=== PATIENT | male | born 1975 | race Caucasian/White ===

== ENCOUNTER 2023-05-17 22:44 | Emergency (ER) | payer BC, SELFPAY ==
[2023-05-17 22:46] VITALS: BP 170/94
[2023-05-17 23:13] LABS: % Basophils 0.5 % (0-2); % Eosinophils 2.2 % (0-6); % Lymphocytes 16.9 % (20.5-51.1); % Monocytes 8.9 % (1.7-9.3); % Neutrophils 70.5 % (42.2-75.2); Absolute Basophils 0.1 10^3/uL (0-0.2); Absolute Eosinophils 0.2 10^3/uL (0-0.7); Absolute Immature Granulocytes 0.1 10^3/uL (0-0.05); Absolute Lymphocytes 1.9 10^3/uL (1.2-3.4); Absolute Neutrophils 7.8 10^3/uL (1.4-6.5); Hemoglobin 13.6 g/dL (13.0-18.0); Mean Corp Hgb Conc. 31.6 g/dL (33.0-37.0); Mean Corpuscular Hgb 27.1 pg (27.0-31.0); Mean Corpuscular Volume 85.8 fL (80.0-94.0); Mean Platelet Volume 9.2 fL (7.4-10.4); Nucleated Red Blood Cells % 0 % (-); Platelet Count 338 10^3/uL (130-400); Red Blood Cell Count 5.01 10^6/uL (4.70-6.10); Red Cell Dist. Width 14.4 % (11.5-14.5)
[2023-05-17 23:29] LABS: ALT (SGPT) 27 U/L (0-50); AST (SGOT) 22 U/L (17-59); Albumin 4.1 g/dl (3.5-5.0); Alkaline Phosphatase 73 U/L (38-126); Blood Urea Nitrogen 13 mg/dl (9-20); Carbon Dioxide 29 mmol/L (22-30); Chloride 102 mmol/L (98-107); Glucose 108 mg/dl (70-99); Potassium 4.2 mmol/L (3.5-5.1); Sodium 139 mmol/L (135-145); Total Bilirubin 0.8 mg/dl (0.2-1.3); Total Protein 7.1 g/dl (6.3-8.2); eGFR > 60.00
--- NOTE | 2023-05-18 01:29 | ED.SKININJ ---
HPI-Injury
General
Chief Complaint: Eye Problems
Source: patient
Exam Limitations: none
Time Seen by Provider: 05/18/23 01:01
Travel History
Have you had any contact with someone who has COVID-19?: No
Do you have any symptoms of coronavirus? Fever > 100 degrees, chills, cough, shortness of breath, sore throat, loss of taste or smell, muscle aches, or headache?: No
History of Present Illness-Injury
Initial Injury comments:
47-year-old male presents complaining of redness swelling and discharge from left eye intermittently over the past year but worse over the past 2 days. He suspects that he sleeps on his left side and his eye ends up in his drool. He intermittently
gets this. This is worse than it has been in the past. He notes blurry vision. No swelling of the white part of the eye. He denies any pain with motion to the eye. No headache. No other complaints at this time
Past History
Past History
ED Past Medical History: COPD and HTN
ED Past Surgical History: Other
Social History
Tobacco: Smoker
Alcohol: Occasional
Drug: None
Personal:
Living: with family
Employment: Employed
Family History
Family History: Negative Early CAD or CAD
Phy Exam
Physical Exam
Physical Exam:
General: Well-appearing male no acute respiratory distress
HEENT: Normocephalic atraumatic. Left eye with upper eyelid swelling diffuse conjunctival inflammation and chemosis. Pupil is regular. Mild discharge. No proptosis. No discomfort with pressure over the eye.
Heart: Regular rate and rhythm no murmurs lungs: Clear to auscultation bilaterally no wheeze
Extremities: Mild pitting edema bilateral lower extremities venous stasis noted to the lower extremities
Course
Orders/Labs/Results
Orders:
Orders
05/17/23 22:59
Complete Blood Count/With Diff Urgent
Comprehensive Metabolic Panel Urgent
05/18/23 01:18
Amoxicillin 875 mg/Clav 125 mg [Augmentin 875 mg/125 mg] 1 tablet PO NOW STA
Gentamicin [Genoptic 0.3% Eye Drops] See Dose Instructions OPHTH NOW STA
Abnormal Lab Results
05/17/23
22:59
WBC 11.0 H 10^3/uL
(4.8-10.8)
MCHC 31.6 L g/dL
(33.0-37.0)
Abs Immat Gran (auto) 0.1 H 10^3/uL
(0-0.05)
Absolute Neuts (auto) 7.8 H 10^3/uL
(1.4-6.5)
Absolute Monos (auto) 1.0 H 10^3/uL
(0.1-0.6)
Immature Gran % 1.0 H %
(0-0.5)
Lymphocytes % 16.9 L %
(20.5-51.1)
Glucose 108 H mg/dl
(70-99)
05/17/23 22:59
05/17/23 22:59
Vital Signs
Initial and Last Documented VS:
Initial Vital Signs
Temp Pulse Resp BP Pulse Ox
98.3 F 110 18 170/94 109
05/17/23 22:46 05/17/23 22:46 05/17/23 22:46 05/17/23 22:46 05/17/23 22:46
Last Documented Vital Signs
Temp Pulse Resp BP Pulse Ox
98.3 F 110 18 170/94 109
05/17/23 22:46 05/17/23 22:46 05/17/23 22:46 05/17/23 22:46 05/17/23 22:46
MDM/Problems Addressed
Differential Diagnosis Includes:
Left eye irritation and swelling. Suspect underlying conjunctivitis with associated chemosis. Upper lid is swollen. No pain with motion to the eye no proptosis. Will start on antibiotic drops however given the swelling of the lid concern for
possible cellulitis. Will start also start on Augmentin. Will recommend he follow-up ophthalmology and his family doctor.
*Critical Care Note
Total Time (30-74mins, 75-104mins- exclusive of procedures): Not Applicable
ED Attending Note
-
Portions of this chart may have been created with voice recognition software.� Occasional wrong word or��sound alike� substitutions may have occurred due to the inherent limitations of voice recognition software.
Discharge Plan
Departure
Patient Disposition: Home (Routine Discharge)
Date of Disposition: 05/18/23
Time of Disposition: 01:33
Patient with high blood pressure during this ER visit?: No
Discharge Problem:
Conjunctivitis
Prescriptions:
New
amoxicillin-pot clavulanate 875-125 mg tablet
1 tab PO BID Qty: 14 0RF
No Action
furosemide [Lasix] 20 MG tablet
20 mg PO DAILY 3 Days Qty: 3 0RF
albuterol sulfate 90 mcg/actuation HFA aerosol inhaler
2 puff inhalation Q6H PRN (Reason: shortness of breath or wheezing) Qty: 6.7 0RF
prednisone 20 mg tablet
40 mg PO DAILY Qty: 8 0RF
Referrals:
Lance Casillas MD [Active] -
Activity Restrictions/Additional Instructions:
Apply warm compresses to the eye. Use drops every 4 hours while awake. Use Augmentin as directed. Return for worsening symptoms otherwise follow-up with ophthalmology and family doctor
Interventions
Interventions:
*Risk Screen - Suicide Last Done: 05/17/23 22:46
*General Assessment Last Done: 05/17/23 22:46
*Neglect/Abuse Screening Last Done: 05/17/23 22:46
*ED COVID-19 Vaccine History Last Done: 05/18/23 00:53
[2023-05-18 01:35] VITALS: BP 151/84
[2023-05-18] MEDS: AUGMENTIN 875 MG/125 MG 1 TABLET PO (01:36)
[2023-05-18] MEDS: GENOPTIC 0.3% EYE DROPS 1 DROP OPHTH (01:37)
== END 2023-05-18 01:43 | disposition home or self-care (01) ==
LOC: EMR 22:44
PROVIDERS: Emergency Medicine; EMERGENCY PHYSICIAN Emergency Medicine; FAMILY PHYSICIAN Student in an Organized Health Care Education/Training Program
DX: H10.9 Unspecified conjunctivitis (principal); F17.200 Nicotine dependence, unspecified, uncomplicated
CPT/HCPCS: 99283; 80053; 85025

== ENCOUNTER 2023-06-12 04:14 | Inpatient (IN) | payer BC, SELFPAY ==
[2023-06-11 18:38] VITALS: BP 165/99; BMI 51.9
[2023-06-11 18:53] LABS: % Basophils 0.4 % (0-2); % Eosinophils 2.4 % (0-6); % Immature Granulocytes 1.9 % (0-0.5); % Lymphocytes 10.7 % (20.5-51.1); % Monocytes 9.6 % (1.7-9.3); Absolute Basophils 0.1 10^3/uL (0-0.2); Absolute Eosinophils 0.4 10^3/uL (0-0.7); Absolute Immature Granulocytes 0.3 10^3/uL (0-0.05); Absolute Lymphocytes 1.6 10^3/uL (1.2-3.4); Absolute Monocytes 1.4 10^3/uL (0.1-0.6); Absolute Neutrophils 10.9 10^3/uL (1.4-6.5); Hematocrit 38.1 % (39.0-52.0); Hemoglobin 11.9 g/dL (13.0-18.0); Mean Corp Hgb Conc. 31.2 g/dL (33.0-37.0); Mean Corpuscular Hgb 26.9 pg (27.0-31.0); Mean Platelet Volume 9.4 fL (7.4-10.4); Nucleated Red Blood Cells % 0 % (-); Platelet Count 332 10^3/uL (130-400); Red Blood Cell Count 4.43 10^6/uL (4.70-6.10); Red Cell Dist. Width 14.7 % (11.5-14.5); White Blood Cell Count 14.5 10^3/uL (4.8-10.8)
[2023-06-11 19:14] LABS: ALT (SGPT) 25 U/L (0-50); AST (SGOT) 25 U/L (17-59); Albumin 3.8 g/dl (3.5-5.0); Alkaline Phosphatase 69 U/L (38-126); Blood Urea Nitrogen 15 mg/dl (9-20); Calcium 8.8 mg/dl (8.4-10.2); Carbon Dioxide 29 mmol/L (22-30); Chloride 101 mmol/L (98-107); Estimated Creatinine Clearance > 125 ml/min; Glucose 120 mg/dl (70-99); Sodium 133 mmol/L (135-145); Total Bilirubin 0.6 mg/dl (0.2-1.3); Total Protein 6.9 g/dl (6.3-8.2); eGFR > 60.00
[2023-06-11 21:43] VITALS: BP 147/74
[2023-06-11 22:00] VITALS: BP 131/82
--- NOTE | 2023-06-11 22:53 | ED.GENMED ---
History of Present Illness
General
Chief Complaint: Skin Problem
Source: patient, spouse, previous radiology exam (CT of the chest August 2022 showing rounded atelectasis left lower lobe, scarring left mid lung field, asymmetric left hemithorax volume loss with elevation of left hemidiaphragm.) and previous
hospital records (ED visit May 17 with complaints of left eye conjunctivitis, chronic lower extremity edema. Placed on 1 week course of oral antibiotic and antibiotic eyedrop.)
Exam Limitations: none
Time Seen by Provider: 06/11/23 22:12
Nursing documentation reviewed up to this point in time: agreed with
Travel History
Have you had any contact with someone who has COVID-19?: No
Do you have any symptoms of coronavirus? Fever > 100 degrees, chills, cough, shortness of breath, sore throat, loss of taste or smell, muscle aches, or headache?: No
History of Present Illness
History of Present Illness:
This is a 47-year-old gentleman who complains of bilateral lower extremity edema that initially began several months after suffering COVID-19 URI June 2020.
He had been following with a school leader at [facility], Dr. Camargo as well as sparker and patcher at [facility] and reportedly underwent unremarkable cardiac workup and pulmonary evaluation concerning for possible COPD. He has been
maintained on furosemide 40 mg daily and had been prescribed inhalers but without improvement in symptoms he discontinued inhalers but has been compliant with once daily furosemide.
He admits to neglecting follow-up with school leader nor sparker and patcher for more than a year.
More recently however at least over the past several months lower extremity edema has gotten progressively worse with bilateral lower extremity erythema that has worsened over the past month or 2 along with progressive dyspnea on exertion. He
states he can only walk a few feet without having to stop and catch his breath.
He admits to chronic difficulty sleeping which has worsened over the past few months.
He admits that he has, thus far refused testing for obstructive sleep apnea fearing that he would not be able to tolerate CPAP equipment.
He denies fever nor chills, denies chest pain, no cough.
He has had chronic intermittent crusting, redness and exudate from left eye and believes this is worsened due to chronically lying on his left side to sleep.
He denies headache nor eye pain, denies vision difficulty.
He was evaluated in this ED May 17 with similar complaints of left eye conjunctivitis and bilateral lower extremity edema. He was started on gentamicin eyedrops as well as 1 week course of Augmentin and according to chart, Augmentin was
prescribed for possible upper lid cellulitis.
Despite eyedrops as well as 1 week course of antibiotic, no improvement in symptoms.
He has been following with the PCP and 1 month ago was started on Lexapro for depressive symptoms
Past History
Past History
ED Past Medical History: COPD, HTN, Psychiatric (Depression) and Other (Morbid obesity; COVID-19 URI June 2020)
ED Past Surgical History: Other
Social History
Tobacco: Vaping (Former cigarette smoker, now vapes nicotine and has been cutting down)
Alcohol: Occasional
Drug: None
Personal:
Living: with family
Employment: Employed
Family History
Family History: Negative Early CAD or CAD
Phy Exam
Physical Exam
Physical Exam:
GENERAL: 47-year-old morbidly obese gentleman appears somewhat older than stated age. Awake and alert, appears mildly uncomfortable. is accompanying.
EYE: pupils equal and reactive. anicteric there is mild to moderate left eye upper lid inflammation/crusting at base of lashes. There is very minimal conjunctival injection but no chemosis. There is no orbital nor periorbital erythema nor edema.
No palpable tenderness.
NECK: Supple, nontender, no meningismus, no significant adenopathy. Positive JVD.
ENT: posterior pharynx is clear, oral mucosa is moist. No rhinorrhea.
CARDIAC: Regular rhythm, mildly tachycardic. no murmur.
LUNGS: Very mild resting tachypnea. Moderately decreased breath sounds at bases left greater than right.
ABDOMEN: Obese, soft, nondistended, without focal tenderness, no r/g, no cvat. normoactive BS.
NEUROLOGICAL: Alert and oriented x3, no focal neuro deficits.
SKIN: Warm and dry. There is dramatic global erythema bilateral lower extremities.
MUSCULOSKELETAL: Significant tense edema globally to bilateral lower extremities with global erythema bilateral lower extremities with minimal intact bullae formation right anterior montgomery and bilateral anteromedial thighs. Bilateral lower legs are
mildly warm to touch. Mild global tenderness to palpation bilateral lower extremities. There is fine desquamation of the peripheral aspect of right foot. Peripheral pulses are full and equal b/l.
PSYCH: Mildly blunted affect, depressed mood. Admits to significant frustration with ongoing, worsening medical issues.
Scores
Heart Failure Risk
Heart Failure Risk Score: Yes
History of Stroke or TIA: No
History of intubation for respiratory distress: No
Heart rate on ED arrival >/= 110: Yes
SaO2 <90% on arrival on room air: Yes
HR >/=110 during 3min walk test (or too ill to perform test): Yes
ECG has acute ischemic changes: No
Urea >/=12mmol/L (BUN 33.6mg/dL): No
Serum CO2>/=35mmol/L: No
Troponin I or T elevated to KS Level (0.4mg/dL): No
NT-proBNP >/=5,000ng/L (5,000pg/ml): No
HF Risk Score: 3
Admission Status: HIGH RISK 15.9% Consider SNF treatment or admission to hospital
Course
Orders/Labs/Results
Orders:
Orders
06/11/23 18:43
Electrocardiogram (*1) Urgent
Reason for Study: Other
Other Reason for Exam: Possible Sepsis
EKG- Treatment ONCE
06/11/23 18:48
Complete Blood Count/With Diff Urgent
Comprehensive Metabolic Panel Urgent
06/11/23 22:17
Add On- LAB Urgent
Tests Added?: BNP
06/11/23 22:51
CR Chest - 2 Views Urgent
Comment:
Reason For Exam: progressive SOB, MOORE, b/l LE edema
US Periph Venous LOWER Ext [place] Urgent
Comment:
Reason For Exam: acute on chronic b/l LE edema
06/11/23 23:02
Lactic Acid Urgent
NT-proBNP Urgent
Comment: ADD ON
Troponin I Urgent
Blood Culture Q30M
GIGI Source: Blood/Venous
Specimen Description:
06/11/23 23:37
Blood Culture Q30M
GIGI Source: Blood/Venous
Specimen Description:
06/12/23 00:14
Furosemide [Lasix] 40 mg IV NOW STA
Piperacillin/Tazo 4.5 Gram [Zosyn] 4.5 gram in 100 ml IV NOW
Abnormal Lab Results
06/11/23
18:48
WBC 14.5 H 10^3/uL
(4.8-10.8)
RBC 4.43 L 10^6/uL
(4.70-6.10)
Hgb 11.9 L g/dL
(13.0-18.0)
Hct 38.1 L %
(39.0-52.0)
MCH 26.9 L pg
(27.0-31.0)
MCHC 31.2 L g/dL
(33.0-37.0)
RDW 14.7 H %
(11.5-14.5)
Abs Immat Gran (auto) 0.3 H 10^3/uL
(0-0.05)
Absolute Neuts (auto) 10.9 H 10^3/uL
(1.4-6.5)
Absolute Monos (auto) 1.4 H 10^3/uL
(0.1-0.6)
Immature Gran % 1.9 H %
(0-0.5)
Lymphocytes % 10.7 L %
(20.5-51.1)
Monocytes % 9.6 H %
(1.7-9.3)
Sodium 133 L mmol/L
(135-145)
Glucose 120 H mg/dl
(70-99)
06/11/23 18:48
06/11/23 18:48
Vital Signs
Initial and Last Documented VS:
Initial Vital Signs
Temp Pulse Resp BP Pulse Ox
97.9 F 111 20 165/99 96
06/11/23 18:38 06/11/23 18:38 06/11/23 18:38 06/11/23 18:38 06/11/23 18:38
Last Documented Vital Signs
Temp Pulse Resp BP Pulse Ox
97.9 F 107 27 133/92 89
06/11/23 18:38 06/11/23 23:00 06/11/23 21:45 06/11/23 23:00 06/11/23 23:00
MDM/Problems Addressed
Differential Diagnosis Includes:
Concern for acute�progressive CHF, pulmonary hypertension, cellulitis bilateral lower extremity, chronic venous insufficiency, acute/chronic DVT bilateral lower extremities.
Although lower extremity edema has been chronic over the past, at least 2 years, has gotten progressively worse over the past month or 2. Due to chronicity, PE is less likely.
PE study August 2021 was negative for PE.
There is however concern for underlying obstructive sleep apnea.
Labs show elevated white blood cell count of 14.5, has trended up from 1 month ago at 11. Very mild anemia with hemoglobin of 11.9, was 13, 1 month ago. This may be a bit of delusional in nature. Nothing in history to suggest GI bleed.
Chemistries are unremarkable.
Will add BNP and troponin.
Will check venous Doppler bilateral lower extremities as well as chest x-ray.
EKG shows mild sinus tachycardia, flipped T waves laterally which are similar and unchanged from previous.
Chronic conditions affecting care: HTN
*Radiology
Radiology exam reviewed: preliminary read by ED provider (Chest x-ray shows chronic haziness left lower lobe with elevation of left hemidiaphragm-unchanged from previous film August 2022.) and other (Venous Doppler bilateral lower extremities negative
for DVT.)
*Pulse Oximetry
Patient hypoxic: yes
*EKG
Interpreted by ED Provider?: Yes
Interpretation: abnormal
Comparison EKG: no changes (Unchanged from previous August 2022 save for heart rate has increased from 96 to now 110)
Rate: tachycardiac
Rhythm: sinus
[place]: normal axis
Interval: normal interval
QRS Pattern: poor R-wave progression
Ischemia: non-specific ST changes
*Gas Meter Installer Interpretation
Rate: tachycardiac
Interpretation: abnormal
Rhythm: sinus
*Critical Care Note
Total Time (30-74mins, 75-104mins- exclusive of procedures): Not Applicable
Update Note
Update Note:
Venous Dopplers bilateral lower extremities negative for DVT.
Chest x-ray shows chronic haziness left lower lobe as well as chronic elevation of the left hemidiaphragm all unchanged from previous film August 2022.
Troponin is negative and BNP is unremarkable at 224.
Due to significant bilateral lower extremity erythema, elevated white blood cell count I do suspect cellulitis and will initiate IV antibiotics.
Significant tense edema bilateral lower extremities may be pulmonary hypertension in nature, chronic venous insufficiency. Will initiate IV Lasix to hopefully assist with edema.
Due to progressive nature, now with severe symptoms especially over the past 4 to 6 weeks with concern for significant cellulitis patient is at risk for further decompensation, at risk for sepsis thus will require acute hospitalization.
ED Attending Note
-
Portions of this chart may have been created with voice recognition software.� Occasional wrong word or��sound alike� substitutions may have occurred due to the inherent limitations of voice recognition software.
Discharge Plan
Departure
Patient Disposition: Admit
Date of Disposition: 06/12/23
Time of Disposition: 00:18
Admit to: Med/Surg
Admit to doctor: Yang
Presentation/result/management discussed w/ accepting MD/DO: Hospitalist
Condition: Fair
Discharge Problem:
Cellulitis of both lower extremities, progressive, severe b/l LE edema, Blepharitis of both upper and lower eyelid of left eye, Morbid obesity with BMI of 50.0-59.9, adult
Prescriptions:
No Action
fluticasone propionate 0.05 % Cream
1 applic TOPICAL DAILY PRN (Reason: apply to B/L legs)
gentamicin 0.3 % Drops
4 drp LEFT EYE DAILY
gentamicin 0.3 % Drops
4 drp LEFT EYE DAILYPRN PRN (Reason: eye irritation)
Patient Comments:
06/11/2023, after naps.
escitalopram oxalate 5 mg Tablet
5 mg PO DAILY@1500
Trelegy Ellipta 100-62.5-25 mcg Blister With Device
1 inh INHALATION R DAILY
ZzzQuil
2 gummy PO HS
furosemide [Lasix] 20 MG tablet
40 mg PO DAILY
Referrals:
Francis Leal MD [Family Provider] -
Interventions
Interventions:
*Risk Screen - Suicide Last Done: 06/11/23 18:38
*General Assessment Last Done: 06/11/23 21:38
*Neglect/Abuse Screening Last Done: 06/11/23 18:38
ED- Fall Risk Assessment Last Done: 06/11/23 21:44
*ED COVID-19 Vaccine History Last Done: 06/11/23 18:38
ED-Skin Assessment Last Done: 06/11/23 21:44
Discharge Date and Time
Print Language: IRISH
[2023-06-11 23:00] VITALS: BP 133/92
[2023-06-11 23:27] LABS: Lactic Acid 0.8 mmol/L (0.7-2.0)
[2023-06-11 23:39] LABS: NT-proBNP 224 pg/ml; Troponin I < 0.012 ng/ml
[2023-06-12] VITALS (11 sets, daily range): BP systolic 122–180; BP diastolic 73–100; PULSE 2–112; BMI 53.0
[2023-06-12] MEDS: ZOSYN 100 IV (00:20)
[2023-06-12] MEDS: LASIX 40 MG IV ×3 (00:45→15:53)
--- NOTE | 2023-06-12 03:02 | HPS.HSE ---
Family Physician
-
Family Physician: Francis Leal
Chief Complaint
-
LE edema, SOB
History of Present Illness
Patient is a 47y M with PMH significant for morbid obesity who presents to ED complaining of lower extremity swelling, fatigue and SOB. Patient states that his symptoms started initially in 2020 after kamila COVID-19 infection. He did have
some improvement since that time, but notes that his symptoms began to increase again a few months ago.
Patient complains of swelling in the LEs that has increased to the level of his hips. He complains of significant dyspnea with any degree of activity. He notes some chest heaviness with activity as well.
He denies any cough or wheezing, fevers or chills.
He denies and GI or symptoms.
Patient states that he has been seen by Cardiology (at [facility]) as well as Pulmonary and - per his report - work up was unrevealing.
Sleep study has been suggested to him but he is not interested in this.
He also notes chronic / recurrent L eye redness and purulent discharge. Was seen here for this on 05/16 and started on gentamicin topical with some improvement.
Patient complains of insomnia, but no specifically orthopnea. Denies dyspnea when sleeping, PND, etc - but states that he just cannot sleep.
Medical History
Past Medical History
Past Medical History: Reports Other
Additional Past Medical History:
Morbid Obesity
Anxiety / Depression
Lymphedema
Past Surgical History: Reports Other
Additional Past Surgical History:
Testicle Lowering in Childhood
Social History
Tobacco: Former Smoker (Quit smoking cigarettes one year ago. > 20 pack years total prior. Continues to use occasional vape.)
Alcohol: Occasional
Drug: None
Family History
Family History: Not pertinent
Allergies / Home Medications
Allergies reflects when Allergies were last updated in [facility].
Home Medications with original date entered in [facility]
Allergy/Medication List:
Allergies
Allergy/AdvReac Type Severity Reaction Status Date / Time
No Known Allergies Allergy Verified 06/11/23 18:42
Home Medications
ZzzQuil 2 gummy PO HS 06/11/23
escitalopram oxalate 5 mg tablet 5 mg PO DAILY@1500 06/11/23
fluticasone fur. 100 mcg-umeclid 62.5 mcg-vilant 25 mcg inhalat.powder (Trelegy Ellipta) 1 inh inhalation R DAILY 06/11/23
fluticasone propionate 0.05 % topical cream 1 applic topical DAILY PRN apply to B/L legs 06/11/23
furosemide 20 mg tablet (Lasix) 40 mg PO DAILY 06/11/23
gentamicin 0.3 % eye drops 4 drp LEFT EYE DAILY 06/11/23
gentamicin 0.3 % eye drops 4 drp LEFT EYE DAILYPRN PRN eye irritation 06/11/23
Review of Systems
-
History Source: Patient
A 12 point ROS was completed and negative except as noted: Yes
Constitutional: Reports Fatigue; Denies Fever or Chills
EENT: Denies Sore Throat
Respiratory: Reports Trouble Breathing; Denies Cough or Hemoptysis
Cardiac: Reports Chest Pain; Denies Diaphoresis, Palpitations or Syncope
Abdomen/GI: Denies Abdominal Pain, Nausea, Vomiting or Diarrhea
: Denies Dysuria, Frequency or Flank Pain
Musculoskeletal: Reports Edema; Denies Joint Pain or Joint Swelling
Neurological: Denies Dizzy or Headache
Psych: Reports Anxiety and Other (Insomnia)
Physical Exam
Vital Signs
Vital Signs
Temp Pulse Resp BP Pulse Ox
99.1 F 101 24 122/84 94
06/12/23 02:26 06/12/23 02:26 06/12/23 02:26 06/12/23 02:26 06/12/23 02:26
Physical Exam
General: Other (Morbidly obese 47y M in no acute distress. Evident dyspnea with minimal activity.)
HEENT: Other (Thick neck. No appreciable JVD.)
Respiratory: Other (Decreased at bases - otherwise clear. No W/R/R.)
Cardiac: S1/S2 and Tachycardia; No Murmur
GI: Non Tender, Normal Bowel Sounds and Other (Obese, not tender. No rebound / guarding.)
Musculoskeletal: No Clubbing, No Cyanosis and Other (4+ pitting edema to the hips / lower abdomen bilaterally. Mild erythema - but not indurated and no increased warmth or tenderness. No blisters / bullae.)
Neuro: AO x 3
Laboratory Results
-
06/11/23 18:48
06/11/23 18:48
Laboratory Results
Lactic Acid 0.8 mmol/L (0.7-2.0) 06/11/23 23:02
Total Bilirubin 0.6 mg/dl (0.2-1.3) 06/11/23 18:48
AST 25 U/L (17-59) 06/11/23 18:48
ALT 25 U/L (0-50) 06/11/23 18:48
Alkaline Phosphatase 69 U/L (38-126) 06/11/23 18:48
Troponin I < 0.012 ng/ml 06/11/23 23:02
Impression/Plan
-
A/P: Patient is a 47y M with PMH significant for morbid obesity who presents to ED complaining of dyspnea and LE swelling progressive x several months.
Acute on Chronic Lymphedema
Acute Hypoxemic Respiratory Insufficiency
- Admit for further evaluation and treatment.
- IV Lasix given in the ED and will continue BID dosing.
- Check Echo.
- Cardio evaluation.
- ? OHV / KAEL and resultant pulm hypertension / right heart failure?
- Follow for effective diuresis.
- Supportive care, supplemental O2 as needed, etc.
- Check nocturnal SpO2 during stay and would continue to encourage outpatient PSG / PAP therapy.
- I do not appreciate any significant warmth / etc of the extremities and would observe off of systemic abx for now.
COPD
- Patient with smoking history and ongoing vape use.
- Budesonide BID. Nebs PRN.
- Consider Pulm re-evaluation if symptoms worsen or persist.
- No active wheezing at present to suggest acute exacerbation.
L Eye Conjunctivitis
- Continue gentamicin.
Anxiety / Depression
Insomnia
- Continue Lexapro
Morbid Obesity
- Affects all aspects of care and specifically his current dyspnea and lymphedema issues.
- Effective weight loss would be most beneficial to his current issues.
- Encourage healthy diet / increased activity with goal of weight reduction.
- Would consider medical and / or surgical options as well given comorbidities.
DVT Prophylaxis: Lovenox
Code Status: Full
[2023-06-12] MEDS: ATIVAN 1 MG PO (04:21)
[2023-06-12] MEDS: LOVENOX 40 MG SC (04:29)
[2023-06-12 06:23] LABS: Hematocrit 39.9 % (39.0-52.0); Hemoglobin 12.4 g/dL (13.0-18.0); Mean Corp Hgb Conc. 31.1 g/dL (33.0-37.0); Mean Corpuscular Hgb 26.7 pg (27.0-31.0); Mean Platelet Volume 9.3 fL (7.4-10.4); Platelet Count 358 10^3/uL (130-400); Red Blood Cell Count 4.64 10^6/uL (4.70-6.10); White Blood Cell Count 15.1 10^3/uL (4.8-10.8)
[2023-06-12 06:41] LABS: Troponin I < 0.012 ng/ml
[2023-06-12 06:49] LABS: ALT (SGPT) 25 U/L (0-50); AST (SGOT) 20 U/L (17-59); Albumin 3.9 g/dl (3.5-5.0); Alkaline Phosphatase 73 U/L (38-126); Blood Urea Nitrogen 14 mg/dl (9-20); Calcium 8.8 mg/dl (8.4-10.2); Carbon Dioxide 32 mmol/L (22-30); Chloride 99 mmol/L (98-107); Direct Bilirubin 0.2 mg/dl (0.0-0.4); Estimated Creatinine Clearance > 125 ml/min; Glucose 113 mg/dl (70-99); Potassium 4.2 mmol/L (3.5-5.1); Sodium 135 mmol/L (135-145); Total Bilirubin 0.8 mg/dl (0.2-1.3); Total Protein 6.9 g/dl (6.3-8.2); eGFR > 60.00
[2023-06-12] MEDS: DUONEB 3 ML INH (07:19)
[2023-06-12] MEDS: PULMICORT 0.5 MG INH ×2 (07:19→19:54)
--- NOTE | 2023-06-12 07:39 | EDRN ---
Pt cooperative at this time,agreeable to wear automatic log cut off sawyer and this RN to take Vital signs.
[2023-06-12 08:04] LABS: TSH Reflex To Free T4 5.07 uIU/ml (0.47-4.68)
[2023-06-12 08:33] LABS: Free T4 1.16 ng/dl (0.78-2.19)
[2023-06-12] MEDS: LOVENOX 60 MG SC ×2 (08:38→21:36)
[2023-06-12] MEDS: GENOPTIC 0.3% EYE DROPS 4 DROP LEFT EYE (08:39)
[2023-06-12 08:49] LABS: Glycohemoglobin (HgbA1c) 6.4 % (4.0-5.6)
--- NOTE | 2023-06-12 08:55 | CON.CAR ---
Addendum entered and electronically signed by Romeo Olmedo MD 06/12/23 12:43:
I saw and examined the patient.
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
Comment: 47M with morbid obesity (BMI >50) admitted with dyspnea and worsening LE edema
- update echo
- diurese
- He and his partner are dissatisfied with his care as an outpatient. It seems that the focus on his weight is distressing to them because his size and orthopedic issues limit exercise. Perhaps he would be candidate for GLP or bariatric surgery
- He is intolerant to CPAP for his KAEL or BB for ST
Original Note:
Consultation
Consultation Request
Date/Time Consultation Requested: 06/12/23416
Date/Time Consultation Performed: 06/12/23916
Requesting Provider: Dr. Soria
Performing Provider: Claudette SALVADOR for Dr. Olmedo
Reason for Consultation: edema, hypoxemia
Medical History
-
Chief Complaint: SOB, edema
History of Present Illness:
47 y/o male with hypertension, inappropriate sinus tachycardia (64% burden per Dr. 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
several weeks of MOORE and worsening edema, which traveled up to his abdomen. He thinks he has gained weight, but not sure how much. He denies orthopnea or PND, but thinks he is struggling with insomnia. BNP 224, CXR with evidence for scarring. Pulse
ox documented at 89% in ER, but now 94% on RA.
Past Medical History
Past Medical History: Arrhythmias (as above), HTN and Other (oesity, lymphedema, depression, restictive lung disease)
Social History
Tobacco: Former Smoker (quit about a year ago, still vapes occasionally)
Alcohol: Occasional
Family History
Family History: Reviewed & Not Pertinent (no known early CAD)
Allergies / Home Medications
Allergy/AdvReac Type Severity Reaction Status Date / Time
No Known Allergies Allergy Verified 06/11/23 18:42
�Medication �Instructions �Recorded �Confirmed �Type
ZzzQuil 2 gummy PO HS 06/11/23 06/11/23 History
escitalopram oxalate 5 mg tablet 5 mg PO DAILY@1500 06/11/23 06/11/23 History
fluticasone fur. 100 mcg-umeclid 1 inh inhalation R DAILY 06/11/23 06/11/23 History
62.5 mcg-vilant 25 mcg
inhalat.powder (Trelegy Ellipta)
fluticasone propionate 0.05 % 1 applic topical DAILY PRN apply 06/11/23 06/11/23 History
topical cream to B/L legs
furosemide 20 mg tablet (Lasix) 40 mg PO DAILY 06/11/23 06/11/23 History
gentamicin 0.3 % eye drops 4 drp LEFT EYE DAILY 06/11/23 06/11/23 History
gentamicin 0.3 % eye drops 4 drp LEFT EYE DAILYPRN PRN eye 06/11/23 06/11/23 History
irritation
Review of Systems
-
History Source: Patient
All other systems: Negative unless noted
Constitutional: Weight Gain
Respiratory: Trouble Breathing
Musculoskeletal: Edema
Physical Exam
Vital Signs
Temp Pulse Resp BP Pulse Ox
99.1 F 102 24 153/73 94
06/12/23 02:26 06/12/23 08:39 06/12/23 02:26 06/12/23 08:39 06/12/23 02:26
Lab Results
06/12/23 06:05
06/12/23 06:05
Troponin I < 0.012 ng/ml 06/12/23 06:05
Cck-M-Djnscpjaxpg Pept 224 pg/ml 06/11/23 23:02
Physical Exam
General: Well Developed and No Apparent Distress
HEENT: Normocephalic
Respiratory: Clear and Non Labored Respirations
Cardiac: Regular Rhythm and Peripheral Edema
GI: Distended
Musculoskeletal: Edema (moderate BLE edema)
Skin: Warm and Dry
Neuro: AO x 3
Psych: Calm
Impression / Plan
-
SOB:
-likely multifactorial in this patient with obesity and restrictive lung disease
-hypoxemia documented in ER, but now with sats okay on RA
-check echo
-OP notes reviewed from pul and likely has sleep apnea, but no official work-up done yet due to patient declining per notes
Edema:
-LE u/s no DVT
-patient with BLE edema, which has traveled up to his abdomen
-monitor response to IV lasix (requires intensive monitoring) and check echo. He is on daily lasix as OP.
-does have some component of chronic lymphedema as well per chart
Obesity, severe:
-would benefit from weight loss
Left eye conjunctivitis:
-on meds
Hx inappropriate sinus tachycardia:
-per OP notes, was on BB, but patient tells me he didn't think it helped and didn't like side effects
-follow tele
HTN:
-per OP notes, was on BB, but patient tells me he didn't think it helped and didn't like side effects
-follow BP with diuresis and treat as indicated
Data Reviewed
-
EKG: Tracing Personally Visualized and interpreted (ST 110 BPM, t wave abnormality- similar to previous)
Radiology: Report Reviewed by me (CXR: 1. No acute pulmonary abnormalities appreciated. 2. Blunting of the left costophrenic angle, which likely corresponds to pleural parenchymal scarring and volume loss within the left hemithorax, also seen on
prior CT dated 03/25/2022)
Ultrasound: Report Reviewed by me (LE US: No gross evidence of deep venous thrombosis bilaterally. Limited exam due to patient size and body habitus.)
Medical Tests (Nuc Med, Echo etc): Report Reviewed by me ([facility] TTE (10/05/21): normal LV and RV systolic function; LVEFR 60-65%; normal cardiac chambers sizes; no significant valvular heart disease.) and Other (�������- [facility] pharmacologic nuclear
cardiac stress test (09/11/21): normal perfusion imaging; no evidence of pharmacologic-induced myocardial ischemia or myocardial scar; LVEF 69%; normal LV wall motion and systolic function.)
Labs: Labs Reviewed by me
--- NOTE | 2023-06-12 10:11 | W.PN.HOSP.TC ---
Today's Communication/Plan
-
See plan
Assessment / Plan
Assessment / Plan
Impression:
Acute on chronic lymphedema with bilateral stasis cellulitis
Acute hypoxemic respiratory insufficiency.
Morbid obesity.
Restrictive lung disease
Snoring with high suspicion for obstructive sleep apnea/obesity hypoventilation disorder.
Chronic ambulatory metabolic alkalosis
Hypertension.
Eye conjunctivitis.
Anxiety/depression
Insomnia.
Tobacco use disorder former cigarette smoker, vaping nicotine.
Plan
Acute hypoxemic respiratory insufficiency.
Acute on chronic lymphedema with stasis dermatitis.
No evidence for respiratory distress.
Patient currently at rest with satisfactory oxygen saturations with no requirements for supplemental oxygen.
Chest x-ray with no acute abnormalities
In review of CT scan from 2022 showed multiple atelectasis.
Lower extremity Doppler with no DVT.
D-dimer within normal limits.
Patient with morbid obesity BMI 51, insomnia, short neck, findings most likely consistent with obesity hypoventilation disorder, obstructive sleep apnea.
In review of outpatient records, patient declined sleep studies with concern of inability to wear mask at night.
Given all of above, there is a significant risk for pulmonary hypertension cor pulmonale.
Check echocardiogram.
Check nocturnal O2
Cardiology consultation.
Check hemoglobin A1c and lipid panel.
Attempt of IV diuresis Lasix 40 mg IV twice daily monitoring metabolic alkalosis closely.
Chronic lower extremity lymphedema will have limited response to IV Lasix in current situation.
Extensive conversation in regards to lifestyle modification, weight loss, attempt of sleep evaluation, quitting tobacco. Patient frustrated and not receptive to suggestions.
COPD/restrictive lung disease according to outpatient PFTs.
No evidence of bronchospasm on exam
Patient with ongoing tobacco smoking history and ongoing vaping use
Continue budesonide twice daily. Continue nebs as needed.
Consider pulmonology evaluation.
L Eye Conjunctivitis
- Continue gentamicin.
Anxiety / Depression
Insomnia
- Continue Lexapro
Morbid Obesity
- Affects all aspects of care and specifically his current dyspnea and lymphedema issues.
- Effective weight loss would be most beneficial to his current issues.
- Encourage healthy diet / increased activity with goal of weight reduction.
- Would consider medical and / or surgical options as well given comorbidities.
DVT Prophylaxis: Lovenox
Code Status: Full
Anticipated Discharge: 24 - 48 hours
Subjective/Interval History
-
Date of Service: June 12, 2023
Objective Data
-
Labs:
Laboratory Results
06/12/23
06:05
WBC 15.1 H
Hgb 12.4 L
Hct 39.9
Plt Count 358
Sodium 135
Potassium 4.2
Chloride 99
Carbon Dioxide 32 H
BUN 14
Creatinine 0.9
Glucose 113 H
Calcium 8.8
Total Bilirubin 0.8
AST 20
ALT 25
Alkaline Phosphatase 73
Vital Signs:
Vital Signs
Temp Pulse Resp BP Pulse Ox
99.1 F 102 24 153/73 94
06/12/23 02:26 06/12/23 08:39 06/12/23 02:26 06/12/23 08:39 06/12/23 02:26
I&O
06/11/23 06/12/23 06/13/23
06:59 06:59 06:59
Output Total 800 / 800
Balance -800 / -800
Physical Exam
-
General: Well Developed, No Apparent Distress and Morbidly Obese
HEENT: Normocephalic, Atraumatic and Moist Mucous Membranes
Respiratory: Clear to Auscultation and Decreased Breath Sounds
Cardiac: Regular Rhythm and S1/S2; Negative Murmur, Rub or Gallop
GI: Soft, Nontender, Nondistended and Normal Bowel Sounds; Negative Organomegaly
Rectal: Deferred by Provider
Musculoskeletal: No Clubbing, No Cyanosis and No Edema
Skin: Negative Rash
Neuro: Awake, Alert, Oriented, AO x 3 and Nonfocal/Grossly Intact
--- NOTE | 2023-06-12 10:18 | CARDSERVLU ---
Echocardiogram with Lumason completed after protocol screening completed. Allergies verified.
Patent IV site: _Right antecubital ____
IV site flushed with 0.9% NaCl pre and post administration.
Diluted bolus method utilized to enhance visualization of ventricular mandujano.
Total volume given: ___3_ mL
Patient tolerated all procedures well without complications.
Note- procedure and Lumason given by Yin Santos microbiology lab technician
--- NOTE | 2023-06-12 10:28 | W.PN.HOSP.TC ---
Today's Communication/Plan
-
.
Assessment / Plan
Assessment / Plan
Impression:
Dyspnea
Chronic lymphedema with bilateral stasis cellulitis
Morbid obesity
Restrictive lung disease
Obstructive sleep apnea/obesity hypoventilation disorder.
Chronic ambulatory metabolic alkalosis
Hypertension.
Eye conjunctivitis.
Anxiety/depression
Insomnia.
Tobacco use disorder former cigarette smoker, vaping nicotine.
Plan
#Dyspnea
Patient saturating at 94% at room air
Chest x-ray with no acute abnormalities
In review of CT scan from 2022 showed multiple atelectasis.
Lower extremity Doppler with no DVT.
D-dimer within normal limits.
Patient with morbid obesity BMI 51, insomnia, short neck, findings most likely consistent with obesity hypoventilation disorder, obstructive sleep apnea.
In review of outpatient records, patient declined sleep studies with concern of inability to wear mask at night.
Acute on chronic lymphedema with stasis dermatitis.
Likely at risk of pulmonary arterial hypertension/cor pulmonale
Check echo
Check nocturnal O2
Cardiology consultation.
Check hemoglobin A1c and lipid panel.
Lasix 40 mg IV twice daily
Extensive conversation in regards to lifestyle modification, weight loss, attempt of sleep evaluation
COPD/restrictive lung disease according to outpatient PFTs.
No evidence of bronchospasm on exam
Patient with tobacco smoking history and ongoing vaping use
Continue budesonide twice daily.
Continue nebs as needed.
Consider pulmonology evaluation.
#L Eye Conjunctivitis
Continue gentamicin.
#Anxiety / Depression
Insomnia
Continue Lexapro
#Morbid Obesity
DVT Prophylaxis: Lovenox
Code Status: Full
Anticipated Discharge: 24 - 48 hours
Subjective/Interval History
-
Date of Service: June 12, 2023
Patient is dyspneic at rest. He states he is not comfortable using CPAP.
Objective Data
-
Labs:
Laboratory Results
06/12/23
06:05
WBC 15.1 H
Hgb 12.4 L
Hct 39.9
Plt Count 358
Sodium 135
Potassium 4.2
Chloride 99
Carbon Dioxide 32 H
BUN 14
Creatinine 0.9
Glucose 113 H
Calcium 8.8
Total Bilirubin 0.8
AST 20
ALT 25
Alkaline Phosphatase 73
Vital Signs:
Vital Signs
Temp Pulse Resp BP Pulse Ox
99.1 F 102 24 153/73 94
06/12/23 02:26 06/12/23 08:39 06/12/23 02:26 06/12/23 08:39 06/12/23 02:26
I&O
06/11/23 06/12/23 06/13/23
06:59 06:59 06:59
Output Total 800 / 800
Balance -800 / -800
Review of Systems
-
All other systems: Reviewed and negative (Except as mentioned above)
Physical Exam
-
General: Well Developed and Well Nourished
HEENT: Normocephalic and Atraumatic
Respiratory: Clear to Auscultation
Cardiac: S1/S2
Musculoskeletal: Other (Bilateral lower extremity edema)
Skin: Warm and Dry
Neuro: Awake, Alert, Oriented and AO x 3
[2023-06-12 11:00] LABS: Troponin I < 0.012 ng/ml
[2023-06-12 11:07] LABS: HDL Cholesterol 40 mg/dl; LDL Cholesterol, Calculated 93 mg/dl; Total Cholesterol 154 mg/dl (50-199); Triglyceride 105 mg/dl (10-149); Very Low Density Lipoprotein 21 mg/dl (0-30)
--- NOTE | 2023-06-12 12:55 | CON.PUL ---
Consultation
Consultation Request
Date/Time Consultation Requested: 06/12/23
Date/Time Consultation Performed: 06/12/23
Performing Provider: Jacquie
Reason for Consultation: KAEL/OHS
Medical History
-
History of Present Illness:
Patient is a 47 year old M with PMH significant for morbid obesity, suspected KAEL, chronic SOB, smoker who presents to ED complaining of lower extremity swelling, fatigue and SOB. states that his symptoms started initially in 2020 after
kamila COVID-19 infection. She notes that he has been steadily worsening since then, patient had refused to speak or give history.
Patient complains of pain and swelling in bilateral LEs, his legs are erythematous and swollen up to groin bilaterally. He notes that they are painful with claudication.
He complains of significant dyspnea with any degree of activity. He notes some chest heaviness with activity as well. He has been seen in our office with PFTS indicating mixed pattern, moderately reduced. Suspected of having COPD and restrictive
lung disease from his morbid obesity.
He complains of insomnia and EDS.
Sleep study has been suggested to him but he is not interested in this. BIPAP was attempted in ER but he became aggressive and ran to bathroom crying. He has aggressively refused and asked RT to leave room.
He has threatened several times to leave AMA.
Past Medical History
Past Medical History: Other (see list below)
Social History
Tobacco: Smoker
Alcohol: None
Drug: Other (Vape use)
Family History
Family History: Reviewed & Not Pertinent
Allergies / Home Medications
Allergies
Allergy/AdvReac Type Severity Reaction Status Date / Time
No Known Allergies Allergy Verified 06/11/23 18:42
Home Medications
�Medication �Instructions �Recorded �Confirmed �Last Taken �Type
ZzzQuil 2 gummy PO HS 06/11/23 06/11/23 06/10/23 History
escitalopram oxalate 5 mg tablet 5 mg PO DAILY@1500 06/11/23 06/11/23 06/11/23 History
fluticasone fur. 100 mcg-umeclid 1 inh inhalation R DAILY 06/11/23 06/11/23 06/10/23 History
62.5 mcg-vilant 25 mcg
inhalat.powder (Trelegy Ellipta)
fluticasone propionate 0.05 % 1 applic topical DAILY PRN apply 06/11/23 06/11/23 06/11/23 History
topical cream to B/L legs
furosemide 20 mg tablet (Lasix) 40 mg PO DAILY 06/11/23 06/11/23 06/11/23 History
gentamicin 0.3 % eye drops 4 drp LEFT EYE DAILY 06/11/23 06/11/23 06/10/23 History
gentamicin 0.3 % eye drops 4 drp LEFT EYE DAILYPRN PRN eye 06/11/23 06/11/23 Unknown History
irritation
Review of Systems
Vitals / Labs / Diagnostic Testing
Vital Signs
Temp Pulse Resp BP Pulse Ox
99.1 F 111 23 153/73 89
06/12/23 02:26 06/12/23 10:29 06/12/23 08:00 06/12/23 08:39 06/12/23 08:00
Lab Data
06/12/23 06:05
06/12/23 06:05
Diagnostic Testing:
Physical Exam
-
HEENT: Normocephalic, Anicteric and Moist Mucous Membranes
Cardiovascular: S1/S2, Regular Rhythm, Peripheral Edema (erythema up to groin) and Calf Tenderness
Respiratory: Clear and Non-Labored Respirations
GI: Soft, Non Distended and Non Tender
Neurology: Awake, Alert, Oriented, AO x 3, No Motor Deficits and Other (anxious, agitated, and aggressive)
Skin: Warm and Dry
General: Comfortable and Other (NAD)
Assessment
-
Patient is a 47 year old M with PMH significant for morbid obesity, suspected KAEL, chronic SOB, smoker who presents to ED complaining of lower extremity swelling, fatigue and SOB. states that his symptoms started initially in 2020 after
kamila COVID-19 infection. She notes that he has been steadily worsening since then, patient had refused to speak or give history. Patient complains of pain and swelling in bilateral LEs, his legs are erythematous and swollen up to groin
bilaterally. He notes that they are painful with claudication. We are asked for eval of SOB and possible KAEL/OHS.
Acute on chronic SOB
Subacute LE pain/swelling, erythema to groin concerning for cellulitis vs vasc compromise
Claudication
Undiagnosed KAEL/OHS suspected
Metabolic alkalosis
Noncompliance
Smoker, vape use
Leukocytosis
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
Primary hypertension
Snoring
COPD likely
Restrictive lung disease
2021 - FVC 3.09/59%, FEV1 2.49/61%, ratio 81%, TLC 5.07/71% (mixed pattern/moderately reduced/mild restriction)
Decreased diffusion capacity of lung
Chronic LLL atelectasis
Cigarette smoker -- 20+ pack years, still smoking few cigs on/off per
Vaping nicotine dependence, tobacco product
Morbid (severe) obesity due to excess calories, BMI 51.9
Plan
No oxygen was needed on admission, currently saturating 92% on RA
Prior history of lung disease is noted --
Was seen in our office in 2021
PFTS indicating mixed pattern, moderately reduced. Suspected of having COPD and restrictive lung disease from his morbid obesity.
He complains of insomnia and EDS.
Sleep study has been suggested to him but he is not interested in this.
BIPAP was attempted in ER but he became aggressive and ran to bathroom crying. He has aggressively refused and asked RT to leave room.
He has threatened several times to leave AMA.
VBG baseline pending, he refused ABG
CXR obtained indicating chronic LLL atelectasis, this has been present since CT scan in 2021
Other imaging reviewed
Current smoker, notes he is still smoking on/off
Total usage >20 pack years
Would need yearly lung cancer screening at age 52
LLL atelectasis has been unchanged, but may need outpatient assessment given persistence
ECHO results reviewed--normal study
proBNP not highly suggestive of volume overload
B/L LE swelling would most concern me for vasc disease vs acute cellulitis
He does have leukocytosis but no fever
Await blood culture results
Consider ABIs
Would possibly benefit from psych eval, he has declined
Anxiety/depression very obvious
He is not clearly treated well
Will need outpatient pulmonary evaluation in our office for PFTs and 6MWT
Reviewed with patient
Risk factors assessed for underlying sleep disordered breathing also noted, recommend outpatient PSG/sleep evaluation
Smoking history noted
Smoking cessation
Weight loss measures recommended
Obesity contributing to respiratory symptoms
We will follow
Diagnostic Data
Chest X-Ray:
CXR 08/14/2022: Findings likely representing volume loss with some chronic pleural/parenchymal changes in the left hemithorax
CXR 08/06/21 at Urgent Care: possible small left pleural effusion vs pleural parenchymal scarring at the left lung base.
CT Scan:
CT chest 03/25/2022: Stable exam. Chronic asymmetric volume loss involving the left hemithorax. Minor linear parenchymal scarring. Findings most consistent with stable peripheral round atelectasis.
CT Chest PE study 08/21/21: no PE. overall mild volume loss in the left hemithorax with areas of subsegmental atelectasis some of which are somewhat rounded in configuration, additional minor areas of left lung groundglass opacification, non specific.
Echo: 06/12/23- Technically difficult study - contrast used. Normal left ventricular size and systolic function. LV ejection fraction is 55-60%. No significant valvular disease. No prior study available for comparison.
PFT's: [place] 08/16/22: FVC 2.60/50%, FEV1 2.17/53%, ratio 84%, no significant BD response. Suggestive of moderate restrictive lung disease.
�������PFT 8/4/22: FVC 3.09/59%, FEV1 2.49/61%, ratio 81%, TLC 5.07/71%, DLCO 20.89/65%, DLCO/VA 4.38/97%. Moderate restriction and mildly reduced diffusing capacity.
�������[place] 09/07/21: FVC 2.98/55%, FEV1 2.36/56%, ratio 79%, no significant BD response, moderate restrictive pattern.
6 MWT:
������ 6MWT 08/16/22: At rest, O2 98% on room air, heart rate 95. With ambulation, O2 jesica 96%, max heart rate 119. 2/10 on dyspnea scale. Ambulated 900 feet.
�������6MWT 09/07/21: At rest, O2 99% on room air, HR 108. With ambulation, desaturation jesica 97% on room air, max HR 130. 4/10 on dyspnea scale. ambulated 1125 ft.
Reports and relevant images were personally reviewed.
--- NOTE | 2023-06-12 14:48 | RESPNOTE ---
Attempts made to place patient on ordered Bipap. immediately ' No get it off of me I cant do that. ' Mask never made it onto patients face. Patient went into bathroom. Waited for patient to return and offered alternative mask patient tearful and
yelling ' I am not doing this, turn the lights on I will never sleep.' patient and Bipap machine left bedside, RN aware.
[2023-06-12 16:26] LABS: Venous Blood Gas B.E. 8.8 mmol/L (-4 to +4); Venous Blood Gas HCO3 36.1 mmol/L (22-27); Venous Blood Gas pCO2 61 mmHg (35-48); Venous Blood Gas pH 7.38 (7.32-7.43); Venous Blood Gas pO2 57 mmHg (30-50)
--- NOTE | 2023-06-12 16:39 | PTCARENOTE ---
pt received on 3W floor from ED to room 339-1. Oriented to room, assessment done. Pt very SOB, respirations 28, pulse ox 86%, applied O2 @5L NC, now at 91%, pt stated he feels some relief and less frantic. Dr Roger aware. Continue with plan of
40mg lasix BID for now. Call brizuela within reach. Pt currently resting in armchair, minor complaints about hospitals in general.
[2023-06-12 16:50] LABS: Troponin I < 0.012 ng/ml
[2023-06-12] MEDS: ATIVAN 1 MG IV (17:53)
[2023-06-12] MEDS: NSS (PRESERVATIVE FREE) 0.5 ML IV (17:54)
[2023-06-12] MEDS: ANCEF 5 IV (18:04)
--- NOTE | 2023-06-12 18:13 | RESPNOTE ---
2 nd attempt made for bipap placement with different under the nose mask.
placed pt on 12/05 keeping tidal volume greater then 350 and titrating for pt's comfort as order by . 5 lpm of 02 is bleed in through bipap.
pt got aggressive when mask applied stating some obscenities and no one here seems to know what is going on . at bedside trying to calm pt down.
nurse gave him Ativan as order for comfort for bipap
waiting for transfer to IMU
pt seems to tolerate bipap okay at this time after calming words from and Ativan.
--- NOTE | 2023-06-12 20:23 | TRANSFER ---
Received report from dayshift RN. Transfer order in for IMU level of care, nursing supervisor grounds informed this RN no beds available in IMU, pt to be transferred to ICU. Report called to SALES SUPPORT ADVISOR. This RN and respiratory therapist transferred pt to ICU
via wheelchair. Significant other at bedside.
[2023-06-12] MEDS: LEXAPRO 5 MG PO (20:31)
--- NOTE | 2023-06-12 22:00 | PTCARENOTE ---
Pt arrived from [facility] via w/c on 4L NC. Pt sitting in lounge chair initially and asked to eat dinner before being put on bipap. Pt maintained sat while eating. Pt then back to bed and sat remained 97%. Pt MOORE and orthopneic. Assessment as charted.
Pt placed pt on bipap. Current settings 18/8 with O2 2l and sat is 93%. Will continue to monitor.
[2023-06-13] VITALS (16 sets, daily range): BP systolic 116–186; BP diastolic 69–105; PULSE 2–100; BMI 51.8
[2023-06-13] MEDS: ANCEF 5 IV ×2 (01:09→10:14)
[2023-06-13] MEDS: ATIVAN 1 MG IV (01:17)
[2023-06-13] MEDS: NSS (PRESERVATIVE FREE) 0.5 ML IV (01:17)
--- NOTE | 2023-06-13 01:39 | PTCARENOTE ---
Pt woke up and removed bipap, became very upset that was not there. Placed on O2 2l NC and sats remained >95%. Pt called and was very upset, crying on the phone. Pt threatening to leave AMA. Devante SALVADOR texted. Pt med with ativan 1mg IV and
is now much more calm, agreeing to stay for now. Resp here and reapplied bipap.
[2023-06-13 05:59] LABS: % Basophils 0.6 % (0-2); % Eosinophils 2.6 % (0-6); % Immature Granulocytes 1.7 % (0-0.5); % Lymphocytes 11.1 % (20.5-51.1); % Monocytes 11.3 % (1.7-9.3); % Neutrophils 72.7 % (42.2-75.2); Absolute Basophils 0.1 10^3/uL (0-0.2); Absolute Eosinophils 0.4 10^3/uL (0-0.7); Absolute Immature Granulocytes 0.2 10^3/uL (0-0.05); Absolute Lymphocytes 1.6 10^3/uL (1.2-3.4); Absolute Monocytes 1.6 10^3/uL (0.1-0.6); Absolute Neutrophils 10.5 10^3/uL (1.4-6.5); Hemoglobin 11.6 g/dL (13.0-18.0); Mean Corp Hgb Conc. 29.7 g/dL (33.0-37.0); Mean Corpuscular Hgb 26.4 pg (27.0-31.0); Mean Corpuscular Volume 88.8 fL (80.0-94.0); Mean Platelet Volume 9.4 fL (7.4-10.4); Nucleated Red Blood Cells % 0 % (-); Platelet Count 326 10^3/uL (130-400); Red Blood Cell Count 4.39 10^6/uL (4.70-6.10); Red Cell Dist. Width 14.9 % (11.5-14.5); White Blood Cell Count 14.5 10^3/uL (4.8-10.8)
--- NOTE | 2023-06-13 06:17 | PTCARENOTE ---
Pt sleeping comfortably last several hours on bipap. Sat 97%. Will continue to monitior.
[2023-06-13 06:22] LABS: Blood Urea Nitrogen 17 mg/dl (9-20); Calcium 8.6 mg/dl (8.4-10.2); Carbon Dioxide 33 mmol/L (22-30); Chloride 96 mmol/L (98-107); Estimated Creatinine Clearance > 125 ml/min; Glucose 116 mg/dl (70-99); Sodium 134 mmol/L (135-145); eGFR > 60.00
[2023-06-13] MEDS: PULMICORT 0.5 MG INH ×2 (07:50→19:13)
[2023-06-13] MEDS: LOVENOX 60 MG SC ×2 (07:54→20:09)
[2023-06-13] MEDS: LASIX 40 MG IV ×2 (07:54→16:19)
--- NOTE | 2023-06-13 08:08 | W.PN.CD ---
Today's Communication / Plan
-
- Echo reassuring/normal
- his entire clinical picture cannot be explained by HFpEF
- add diltiazem
Impression / Plan
-
Impression: 47M with morbid obesity (BMI >50) admitted with dyspnea and worsening LE edema
Plan:
SOB:
- Echo reassuring/normal
- diurese
- pulmonary evaluation
- his entire clinical picture cannot be explained by HFpEF
Edema: acute on chronic
Obesity, severe: would benefit from weight loss
Left eye conjunctivitis:
Hx inappropriate sinus tachycardia: add diltiazem for ST/HTN
HTN:
Physical Exam
Vital Signs/Labs
Vital Signs
Temp Pulse Resp BP Pulse Ox
36.6 C 102 20 157/89 96
06/13/23 07:33 06/13/23 07:54 06/13/23 07:54 06/13/23 07:54 06/13/23 07:54
06/12/23 06/13/23 06/14/23
06:59 06:59 06:59
Actual Weight 361 lb 12.457 oz 369 lb 4.8 oz
06/13/23 05:47
06/13/23 05:47
Triglycerides 105 mg/dl (10-149) 06/12/23 06:05
LDL Cholesterol, Calc 93 mg/dl 06/12/23 06:05
VLDL Cholesterol, Calc 21 mg/dl (0-30) 06/12/23 06:05
HDL Cholesterol 40 mg/dl 06/12/23 06:05
TSH Cancelled 06/12/23 06:05
Free T4 1.16 ng/dl (0.78-2.19) 06/12/23 06:05
06/11/23
23:02
[id number] Pept 224
LAB Results
06/11/23 06/12/23 06/12/23
23:02 06:05 10:28
Troponin I < 0.012 < 0.012 < 0.012
06/12/23
16:14
Troponin I < 0.012
Physical Exam
Constitutional: No acute distress
EENT: Anicteric and Moist mucous membranes
Cardiovascular: Rhythm & rate is regular, Systolic murmur absent, Diastolic murmur absent and Pedal edema present
Respiratory: Respiratory effort normal and Rhonchi Present
GI: Soft, Distention absent and Non tender
Neuro/Psych: Alert
Data Reviewed
-
Date of Service: June 13, 2023
Echo: Other (Normal)
--- NOTE | 2023-06-13 08:35 | PTCARENOTE ---
Patient received this AM from change of shift, Patient resting in bed on 2L NC. AAOx3 no reports of pain nor distress. Patient administered AM Meds and assisted into the rest room for a BM. On assessment patient has a fiery red rash all over trunk,
ABD, and B/L LE, reports legs feel tight and hot. Reports rash is new since admission into hospital.
[2023-06-13] MEDS: CARDIZEM CD 180 MG PO (08:59)
--- NOTE | 2023-06-13 09:23 | W.PN.PUL3 ---
Addendum entered and electronically signed by Unique Dhillon DO 06/13/23 13:30:
Patient is a 47-year-old M with COPD, KAEL, OHS, morbid obesity, restrictive lung disease. They have chief complaint of shortness of breath and respiratory failure. The patient has a PaCO2 of 61 mmHg on 2 L of oxygen. The patient reports they are
on oxygen continuously. The patient reports they get short of breath with minimal exertion. They also report diffuse joint pain and is very limited because of breathing issues. Due to the patient's comorbidities as noted above and
hypoventilation, the patient is at risk for worsening chronic respiratory failure. I have considered bilevel, bilevel ST and bilevel VAPS therapy and they have all been ruled out due to the patient's worsening clinical condition. The patient now
requires a unique mode of ventilation not offered on less costly options. The patient requires a device that will not fail in the event of a power failure and is also portable for mobility within the home when needed. Due to the patient's
worsening condition, I am prescribing NIV therapy to decrease the chance of continued unexplained expensive medical encounters including physician office visits, emergency/urgent care treatment and hospital readmissions.
Original Note:
Today's Communication / Plan
-
Continue BIPAP as tolerated, nightly and PRN use
Psych eval
Abx for LEs
Extensive discussion with patient//care team/security for aggressive behavior
Assessment
-
Patient is a 47 year old M with PMH significant for morbid obesity, suspected KAEL, chronic SOB, smoker who presents to ED complaining of lower extremity swelling, fatigue and SOB. states that his symptoms started initially in 2020 after
kamila COVID-19 infection. She notes that he has been steadily worsening since then, patient had refused to speak or give history. Patient complains of pain and swelling in bilateral LEs, his legs are erythematous and swollen up to groin
bilaterally. He notes that they are painful with claudication. We are asked for eval of SOB and possible KAEL/OHS.
Acute on chronic SOB
Subacute LE pain/swelling, erythema to groin concerning for cellulitis vs vasc compromise
Claudication
Undiagnosed KAEL/OHS suspected
Metabolic alkalosis
Noncompliance
Smoker, vape use
Leukocytosis
Conditions present [employer]
Primary hypertension
Snoring
COPD likely
Restrictive lung disease
2021 - FVC 3.09/59%, FEV1 2.49/61%, ratio 81%, TLC 5.07/71% (mixed pattern/moderately reduced/mild restriction)
Decreased diffusion capacity of lung
Chronic LLL atelectasis
Cigarette smoker -- 20+ pack years, still smoking few cigs on/off per
Vaping nicotine dependence, tobacco product
Morbid (severe) obesity due to excess calories, BMI 51.9
Plan
No oxygen was needed on admission, currently saturating 92% on RA
Prior history of lung disease is noted --
Was seen in our office in 2021
PFTS indicating mixed pattern, moderately reduced. Suspected of having COPD and restrictive lung disease from his morbid obesity.
He complains of insomnia and EDS.
Sleep study has been suggested to him but he is not interested in this.
BIPAP continued, was able to tolerate several hours, continue nightly and PRN
VBG baseline 7.38/61 consistent with OHS
Likely will need outpatient PSG to qualify, can try DME request while inpatient
CXR obtained indicating chronic LLL atelectasis, this has been present since CT scan in 2021
Other imaging reviewed
Current smoker, notes he is still smoking on/off
Total usage >20 pack years
Would need yearly lung cancer screening at age 52
LLL atelectasis has been unchanged, but may need outpatient assessment given persistence
ECHO results reviewed--normal study
proBNP not highly suggestive of volume overload
B/L LE swelling would most concern me for vasc disease vs acute cellulitis
He does have leukocytosis but no fever
Blood culture negative
Ancef IV adjusted for BMI
Continue abx, consider ID consult if not improving
Would possibly benefit from psych eval, he has declined
Anxiety/depression very obvious
He is not clearly treated well
Security notified of aggressive behavior
Smoking history noted
Smoking cessation
Weight loss measures recommended
Obesity contributing to respiratory symptoms
Will need outpatient pulmonary evaluation in our office for PFTs and 6MWT
Reviewed with patient
Risk factors assessed for underlying sleep disordered breathing also noted, recommend outpatient PSG/sleep evaluation
Diagnostic Data
Chest X-Ray:
CXR 08/14/2022: Findings likely representing volume loss with some chronic pleural/parenchymal changes in the left hemithorax
CXR 08/06/21 at Urgent Care: possible small left pleural effusion vs pleural parenchymal scarring at the left lung base.
CT Scan:
CT chest 03/25/2022: Stable exam. Chronic asymmetric volume loss involving the left hemithorax. Minor linear parenchymal scarring. Findings most consistent with stable peripheral round atelectasis.
CT Chest PE study 08/21/21: no PE. overall mild volume loss in the left hemithorax with areas of subsegmental atelectasis some of which are somewhat rounded in configuration, additional minor areas of left lung groundglass opacification, non specific.
Echo: 06/12/23- Technically difficult study - contrast used. Normal left ventricular size and systolic function. LV ejection fraction is 55-60%. No significant valvular disease. No prior study available for comparison.
PFT's: [place] 08/16/22: FVC 2.60/50%, FEV1 2.17/53%, ratio 84%, no significant BD response. Suggestive of moderate restrictive lung disease.
�������PFT 10/04/21: FVC 3.09/59%, FEV1 2.49/61%, ratio 81%, TLC 5.07/71%, DLCO 20.89/65%, DLCO/VA 4.38/97%. Moderate restriction and mildly reduced diffusing capacity.
�������[place] 09/07/21: FVC 2.98/55%, FEV1 2.36/56%, ratio 79%, no significant BD response, moderate restrictive pattern.
6 MWT:
������ 6MWT 08/16/22: At rest, O2 98% on room air, heart rate 95. With ambulation, O2 jesica 96%, max heart rate 119. 2/10 on dyspnea scale. Ambulated 900 feet.
�������6MWT 09/07/21: At rest, O2 99% on room air, HR 108. With ambulation, desaturation jesica 97% on room air, max HR 130. 4/10 on dyspnea scale. ambulated 1125 ft.
Reports and relevant images were personally reviewed.
Subjective Data
-
Date of Service:
Date of Service: June 13, 2023
Chief Complaint: Pulmonary Follow Up
Subjective:
patient seen and examined, events ON noted
tolerated bipap several hours
aggressive yelling at his and myself
Objective Data
Data Reviewed
Vital Signs / I&O / Oxygen:
Vital Signs
Temp Pulse Resp BP Pulse Ox
97.9 F 116 20 160/77 96
06/13/23 07:33 06/13/23 08:59 06/13/23 07:54 06/13/23 08:59 06/13/23 07:54
Intake and Output
06/12/23 06/13/23 06/14/23
06:59 06:59 06:59
Intake Total 480 / 480
Output Total 800 / 800 400 / 400 850 / 850
Balance -800 / -800 80 / 80 -850 / -850
SaO2 96
Nasal Cannula flow liters per 2
minute
Physical Exam
General: Comfortable and Other (NAD, anxious/agitated, aggressive)
HEENT: Normocephalic, Anicteric and Moist Mucous Membranes
Cardiovascular: S1-S2 and Regular Rhythm
Respiratory: Clear and Non-Labored Respirations
GI: Soft, Non Distended and Non Tender
Neurology: Awake, Alert, Oriented, AO x 3, No Motor Deficits and Depressed
Skin: Warm, Dry and Rash (bilateral LE extending to abdomen)
Labs/Micro/Reports
Lab Data
06/13/23 05:47
06/13/23 05:47
Microbiology
06/11/23 23:37 Blood/Venous Blood Culture - Preliminary
No Growth in 24 hours- Final report to follow
06/11/23 23:02 Blood/Venous Blood Culture - Preliminary
No Growth in 24 hours- Final report to follow
[2023-06-13] MEDS: GENOPTIC 0.3% EYE DROPS 4 DROP LEFT EYE (10:47)
--- NOTE | 2023-06-13 10:53 | CM ---
Addendum entered by Roberto Newman 06/13/23 15:21:
CM placed an order for Bi-pap with [facility] and it will be delivered to pt's home on Friday06/16/23.
Pt's ex-spouse visited the pt. Pt expressed his frustrated feelings regarding declining clinically and physically. Pt expressed passive wishes. Psychiatry consult requested.
Psychiatrist following.
Original Note:
CM following re: discharge planning.
Discussed in Rounds, reviewed pt's chart, met with pt.
Pt is a 47 year old male, admitted with primary dx of Acute on chronic SOB. Pt currently required 2L NC of O2 and Bi-pap at night.
Pt reports he lives with parents in an apartment, no steps. Pt described himself as independent in all areas [employer], drives, does not work, receives SSD. No DME, VN or SNF history.
PCP: [facility].
Pharmacy: [facility].
D/C plan: home with anticipated no needs. Family to transport at discharge.
CM will follow with discharge plan updates as hospitalization progresses
--- NOTE | 2023-06-13 12:53 | W.PN.HOSP.TC ---
Addendum entered and electronically signed by Renny Roger MD 06/13/23 16:01:
Patient seen and examined
Discussed with resident
Discussed with patient's at the bedside
Discussed with pulmonology and psychiatry
Impression/plan
Dyspnea with acute hypoxic respiratory insufficiency likely multifactorial.
Untreated obstructive sleep apnea and obesity hypoventilation disorder.
Morbid obesity with BMI of 51.
Likely combination of restrictive and obstructive lung disease in the patient with above-mentioned BMI and tobacco abuse disorder.
Severe pain.
Anxiety.
Bilateral lower extremity cellulitis with stasis.
Hypertension.
Echocardiogram with preserved biventricular function and no significant pulmonary hypertension
Imaging with chest x-ray with no prior disease
CT scan of the chest from last year noted with atelectasis.
Was able to relate BiPAP for 6 hours last night with addition of lorazepam to control anxiety.
Appreciate psychiatry evaluation. Started on Cymbalta, Neurontin for pain as well as lorazepam.
Continue attempt of IV diuresis, although now with worsening metabolic alkalosis. May consider Diamox. Follow BMP closely.
Monitor closely for oversedation given CO2 retention
Initiated on antibiotics for lower extremity cellulitis.
Original Note:
Today's Communication/Plan
-
Cardizem started
Continue Bipap
Psychiatry consult
Assessment / Plan
Assessment / Plan
Impression:
Dyspnea
Chronic lymphedema with bilateral stasis cellulitis
Morbid obesity
Restrictive lung disease
Obstructive sleep apnea/obesity hypoventilation disorder.
Chronic ambulatory metabolic alkalosis
Hypertension.
Eye conjunctivitis.
Anxiety/depression
Insomnia.
Tobacco use disorder former cigarette smoker, vaping nicotine.
Plan
#Dyspnea
Patient saturating at 94% at room air
Chest x-ray with no acute abnormalities
In review of CT scan from 2022 showed multiple atelectasis.
Lower extremity Doppler with no DVT.
D-dimer within normal limits.
Patient with morbid obesity BMI 51, insomnia, short neck, findings most likely consistent with obesity hypoventilation disorder, obstructive sleep apnea.
In review of outpatient records, patient declined sleep studies with concern of inability to wear mask at night.
Acute on chronic lymphedema with stasis dermatitis.
Likely at risk of pulmonary arterial hypertension/cor pulmonale
Check nocturnal O2
Lasix 40 mg IV twice daily
Extensive conversation in regards to lifestyle modification, weight loss, attempt of sleep evaluation
COPD/restrictive lung disease according to outpatient PFTs.
No evidence of bronchospasm on exam
Patient with tobacco smoking history and ongoing vaping use
Continue budesonide twice daily.
Continue nebs as needed.
ECHO- 55-60%
Continue Bipap, nightly, prn
VBG baseline 7.38/61 consistent with OHS
Started on Cardizem
Monitor blood pressure
#Cellulitis
lower extremity red erythematous rash extending upto the abdomen.
pt is afebrile.
Leucocytosis- WBC 14.5
Blood culture pending
Continue Ancef
Monitor vitals.
#L Eye Conjunctivitis
Continue gentamicin.
#Anxiety / Depression
Insomnia
Continue Lexapro
Psychiatry consulted
#Morbid Obesity
DVT Prophylaxis: Lovenox
Code Status: Full
Anticipated Discharge: > 48 hours
Subjective/Interval History
-
Date of Service: June 13, 2023
Patient is in distress for having to use Bipap all night, appears anxious. He reports not able to sleep enough because of it. He states, his lower extremity swelling hasn't improved.
Objective Data
-
Labs:
Laboratory Results
06/13/23
05:47
WBC 14.5 H
Hgb 11.6 L
Hct 39.0
Plt Count 326
Sodium 134 L
Potassium 4.0
Chloride 96 L
Carbon Dioxide 33 H
BUN 17
Creatinine 0.9
Glucose 116 H
Calcium 8.6
Vital Signs:
Vital Signs
Temp Pulse Resp BP Pulse Ox
97.9 F 116 20 160/77 96
06/13/23 11:19 06/13/23 08:59 06/13/23 07:54 06/13/23 08:59 06/13/23 07:54
I&O
06/12/23 06/13/23 06/14/23
06:59 06:59 06:59
Intake Total 480 / 480
Output Total 800 / 800 400 / 400 1250 / 1250
Balance -800 / -800 80 / 80 -1250 / -1250
Review of Systems
-
All other systems: Reviewed and negative (except as mentioned above)
Physical Exam
-
General: Well Developed and Well Nourished
HEENT: Normocephalic and Atraumatic
Respiratory: Clear to Auscultation
Cardiac: Regular Rhythm and S1/S2
Skin: Warm, Dry and Rash (b/l erythematous lower extremity rash, extending upto the lower abdomen)
Psych: Agitated and Anxious
--- NOTE | 2023-06-13 14:44 | PN.CDI ---
Addendum entered and electronically signed by Renny Roger MD 06/18/23 15:03:
Unable to comment
Original Note:
CDI
- -
CDI:
Physician Documentation Request
Admit Date: 06/12/23 04:14
Dear Doctor Acacia,
Patient admitted with dyspnea.
06/12 PN, 'VBG baseline 7.38/61 consistent with OHS.'
06/11 PCN, 'Pt very SOB, respirations 28, pulse ox 86%, applied O2 @5L NC, now at 91%, pt stated he feels some relief and less frantic.'
Please provide in your now the diagnosis associated with the patients respiratory status on admission:
Acute hypoxic respiratory failure ,POA
Hypoxia only
Other
Use of terms such as suspected, likely, concern for, or probable (associated with a specific diagnosis that is being evaluated, monitored, or treated as if it exists) are acceptable and can be coded in the inpatient setting, when documented at the
time of discharge.
Thank you,
Gillian ROQUE,RN,CCDS
CDI Specialist
Available via [place] text
Please use your independent medical judgment in provig your response.
--- NOTE | 2023-06-13 15:16 | CON.MD ---
Consultation - Medical
-
patient seen chart reviewed. discussed w nursing. soon to be ex at bedside. the patient was not very cooperative. he allowed me to conduct this interview but he only answered questions intermittently allowing his to answer for him. the
patient comes to w compliant of exacerbation of peripheral edema now from his ankles to his abdomen which he says began after having covid in 2020. he was experiencing shortness of breath. he has numerous underlying medical problems including
htn lung disease w chronic hypoxemia secondary to restrictive and obstructive factors morbid obesity chronic pain likely kate (he has not had sleep study bc will not wear a mask but is noted to snore) arrhythmia stasis cellulitis peripheral
vascular disease with claudication also mentioned in the record. this consult ordered bc patient appeared to be depressed and anxious. he also became very enraged last evening when left to go home to sleep and has required a prn of ativan. he
does not deny that he is depressed. told me to give him a drug that will prevent him from feeling any more he told cm mr barrientos with whom i also spoke that he has had thoughts of not wanting to live anymore. he does have a gun. he has never made an
attempt to harm self and said today he would NOT harm self. the gun was given to him by his 's parents and is in the patient's parent's home ( i asked to remove the gun). the patient was placed on lexapro by his pcp 5 mg and has taken it
for a month and noted no benefit. sleep very poor. as stated patient morbidly obese and does not describe recent weight loss. there is nothing to suggest psychosis. no enjoyment in life bc his life is very limited by his illness. cannot work
frequent need to be absent from work due to illness has caused him to be fired. has not worked since had covid. describes patient has vivid nightmares which can wake him from sleep
past psych hx see above patient has been unhappy for some time since his health began deteriorating after covid infection see above taking lexapro
medical hx see above noted sodium 134 glucose 116 hgb 11.6 with microcytic indices ejection fx 55 to 60 po2 on admit 57 qtc 449 abnomral ecg blepharitis for which recent ed visit persists cxr no acute pulmonary changes
family hx 'i don't know'
substance abuse 27 pck yr cigs now vapes no other substance use
social in process of divorce. lives w p who are supportive has two sibs not really supportive no kids. worked in [employer]
mse alert 0x3 not very cooperative clearly uncomfortable speech sparse nl rate tone goal oriented no psychosis affect labile mood angry no si no hi aver intell insight judgment fair to poor
dx unspec depression unspec anxiety
recommendations patient very discouraged given situation in which he f inds self. very stressed by impending divorce. seems very attached to who really seems to care about him. would suggest cymbalta instead of lexapro which may help w dep
anx and pain start w 20 mg gabapentin for anxiety 100 mg tid may also help w pain. left ativan prn but would use infrequently given depressing respiration. guns should be removed from the home given danger inherent in guns close at hand in a
patient who is depressed. patient is stating now that he will not hurt himself. psych will follow
[2023-06-13] MEDS: ANCEF 10 IV ×2 (16:19→23:10)
[2023-06-13] MEDS: NEURONTIN 100 MG PO ×2 (16:20→21:09)
[2023-06-13] MEDS: LEXAPRO PO (16:43)
[2023-06-13] MEDS: DUONEB 3 ML INH (19:13)
--- NOTE | 2023-06-13 20:17 | PTCARENOTE ---
Pt received tearful and angry. Wants his to stay with him tonight and is very upset that she wants to go home to sleep. Offered pt ativan. Pt states he just wants to be left alone. Did allow me to do assessment and give lovenox. Will continue
to monitor.
[2023-06-13] MEDS: ATIVAN 0.5 MG PO (21:09)
--- NOTE | 2023-06-13 21:30 | RESPNOTE ---
went to place pt on bipap and nocturnal study, pt stated he can't stay here in the hospital, is attempting to leave, he has stated if he stays he will not wear bipap or noct pulse ox. RN aware
--- NOTE | 2023-06-13 21:57 | PTCARENOTE ---
Pt's left for the night. Pt very upset, crying, threatening to leave AMA. Pt states he doesn't want to stay in the hospital if his doesn't stay with him. Reiterated to when she left what psychiatrist said to her today about removing
gun from home. states he is staying with his parents and she would reach out to them. Father of patient called later very upset about pt's calling and saying he had to remove gun from the house. Explained that I could not speak about
specifics regarding pt as father is not listed as adjuster electrical contacts. Did try to reassure father that we are trying very hard to take care of his son. Pt now has friend at bedside. Will continue to monitor.
[2023-06-14] VITALS (9 sets, daily range): BP systolic 124–165; BP diastolic 72–100; PULSE 2–102; BMI 51.4
[2023-06-14] MEDS: ATIVAN 0.5 MG PO (03:46)
[2023-06-14 04:25] LABS: % Basophils 0.4 % (0-2); % Eosinophils 2.2 % (0-6); % Immature Granulocytes 1.6 % (0-0.5); % Lymphocytes 12.2 % (20.5-51.1); % Monocytes 9.1 % (1.7-9.3); % Neutrophils 74.5 % (42.2-75.2); Absolute Basophils 0.1 10^3/uL (0-0.2); Absolute Eosinophils 0.3 10^3/uL (0-0.7); Absolute Immature Granulocytes 0.2 10^3/uL (0-0.05); Absolute Lymphocytes 1.7 10^3/uL (1.2-3.4); Absolute Monocytes 1.3 10^3/uL (0.1-0.6); Absolute Neutrophils 10.6 10^3/uL (1.4-6.5); Hematocrit 38.9 % (39.0-52.0); Hemoglobin 11.9 g/dL (13.0-18.0); Mean Corp Hgb Conc. 30.6 g/dL (33.0-37.0); Mean Corpuscular Hgb 26.3 pg (27.0-31.0); Mean Corpuscular Volume 85.9 fL (80.0-94.0); Mean Platelet Volume 9.7 fL (7.4-10.4); Nucleated Red Blood Cells % 0 % (-); Platelet Count 329 10^3/uL (130-400); Red Blood Cell Count 4.53 10^6/uL (4.70-6.10); Red Cell Dist. Width 14.7 % (11.5-14.5); White Blood Cell Count 14.2 10^3/uL (4.8-10.8)
[2023-06-14 04:44] LABS: Blood Urea Nitrogen 21 mg/dl (9-20); Calcium 8.8 mg/dl (8.4-10.2); Carbon Dioxide 36 mmol/L (22-30); Chloride 95 mmol/L (98-107); Estimated Creatinine Clearance > 125 ml/min; Glucose 109 mg/dl (70-99); Potassium 4.3 mmol/L (3.5-5.1); Sodium 135 mmol/L (135-145); eGFR > 60.00
--- NOTE | 2023-06-14 06:01 | PTCARENOTE ---
Pt much more calm with friend in the room but continues to complain about fluid restriction, being hungry. Attempted to explain reasoning behind fluid restriction but pt not interested. Pt did allow nocturnal pulse ox study for a few hours.
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
[2023-06-14] MEDS: DUONEB 3 ML INH ×2 (07:44→19:46)
[2023-06-14] MEDS: PULMICORT 0.5 MG INH ×2 (07:45→19:46)
--- NOTE | 2023-06-14 07:54 | W.PN.CD ---
Today's Communication / Plan
-
- no further cardiac workup/recommendations anticipated. I will sign off. Please call with questions
- Follow up is Garrison Camargo
- I would continue diltiazem at discharge and resume standing Lasix dose.
Impression / Plan
-
Impression: 47M with morbid obesity (BMI >50) admitted with dyspnea and worsening LE edema.
Plan:
SOB:
- Echo reassuring/normal
- diurese as tolerated
- pulmonary evaluation
Edema: acute on chronic
Obesity, severe: would benefit from weight loss
Left eye conjunctivitis
Hx inappropriate sinus tachycardia: added diltiazem for ST/HTN
HTN: stable
Social issues - safety, etc., being addressed by team
Dispo
- no further cardiac workup/recommendations anticipated. I will sign off. Please call with questions
- Follow up is Garrison Camargo
- I would continue diltiazem at discharge and resume standing Lasix dose.
Subjective - no CP, palps. Dyspnea 'OK' according to patient
Physical Exam
Vital Signs/Labs
Vital Signs
Temp Pulse Resp BP Pulse Ox
36.5 C 101 22 124/90 93
06/14/23 03:30 06/14/23 07:48 06/14/23 07:48 06/14/23 06:00 06/14/23 07:48
06/13/23 06/14/23 06/15/23
06:59 06:59 06:59
Actual Weight 369 lb 4.8 oz 360 lb 14.347 oz
06/14/23 03:52
06/14/23 03:52
Triglycerides 105 mg/dl (10-149) 06/12/23 06:05
LDL Cholesterol, Calc 93 mg/dl 06/12/23 06:05
VLDL Cholesterol, Calc 21 mg/dl (0-30) 06/12/23 06:05
HDL Cholesterol 40 mg/dl 06/12/23 06:05
TSH Cancelled 06/12/23 06:05
Free T4 1.16 ng/dl (0.78-2.19) 06/12/23 06:05
06/11/23
23:02
[id number] Pept 224
LAB Results
06/11/23 06/12/23 06/12/23
23:02 06:05 10:28
Troponin I < 0.012 < 0.012 < 0.012
06/12/23
16:14
Troponin I < 0.012
Physical Exam
Constitutional: No acute distress
EENT: Anicteric and Moist mucous membranes
Cardiovascular: Rhythm & rate is regular, Systolic murmur absent, Diastolic murmur absent and Pedal edema present
Respiratory: Respiratory effort normal and Rhonchi Present
GI: Soft, Distention absent and Normal bowel sounds
Neuro/Psych: Alert
Data Reviewed
-
Date of Service: June 14, 2023
--- NOTE | 2023-06-14 09:00 | PTCARENOTE ---
Pt's father tearful regarding his son's lack of initiative to make better health care choices and his unwillingness to accept the help from psychiatry that is being offered. The father set boundaries of his discharge to home in that he needs to
promise to follow a low salt diet, follow the recommendations of his doctor limiting his fluid intake and wear CPAP HS. He is aware that his CPAP will be delivered Friday.
--- NOTE | 2023-06-14 09:08 | W.PN.UPDATE ---
Update Note
Progress Note Update
Attempted to see patient for psychiatry follow up this morning. Patient stated he does not want to talk to me today. case discussed with Dr. Denney who saw patient in initial consult yesterday. Dr. Denney aware of gun in patient's house and asked
it be removed. He denied active SI to her yesterday. Will attempt again to see him tomorrow.
[2023-06-14] MEDS: CARDIZEM CD 180 MG PO (09:40)
[2023-06-14] MEDS: ANCEF 10 IV ×3 (09:40→23:48)
[2023-06-14] MEDS: CYMBALTA DELAYED RELEASE 20 MG PO (09:41)
[2023-06-14] MEDS: NEURONTIN 100 MG PO ×3 (09:41→23:47)
[2023-06-14] MEDS: LASIX 40 MG IV ×2 (09:42→18:19)
[2023-06-14] MEDS: LOVENOX 60 MG SC ×2 (09:42→20:13)
[2023-06-14] MEDS: GENOPTIC 0.3% EYE DROPS 4 DROP LEFT EYE (09:42)
--- NOTE | 2023-06-14 14:12 | PTCARENOTE ---
Forwarded the Jakob Rowley's number [phone] to Xin Wilson Mechanical Service Representative. He had some questions for CM.
--- NOTE | 2023-06-14 14:51 | CM ---
Call to patient's dad per his request. Patient's dad concerned about patient's mental health and is concerned about him returning home and not adhering to the doctor's recommendations. Dad reports that the patient will not see any MH professional as
an outpatient and is worried about the effect that his MH will have on the patient's mother. Dad reports limited supports for the pateint and pending divorce. Dad would like to speak to psychiatry about his concerns. RN updated. CM to follow.
--- NOTE | 2023-06-14 15:06 | W.PN.HOSP.TC ---
Today's Communication/Plan
-
NIV
IV lasix
abx
Assessment / Plan
Assessment / Plan
Impression:
Dyspnea
Chronic lymphedema with bilateral stasis cellulitis
Morbid obesity
Restrictive lung disease
Obstructive sleep apnea/obesity hypoventilation disorder.
Chronic ambulatory metabolic alkalosis
Hypertension.
Eye conjunctivitis.
Anxiety/depression
Insomnia.
Tobacco use disorder former cigarette smoker, vaping nicotine.
Plan
#Dyspnea
Patient saturating at 94% at room air
Chest x-ray with no acute abnormalities
In review of CT scan from 2022 showed multiple atelectasis.
Lower extremity Doppler with no DVT.
D-dimer within normal limits.
Patient with morbid obesity BMI 51, insomnia, short neck, findings most likely consistent with obesity hypoventilation disorder, obstructive sleep apnea.
In review of outpatient records, patient declined sleep studies with concern of inability to wear mask at night.
Acute on chronic lymphedema with stasis dermatitis.
Likely at risk of pulmonary arterial hypertension/cor pulmonale
Check nocturnal O2
Lasix 40 mg IV twice daily
Extensive conversation in regards to lifestyle modification, weight loss, attempt of sleep evaluation
COPD/restrictive lung disease according to outpatient PFTs.
No evidence of bronchospasm on exam
Patient with tobacco smoking history and ongoing vaping use
Continue budesonide twice daily.
Continue nebs as needed.
ECHO- 55-60%
Continue Bipap, nightly, prn
VBG baseline 7.38/61 consistent with OHS
Started on Cardizem
Monitor blood pressure
#Cellulitis
lower extremity red erythematous rash extending upto the abdomen.
pt is afebrile.
Leucocytosis- WBC 14.5
Blood culture pending
Continue Ancef
Monitor vitals.
#L Eye Conjunctivitis
Continue gentamicin.
#Anxiety / Depression
Insomnia
Continue Lexapro
Psychiatry consulted
#Morbid Obesity
DVT Prophylaxis: Lovenox
Code Status: Full
Update 06/13: patient desires to leave but bipap will not arrive until Friday. Patient agreed to stay but hesitant on taking meds. Staff including myself and nurse have stressed importance of taking medications, compliance including BiPAP. Continue
IV antibiotics for cellulitis. Continue NIV. Continue IV lasix
Anticipated Discharge: > 48 hours
Subjective/Interval History
-
Date of Service: June 14, 2023
patient agitated, anxious
Objective Data
-
Labs:
Laboratory Results
06/14/23
03:52
WBC 14.2 H
Hgb 11.9 L
Hct 38.9 L
Plt Count 329
Sodium 135
Potassium 4.3
Chloride 95 L
Carbon Dioxide 36 H
BUN 21 H
Creatinine 0.8
Glucose 109 H
Calcium 8.8
Vital Signs:
Vital Signs
Temp Pulse Resp BP Pulse Ox
98.0 F 94 18 151/96 99
06/14/23 12:13 06/14/23 14:05 06/14/23 10:00 06/14/23 14:05 06/14/23 14:14
I&O
06/13/23 06/14/23 06/15/23
06:59 06:59 06:59
Intake Total 480 / 480 1820 / 1820 360 / 360
Output Total 400 / 400 1600 / 1600
Balance 80 / 80 220 / 220 360 / 360
Review of Systems
-
History Source: Patient
All other systems: Not reviewed unless documented
Physical Exam
-
General: Well Developed and Well Nourished
HEENT: Normocephalic and Atraumatic
Respiratory: Clear to Auscultation
Cardiac: Regular Rhythm and S1/S2
Skin: Warm, Dry and Rash (b/l erythematous lower extremity rash, extending upto the lower abdomen - improving)
Psych: Agitated and Anxious
Data Reviewed
-
Diagnostic Radiology: Image personally visualized and interpreted and Report Reviewed by me
Ultrasound: Image personally visualized and interpreted and Report Reviewed by me
--- NOTE | 2023-06-14 15:07 | PTCARENOTE ---
S/P outburst about wanting to go home. He verbalized loudly that it doesn't matter if he leaves because 'I'm not going to use the machine anyway, you guys are just keeping me here like a prisoner.'. Dr. Yoo notified of pt wanting to go home. Pt
is aware that if he is to leave it would need to be against medical advice and he was informed that it was not known what part of this hospitalization would be covered if he were to leave AMA. Pt stated that his is not answering his calls and
that he is alone. Pt slammed his cell phone on his bedside table. He appears to be staying for now but verbalized that he is NOT taking any medications. Supportive care provided. RN remained with the pt until he calmed down.
--- NOTE | 2023-06-14 18:45 | PTCARENOTE ---
Pt talking loudly in the room on the phone. I entered the room to provide support and offer Lorazepam to help him relax. He had asked for a stronger dose. I spoke with Dr. Waggoner and informed her of his behavior and anxiety. Lorazepam to be
administered. He was informed of the plan of care. He was agreeable to taking the Lorazepam for now.
[2023-06-14] MEDS: ATIVAN 1 MG PO (23:47)
--- NOTE | 2023-06-14 23:50 | PTCARENOTE ---
Pt sleeping with bipap in place, woke Pt up to take scheduled medications. Friend at the bedside. Mask removed to take medications and then reapplied.
0030 Pt states 'I can't wear this any more! I just can't sleep with it on!' Reiterated to Pt need for bipap and health benefits. Reminded Pt he was sleeping when I woke him up to give him his pills. Explained to Pt he will be wearing the bipap at
home. Pt yelling at this RN stating 'I didn't say I wouldn't try it again! I was not sleeping! Stop lying! Give me another nurse!' No one is listening to me.' Pt cursing at this RN. Bipap removed, placed on 2L NC, pox 96%. Reminded Pt that if he
wants to be put back onto bipap to let me know, Pt verbalized understanding.
[2023-06-15] VITALS (8 sets, daily range): BP systolic 150–186; BP diastolic 76–110; BMI 50.8
--- NOTE | 2023-06-15 00:10 | PTCARENOTE ---
Pt's BP: 186/110 HR: 90s, asymptomatic.NSR on monitor. Notified House VENDING ROUTE SERVICER, IV hydralazine ordered. Pt made aware.
[2023-06-15] MEDS: APRESOLINE 5 MG IV (00:30)
[2023-06-15 05:55] LABS: Hematocrit 37.1 % (39.0-52.0); Hemoglobin 11.7 g/dL (13.0-18.0); Mean Corp Hgb Conc. 31.5 g/dL (33.0-37.0); Mean Corpuscular Hgb 26.8 pg (27.0-31.0); Mean Corpuscular Volume 85.1 fL (80.0-94.0); Mean Platelet Volume 9.3 fL (7.4-10.4); Platelet Count 330 10^3/uL (130-400); Red Blood Cell Count 4.36 10^6/uL (4.70-6.10); Red Cell Dist. Width 14.7 % (11.5-14.5); White Blood Cell Count 13.9 10^3/uL (4.8-10.8)
[2023-06-15 06:23] LABS: ALT (SGPT) 16 U/L (0-50); AST (SGOT) 22 U/L (17-59); Albumin 3.7 g/dl (3.5-5.0); Alkaline Phosphatase 63 U/L (38-126); Blood Urea Nitrogen 21 mg/dl (9-20); Calcium 8.9 mg/dl (8.4-10.2); Carbon Dioxide 35 mmol/L (22-30); Chloride 93 mmol/L (98-107); Estimated Creatinine Clearance > 125 ml/min; Glucose 135 mg/dl (70-99); Magnesium 2.5 mg/dl (1.6-2.3); Phosphorus 4.6 mg/dl (2.5-4.5); Sodium 134 mmol/L (135-145); Total Bilirubin 0.9 mg/dl (0.2-1.3); Total Protein 6.6 g/dl (6.3-8.2); eGFR > 60.00
[2023-06-15] MEDS: PULMICORT INH (07:41)
[2023-06-15] MEDS: CARDIZEM CD 180 MG PO (07:50)
[2023-06-15] MEDS: NEURONTIN 100 MG PO ×3 (07:50→22:10)
[2023-06-15] MEDS: LOVENOX 60 MG SC ×2 (07:51→20:13)
[2023-06-15] MEDS: CYMBALTA DELAYED RELEASE 20 MG PO (07:51)
[2023-06-15] MEDS: LASIX 40 MG IV ×2 (07:51→15:33)
[2023-06-15] MEDS: ANCEF 10 IV ×3 (08:02→23:42)
[2023-06-15] MEDS: GENOPTIC 0.3% EYE DROPS 4 DROP LEFT EYE (08:02)
[2023-06-15] MEDS: TYLENOL 650 MG PO (08:10)
[2023-06-15] MEDS: ATIVAN 0.5 MG PO ×3 (09:08→22:10)
--- NOTE | 2023-06-15 11:50 | W.PN.UPDATE ---
Update Note
Progress Note Update
Psychiatry follow up attempt. Patient is refusing to talk to me again. Discussed case at length with nursing last evening and today. She has made patient aware that I am here to talk to him if he changes his mind. Kay HAYES has been helping manage
his agitation.
--- NOTE | 2023-06-15 12:19 | PTCARENOTE ---
pt laying on his left side, sonorous with periods of apnea. Oxygen saturation dipping down to 83%.
--- NOTE | 2023-06-15 13:17 | W.PN.HOSP.TC ---
Today's Communication/Plan
-
iv lasix
abx
bipap qhs and naps
Assessment / Plan
Assessment / Plan
Impression:
Dyspnea
Chronic lymphedema with bilateral stasis cellulitis
Morbid obesity
Restrictive lung disease
Obstructive sleep apnea/obesity hypoventilation disorder.
Chronic ambulatory metabolic alkalosis
Hypertension.
Eye conjunctivitis.
Anxiety/depression
Insomnia.
Tobacco use disorder former cigarette smoker, vaping nicotine.
Plan
#Dyspnea
Patient saturating at 94% at room air
Chest x-ray with no acute abnormalities
In review of CT scan from 2022 showed multiple atelectasis.
Lower extremity Doppler with no DVT.
D-dimer within normal limits.
Patient with morbid obesity BMI 51, insomnia, short neck, findings most likely consistent with obesity hypoventilation disorder, obstructive sleep apnea.
In review of outpatient records, patient declined sleep studies with concern of inability to wear mask at night.
Acute on chronic lymphedema with stasis dermatitis.
Likely at risk of pulmonary arterial hypertension/cor pulmonale
Check nocturnal O2
Lasix 40 mg IV twice daily
Extensive conversation in regards to lifestyle modification, weight loss, attempt of sleep evaluation
COPD/restrictive lung disease according to outpatient PFTs.
No evidence of bronchospasm on exam
Patient with tobacco smoking history and ongoing vaping use
Continue budesonide twice daily.
Continue nebs as needed.
ECHO- 55-60%
Continue Bipap, nightly, prn
VBG baseline 7.38/61 consistent with OHS
Started on Cardizem
Monitor blood pressure
#Cellulitis
lower extremity red erythematous rash extending upto the abdomen.
pt is afebrile.
Leucocytosis- WBC 14.5
Blood culture pending
Continue Ancef
Monitor vitals.
#L Eye Conjunctivitis
Continue gentamicin.
#Anxiety / Depression
Insomnia
Continue Lexapro
Psychiatry consulted
#Morbid Obesity
-bipap
DVT Prophylaxis: Lovenox
Code Status: Full
Update 06/13: patient desires to leave but bipap will not arrive until Friday. Patient agreed to stay but hesitant on taking meds. Staff including myself and nurse have stressed importance of taking medications, compliance including BiPAP. Continue
IV antibiotics for cellulitis. Continue NIV. Continue IV lasix
update 06/14: cnt abx, iv lasix; tentative dc within 24-48 hours
Anticipated Discharge: Within 24 hours
Subjective/Interval History
-
Date of Service: June 15, 2023
No acute events overnight; he used BiPAP for 1.5-hours and then refused
Objective Data
-
Labs:
Laboratory Results
06/15/23
05:44
WBC 13.9 H
Hgb 11.7 L
Hct 37.1 L
Plt Count 330
Sodium 134 L
Potassium 4.0
Chloride 93 L
Carbon Dioxide 35 H
BUN 21 H
Creatinine 0.7
Glucose 135 H
Calcium 8.9
Total Bilirubin 0.9
AST 22
ALT 16
Alkaline Phosphatase 63
Vital Signs:
Vital Signs
Temp Pulse Resp BP Pulse Ox
97.5 F 103 18 153/92 83
06/15/23 12:17 06/15/23 10:29 06/14/23 19:49 06/15/23 10:29 06/15/23 12:19
I&O
06/14/23 06/15/23 06/16/23
06:59 06:59 06:59
Intake Total 1820 / 1820 360 / 360 360 / 360
Output Total 1600 / 1600
Balance 220 / 220 360 / 360 360 / 360
Review of Systems
-
History Source: Patient
All other systems: Not reviewed unless documented
Physical Exam
-
General: Well Developed and Well Nourished
HEENT: Normocephalic and Atraumatic
Respiratory: Clear to Auscultation
Cardiac: Regular Rhythm and S1/S2
Skin: Warm, Dry and Rash (b/l erythematous lower extremity rash, extending upto the lower abdomen - improving)
Psych: Agitated and Anxious
Data Reviewed
-
Diagnostic Radiology: Image personally visualized and interpreted and Report Reviewed by me
Ultrasound: Image personally visualized and interpreted and Report Reviewed by me
--- NOTE | 2023-06-15 13:25 | PTCARENOTE ---
Sister visited briefly. She left some hard candy at the bedside to assist with pt's thirst. He is currently napping with 2.5 liters nasal cannula. His O2 sat if fluctuating between 88%-93%.
--- NOTE | 2023-06-15 15:47 | PTCARENOTE ---
Brief conversation with pt. He expressed to me his deep sadness. He shared that his loves him and he deeply loves her but that she just can't do it anymore. There was no infidelity involved. He is aware that at any time he is able to talk with
the psychiatrist. I had suggested writing and journaling his feelings if he did not want to speak with the psychiatrist. I reminded him that he is surrounded by good friends and family that love him and that he really is not a bad connie. He verbalized
that he cares so much that his heart is broken and he feels so empty inside. I thanked him for sharing. Will continue supportive care.
--- NOTE | 2023-06-15 16:37 | CM ---
CM following re: d/c planning.
Pt refused to speak with psych again today.
CM received a call from pt's father [phone] with concerns.
He states he would like information about Disability and Medicaid for pt, as he receives no income.
He also states he is worried pt will not be adherent to medication regimen and CPAP machine.
We discussed use of boundaries and CM offered emotional support.
CM met with pt at bedside.
We discussed the option of having VN in the home after d/c, due to new equipment and respiratory status.
Pt is agreeable, but concerned about copay costs.
CM informed him he could cancel if he has trouble affording potential copays.
He agreed to a referral to [facility].
CM provided him with [employer] website and information how to apply, as well as Medicaid process information.
Pt accepting of the information and states he will look into it once he gets home.
CM to place [facility] referral.
Pending CPAP delivery, tentatively 06/15 via [facility].
CM continuing to follow.
[2023-06-15] MEDS: PULMICORT 0.5 MG INH (19:24)
[2023-06-16] MEDS: ATIVAN 0.5 MG PO (00:23)
--- NOTE | 2023-06-16 00:57 | PTCARENOTE ---
Pt alert, sitting on the side of the bed. pox 95% on RA. Spoke with Pt in regards to bipap. Contacted [facility] to order additional ativan to help Pt feel more comfortable with bipap. Ativan po x1 ordered. Spoke with Pt that we would give him
the additional ativan to help him feel more comfortable, Pt agreeable. RT Don in to see Pt, Pt applied Bipap for approx 5 minutes and states 'I can't do this. I want this off.' This RN went in to speak to Pt, Reinforced need for bipap, offered Pt to
wait around 30 minutes to let ativan take affect and then maybe he could tolerate it. Pt yells at this time Rn, states 'I can't wear it! You don't understand I have a phobia!' Explained to Pt that the ativan can help with that,but it takes wally east
30 minutes to work. Explained to Pt risks of sleep apnea and that he will have a similar machine when he goes home. He states 'It will be a different machine! Just leave me alone! Why are you bothering me.' Pt placed on 2 L NC. Call brizuela within
reach.
--- NOTE | 2023-06-16 01:36 | PTCARENOTE ---
Pt's POX decreasing to 84% on 2L NC while sleeping, increased to 3L NC and had Pt lay on his back and elevated the HOB. Pt made aware of his pulse ox readings.
[2023-06-16 06:00] VITALS: BMI 50.9
[2023-06-16 06:14] VITALS: BP 148/98
[2023-06-16 06:37] LABS: Hematocrit 38.6 % (39.0-52.0); Hemoglobin 11.7 g/dL (13.0-18.0); Mean Corp Hgb Conc. 30.3 g/dL (33.0-37.0); Mean Corpuscular Hgb 26.2 pg (27.0-31.0); Mean Corpuscular Volume 86.4 fL (80.0-94.0); Mean Platelet Volume 9.7 fL (7.4-10.4); Platelet Count 313 10^3/uL (130-400); Red Blood Cell Count 4.47 10^6/uL (4.70-6.10); Red Cell Dist. Width 14.7 % (11.5-14.5); White Blood Cell Count 12.4 10^3/uL (4.8-10.8)
--- NOTE | 2023-06-16 06:50 | W.PN.HOSP.TC ---
Today's Communication/Plan
-
dc
Assessment / Plan
Assessment / Plan
Physical Exam
-
General: Well Developed and Well Nourished, obese
HEENT: Normocephalic and Atraumatic
Respiratory: Clear to Auscultation
Cardiac: Regular Rhythm and S1/S2
Abdomen, soft, non tender
Skin: Warm, Dry and Rash ( less b/l erythematous lower extremity rash, extending up to the lower abdomen - improving)
Neurology: followed commands , AAOX3
Psych: calm.
Impression:
Dyspnea
Chronic lymphedema with bilateral stasis cellulitis
Morbid obesity
Restrictive lung disease
Obstructive sleep apnea/obesity hypoventilation disorder.
Chronic ambulatory metabolic alkalosis
Hypertension.
Eye conjunctivitis.
Anxiety/depression
Insomnia.
Tobacco use disorder former cigarette smoker, vaping nicotine.
Plan
#Dyspnea
Patient saturating at 94% at room air
Chest x-ray with no acute abnormalities
In review of CT scan from 2022 showed multiple atelectasis.
Lower extremity Doppler with no DVT.
D-dimer within normal limits.
Patient with morbid obesity BMI 51, insomnia, short neck, findings most likely consistent with obesity hypoventilation disorder, obstructive sleep apnea.
In review of outpatient records, patient declined sleep studies with concern of inability to wear mask at night.
Acute on chronic lymphedema with stasis dermatitis.
Likely at risk of pulmonary arterial hypertension/cor pulmonale
Check nocturnal O2
s/p Lasix 40 mg IV twice daily
Extensive conversation in regards to lifestyle modification, weight loss, attempt of sleep evaluation but was eating candy chocolate this morning before breakfast
COPD/restrictive lung disease according to outpatient PFTs.
No evidence of bronchospasm on exam
Patient with tobacco smoking history and ongoing vaping use
Continue budesonide twice daily.
Continue nebs as needed.
ECHO- 55-60%
Continue Bipap, nightly, prn
VBG baseline 7.38/61 consistent with OHS
Started on Cardizem
Home O2 evaluation
#Cellulitis
much less lower extremity erythema.
pt is afebrile.
Leucocytosis- WBC is coming down.
Blood culture no growth
s/p IV Ancef for 3 days, change to oral ABx
Not toxic. Denies tenderness in legs
#L Eye Conjunctivitis
s/p gentamicin.
#Anxiety / Depression
Insomnia
Continue Lexapro
Psychiatry consulted
#Morbid Obesity
Not compliants with healthy diet , was eating candy chocolate, per nurse, pt was eating that due to fluid restriction
-bipap
DVT Prophylaxis: Lovenox
Code Status: Full
Total discharge time spent to see patient, examine the patient on the floor, review data and lab results, discuss discharge plan with patient, dependency case manager, nursing staff around 65 minutes
Anticipated Discharge: Today
Subjective/Interval History
-
Date of Service: June 16, 2023
No chest pain
No sob
Wants to go home
Night team: pt refused to keep C pap on
Objective Data
-
Labs:
Laboratory Results
06/16/23
06:08
WBC Pending
Hgb Pending
Hct Pending
Plt Count Pending
Sodium Pending
Potassium Pending
Chloride Pending
Carbon Dioxide Pending
BUN Pending
Creatinine Pending
Glucose Pending
Calcium Pending
Total Bilirubin Pending
AST Pending
ALT Pending
Alkaline Phosphatase Pending
Vital Signs:
Vital Signs
Temp Pulse Resp BP Pulse Ox
98.6 F 91 16 148/98 95
06/16/23 05:50 06/16/23 06:14 06/15/23 19:27 06/16/23 06:14 06/16/23 06:14
I&O
06/14/23 06/15/23 06/16/23
06:59 06:59 06:59
Intake Total 1820 / 1820 360 / 360 360 / 360
Output Total 1600 / 1600
Balance 220 / 220 360 / 360 360 / 360
[2023-06-16 07:10] LABS: ALT (SGPT) 15 U/L (0-50); AST (SGOT) 24 U/L (17-59); Albumin 3.6 g/dl (3.5-5.0); Alkaline Phosphatase 63 U/L (38-126); Blood Urea Nitrogen 18 mg/dl (9-20); Calcium 8.8 mg/dl (8.4-10.2); Carbon Dioxide 36 mmol/L (22-30); Chloride 92 mmol/L (98-107); Estimated Creatinine Clearance > 125 ml/min; Glucose 148 mg/dl (70-99); Potassium 3.8 mmol/L (3.5-5.1); Sodium 135 mmol/L (135-145); Total Bilirubin 0.7 mg/dl (0.2-1.3); Total Protein 6.5 g/dl (6.3-8.2); eGFR > 60.00
[2023-06-16] MEDS: DUONEB 3 ML INH (07:23)
[2023-06-16 07:24] VITALS: BP 170/104
[2023-06-16] MEDS: PULMICORT 0.5 MG INH (07:24)
[2023-06-16] MEDS: ANCEF 10 IV (07:26)
[2023-06-16] MEDS: CYMBALTA DELAYED RELEASE 20 MG PO (07:26)
[2023-06-16] MEDS: CARDIZEM CD 180 MG PO (07:26)
[2023-06-16] MEDS: LASIX 40 MG IV (07:26)
[2023-06-16] MEDS: NEURONTIN 100 MG PO (07:26)
[2023-06-16] MEDS: GENOPTIC 0.3% EYE DROPS 4 DROP LEFT EYE (07:27)
[2023-06-16] MEDS: LOVENOX 60 MG SC (07:27)
--- NOTE | 2023-06-16 08:37 | PTCARENOTE ---
Addendum entered by Rosalia Monae RN 06/16/23 08:45:
patient refusing full skin assessments
Original Note:
report received, assessment per work list. patient with flat affect. refusing to get up this am, refusing personal care. hospitalist at bedside, plan for possible discharge today
[2023-06-16 09:14] VITALS: BP 158/76
--- NOTE | 2023-06-16 09:47 | VNURNOTE ---
Chart reviewed, [facility] does not service area patient lives in.
No [facility] referral made.
CM updated.
--- NOTE | 2023-06-16 10:13 | PTCARENOTE ---
received call from patient father. updated with discharge order, home oxygen assessment pending. father became very upset and stated he was going to have to pay out of pocket for any equipment. he requested to know patient current 'Co2 level'. he
requested call 'within thirty minutes' from MD and CM. tiger text sent to both MD and CM to update. messages received and read
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
[2023-06-16 11:17] VITALS: BP 130/72
--- NOTE | 2023-06-16 14:19 | W.DCSUMMARY ---
Discharge Summary
Discharge Data
Date of Admission: 06/12/23
Date of Discharge: 06/16/23
-
Pending Results: No
Hospital Course
47 years old male presented with worsening erythema and swelling in bilateral lower extremity, worsening shortness of breath, fatigue and lethargy. Patient complained of significant dyspnea with any degree of activity. Patient was seen by
pulmonary in the past and had pulmonary function test that showed mixed pattern. Patient declined to do sleep study. Patient complained of insomnia and snoring. Patient reported that he tried Trelegy but no help at home. He was taking Lasix at
home. Patient was admitted to the hospital. He was admitted to the intensive care unit to try BiPAP treatment. He was evaluated by pulmonary/plastic hospital products assembler with telecommunications line mechanic. Patient threatened to leave AGAINST MEDICAL ADVICE several times over his
hospital stay. He was argumentative at times with the medical and nursing staff. Patient refused to use BiPAP/CPAP many times in the hospital. He was also noted to be noncompliant with his dietary restriction including low-salt and low carbs.
Pulmonary doctor did sleep study in the hospital and arrangements were made for Cpap machine to be sent to the patient's home. Patient was counseled several times regarding compliance to instructions, he verbalized understanding. Adaptive Physical Education Teacher
recommended to continue Cardizem for dyspnea induced sinus tachycardia/arrhythmias. He was maintained on his furosemide. Patient was noted to take gentamicin eye ointment and he insisted on continuing that. Patient was advised to seek
pick up attendant evaluation due to potential side effects of prolonged antibiotic application. He was given empiric antibiotic treatment for bilateral lower extremity edema and erythema. His leg swelling was felt secondary to obesity and water
retention. Possible underlying lymphedema. Blood culture did not show any growth. Home oxygen evaluation did not reveal need for home oxygen. His oxygen saturation around 92-94% on ambulation on room air. Patient was evaluated by psychiatrist
for treatment of anxiety. Lexapro was discontinued and psychiatrist recommended gabapentin to treat anxiety/ insomnia and Cymbalta. Patient was started on those 2 new medications with no complications. Patient refused to see psychiatrist in
subsequent visits. Patient had problem maintaining BiPAP at night despite using lorazepam to control anxiety. Patient wanted to go home and was given instructions regarding his medications. He was advised to follow-up with his primary
telecommunications line mechanic Dr. Tom Camargo. He was also advised to follow-up with pulmonary doctor for further adjustment of his breathing treatments and noninvasive ventilation machine. His father called the hospital and requested to talk to the medical team.
His father was concerned about patient's medical compliance but noted that patient was competent to make his own decisions. Case management also spoke with the father at length regarding that. Patient gave permission to speak to his father over
the phone. Patient was discharged on oral antibiotic to finish the course for possible cellulitis in the legs. His hemoglobin upon discharge was 11.7. Creatinine was 0.7 with BUN 18 upon discharge. Patient remained hemodynamically stable and was
discharged with home health in a stable condition.
Discharge Plan
-
Patient Disposition: Home with Home Care
Discharge Diagnosis/Procedures: Acute on chronic shortness of breath, suspect underlying undiagnosed obstructive sleep apnea /obstructive hypoventilation syndrome.
Obesity, BMI 50
Metabolic alkalosis
Claudication
Subacute lower extremity pain and swelling with erythema, he received antibiotic
History of smoking /vaping
Primary hypertension sinus tachycardia, you are given a new medicine called Cardizem
.
You are at risk of having further complications upon noncompliance. Please follow-up with the instructions you are given. Use your BiPAP to avoid further cardiopulmonary compromise. Follow-up with pulmonary doctor for further adjustments of your
medications and BiPAP.
You are seen by telecommunications line mechanic, recommended to continue diltiazem(Cardizem) and Lasix. Follow-up with your primary telecommunications line mechanic Dr. Tom Camargo.
Discuss with your primary care doctor regarding weight loss options
Diet: 2 Gram Sodium
Referrals:
Unique Dhillon DO [Active] - (4-6 weeks in sleep clinic or through [facility] (Docs at [facility]))
Francis Leal MD [Family Provider] - in one to two weeks
Prescriptions:
New
diltiazem HCl 180 mg Capsule,Extended Release 24hr
180 mg PO DAILY Qty: 30 0RF
gabapentin 100 mg Capsule
100 mg PO TID Qty: 90 0RF
duloxetine 20 mg Capsule,Delayed Release(Dr/Ec)
20 mg PO DAILY Qty: 30 0RF
cephalexin 500 mg capsule
500 mg PO Q6H 7 Days Qty: 28 0RF
Continued
fluticasone propionate 0.05 % Cream
1 applic TOPICAL DAILY PRN (Reason: apply to B/L legs)
gentamicin 0.3 % Drops
4 drp LEFT EYE DAILY
gentamicin 0.3 % Drops
4 drp LEFT EYE DAILYPRN PRN (Reason: eye irritation)
Patient Comments:
06/11/2023, after naps.
Trelegy Ellipta 100-62.5-25 mcg Blister With Device
1 inh INHALATION R DAILY
ZzzQuil
2 gummy PO HS
furosemide [Lasix] 20 MG tablet
40 mg PO DAILY
Discontinued
escitalopram oxalate 5 mg Tablet
5 mg PO DAILY@1500
Discharge Orders:
Discharge Patient (As Directed); Ordered 06/16/23
Ordered By: Rd Jones
Discharge Date and Time
Discharge Date/Time: 06/16/23 12:45
Print Language: UKRAINIAN
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
== END 2023-06-16 12:45 | disposition home health service (06) | DRG 607 ==
LOC: ICU 04:14
PROVIDERS: Emergency Medicine; Internal Medicine; ADMITTING PHYSICIAN Hospitalist; ATTENDING PHYSICIAN Internal Medicine; CONSULT PHYSICIAN Internal Medicine; CONSULT PHYSICIAN Psychiatry & Neurology Psychiatry; EMERGENCY PHYSICIAN Emergency Medicine; FAMILY PHYSICIAN Family Medicine; OTHER PHYSICIAN Internal Medicine
DX: I89.0 Lymphedema, not elsewhere classified (principal); E66.2 Morbid (severe) obesity with alveolar hypoventilation; Z68.43 Body mass index [BMI] 50.0-59.9, adult; E87.3 Alkalosis; L03.115 Cellulitis of right lower limb; L03.116 Cellulitis of left lower limb; G47.00 Insomnia, unspecified; F41.9 Anxiety disorder, unspecified; J98.4 Other disorders of lung; F17.290 Nicotine dependence, other tobacco product, uncomplicated; I10 Essential (primary) hypertension; F32.A Depression, unspecified; Z91.119 Patient's noncompliance with dietary regimen due to unspecified reason; Z91.199 Patient's noncompliance with other medical treatment and regimen due to unspecified reason
CPT/HCPCS: 71046; 80048; 80053; 80061; 80076; 82805; 83036; 83605; 83735; 83880; 84100; 84439; 84443; 84484; 85025; 85027; 87040; 93005; 93306; 93970; 94640; 94660; 94762; 96365; 96375; 99285; 99406; Q9950

== ENCOUNTER 2023-08-09 23:54 | Inpatient (IN) | payer BC, SELFPAY ==
[2023-08-09 20:41] VITALS: BMI 50.6
[2023-08-09 20:46] VITALS: BP 116/50
[2023-08-09 21:22] VITALS: BP 96/44
[2023-08-09 21:39] LABS: % Basophils 0.3 % (0-2); % Immature Granulocytes 0.6 % (0-0.5); % Lymphocytes 8.5 % (20.5-51.1); % Monocytes 13.4 % (1.7-9.3); % Neutrophils 74.2 % (42.2-75.2); Absolute Eosinophils 0.4 10^3/uL (0-0.7); Absolute Immature Granulocytes 0.1 10^3/uL (0-0.05); Absolute Lymphocytes 1.1 10^3/uL (1.2-3.4); Absolute Monocytes 1.7 10^3/uL (0.1-0.6); Absolute Neutrophils 9.5 10^3/uL (1.4-6.5); Hematocrit 31.1 % (39.0-52.0); Hemoglobin 9.9 g/dL (13.0-18.0); Mean Corp Hgb Conc. 31.8 g/dL (33.0-37.0); Mean Corpuscular Hgb 26.2 pg (27.0-31.0); Mean Corpuscular Volume 82.3 fL (80.0-94.0); Mean Platelet Volume 10.1 fL (7.4-10.4); Nucleated Red Blood Cells % 0 % (-); Platelet Count 257 10^3/uL (130-400); Red Blood Cell Count 3.78 10^6/uL (4.70-6.10); Red Cell Dist. Width 15.5 % (11.5-14.5); White Blood Cell Count 12.8 10^3/uL (4.8-10.8)
[2023-08-09 21:58] LABS: ALT (SGPT) 19 U/L (0-50); AST (SGOT) 23 U/L (17-59); Albumin 3.8 g/dl (3.5-5.0); Alkaline Phosphatase 65 U/L (38-126); Blood Urea Nitrogen 60 mg/dl (9-20); Calcium 9.1 mg/dl (8.4-10.2); Chloride 84 mmol/L (98-107); Glucose 96 mg/dl (70-99); Potassium 4.1 mmol/L (3.5-5.1); Sodium 135 mmol/L (135-145); Total Bilirubin 0.6 mg/dl (0.2-1.3); Total Protein 6.6 g/dl (6.3-8.2); eGFR 49.73
[2023-08-09 22:02] LABS: NT-proBNP 190 pg/ml; Troponin I < 0.012 ng/ml
[2023-08-09 22:08] LABS: Carbon Dioxide 45 mmol/L (22-30)
--- NOTE | 2023-08-09 22:16 | ED.GENMED ---
History of Present Illness
General
Chief Complaint: Breathing Problem
Time Seen by Provider: 08/09/23 21:02
Travel History
Have you had any contact with someone who has COVID-19?: No
Do you have any symptoms of coronavirus? Fever > 100 degrees, chills, cough, shortness of breath, sore throat, loss of taste or smell, muscle aches, or headache?: No
History of Present Illness
History of Present Illness:
48 yo male w/ hx of morbid obesity and HTN presents to the Emergency Department For evaluation of shortness of breath. The patient has been admitted to multiple vitals over the past 8 weeks, was admitted here in mid June with suspicion for
cellulitis of bilateral lower extremities. He also states that he was admitted to [facility] in early July as well as [facility] mid July before being transferred to [facility]. He was admitted to [facility]
through today but signed out AGAINST MEDICAL ADVICE to come to this hospital and visit his mother. He notes that he has had progressively worsening shortness of breath, distention, and weight gain past 3 years after kamila COVID-19. His lower
extremities have been erythematous for greater than 1 year. He was treated on multiple occasions for potential cellulitis with no improvement. Patient is overall a poor historian about his health history, he cannot give me any valid history
regarding his recent hospital stay but does note that he had a 'right heart' at [facility] but he is unaware of the results of this. Fortunately patient does not have MyChart and I am not able to obtain records from [place] during the time
of this visit
During the patient's last admission to this hospital he was recommended for nocturnal BiPAP due to obstructive sleep apnea and obesity however he has been noncompliant with this. Does not appear he has been recommended for chronic home O2 use. On
arrival to his room air saturations are 88%. He reports to me that he has been on IV furosemide while in [place] feels as though he has been dehydrated given that he Has also been on a fluid restriction
Past History
Past History
ED Past Medical History: COPD, HTN, Psychiatric (Depression) and Other (Morbid obesity; COVID-19 URI June 2020)
ED Past Surgical History: Other
Social History
Tobacco: Vaping (Former cigarette smoker, now vapes nicotine and has been cutting down)
Alcohol: Occasional
Drug: None
Personal:
Living: with family
Employment: Employed
Family History
Family History: Negative Early CAD or CAD
Review of Systems
Review of Systems
Allergies reviewed?: Yes
All Other Systems: ROS reviewed and negative except as documented in HPI and ROS
Phy Exam
Physical Exam
Physical Exam:
GEN: Tachypneic with conversational dyspnea, morbidly obese
Eyes: PERRLA, EOMs intact, no scleral icterus
HENT: NCAT, oral mucosa moist
Lungs: CTAB. Tachypneic with increased effort. Diminished bases due to body habitus
Cardiac: RRR, no M/R/G, no peripheral edema. Radial pulses 2+ bilat
Abdomen: Gross anasarca, marked erythema of abdomen
Neuro: AO x 3
MSK: No gross deformity or ecchymosis.
Skin: marked erythema BLE to above the knees. Open superficial wound to L calf
Psych: Calm, cooperative, proper hygiene
Scores
Heart Failure Risk
Heart Failure Risk Score: Not Applicable
Course
Orders/Labs/Results
Orders:
Orders
08/09/23 21:03
EKG [Electrocardiogram (*1)] Urgent
Reason for Study: Shortness of Breath
EKG- Treatment ONCE
08/09/23 21:17
Electrocardiogram (*1) Urgent
Reason for Study: Shortness of Breath
EKG- Treatment ONCE
CR Chest - 2 Views Urgent
Comment:
Reason For Exam: SOB
08/09/23 21:26
Complete Blood Count/With Diff Urgent
Comprehensive Metabolic Panel Urgent
NT-proBNP Urgent
Troponin I Urgent
08/09/23 22:51
Venous Blood Gas Urgent
%Oxygen/Room Air: 87
08/10/23 00:00
CT Chest Pe Study Urgent
Reason For Exam: hypoxia
Abnormal Lab Results
08/09/23 08/09/23
21:26 22:51
WBC 12.8 H 10^3/uL
(4.8-10.8)
RBC 3.78 L 10^6/uL
(4.70-6.10)
Hgb 9.9 L g/dL
(13.0-18.0)
Hct 31.1 L %
(39.0-52.0)
MCH 26.2 L pg
(27.0-31.0)
MCHC 31.8 L g/dL
(33.0-37.0)
RDW 15.5 H %
(11.5-14.5)
Abs Immat Gran (auto) 0.1 H 10^3/uL
(0-0.05)
Absolute Neuts (auto) 9.5 H 10^3/uL
(1.4-6.5)
Absolute Lymphs (auto) 1.1 L 10^3/uL
(1.2-3.4)
Absolute Monos (auto) 1.7 H 10^3/uL
(0.1-0.6)
Immature Gran % 0.6 H %
(0-0.5)
Lymphocytes % 8.5 L %
(20.5-51.1)
Monocytes % 13.4 H %
(1.7-9.3)
VBG pCO2 72 H* mmHg
(35-48)
VBG HCO3 47.8 H mmol/L
(22-27)
Chloride 84 L mmol/L
(98-107)
Carbon Dioxide 45 H mmol/L
(22-30)
BUN 60 H mg/dl
(9-20)
Creatinine 1.7 H mg/dL
(0.7-1.3)
08/09/23 21:26
08/09/23 21:26
Vital Signs
Initial and Last Documented VS:
Initial Vital Signs
Temp Pulse Resp BP Pulse Ox
98.5 F 102 26 116/50 88
08/09/23 20:46 08/09/23 20:46 08/09/23 20:46 08/09/23 20:46 08/09/23 20:46
Last Documented Vital Signs
Temp Pulse Resp BP Pulse Ox
98.5 F 92 24 105/49 94
08/09/23 20:46 08/09/23 23:45 08/09/23 23:45 08/09/23 23:00 08/09/23 23:45
MDM/Problems Addressed
MDM/Problems Addressed:
Very complex case and quite challenging without access to records from her recent outside hospitalizations. Ultimately the patient appears to have gross anasarca, given the chronicity of the erythema do not suspect anything infectious. Symptoms
may potentially be driven entirely by obesity hypoventilation syndrome but ultimately he is hypoxic on room air at rest. No evidence of infectious etiology causing his hypoxia. He is noted to be mildly hypotensive diuresis given at the outside
hospital. Gentle IV fluids initiated. Will be admitted to the hospital for further management
*Critical Care Note
Total Time (30-74mins, 75-104mins- exclusive of procedures): Not Applicable
ED Attending Note
-
Portions of this chart may have been created with voice recognition software.� Occasional wrong word or��sound alike� substitutions may have occurred due to the inherent limitations of voice recognition software.
Discharge Plan
Departure
Patient Disposition: Admit
Date of Disposition: 08/09/23
Time of Disposition: 22:53
Admit to: Med/Surg
Presentation/result/management discussed w/ accepting MD/DO: Hospitalist
Discharge Problem:
Acute respiratory insufficiency, Obesity hypoventilation syndrome, Acute kidney injury
Interventions
Interventions:
*Risk Screen - Suicide Last Done: 08/09/23 20:51
*General Assessment Last Done: 08/09/23 20:51
*Neglect/Abuse Screening Last Done: 08/09/23 20:51
ED- Fall Risk Assessment Last Done: 08/09/23 21:22
ED- Cardiac Assessment Last Done: 08/09/23 21:22
ED- Pulmonary Assessment Last Done: 08/09/23 21:22
[2023-08-09 22:26] VITALS: BP 98/50
[2023-08-09 23:00] VITALS: BP 105/49
[2023-08-09 23:03] LABS: Venous Blood Gas B.E. 20.3 mmol/L (-4 to +4); Venous Blood Gas HCO3 47.8 mmol/L (22-27); Venous Blood Gas O2 Sat % 74.3 %; Venous Blood Gas pH 7.43 (7.32-7.43); Venous Blood Gas pO2 47 mmHg (30-50)
[2023-08-09 23:05] LABS: Venous Blood Gas pCO2 72 mmHg (35-48)
--- NOTE | 2023-08-09 23:43 | HPS.HSE ---
Addendum entered and electronically signed by Aryan Webber MD 08/10/23 13:33:
CTC with PE protocol
1. No CTA evidence for acute central pulmonary arterial embolus.
2. Multiple chronic subpleural airspace consolidations in the left upper and lower lobes consistent with chronic round atelectasis and scarring which appears unchanged.
3. Mild bronchitis in the right lower lobe.
4. Mild cardiomegaly and mild pericardial calcification which appears unchanged.
5. Large bilateral pericardial fat pads.
6. Moderate hepatosplenomegaly.
7. Mild thoracic scoliosis.
Addendum entered and electronically signed by Aryan Webber MD 08/10/23 06:16:
CXR final report
1. Mild cardiomegaly with suggestion of elevated pulmonary venous pressures.
2. Mild subpleural airspace consolidation in the left lower lobe which could be secondary to pneumonia or atelectasis.
3. Large bilateral pericardial fat pads.
4. Mild to moderate elevation of the right hemidiaphragm.
5. Mild scoliotic curvature of the thoracic spine.
- check PCT - till then hold of targeted ABx for PNA
Original Note:
Family Physician
-
Family Physician: * NONE
Chief Complaint
-
SoB and Hypoxia
History of Present Illness
Patient is poor historian: Most of the Information gathered by chart review and speaking with the ER staff.
48M Poor historian with Morbid obesity, current smoker, chr dyspnea , suspected KAEL /OHVS but declined sleep study, chr metabolic alkalosis. Multple admissions to multiple hospitals.
He was admitted to [facility] through today but signed out AGAINST MEDICAL ADVICE to come to this hospital and visit his mother. He seems to have RHC at [facility] but no available records yet.
Reports progressively worsening shortness of breath, distention, and weight gain past 3 years after kamila COVID-19. His lower extremities have been erythematous for greater than 1 year.
At ER:
Reports SoB
POx was 88 % on RA , 100 on 4 L
Hypotensive
Chr ST
Medical History
Past Medical History
Past Medical History: Reports Other (Morbid Obesity Anxiety / Depression Lymphedema)
Past Surgical History: Reports Other (esticle Lowering in Childhood)
Social History
Tobacco: Former Smoker (Former Smoker (Quit smoking cigarettes one year ago. > 20 pack years total prior. Continues to use occasional vape.))
Alcohol: Occasional
Family History
Family History: Not pertinent
Allergies / Home Medications
Allergies reflects when Allergies were last updated in [employer].
Home Medications with original date entered in [employer]
Allergy/Medication List:
Allergies
Allergy/AdvReac Type Severity Reaction Status Date / Time
No Known Allergies Allergy Verified 06/11/23 18:42
Home Medications
ZzzQuil 2 gummy PO HS Sleep 06/11/23
fluticasone fur. 100 mcg-umeclid 62.5 mcg-vilant 25 mcg inhalat.powder (Trelegy Ellipta) 1 inh inhalation R DAILY Lung/Breathing Issues 06/11/23
fluticasone propionate 0.05 % topical cream 1 applic topical DAILY PRN apply to B/L legs 06/11/23
furosemide 20 mg tablet (Lasix) 40 mg PO DAILY Fluid Retention/Swelling 06/11/23
gentamicin 0.3 % eye drops 4 drp LEFT EYE DAILY Eye Condition 06/11/23
gentamicin 0.3 % eye drops 4 drp LEFT EYE DAILYPRN PRN eye irritation 06/11/23
cephalexin 500 mg capsule 500 mg PO Q6H 7 days #28 caps 06/16/23
diltiazem HCl 180 mg capsule,extended release 24 hr 180 mg PO DAILY #30 caps 06/16/23
duloxetine 20 mg capsule,delayed release 20 mg PO DAILY #30 caps 06/16/23
gabapentin 100 mg capsule 100 mg PO TID #90 caps 06/16/23
Review of Systems
-
Constitutional: Reports No Symptoms
EENT: Reports No Symptoms
Respiratory: Reports See HPI
Cardiac: Reports No Symptoms
Abdomen/GI: Reports No Symptoms
: Reports No Symptoms
Musculoskeletal: Reports No Symptoms
Skin: Reports See HPI
Neurological: Reports No Symptoms
Endocrine: Reports No Symptoms
Hematologic/Lymphatic: Reports No Symptoms
Psych: Reports No Symptoms
Physical Exam
Vital Signs
Vital Signs
Temp Pulse Resp BP Pulse Ox
98.5 F 96 24 98/50 98
08/09/23 20:46 08/09/23 23:00 08/09/23 23:00 08/09/23 22:26 08/09/23 23:00
Physical Exam
General: No Apparent Distress, Comfortable, Conversant, Morbidly Obese and Other (conversational dyspnea)
HEENT: NormoCephalic, Anicteric and Moist mucous membranes
Respiratory: Decreased Breath Sounds (Diminished bases due to body habitus) and Other (Tachypneic )
Cardiac: S1/S2 and Tachycardia
Breast: Deferred by me
GI: Soft, Distended and Other ( Gross anasarca, marked erythema of abdomen)
Rectal: Deferred by Provider
Genito-urinary: Deferred by me
Skin: Warm, Rash (erthematous ) and Other (marked erythema BLE to above the knees. Open superficial wound to L calf)
Neuro: AO x 3
Psych: Calm
Laboratory Results
-
08/09/23 21:26
08/09/23 21:26
Laboratory Results
Total Bilirubin 0.6 mg/dl (0.2-1.3) 08/09/23 21:26
AST 23 U/L (17-59) 08/09/23 21:26
ALT 19 U/L (0-50) 08/09/23 21:26
Alkaline Phosphatase 65 U/L (38-126) 08/09/23 21:26
Troponin I < 0.012 ng/ml 08/09/23 21:26
Data Reviewed
-
Diagnostic Radiology: Discussed with Physician
CT Scan: Other (pending )
Medical Tests (Nuc Med, Echo, EKG etc): Report Reviewed by me
Lab Data: Labs Reviewed by me
Old Records: Reviewed
Impression/Plan
-
Reviewed VS: Afebrile HR 100s, BP 98/50 POx 88 on RA , RR 24 100 on 4L O2
Data
WCC 12.8
Hgb 9.9 - baseline 11.7
Cl 84
CO2 45 - baseline mid 30s
Cr 1.7 - baseline 0.7
VB.43/pCO2 72 - baseline 61/ pO2 47
NEG TPNI
pro BNP 190
EKG
NORMAL SINUS RHYTHM
POSSIBLE LEFT ATRIAL ENLARGEMENT
BORDERLINE ECG
WHEN COMPARED WITH ECG OF 11-JUN-2023 18:55,
NONSPECIFIC T WAVE ABNORMALITY NO LONGER EVIDENT IN ANTEROLATERAL LEADS
06/12/23 TTE
Technically difficult study
LVEF 55-60
No significant valvular disease.
No prior study available for comparison.
CT chest 03/25/2022:
Stable exam.
Chronic asymmetric volume loss involving the left hemithorax.
Minor linear parenchymal scarring.
Findings most consistent with stable peripheral round atelectasis.
CT Chest PE study 08/21/21:
no PE. overall mild volume loss in the left hemithorax with areas of subsegmental atelectasis some of which are somewhat rounded in configuration, additional minor areas of left lung groundglass opacification, non specific.
Last hospitalist admission: 06/12/23 - 06/16/23
P Dxs: Acute on chr dyspnea , suspected KAEL/OHVS
Chr Dxs: Morbid obesity with BMI 50 , Metabolic alkalosis, claudication, Essentila HTN, Subacute lower extremity pain and swelling with erythema, he received antibiotic
ASSESSMENT & PLAN
Pending Rx reconciliation
KAYLEN : Cardio renal syndrome vs recent contrast nephropathy ( Recent Rt HC at [facility] 2 days ago)
Clinically suspect hypervolemic
Acute on chronic primary metabolic alkalosis with secondary resp acidosis
- held further Frusemide for now
- Trend BMP daily
- Obtain records for PAH
- Renal consult to evaluate for overall vole status
Acute on chr Dyspnea
Acute Hypoxemic Respiratory Insufficiency
Concern for sleep disorder ( KAEL/ OHVS) but he declined w/u on last admission
COPD
HX Restrictive lung disease
- Prior HX Nocturnal oximetry suboptimal, patient was awake all night
- Sleep study has been suggested to him in last admission but he is not interested
- Patient with former smoking history and ongoing vape use.
- Budesonide BID. Nebs PRN.
- No active wheezing at present to suggest acute exacerbation.
- CTC for PE study
- Pul consult
Acute on Chronic Lymphedema: associated cellulitis > venous dermatitis
Significant warmth
- Empiric IV Ancef
Chronic sinus tachycardia
- on Diltiazem
Anxiety / Depression
Insomnia
- Continue Lexapro
Morbid (severe) obesity due to excess calories, BMI 51.9
- Affects all aspects of care and specifically his current dyspnea and lymphedema issues.
DVT Px: LMWH
Code: Full code
IMU
[2023-08-10] VITALS (15 sets, daily range): BP systolic 93–153; BP diastolic 49–89; PULSE 2–100; BMI 53.9
--- NOTE | 2023-08-10 00:35 | EDRN ---
When RN first entered pt.'s room at change of shift at 23:00, pt. immediately told this RN that if he needs a bipap/cpap he will not wear it. PA is aware pt. would refuse bipap/cpap.
--- NOTE | 2023-08-10 01:35 | PTCARENOTE ---
Pt arrived to floor on stretcher from ED - ambulated to bed with steady gait; AAO x 3; SR/ST on monitor; Pt tachypneic, 99% on 4L O2 via NC; Red raised rash over entire body - Pt cleaned with soap and water; lotion applied. Order placed for
Desenex; BLE red and warm with +3 lymphedema; Oriented to room, call brizuela within reach. Will continue to monitor and assess.
[2023-08-10] MEDS: ANCEF 5 IV ×3 (02:26→19:45)
[2023-08-10] MEDS: TYLENOL 650 MG PO (02:27)
[2023-08-10] MEDS: MELATONIN 5 MG PO (02:33)
--- NOTE | 2023-08-10 04:21 | PTCARENOTE ---
Noted on monitor that Pt would desat into the 60's while asleep; Pt with known KAEL but non-compliant with therapy. Apneic events witnessed - Woke up patient and discussed use of BiPAP. Pt agreeable at the time - Order obtained for BiPAP and RT
notified. Pt refused mask shortly after RT placed mask on Pt; Will continue to monitor and asses.
[2023-08-10 04:29] LABS: Hematocrit 31.7 % (39.0-52.0); Hemoglobin 9.6 g/dL (13.0-18.0); Mean Corp Hgb Conc. 30.3 g/dL (33.0-37.0); Mean Corpuscular Hgb 25.9 pg (27.0-31.0); Mean Corpuscular Volume 85.7 fL (80.0-94.0); Mean Platelet Volume 10.1 fL (7.4-10.4); Platelet Count 235 10^3/uL (130-400); Red Cell Dist. Width 15.7 % (11.5-14.5); White Blood Cell Count 11.3 10^3/uL (4.8-10.8)
[2023-08-10 04:59] LABS: ALT (SGPT) 19 U/L (0-50); AST (SGOT) 22 U/L (17-59); Albumin 3.6 g/dl (3.5-5.0); Alkaline Phosphatase 63 U/L (38-126); Blood Urea Nitrogen 57 mg/dl (9-20); Calcium 8.6 mg/dl (8.4-10.2); Chloride 86 mmol/L (98-107); Estimated Creatinine Clearance 91 ml/min; Glucose 117 mg/dl (70-99); Potassium 3.9 mmol/L (3.5-5.1); Sodium 137 mmol/L (135-145); Total Bilirubin 0.6 mg/dl (0.2-1.3); Total Protein 6.6 g/dl (6.3-8.2); eGFR 53.48
[2023-08-10 05:24] LABS: Carbon Dioxide 42 mmol/L (22-30)
[2023-08-10] MEDS: SPIRIVA RESPIMAT 2.5 MCG 2 PUFF INH (07:24)
[2023-08-10] MEDS: SYMBICORT 80/4.5 MCG INHALER 2 PUFF INH ×2 (07:24→20:25)
[2023-08-10 09:34] LABS: Free T4 1.11 ng/dl (0.78-2.19)
--- NOTE | 2023-08-10 09:36 | CON.PUL ---
Consultation
Consultation Request
Date/Time Consultation Requested: 08/10/2023111
Date/Time Consultation Performed: 08/10/20231039
Requesting Provider: Dr. Webber
Performing Provider: Dr. Dangelo
Reason for Consultation: Dyspnea, respiratory failure
Medical History
-
Chief Complaint: SOB
History of Present Illness:
48-year-old male with a past medical history of COVID-19, restrictive lung disease, former tobacco use disorder, history of snoring and hypertension who presents with shortness of breath. He apparently was admitted to [facility] earlier prior to
arrival but left AMA due to family issues as patient's mother is ill. Here in triage patient was 88% on room air and improved to 100% on 4 L/min nasal cannula, he was tachycardic to 102 bpm, initially tachypneic to 26 breaths/min, BP 116/50 and
afebrile to 98.5 �F. Initial labs showed leukocytosis to 12.8, anemia to 9.9, chronic hypercapnia with pH 7.43 and pCO2 of 72 on venous blood gas, creatinine 1.7, and a negative troponin of <0.012 and a proBNP of 190. MRSA screen was collected.
CXR shows bilateral interstitial pulmonary edema and patient had anasarca on exam in the ER. He was started on gentle IV fluids and admitted to hospitalist for further management. Given his hypoxia with chronic hypercapnia, pulmonary service now
consulted for additional management/recommendations.
When I saw the patient he was sitting on the edge of his bed in no acute distress on 3 L/min nasal cannula. He says that he cannot use a CPAP or BiPAP mask that covers his mouth as he has a phobia of this. He is amenable to trying a mask tonight
as long as it does not cover his mouth. He is fixated on going to an outpatient lymphedema clinic through [facility]. He believes that he would rather see a director of archives in that same hospital system versus coming to see us. He currently
denies chest pain, headache, abdominal pain, fevers or chills. He says that he has not been taking his inhaler, Trelegy, prior to this admission. His mother is currently on the fourth floor here in this hospital and is awaiting to be discharged to
hospice tomorrow, as per the patient.
Of note the patient previously used to follow with us in the office with last visit on 08/16/2022 with Pati Wyman. He had COVID at the end of June 2021, and was started on Trelegy 100mcg as he has been having worsening shortness of breath at that
time. He was also seen in the ER few days prior to that office visit and was given prednisone and albuterol. Spirometry from 08/2021 showed moderate restrictive lung disease, and there was a mildly reduced DLco on prior PFT (from 10/2021) with mild
restriction (although DLco/VA: 97%). He has known parenchymal scarring with round atelectasis. He does have high risk of KAEL with history of snoring but was not interested in obtaining sleep study at that time.
PMHx: Personal history of COVID-19, restrictive lung disease, morbid obesity, seasonal allergies, history of vaping use (nicotine), former tobacco use, hypertension, history of snoring
PSHx: Testicle lowered
Past Medical History
Past Medical History: Other (Above as per HPI)
Past Surgical History: Other (Above as per HPI)
Social History
Tobacco: Former Smoker (Quit August 2021 with 1 PPD x 25 years; also history of vaping nicotine use)
Alcohol: Occasional
Drug: None
Family History
Family History: Cancer (Sister: Breast cancer) and Other (Father: A-fib)
Allergies / Home Medications
Allergies
Allergy/AdvReac Type Severity Reaction Status Date / Time
No Known Allergies Allergy Verified 06/11/23 18:42
Home Medications
�Medication �Instructions �Recorded �Confirmed �Last Taken �Type
ZzzQuil 2 gummy PO HS Sleep 06/11/23 06/11/23 06/10/23 History
fluticasone fur. 100 mcg-umeclid 1 inh inhalation R DAILY 06/11/23 06/11/23 06/10/23 History
62.5 mcg-vilant 25 mcg Lung/Breathing Issues
inhalat.powder (Trelegy Ellipta)
fluticasone propionate 0.05 % 1 applic topical DAILY PRN apply 06/11/23 06/11/23 06/11/23 History
topical cream to B/L legs
furosemide 20 mg tablet (Lasix) 40 mg PO DAILY Fluid 06/11/23 06/11/23 06/11/23 History
Retention/Swelling
gentamicin 0.3 % eye drops 4 drp LEFT EYE DAILY Eye Condition 06/11/23 06/11/23 06/10/23 History
gentamicin 0.3 % eye drops 4 drp LEFT EYE DAILYPRN PRN eye 06/11/23 06/11/23 Unknown History
irritation
cephalexin 500 mg capsule 500 mg PO Q6H 7 days #28 caps 06/16/23 Unknown Rx
diltiazem HCl 180 mg 180 mg PO DAILY #30 caps 06/16/23 Unknown Rx
capsule,extended release 24 hr
duloxetine 20 mg capsule,delayed 20 mg PO DAILY #30 caps 06/16/23 Unknown Rx
release
gabapentin 100 mg capsule 100 mg PO TID #90 caps 06/16/23 Unknown Rx
Review of Systems
-
History Source: Patient
All other systems: Negative unless noted
Vitals / Labs / Diagnostic Testing
Vital Signs
Temp Pulse Resp BP Pulse Ox
97.9 F 92 16 110/56 93
08/10/23 07:30 08/10/23 07:25 08/10/23 07:25 08/10/23 06:00 08/10/23 07:25
Lab Data
08/10/23 04:13
08/10/23 04:13
Diagnostic Testing:
Physical Exam
-
HEENT: Normocephalic, Anicteric and Other (Morbidly obese)
Cardiovascular: S1/S2 and Peripheral Edema (+1 lower extreme edema)
Respiratory: Wheeze (Negative), Rales (Negative), Rhonchi (Negative) and Other (Reduced breath sounds mainly in the left hemithorax)
GI: Soft, Distended (Abdominal obesity), Non Tender and Normal Bowel Sounds
Neurology: AO x 3 and Tremors (n)
Skin: Warm, Dry and Other (Lower extremity erythema bilaterally)
General: Comfortable and Chills (n)
Assessment
-
Assessment: 48-year-old male with a past medical history of COVID-19, restrictive lung disease, former tobacco use disorder, history of snoring and hypertension who presents with shortness of breath. He apparently was admitted to [facility]
earlier prior to arrival but left AMA due to family issues as patient's mother is ill. Here in triage patient was 88% on room air and improved to 100% on 4 L/min nasal cannula, he was tachycardic to 102 bpm, initially tachypneic to 26 breaths/min,
BP 116/50 and afebrile to 98.5 �F. Initial labs showed leukocytosis to 12.8, anemia to 9.9, chronic hypercapnia with pH 7.43 and pCO2 of 72 on venous blood gas, creatinine 1.7, and a negative troponin of <0.012 and a proBNP of 190. MRSA screen was
collected. CXR shows bilateral interstitial pulmonary edema and patient had anasarca on exam in the ER. He was started on gentle IV fluids and admitted to hospitalist for further management. Given his hypoxia with chronic hypercapnia, pulmonary
service now consulted for additional management/recommendations.
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
Impression:
#Acute respiratory failure with hypoxia - likely due to acute bronchiolitis in setting of mild-moderate restrictive lung disease + L-lung atelectasis with EDITH/LLL rounded atelectasis
#Abnormal CTA chest (08/10/2023) with EDITH/LLL rounded atelectasis
#Chronic hypercapnic respiratory failure due to obesity hypoventilation syndrome
#Restrictive lung disease (mild-moderate severity via spirometry in 2021)
#Metabolic alkalosis as a compensatory mechanism due to chronic hypercapnia
#Acute on chronic anemia
#Acute kidney injury (baseline creatinine approximately 0.8)
#Abnormal thyroid function tests with elevated TSH of 12.2 and free T4 WNL - likely subclinical hypothyroidism
#Morbid obesity (BMI: 53)
Plan:
- Continue with antibiotics with Ancef for lower lobe bronchiole wall thickening suspicious for bronchiolitis
- Patient previously took Trelegy at home although he says he has not been taking it lately, and there are no signs of obstruction on PFT or prior spirometry from 2021 --> continue Symbicort + spiriva as he says he used to feel a benefit with
trelegy in the past
- If pt can produce a sputum sample then collect that
- Hold off on additional diuresis as no evidence of volume overload on the CTA chest from 08/10/2023
- Maintain SpO2 >90-94% with supplemental O2 as needed
- Incentive spirometer encouraged
- Patient has well-compensated hypercapnic respiratory failure with compensatory metabolic alkalosis --> he should still be on BiPAP during sleep and he is willing to use this tonight as long as he has a mass that does not cover his mouth. I
discussed this with respiratory therapy and they will try this tonight
- He still needs to obtain a sleep study, and he is amenable to this. He previously refused this. He is willing to see us in office but wants to see a director of archives near his Lymphedema clinic in [facility]
- Replete electrolytes with K>4, Mg>2
- Maintain euglycemia with goal BG >100 and <180
- prn nebulized bronchodilators
- DVT ppx
Pulmonary service will continue to follow along.
Total time spent today was 55 minutes for this encounter. Time includes reviewing laboratory test/imaging results, reviewing pertinent medical records, obtaining and reviewing medical history, performing an appropriate exam, ordering medications,
tests and procedures. Time also includes documentation of this encounter, coordinating patient care and communicating with other healthcare professionals. Total time does not include separately billed tests performed on this date of service.
Data:
CTA Chest 08-10-2023:
1. No CTA evidence for acute central pulmonary arterial embolus.
2. Multiple chronic subpleural airspace consolidations in the left upper and lower lobes consistent with chronic round atelectasis and scarring which appears unchanged.
3. Mild bronchitis in the right lower lobe.
4. Mild cardiomegaly and mild pericardial calcification which appears unchanged.
5. Large bilateral pericardial fat pads.
6. Moderate hepatosplenomegaly.
7. Mild thoracic scoliosis.
--- NOTE | 2023-08-10 10:01 | W.PN.HOSP.TC ---
Today's Communication/Plan
-
anemia workup
KAYLEN workup
IV Lasix x 1 for volume overload
Renal and pulm evals
Need records to avoid repeating diagnostics; request placed, d/w RN and unit staff
Assessment / Plan
Assessment / Plan
Assessment:
Acute Hypoxemic Respiratory Insufficiency
KAYLEN, unclear etiology
suspected acute CHF - unclear type
- ddx: cardiorenal vs YENNIFER vs other
- check urine studies
- bladder scan/SC protocol
- Nephrology consulted
- obtain records of recent eval/diagnostics from [place]
Likely acute on chronic hypercapnia
underlying KAEL
underlying reported hx of COPD and restrictive lung disease (Obesity)
- intolerant of BiPAP last evening
- check with RT for nasal device
- eventual OP Sleep study
- CT-PE without PE
- Pulm consulted
- obtain records of recent eval/diagnostics from [place]
Acute on Chronic Lymphedema: associated cellulitis > venous dermatitis
B/L LE cellulitis (R>L)
- Empiric IV Ancef, day 1
Anemia, unclear chronicity
- check anemia workup
Chronic sinus tachycardia
- on Diltiazem
Anxiety/Depression
Insomnia
- Continue Lexapro
Morbid (severe) obesity due to excess calories, BMI 51.9
- Affects all aspects of care and specifically his current dyspnea and lymphedema issues.
Subclinical hypothyroidism
- elevated TSH, normal FT4
- repeat TFTs 4 weeks
L eye conjunctivitis recently
- reports improvement and he has not required eye drops (Gent) in weeks, will therefore place those eyes drops on hold
DVT ppx: Lovenox
Code: Full
Anticipated Discharge: > 48 hours
Subjective/Interval History
-
Date of Service: August 10, 2023
alert, awake
states he was @ [place] and evaluated with Echo, Cardiac cath and other diagnostics for concern of lymphedema, CHF
he left AMA to be with his mother who is terminal with Parkinsons
Objective Data
-
Labs:
Laboratory Results
08/09/23 08/10/23
21:26 04:13
WBC 11.3 H
Hgb 9.6 L
Hct 31.7 L
Plt Count 235
Sodium 137
Potassium 3.9
Chloride 86 L
Carbon Dioxide 45 H 42 H
BUN 57 H
Creatinine 1.6 H
Glucose 117 H
Calcium 8.6
Total Bilirubin 0.6
AST 22
ALT 19
Alkaline Phosphatase 63
Vital Signs:
Vital Signs
Temp Pulse Resp BP Pulse Ox
97.9 F 92 16 110/56 93
08/10/23 07:30 08/10/23 07:25 08/10/23 07:25 08/10/23 06:00 08/10/23 07:25
I&O
08/09/23 08/10/23 08/11/23
06:59 06:59 06:59
Intake Total 480 / 480
Balance 480 / 480
Physical Exam
-
General: Comfortable and Morbidly Obese
HEENT: Normocephalic and Atraumatic
Respiratory: Crackles
Cardiac: Regular Rhythm and S1/S2
GI: Soft
Musculoskeletal: Edema, Right Lower Extrem, Edema, Left Lower Extrem and Other (R>L Erythema)
Neuro: AO x 3
Hematologic / Lymphatic: No Lymphadenopathy
Psych: Calm
Data Reviewed
-
Total Time Spent with Patient (in minutes): 45
Labs: Labs Reviewed by me
[2023-08-10 11:06] LABS: B.E. 19.4 mmol/L; O2 Saturation % 99.2 % (94-98); PO2 105 mmHg (83-108); pH 7.38 (7.35-7.45)
[2023-08-10] MEDS: LASIX 40 MG IV (11:19)
[2023-08-10] MEDS: FLUSH (NSS) 2 FLUSH IV (11:19)
[2023-08-10 11:21] LABS: O2 Therapy 3L
[2023-08-10 11:23] LABS: HCO3 47.9 mmol/L (21-28); PCO2 81 mmHg (35-48)
--- NOTE | 2023-08-10 11:23 | W.CON.NEPH ---
Consultation
-
Date/Time Consultation Requested: 08/10/23108
Date/Time Consultation Performed: 08/10/23 1130
Requesting Provider: Ankita Toro
Performing Provider: Faith Rodríguez
Reason for Consultation: KAYLEN
Medical History
-
Chief Complaint: SOB
History of Present Illness:
47 y/o male with hypertension, inappropriate sinus tachycardia on Diltiazem, former smoker, BLE edema, lymphedema on lasix, depression, anxiety on cymbalata, gabapentin, and restrictive lung disease, Morbid obesity, suspected KAEL /OHVS but declined
sleep study, chr metabolic alkalosis who was discharge from in June after treating for sob, cellulitis, KAEL with HS BiPAP. There was major concern of noncompliance to medical care. He had multiple admissions to multiple hospitals([place],
[facility]), most recently he was admitted to [facility] for almost 1week through 08/08 but signed out AGAINST MEDICAL ADVICE to come to this hospital and visit his mother who is on hospice. He seems to have RHC at [facility] but no
available records yet-verbal report from pt with high filling pressures, he reports he was diuresed more than 30lbs and he did not use BIPAP.
Reports progressively worsening shortness of breath, distention, and weight gain past 3 years after kamila COVID-19. His lower extremities have been erythematous for greater than 1 year. He was at 88% on RA on arrival to ER. He underwent CT
hest PE study shows no PE.
Labs shows cr of 1.7, from baseline of 0.7. worsening met alkalosis 42, Ph of 7.38, pCO2 of 81.
Past Medical History
Arrhythmias, HTN morbid obesity, lymphedema, depression, restictive lung disease, KAEL/OHS
Past Surgical History: Other (Testicle Lowering in Childhood)
Social History
Tobacco: Former Smoker (1yr ago) and Vaping
Alcohol: Occasional
Personal: Single
Living: With Family
Employment: Not Employed
Family History
Family History: Not Pertinent
Allergies / Home Medications
Allergy/AdvReac Type Severity Reaction Status Date / Time
No Known Allergies Allergy Verified 06/11/23 18:42
�Medication �Instructions �Recorded �Confirmed �Type
ZzzQuil 2 gummy PO HS Sleep 06/11/23 06/11/23 History
fluticasone fur. 100 mcg-umeclid 1 inh inhalation R DAILY 06/11/23 06/11/23 History
62.5 mcg-vilant 25 mcg Lung/Breathing Issues
inhalat.powder (Trelegy Ellipta)
fluticasone propionate 0.05 % 1 applic topical DAILY PRN apply 06/11/23 06/11/23 History
topical cream to B/L legs
furosemide 20 mg tablet (Lasix) 40 mg PO DAILY Fluid 06/11/23 06/11/23 History
Retention/Swelling
gentamicin 0.3 % eye drops 4 drp LEFT EYE DAILY Eye Condition 06/11/23 06/11/23 History
gentamicin 0.3 % eye drops 4 drp LEFT EYE DAILYPRN PRN eye 06/11/23 06/11/23 History
irritation
cephalexin 500 mg capsule 500 mg PO Q6H 7 days #28 caps 06/16/23 Rx
diltiazem HCl 180 mg 180 mg PO DAILY #30 caps 06/16/23 Rx
capsule,extended release 24 hr
duloxetine 20 mg capsule,delayed 20 mg PO DAILY #30 caps 06/16/23 Rx
release
gabapentin 100 mg capsule 100 mg PO TID #90 caps 06/16/23 Rx
Review of Systems
-
poor historian, limited history and not cooperative
no active sob or pain. refusing to wear BIPAP
Physical Exam
Vital Signs
Vital Signs
Temp Pulse Resp BP Pulse Ox
97.9 F 87 22 98/61 94
08/10/23 07:30 08/10/23 10:00 08/10/23 10:00 08/10/23 10:00 08/10/23 08:02
Lab Results
WBC 11.3 10^3/uL (4.8-10.8) H 08/10/23 04:13
RBC 3.70 10^6/uL (4.70-6.10) L 08/10/23 04:13
Hgb 9.6 g/dL (13.0-18.0) L 08/10/23 04:13
Hct 31.7 % (39.0-52.0) L 08/10/23 04:13
Plt Count 235 10^3/uL (130-400) 08/10/23 04:13
Sodium 137 mmol/L (135-145) 08/10/23 04:13
Potassium 3.9 mmol/L (3.5-5.1) 08/10/23 04:13
Chloride 86 mmol/L (98-107) L 08/10/23 04:13
Carbon Dioxide 42 mmol/L (22-30) H 08/10/23 04:13
BUN 57 mg/dl (9-20) H 08/10/23 04:13
Creatinine 1.6 mg/dL (0.7-1.3) H 08/10/23 04:13
eGFR 53.48 08/10/23 04:13
Glucose 117 mg/dl (70-99) H 08/10/23 04:13
Calcium 8.6 mg/dl (8.4-10.2) 08/10/23 04:13
Php-T-Jslygpqtunu Pept 190 pg/ml 08/09/23 21:26
Albumin 3.6 g/dl (3.5-5.0) 08/10/23 04:13
06/2023:
echo:
CONCLUSIONS
Technically difficult study - contrast used.
Normal left ventricular size and systolic function. LV ejection fraction is 55-
60%.
No significant valvular disease.
No prior study available for comparison.
CT chest PE protocol:
IMPRESSION:
1. No CTA evidence for acute central pulmonary arterial embolus.
2. Multiple chronic subpleural airspace consolidations in the left upper and lower lobes consistent with chronic round atelectasis and scarring which appears unchanged.
3. Mild bronchitis in the right lower lobe.
4. Mild cardiomegaly and mild pericardial calcification which appears unchanged.
5. Large bilateral pericardial fat pads.
6. Moderate hepatosplenomegaly.
7. Mild thoracic scoliosis.
Physical Exam
General: Awake, Alert, Oriented, AOx3, No Distress and Nontoxic
HEENT: EOMI and Anicteric
Respiratory: Nonlabored Respirations and Other (decreased BS)
Cardiac: S1/S2 and Regular Rate/Rhythm
Breast: Deferred by me
Abdomen: Soft and Nontender
Musculoskeletal: No Cyanosis and Edema (3+)
Skin: Other (chr skin changes of LEs)
Neuro: Nonfocal/Grossly Intact
Psych: Mood/afflect pleasant, Appropriate and Other (poor insight)
Data Reviewed
-
Radiology: Report Reviewed by me, Discussed with Nurse and Discussed with Patient
Labs: Labs Reviewed by me, Discussed with Nurse and Discussed with Patient
Assessment/Plan
-
IMP:
Acute Hypoxemic Respiratory Insufficiency
KAYLEN, unclear etiology
Acidemia with resp acidosis and met alkalosis -acute on chronic
suspected acute CHF - unclear type
Likely acute on chronic hypercapnia
underlying KAEL
underlying reported hx of COPD and restrictive lung disease (Obesity)
Acute on Chronic Lymphedema
B/L LE cellulitis (R>L)
Anemia, unclear chronicity
Chronic sinus tachycardia
Anxiety/Depression
Insomnia
Morbid (severe) obesity due to excess calories, BMI 51.9
Subclinical hypothyroidism
L eye conjunctivitis recently
PLan:
Multiple admits to different hospital A/W sob and acute on chr hypercarbia
KAYLEN-baseline cr 0.7, now at 1.6
he had contrast on 08/08-follow cr closely
seem non oliguric, UA bland, check bladder scan and renal US
suspect it is cardiorenal+diuresis
met alkalosis mainly caused by hypercapnia and diuresis
ABG noted, Ph 7.38 resp acidosis predominating and pt refusing BIPAP
tried to explain imp of wearing, he reports is phobic to the face masks and does not want to cooperate
I would hold lasix at this time, may need to resume later as he is still 10kg over from last d/c in June
if met alaklosis worsens may need diamox
obtain records from [place]
BP are soft with out meds
abx per primary for cellulitis
avoid nephrotoxins, dose meds renally
low salt diet and FR 48 oucnes/day
Unfortunate situation that his noncompliance to medical care will likely result in high mortality risk -tried to explain to the pt but he is not willing to have any conversation
d/w nursing
[2023-08-10 11:42] LABS: Urine Albumin Negative (Neg - Trace); Urine Bilirubin Negative (Negative); Urine Character Clear (Clear); Urine Color Yellow; Urine Glucose Negative (Negative); Urine Ketone Negative (Negative); Urine Leukocyte Negative (Negative); Urine Nitrite Negative (Negative); Urine Occult Blood Negative (Negative); Urine Specific Gravity 1.015 (<1.030); Urine Urobilinogen Negative (Neg - 1+)
[2023-08-10 12:06] LABS: Urine Sodium 40 mmol/L (30-90)
[2023-08-10 12:32] LABS: Iron 89 ug/dl (49-181)
[2023-08-10 12:42] LABS: Percent Saturation 31 % (20-50); Total Iron Binding Capacity 282 ug/dl (261-462)
[2023-08-10 12:48] LABS: Procalcitonin 0.09 ng/ml (0.0-0.25)
--- NOTE | 2023-08-10 13:02 | PTCARENOTE ---
Bladder scanned patient about an hour after voiding for 143 mls. Patient using BR independently. Patient is refusing CPAP. Currently on 4L o2 via n/c, spo2 94-97% patient has periods of apnea while sleeping.
[2023-08-10 13:08] LABS: Ferritin 82.8 ng/ml (17.9-464.0)
[2023-08-10 13:40] LABS: Folate > 20.0 ng/ml (2.76-20); Vitamin B12 783 pg/ml (239-931)
[2023-08-10 14:38] LABS: Body Fluid for Eosinophils No Eosinophils seen
[2023-08-10] MEDS: LOVENOX 40 MG SC (19:45)
[2023-08-11] VITALS (10 sets, daily range): BP systolic 126–169; BP diastolic 67–96; PULSE 2–98; BMI 53.1
--- NOTE | 2023-08-11 00:50 | PTCARENOTE ---
Discussed at length with Pt the importance of the BiPAP; Pt expressed that he has a true phobia of wearing the mask over his mouth and states that 'no one believes [him]'. RT provided a nose mask and thoroughly educated him on mask and BiPAP. Pt
tolerated mask well, however after roughly 1 hour Pt reported feeling 'tightness' in chest and felt like he was 'not breathing right'. Mask removed at Pt request and 3L O2 via NC placed back on. Pt stated that the symptoms resolved after removing
mask. Pt informed this nurse that he will be willingly to try it again the next night. Will continue to monitor and assess.
[2023-08-11] MEDS: ANCEF 5 IV (01:24)
[2023-08-11] MEDS: TYLENOL 650 MG PO ×2 (02:04→20:05)
[2023-08-11 04:45] LABS: Hematocrit 30.1 % (39.0-52.0); Hemoglobin 9.4 g/dL (13.0-18.0); Mean Corp Hgb Conc. 31.2 g/dL (33.0-37.0); Mean Corpuscular Hgb 25.6 pg (27.0-31.0); Mean Platelet Volume 10.2 fL (7.4-10.4); Platelet Count 238 10^3/uL (130-400); Red Blood Cell Count 3.67 10^6/uL (4.70-6.10); Red Cell Dist. Width 15.7 % (11.5-14.5); White Blood Cell Count 11.3 10^3/uL (4.8-10.8)
[2023-08-11 05:15] LABS: Blood Urea Nitrogen 51 mg/dl (9-20); Chloride 87 mmol/L (98-107); Estimated Creatinine Clearance 121 ml/min; Glucose 113 mg/dl (70-99); Magnesium 2.6 mg/dl (1.6-2.3); Potassium 3.8 mmol/L (3.5-5.1); Sodium 136 mmol/L (135-145); eGFR > 60.00
[2023-08-11 06:05] LABS: Carbon Dioxide 43 mmol/L (22-30)
[2023-08-11] MEDS: SYMBICORT 80/4.5 MCG INHALER 2 PUFF INH ×2 (07:39→19:54)
[2023-08-11] MEDS: SPIRIVA RESPIMAT 2.5 MCG 2 PUFF INH (07:39)
--- NOTE | 2023-08-11 08:15 | PTCARENOTE ---
Patient received from mine shifter. Patient resting comfortably sitting on the side of the bed. AAO, VSS. No events noted overnight. No complaints of pain. Patient wore BiPAP for about an hour overnight. Discussed with patient about attempting
to use it during the day. Scheduled for renal ultrasound. Call brizuela in reach.
--- NOTE | 2023-08-11 09:10 | W.PN.HOSP.TC ---
Today's Communication/Plan
-
Elevate legs
Sal wraps to legs
Increase dose of Ancef
Follow-up renal ultrasound
Assessment / Plan
Assessment / Plan
Gen-AAOx3, NAD, morbid obesity
HEENT-NC, AT, anicteric, clear oral mm
Neck-supple
CV-reg, no M, +S1/S2
Lungs-clear B/L
Abd-soft, NT, ND
Ext-no edema
Musculoskeletal-no cyanosis, clubbing
Skin-warm and dry
Neuro-grossly non-focal
Psych-calm, cooperative
Acute Hypoxemic/hypercapnic respiratory Insufficiency -suspected to be due to heart failure. Currently on 3 L nasal cannula, wean down as able.
KAYLEN, unclear etiology. Creatinine coming down, 1.2 today. Renal ultrasound completed, results pending.
suspected acute CHF - unclear type
- ddx: cardiorenal vs YENNIFER vs other
- check urine studies
- bladder scan/SC protocol
- Nephrology consulted
- obtain records of recent eval/diagnostics from [facility]
Likely acute on chronic hypercapnia
underlying KAEL
underlying reported hx of COPD and restrictive lung disease (Obesity)
- intolerant of BiPAP last evening
- check with RT for nasal device
- eventual OP Sleep study
- CT-PE without PE
- Pulm consulted
- obtain records of recent eval/diagnostics from [facility]
Acute on Chronic Lymphedema: associated cellulitis > venous dermatitis
B/L LE cellulitis (R>L). Continue IV Ancef. Increased dose. Sal wraps to bilateral legs, elevate legs. Discussed with nursing. Discussed with patient extensively about continuing to wrap his legs after discharge. He claims he cannot do it
himself due to his size and obesity but I recommend that he try to obtain help at home to do so.
Anemia, unclear chronicity
- check anemia workup
Chronic sinus tachycardia
- on Diltiazem
Anxiety/Depression
Insomnia
- Continue Lexapro
Morbid (severe) obesity due to excess calories, BMI 51.9
- Affects all aspects of care and specifically his current dyspnea and lymphedema issues.
Subclinical hypothyroidism
- elevated TSH, normal FT4
- repeat TFTs 4 weeks
Left eye conjunctivitis recently
- reports improvement and he has not required eye drops (Gent) in weeks, will therefore place those eyes drops on hold
DVT ppx: Lovenox
Code: Full
Anticipated Discharge: 24 - 48 hours
Subjective/Interval History
-
Date of Service: August 11, 2023
Patient seen and examined. No specific complaints.
Objective Data
-
Labs:
Laboratory Results
08/11/23
04:30
WBC 11.3 H
Hgb 9.4 L
Hct 30.1 L
Plt Count 238
Sodium 136
Potassium 3.8
Chloride 87 L
Carbon Dioxide 43 H
BUN 51 H
Creatinine 1.2
Glucose 113 H
Calcium 9.0
Vital Signs:
Vital Signs
Temp Pulse Resp BP Pulse Ox
97.6 F 97 20 169/91 96
08/11/23 03:55 08/11/23 07:44 08/11/23 07:44 08/11/23 04:00 08/11/23 07:44
I&O
08/10/23 08/11/23 08/12/23
06:59 06:59 06:59
Intake Total 480 / 480 720 / 720
Output Total 280 / 280
Balance 480 / 480 440 / 440
Review of Systems
-
History Source: Patient
All other systems: Reviewed and negative
--- NOTE | 2023-08-11 09:50 | W.PN.PUL.V3 ---
Today's Communication / Plan
-
Inhalers
Wean oxygen
CPAP/BiPAP as tolerated
Increase activity
Cefazolin-finite course
Outpatient pulmonary/sleep disorders follow-up
Assessment
-
48-year-old male with a past medical history of COVID-19, restrictive lung disease, former tobacco use disorder, history of snoring and hypertension who presents with shortness of breath. He apparently was admitted to [facility] earlier prior to
arrival but left AMA due to family issues as patient's mother is ill. Here in triage patient was 88% on room air and improved to 100% on 4 L/min nasal cannula, he was tachycardic to 102 bpm, initially tachypneic to 26 breaths/min, BP 116/50 and
afebrile to 98.5 �F. Initial labs showed leukocytosis to 12.8, anemia to 9.9, chronic hypercapnia with pH 7.43 and pCO2 of 72 on venous blood gas, creatinine 1.7, and a negative troponin of <0.012 and a proBNP of 190. MRSA screen was collected.
CXR shows bilateral interstitial pulmonary edema and patient had anasarca on exam in the ER. He was started on gentle IV fluids and admitted to hospitalist for further management. Given his hypoxia with chronic hypercapnia, pulmonary service now
consulted for additional management/recommendations.
Chronic conditions [employer]: Personal history of COVID-19, restrictive lung disease, morbid obesity, seasonal allergies, history of vaping use (nicotine), former tobacco use, hypertension, history of snoring
Impression:
#Acute respiratory failure with hypoxia - likely due to acute bronchiolitis in setting of mild-moderate restrictive lung disease + L-lung atelectasis with EDITH/LLL rounded atelectasis
#Abnormal CTA chest (08/10/2023) with EDITH/LLL rounded atelectasis
#Chronic hypercapnic respiratory failure due to obesity hypoventilation syndrome
#Restrictive lung disease (mild-moderate severity via spirometry in 2021)
#Metabolic alkalosis as a compensatory mechanism due to chronic hypercapnia
#Acute on chronic anemia
#Acute kidney injury (baseline creatinine approximately 0.8)
#Abnormal thyroid function tests with elevated TSH of 12.2 and free T4 WNL - likely subclinical hypothyroidism
#Morbid obesity (BMI: 53)
Plan:
Respiratory status relatively stable
Wean supplemental oxygen
Assess discharge supplemental oxygen needs
Aspiration precautions
Nebulizers if needed-currently not bronchospastic
Symbicort continues along with Spiriva
Incentive spirometry
Mucus clearing devices
Encourage BiPAP-has been using
Chronic lymphedema noted
Nephrology following-correspondence reviewed-signed off
Diuresis as tolerated
Monitor renal function, electrolytes, intake/output, lower extremity edema and weight
Replace electrolytes as needed
Check cultures
Empiric antibiotics for bronchial wall thickening suspicious for bronchiolitis
The patient still needs to obtain a sleep study, and he is amenable to this. He previously refused this. He is willing to see us in office but wants to see a supervisor dental laboratory near his Lymphedema clinic in [facility]
DVT prophylaxis
Nutrition
Early mobilization
Reviewed with nursing and primary team
Recommend outpatient pulmonary/sleep [id number] would like to be closer to his lymphedema specialist/hospital-in the [facility] system
Data:
CTA Chest 08-10-2023:
1. No CTA evidence for acute central pulmonary arterial embolus.
2. Multiple chronic subpleural airspace consolidations in the left upper and lower lobes consistent with chronic round atelectasis and scarring which appears unchanged.
3. Mild bronchitis in the right lower lobe.
4. Mild cardiomegaly and mild pericardial calcification which appears unchanged.
5. Large bilateral pericardial fat pads.
6. Moderate hepatosplenomegaly.
7. Mild thoracic scoliosis.
Subjective Data
-
Date of Service:
Date of Service: August 11, 2023
Chief Complaint: Pulmonary Follow Up and Dyspnea Follow Up
Subjective:
Feels a little better, tolerated BiPAP for only about an hour, no complaints of worsening shortness of breath, chest pain, pleurisy, abdominal pain
Review of Systems
General: Fever (Per HPI)
Objective Data
Data Reviewed
Vital Signs / I&O:
Vital Signs
Temp Pulse Resp BP Pulse Ox
98.2 F 97 20 169/91 96
08/11/23 07:26 08/11/23 07:44 08/11/23 07:44 08/11/23 04:00 08/11/23 07:44
Intake and Output
08/10/23 08/11/23 08/12/23
06:59 06:59 06:59
Intake Total 480 / 480 720 / 720
Output Total 280 / 280
Balance 480 / 480 440 / 440
SaO2: 96
Nasal Cannula flow liters per minute: 3
Physical Exam
General: Respiratory Distress (n) and Comfortable
HEENT: Normocephalic, Anicteric and Moist Mucous Membranes
Cardiovascular: Regular Rhythm
Respiratory: Clear (Diminished breath sounds), Wheeze (n), Crackles (n), Rhonchi (n), Non-Labored Respirations, Accessory Resp Muscle Use (n) and Stridor (n)
GI: Soft, Non Distended and Non Tender
Neurology: Awake, Alert and No Motor Deficits
Skin: Good Color, Cyanosis (n) and Jaundice (n)
Labs/Micro/Reports
Lab Data
08/11/23 04:30
08/11/23 04:30
Laboratory Results
08/10/23
10:57
pH 7.38
pCO2 81 H*
pO2 105
HCO3 47.9 H*
O2 Delivery Level 3l
Microbiology
08/10/23 02:01 Nose MRSA Screen - Final
No Methicillin Resistant Staphylococcus aureus isolated.
--- NOTE | 2023-08-11 10:06 | W.PN.NEPH.PH ---
Today's Communication / Plan
-
sign off
Refuses [place], refuses CPAP
Nothing more to add
Assessment/Plan
-
IMP:
Acute Hypoxemic Respiratory Insufficiency
KAYLEN, unclear etiology
Acidemia with resp acidosis and met alkalosis -acute on chronic
suspected acute CHF - unclear type
Likely acute on chronic hypercapnia
underlying KAEL
underlying reported hx of COPD and restrictive lung disease (Obesity)
Acute on Chronic Lymphedema
B/L LE cellulitis (R>L)
Anemia, unclear chronicity
Chronic sinus tachycardia
Anxiety/Depression
Insomnia
Morbid (severe) obesity due to excess calories, BMI 51.9
Subclinical hypothyroidism
L eye conjunctivitis recently
PLan:
Multiple admits to different hospital A/W sob and acute on chr hypercarbia
KAYLEN-baseline cr 0.7, but now down to 1.2 : no hydronephrosis
he had contrast on 08/08-follow cr closely
seem non oliguric, UA bland, check bladder scan and renal US
suspect it is cardiorenal+diuresis
met alkalosis mainly caused by hypercapnia and diuresis : ph 7.38 therefore mostly compensatory i
ABG noted, Ph 7.38 resp acidosis predominating and pt refusing BIPAP
UA bland
abx per primary for cellulitis
avoid nephrotoxins, dose meds renally
low salt diet and FR 48 oucnes/day
Unfortunate situation that his noncompliance to medical care will likely result in high mortality risk -tried to explain to the pt but he is not willing to have any conversation
nothing else to offer
we will sign off
d/w nursing
-
-
Date of Service: August 11, 2023
CC / HPI / ROS
-
Chief Complaint:
KAYLEN
History of Present Illness:
Hemodynamically stable
Creatinine down to 1.2
Review of Systems:
Oliguric
Weights down
Labs
-
Labs:
WBC 11.3 10^3/uL (4.8-10.8) H 08/11/23 04:30
RBC 3.67 10^6/uL (4.70-6.10) L 08/11/23 04:30
Hgb 9.4 g/dL (13.0-18.0) L 08/11/23 04:30
Hct 30.1 % (39.0-52.0) L 08/11/23 04:30
Plt Count 238 10^3/uL (130-400) 08/11/23 04:30
Sodium 136 mmol/L (135-145) 08/11/23 04:30
Potassium 3.8 mmol/L (3.5-5.1) 08/11/23 04:30
Chloride 87 mmol/L (98-107) L 08/11/23 04:30
Carbon Dioxide 43 mmol/L (22-30) H 08/11/23 04:30
BUN 51 mg/dl (9-20) H 08/11/23 04:30
Creatinine 1.2 mg/dL (0.7-1.3) 08/11/23 04:30
eGFR > 60.00 08/11/23 04:30
Glucose 113 mg/dl (70-99) H 08/11/23 04:30
Calcium 9.0 mg/dl (8.4-10.2) 08/11/23 04:30
Qvu-W-Bzqedqwnils Pept 190 pg/ml 08/09/23 21:26
Albumin 3.6 g/dl (3.5-5.0) 08/10/23 04:13
Physical Exam
-
Vital Signs:
Vital Signs
Temp Pulse Resp BP Pulse Ox
98.2 F 97 20 169/91 96
08/11/23 07:26 08/11/23 07:44 08/11/23 07:44 08/11/23 04:00 08/11/23 09:50
Cardiovascular:: Regular rate and rhythm
Respiratory:: Bilateral: Coarse
Lung Excursion:: Normal
Abdomen:: Nontender and Soft
Bowel Sounds:: Normal
Extremity Edema:: +1: Bilateral:
Corral Catheter: No
[2023-08-11] MEDS: ANCEF 10 IV ×2 (10:33→17:54)
--- NOTE | 2023-08-11 11:03 | PTCARENOTE ---
Patient agreeable to try BiPAP 10/5 with 4L O2, tolerating well at this time.
--- NOTE | 2023-08-11 14:00 | PTCARENOTE ---
Patient rang to come off BiPAP to use the bathroom. Patient was confused, kept repeating himself. Stated afterwards he was nervous that he didn't know who he was or where he was for a few minutes but was oriented after he had a few minutes to
regroup.
Patient wore BiPAP for 3 hours.
--- NOTE | 2023-08-11 15:23 | CM ---
Patient with Dx Acute Hypoxemic/hypercapnic respiratory Insufficiency -suspected HF. O2 3L. BiPAP. Receiving IV Abx. PT & OT; Therapy not warranted.
Met with patient who deferred initial assessment to his father.
Spoke with patient's father Jakob;
the patient lives with his father in a first floor apartment with no ETHAN.
The patient's mother is from the father and no longer lives with them.
The patient has been independent in ADLs and ambulation.
Jakob says his son has not been home in months as he was hospitalized at ---> then [facility] ---> then [facility], then signed out so he could visit his mother who is now here as a patient at .
DME - [facility]
No prior VN.
The patient has no PCP. They tried [facility] but have not made an appointment.
[facility] - [facility]
The patient's father was somewhat upset during the conversation, initially about his who he says is dying, then about his son's care here. He was upset that his son was asked to wear CPAP and feels that his lymphedema is not being addressed.
Encouraged him to speak with nurse or re; clinical concerns ----> message sent to Dr Javier.
Plan watch for home O2 needs.
Plan home.
--- NOTE | 2023-08-11 15:41 | CM ---
Patient with Dx Acute Hypoxemic/hypercapnic respiratory Insufficiency -suspected HF. O2 3L. BiPAP. Receiving IV Abx. PT & OT; Therapy not warranted.
Met with patient who deferred initial assessment to his father.
Spoke with patient's father Jakob;
the patient lives with his father in a first floor apartment with no ETHAN.
The patient's mother is from the father and no longer lives with them.
The patient has been independent in ADLs and ambulation.
Jakob says his son has not been home in months as he was hospitalized at ---> then [facility] ---> then [facility], then signed out so he could visit his mother who is now here as a patient at .
DME - [facility]
No prior VN.
The patient has no PCP. They tried calling [facility] but have not made an appointment.
Ph[facility]acy - [facility]
Plan watch for home O2 needs.
Plan home.
[2023-08-11] MEDS: LOVENOX 40 MG SC (17:54)
--- NOTE | 2023-08-11 20:07 | PTCARENOTE ---
Pt received from previous RN. Pt assisted to the bathroom. Gait steady. Pt had large formed brown BM. Pt assisted to be wiped down with bath wipes, Brushed teeth. Pt given ordered Tylenol pain associated with skin itching. Pt on 3L NC , satting 95%.
RR unlabored. Pt expresses no other needs at this time, call brizuela in reach.
[2023-08-12] VITALS (16 sets, daily range): BP systolic 121–172; BP diastolic 72–107; PULSE 2–96; BMI 53.0; BMI 52.9
--- NOTE | 2023-08-12 01:40 | PTCARENOTE ---
Re-tightened and arranged bilateral sonido wraps to both lower legs, as well as elevated legs. Pt states he is ready for bed, resp therapist messaged to assist pt with bipap.
[2023-08-12] MEDS: ANCEF 10 IV ×3 (02:54→17:37)
[2023-08-12 06:20] LABS: Blood Urea Nitrogen 31 mg/dl (9-20); Calcium 9.3 mg/dl (8.4-10.2); Chloride 90 mmol/L (98-107); Estimated Creatinine Clearance > 125 ml/min; Glucose 114 mg/dl (70-99); Potassium 3.9 mmol/L (3.5-5.1); Sodium 137 mmol/L (135-145); eGFR > 60.00
[2023-08-12 06:30] LABS: Carbon Dioxide 39 mmol/L (22-30)
[2023-08-12] MEDS: SPIRIVA RESPIMAT 2.5 MCG 2 PUFF INH (07:37)
[2023-08-12] MEDS: SYMBICORT 80/4.5 MCG INHALER 2 PUFF INH ×2 (07:37→20:00)
--- NOTE | 2023-08-12 09:44 | W.PN.HOSP.TC ---
Today's Communication/Plan
-
Continue current care
Assessment / Plan
Assessment / Plan
Gen-AAOx3, NAD, morbid obesity
HEENT-NC, AT, anicteric, clear oral mm
Neck-supple
CV-reg, no M, +S1/S2
Lungs-clear B/L
Abd-soft, NT, ND
Ext-bilateral lower extremity lymphedema
Musculoskeletal-no cyanosis, clubbing
Skin-warm and dry, bilateral lower extremity hyperpigmentation, erythema
Neuro-grossly non-focal
Psych-calm, cooperative
Acute Hypoxemic/hypercapnic respiratory Insufficiency -suspected to be multifactorial etiology including obesity hypoventilation, pulmonary hypertension, KAEL, bronchiolitis, atelectasis, etc. Currently stable on 2 L nasal cannula oxygen, anticipate
will need home oxygen arranged. Case management aware. Will need outpatient sleep study and pulmonary follow-up.
KAYLEN, unclear etiology. KAYLEN resolved. Renal ultrasound unremarkable.
- ddx: cardiorenal vs YENNIFER vs other
- check urine studies
- bladder scan/SC protocol
- Nephrology consulted
- obtain records of recent eval/diagnostics from [facility]
Likely acute on chronic hypercapnia
underlying KAEL
underlying reported hx of COPD and restrictive lung disease (Obesity)
- intolerant of BiPAP last evening
- check with RT for nasal device
- eventual OP Sleep study
- CT-PE without PE
- Pulm consulted
- obtain records of recent eval/diagnostics from [facility]. Still awaiting records.
Acute on Chronic Lymphedema: associated cellulitis > venous dermatitis
B/L LE cellulitis (R>L). Continue IV Ancef. Increased dose. Sal wraps to bilateral legs, elevate legs. Discussed with nursing. Discussed with patient extensively about continuing to wrap his legs after discharge. He claims he cannot do it
himself due to his size and obesity but I recommend that he try to obtain help at home to do so.
Follow-up with lymphedema clinic here in [place]. Discussed with patient. Anticipate discharge on cefazolin for 7 days. Explained to patient that most of the hyperpigmentation and erythema on the legs is not infection but rather venous stasis
dermatitis related inflammation.
Anemia, unclear chronicity
- check anemia workup
Chronic sinus tachycardia
- on Diltiazem
Anxiety/Depression
Insomnia
- Continue Lexapro
Morbid (severe) obesity due to excess calories, BMI 51.9
- Affects all aspects of care and specifically his current dyspnea and lymphedema issues.
Subclinical hypothyroidism
- elevated TSH, normal FT4
- repeat TFTs 4 weeks
Left eye conjunctivitis recently
- reports improvement and he has not required eye drops (Gent) in weeks, will therefore place those eyes drops on hold
DVT ppx: Lovenox
Code: Full
Dispo -likely discharge home tomorrow with home care. Patient requesting OT evaluation today. Anticipate discharge with home oxygen. Case management aware. Outpatient follow-up with PCP and pulmonary. Lymphedema clinic.
Anticipated Discharge: Within 24 hours
Subjective/Interval History
-
Date of Service: August 12, 2023
Patient seen and examined. No new complaints.
Objective Data
-
Labs:
Laboratory Results
08/12/23
05:43
Sodium 137
Potassium 3.9
Chloride 90 L
Carbon Dioxide 39 H
BUN 31 H
Creatinine 0.8
Glucose 114 H
Calcium 9.3
Vital Signs:
Vital Signs
Temp Pulse Resp BP Pulse Ox
98.1 F 92 22 158/86 95
08/12/23 04:00 08/12/23 08:00 08/12/23 08:00 08/12/23 08:00 08/12/23 09:22
I&O
08/11/23 08/12/23 08/13/23
06:59 06:59 06:59
Intake Total 720 / 720 1040 / 1040
Output Total 280 / 280
Balance 440 / 440 1040 / 1040
Review of Systems
-
History Source: Patient
All other systems: Reviewed and negative
--- NOTE | 2023-08-12 10:19 | W.PN.PUL.V3 ---
Today's Communication / Plan
-
Wean oxygen
Continue BiPAP
Antibiotics
Renal function improving
Assessment
-
48-year-old male with a past medical history of COVID-19, restrictive lung disease, former tobacco use disorder, history of snoring and hypertension who presents with shortness of breath. He apparently was admitted to [facility] earlier prior to
arrival but left AMA due to family issues as patient's mother is ill. Here in triage patient was 88% on room air and improved to 100% on 4 L/min nasal cannula, he was tachycardic to 102 bpm, initially tachypneic to 26 breaths/min, BP 116/50 and
afebrile to 98.5 �F. Initial labs showed leukocytosis to 12.8, anemia to 9.9, chronic hypercapnia with pH 7.43 and pCO2 of 72 on venous blood gas, creatinine 1.7, and a negative troponin of <0.012 and a proBNP of 190. MRSA screen was collected.
CXR shows bilateral interstitial pulmonary edema and patient had anasarca on exam in the ER. He was started on gentle IV fluids and admitted to hospitalist for further management. Given his hypoxia with chronic hypercapnia, pulmonary service now
consulted for additional management/recommendations.
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
Impression:
#Acute respiratory failure with hypoxia - likely due to acute bronchiolitis in setting of mild-moderate restrictive lung disease + L-lung atelectasis with EDITH/LLL rounded atelectasis
#Abnormal CTA chest (08/10/2023) with EDITH/LLL rounded atelectasis
#Chronic hypercapnic respiratory failure due to obesity hypoventilation syndrome
#Restrictive lung disease (mild-moderate severity via spirometry in 2021)
#Metabolic alkalosis as a compensatory mechanism due to chronic hypercapnia
#Acute on chronic anemia
#Acute kidney injury (baseline creatinine approximately 0.8)
#Abnormal thyroid function tests with elevated TSH of 12.2 and free T4 WNL - likely subclinical hypothyroidism
#Morbid obesity (BMI: 53)
Plan:
Pulmonary status slowly improving
Wean supplemental oxygen-still requires oxygen
Assess discharge supplemental oxygen needs
Aspiration precautions
Nebulizers if needed-currently not bronchospastic
Symbicort continues along with Spiriva
Incentive spirometry encouraged
Mucus clearing devices
Tolerating BiPAP
Chronic lymphedema noted-wraps continue
Nephrology following-correspondence reviewed-signed off
Continue diuresis as tolerated
Monitor renal function-improving, electrolytes, intake/output, lower extremity edema and weight
Replace electrolytes as needed
Cultures reviewed-unrevealing
Blood cultures negative
MRSA screen negative
Empiric antibiotics for bronchial wall thickening suspicious for wtifedsmfxrlw-kgfbocxqk-iil cellulitis
The patient still needs to obtain a sleep study, and he is amenable to this. He previously refused this. He is willing to see us in office but wants to see a track broom operator near his Lymphedema clinic in [facility]
DVT prophylaxis-on Lovenox
Nutrition
Early mobilization
Reviewed with nursing and primary team
Recommend outpatient pulmonary/sleep [id number] would like to be closer to his lymphedema specialist/hospital-in the [facility] system
Data:
CTA Chest 08-10-2023:
1. No CTA evidence for acute central pulmonary arterial embolus.
2. Multiple chronic subpleural airspace consolidations in the left upper and lower lobes consistent with chronic round atelectasis and scarring which appears unchanged.
3. Mild bronchitis in the right lower lobe.
4. Mild cardiomegaly and mild pericardial calcification which appears unchanged.
5. Large bilateral pericardial fat pads.
6. Moderate hepatosplenomegaly.
7. Mild thoracic scoliosis.
Subjective Data
-
Date of Service:
Date of Service: August 12, 2023
Chief Complaint: Pulmonary Follow Up and Dyspnea Follow Up
Subjective:
Tolerated BiPAP, feels better, still requires oxygen, no chest pain, productive cough, abdominal pain
Review of Systems
General: Other (Per HPI)
Objective Data
Data Reviewed
Vital Signs / I&O:
Vital Signs
Temp Pulse Resp BP Pulse Ox
98.1 F 90 23 172/89 92
08/12/23 04:00 08/12/23 10:00 08/12/23 10:00 08/12/23 10:00 08/12/23 10:00
Intake and Output
08/11/23 08/12/23 08/13/23
06:59 06:59 06:59
Intake Total 720 / 720 1040 / 1040
Output Total 280 / 280
Balance 440 / 440 1040 / 1040
SaO2: 92
Nasal Cannula flow liters per minute: 2
Physical Exam
General: Respiratory Distress (n) and Comfortable
HEENT: Normocephalic, Anicteric and Moist Mucous Membranes
Cardiovascular: Regular Rhythm
Respiratory: Clear (Diminished breath sounds), Wheeze (n), Crackles (n), Rhonchi (n), Non-Labored Respirations, Accessory Resp Muscle Use (n) and Stridor (n)
GI: Soft, Non Distended and Non Tender
Neurology: Awake, Alert and No Motor Deficits
Skin: Good Color, Cyanosis (n) and Jaundice (n)
Labs/Micro/Reports
Lab Data
08/11/23 04:30
08/12/23 05:43
Microbiology
08/10/23 02:01 Nose MRSA Screen - Final
No Methicillin Resistant Staphylococcus aureus isolated.
--- NOTE | 2023-08-12 11:39 | CM ---
Addendum entered by Esmer Bojorquez RN 08/12/23 16:40:
Home O2 Assessment done.
Message from Dr Javier- order home O2 2L continuous.
Met with patient who agrees to a referral to [facility] for home O2. He says he had home O2 through them previously. Patient reports he has been going to the lymphedema clinic and plans on resuming. His father was visiting here earlier and conveyed
that his mother was also being discharged to home tomorrow - clarification that patient lives with both his parents.
Referral to Zulma Anders for home O2 concentrator/portables. She will deliver portable O2 to room tomorow.
Plan home tomorrow with [facility] VN, with home O2 through [employer].
Original Note:
Patient with Dx Acute Hypoxemic/hypercapnic respiratory Insufficiency -suspected HF. O2 2L. Receiving IV Abx. Home O2 Assessment pending.
Met with patient and discussed VN at home. Patient interested in VN and requesting SN/PT/OT. He understands he would need PCP visit in order to be accepted. He prefers [facility] with their Virtual MD visit so he can be seen sooner - agree to
make referral. Patient relays that he has recently his and temporarily is living with his father. He provided his new address in [place] and CM provided to Admitting. The patient is aware that a home O2 assessment will be done
today and if O2 is needed CM will talk to him about that.
Spoke with [facility]; they are able to accept and will set patient up with a Virtual MD appointment so he can be seen.
Plan follow up after Home O2 Assessment is completed.
Plan home with [facility] VN, possibly with home O2.
[2023-08-12] MEDS: LOVENOX 40 MG SC (17:37)
--- NOTE | 2023-08-12 18:20 | PTCARENOTE ---
OOB most of the day- Home pox assessment completed. Unable to tolerate RA at all times get very MOORE, requires 1-2 L NC. Showered in lilly room shower today. SR on tele, Skin is miller red all over- rash appearance on stomach. Reddened LE / w
lymphedema. Weeping on the left calf- dressing replaced today after showering and compression wraps on. Belligerent at times frustrated with what to do when he leaves- explained several times that some of this will be set up with the help of VN -
Father was here today as well and he also vented in frustration about him being ready to go home that he is gonna be here to manage his and wont be home to help get him home too. Emotional support provided and assured him that he can be
managed with outpt support and follow up.
--- NOTE | 2023-08-12 20:56 | PTCARENOTE ---
Pt c/o 10/10 lower extremity pain at site of cellulites and lymphedema. Pts legs are wrapped tightly with sonido wraps and are to be worn continuously per MD order. Pt expresses disagreement with necessity of tightness wraps and continuous wearing,
because of discomfort. This RN thoroughly reinstilled education related to the necessity, purpose, and importance of compliance with the care intervention. This RN offered Pt ordered Tylenol for Pts pain, however Pt refused the medication. Pt
continues to ask to removed the sonido wraps.
[2023-08-13] VITALS (7 sets, daily range): BP systolic 136–166; BP diastolic 87–98; PULSE 2–95; BMI 52.0
[2023-08-13] MEDS: ANCEF 10 IV ×2 (03:09→10:17)
[2023-08-13 05:33] LABS: Blood Urea Nitrogen 22 mg/dl (9-20); Calcium 9.5 mg/dl (8.4-10.2); Carbon Dioxide 36 mmol/L (22-30); Chloride 92 mmol/L (98-107); Estimated Creatinine Clearance > 125 ml/min; Glucose 114 mg/dl (70-99); Potassium 3.6 mmol/L (3.5-5.1); Sodium 136 mmol/L (135-145); eGFR > 60.00
[2023-08-13] MEDS: SYMBICORT 80/4.5 MCG INHALER 2 PUFF INH (07:38)
[2023-08-13] MEDS: SPIRIVA RESPIMAT 2.5 MCG 2 PUFF INH (07:39)
--- NOTE | 2023-08-13 09:27 | W.PN.PUL.V3 ---
Today's Communication / Plan
-
Assess discharge supplemental oxygen needs
Outpatient lymphedema clinic
Outpatient pulmonary/sleep disorders
Assessment
-
48-year-old male with a past medical history of COVID-19, restrictive lung disease, former tobacco use disorder, history of snoring and hypertension who presents with shortness of breath. He apparently was admitted to [facility] earlier prior to
arrival but left AMA due to family issues as patient's mother is ill. Here in triage patient was 88% on room air and improved to 100% on 4 L/min nasal cannula, he was tachycardic to 102 bpm, initially tachypneic to 26 breaths/min, BP 116/50 and
afebrile to 98.5 �F. Initial labs showed leukocytosis to 12.8, anemia to 9.9, chronic hypercapnia with pH 7.43 and pCO2 of 72 on venous blood gas, creatinine 1.7, and a negative troponin of <0.012 and a proBNP of 190. MRSA screen was collected.
CXR shows bilateral interstitial pulmonary edema and patient had anasarca on exam in the ER. He was started on gentle IV fluids and admitted to hospitalist for further management. Given his hypoxia with chronic hypercapnia, pulmonary service now
consulted for additional management/recommendations.
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
Impression:
#Acute respiratory failure with hypoxia - likely due to acute bronchiolitis in setting of mild-moderate restrictive lung disease + L-lung atelectasis with EDITH/LLL rounded atelectasis
#Abnormal CTA chest (08/10/2023) with EDITH/LLL rounded atelectasis
#Chronic hypercapnic respiratory failure due to obesity hypoventilation syndrome
#Restrictive lung disease (mild-moderate severity via spirometry in 2021)
#Metabolic alkalosis as a compensatory mechanism due to chronic hypercapnia
#Acute on chronic anemia
#Acute kidney injury (baseline creatinine approximately 0.8)
#Abnormal thyroid function tests with elevated TSH of 12.2 and free T4 WNL - likely subclinical hypothyroidism
#Morbid obesity (BMI: 53)
Plan:
Pulmonary status slowly improving-still requiring oxygen
Assess discharge supplemental oxygen needs
Aspiration precautions
Nebulizers if needed-currently not bronchospastic
Symbicort continues along with Spiriva
Incentive spirometry encouraged
Mucus clearing devices
Tolerating BiPAP-for 2 nights in a row
Chronic lymphedema noted-wraps continue
Nephrology following-correspondence reviewed-signed off
Continue diuresis as tolerated
Monitor renal function-improving, electrolytes, intake/output, lower extremity edema and weight
Replace electrolytes as needed
Cultures reviewed-unrevealing
Blood cultures negative
MRSA screen negative
Empiric antibiotics for bronchial wall thickening suspicious for wgifvyrcmhlqo-nrquyujof-sub cellulitis
The patient still needs to obtain a sleep study, and he is amenable to this. He previously refused this. He is willing to see us in office but wants to see a chemist biological near his Lymphedema clinic in [facility]
DVT prophylaxis-on Lovenox
Nutrition
Early mobilization
Reviewed with nursing and primary team
Recommend outpatient pulmonary/sleep [id number] would like to be closer to his lymphedema specialist/hospital-in the [facility] system-now patient reports there is a lymphedema clinic locally and he might want to follow-up locally with pulmonary-numbers
will be provided
Data:
CTA Chest 08-10-2023:
1. No CTA evidence for acute central pulmonary arterial embolus.
2. Multiple chronic subpleural airspace consolidations in the left upper and lower lobes consistent with chronic round atelectasis and scarring which appears unchanged.
3. Mild bronchitis in the right lower lobe.
4. Mild cardiomegaly and mild pericardial calcification which appears unchanged.
5. Large bilateral pericardial fat pads.
6. Moderate hepatosplenomegaly.
7. Mild thoracic scoliosis.
Subjective Data
-
Date of Service:
Date of Service: August 13, 2023
Chief Complaint: Pulmonary Follow Up and Dyspnea Follow Up
Subjective:
Tolerated BiPAP, overall less short of breath, still requiring oxygen, no chest pain, productive cough or abdominal pain
Review of Systems
General: Other (Per HPI)
Objective Data
Data Reviewed
Vital Signs / I&O:
Vital Signs
Temp Pulse Resp BP Pulse Ox
98.2 F 88 19 166/96 97
08/13/23 07:25 08/13/23 07:42 08/13/23 07:42 08/13/23 04:33 08/13/23 07:42
Intake and Output
08/12/23 08/13/23 08/14/23
06:59 06:59 06:59
Intake Total 1040 / 1040 1100 / 1100
Balance 1040 / 1040 1100 / 1100
SaO2: 97
Nasal Cannula flow liters per minute: 2
Physical Exam
General: Respiratory Distress (n) and Comfortable
HEENT: Normocephalic, Anicteric and Moist Mucous Membranes
Cardiovascular: Regular Rhythm
Respiratory: Clear (Diminished breath sounds), Wheeze (n), Crackles (n), Rhonchi (n), Non-Labored Respirations, Accessory Resp Muscle Use (n) and Stridor (n)
GI: Soft, Non Distended and Non Tender
Neurology: Awake, Alert and No Motor Deficits
Skin: Good Color, Cyanosis (n) and Jaundice (n)
Labs/Micro/Reports
Lab Data
08/11/23 04:30
08/13/23 04:55
Microbiology
08/10/23 02:01 Nose MRSA Screen - Final
No Methicillin Resistant Staphylococcus aureus isolated.
--- NOTE | 2023-08-13 09:32 | W.PN.HOSP.TC ---
Today's Communication/Plan
-
Discharge
Assessment / Plan
Assessment / Plan
Gen-AAOx3, NAD, morbid obesity
HEENT-NC, AT, anicteric, clear oral mm
Neck-supple
CV-reg, no M, +S1/S2
Lungs-clear B/L
Abd-soft, NT, ND
Ext-bilateral lower extremity lymphedema
Musculoskeletal-no cyanosis, clubbing
Skin-warm and dry, bilateral lower extremity hyperpigmentation, erythema
Neuro-grossly non-focal
Psych-calm, cooperative
Acute Hypoxemic/hypercapnic respiratory Insufficiency -suspected to be multifactorial etiology including obesity hypoventilation, pulmonary hypertension, KAEL, bronchiolitis, atelectasis, etc. Currently stable on 2 L nasal cannula oxygen, anticipate
will need home oxygen arranged. Case management aware. Will need outpatient sleep study and pulmonary follow-up.
KAYLEN -suspect due to furosemide use at home. KAYLEN resolved. Renal ultrasound unremarkable. Informed patient to not resume furosemide on discharge.
- ddx: cardiorenal vs YENNIFER vs other
- check urine studies
- bladder scan/SC protocol
- Nephrology consulted
- obtain records of recent eval/diagnostics from [facility]
Likely acute on chronic hypercapnia
underlying KAEL
underlying reported hx of COPD and restrictive lung disease (Obesity)
-Tolerating nightly BiPAP, via nasal device. Will need home BiPAP if insurance allows. Social work to look into.
- check with RT for nasal device
- eventual OP Sleep study, pulmonary follow-up
- CT-PE without PE
- Pulm consulted
- obtain records of recent eval/diagnostics from [facility]. Still awaiting records.
Acute on Chronic Lymphedema: associated cellulitis > venous dermatitis
B/L LE cellulitis (R>L). Continue IV Ancef. Increased dose. Sal wraps to bilateral legs, elevate legs. Discussed with nursing. Discussed with patient extensively about continuing to wrap his legs after discharge. He claims he cannot do it
himself due to his size and obesity but I recommend that he try to obtain help at home to do so.
Follow-up with lymphedema clinic here in [place]. Discussed with patient. Anticipate discharge on cefazolin for 7 days. Explained to patient that most of the hyperpigmentation and erythema on the legs is not infection but rather venous stasis
dermatitis related inflammation.
Anemia, unclear chronicity
- check anemia workup
Chronic sinus tachycardia
- on Diltiazem
Essential hypertension -resume diltiazem at home dose of CD 180 mg daily.
Anxiety/Depression
Insomnia
-Resume duloxetine at home dose, 20 mg daily.
Morbid (severe) obesity due to excess calories, BMI 51.9
- Affects all aspects of care and specifically his current dyspnea and lymphedema issues.
Subclinical hypothyroidism
- elevated TSH, normal FT4
- repeat TFTs 4 weeks
Left eye conjunctivitis recently
- reports improvement and he has not required eye drops (Gent) in weeks, will therefore place those eyes drops on hold
DVT ppx: Lovenox
Code: Full
Dispo -plan for discharge home today. Will need a visiting nursing arranged. Case management to look into home BiPAP and see if insurance will allow prior to sleep study. Case management aware. Outpatient follow-up with PCP and pulmonary.
Lymphedema clinic.
Updated patient's father on the phone. All questions answered.
35 minutes spent in discharge process.
Anticipated Discharge: Today
Subjective/Interval History
-
Date of Service: August 13, 2023
Patient seen and examined. Denies shortness of breath. Complaining of tightness in the legs due to the Sal wraps.
Objective Data
-
Labs:
Laboratory Results
08/13/23
04:55
Sodium 136
Potassium 3.6
Chloride 92 L
Carbon Dioxide 36 H
BUN 22 H
Creatinine 0.8
Glucose 114 H
Calcium 9.5
Vital Signs:
Vital Signs
Temp Pulse Resp BP Pulse Ox
98.2 F 88 19 166/96 97
08/13/23 07:25 08/13/23 07:42 08/13/23 07:42 08/13/23 04:33 08/13/23 09:27
I&O
08/12/23 08/13/23 08/14/23
06:59 06:59 06:59
Intake Total 1040 / 1040 1100 / 1100
Balance 1040 / 1040 1100 / 1100
Review of Systems
-
History Source: Patient
All other systems: Reviewed and negative
--- NOTE | 2023-08-13 09:42 | W.DS.TRANS ---
DC Summary - Information Assurance
-
Discharge Instructions:
Discharge Diagnosis/Procedures Acute hypoxic respiratory insufficiency, lower
extremity lymphedema, acute kidney injury
Diet Low Cholesterol,Low Fat,Other diet
Additional Diets 50 ounce daily fluid restriction
Activity As tolerated
Driving Restrictions As prior to admission
Bathing Restrictions None
Other Services VN
Instructions:
Stand-Alone Forms:
Changes to Home Medications: Yes
Discharge Medications:
DC Medications w/original date entered in [employer]
fluticasone fur. 100 mcg-umeclid 62.5 mcg-vilant 25 mcg inhalat.powder (Trelegy Ellipta) 1 inh inhalation R DAILY Lung/Breathing Issues 06/11/23
diltiazem HCl 180 mg capsule,extended release 24 hr 180 mg PO DAILY #30 caps 06/16/23
duloxetine 20 mg capsule,delayed release 20 mg PO DAILY #30 caps 06/16/23
gabapentin 100 mg capsule 100 mg PO TID #90 caps 06/16/23
cephalexin 500 mg capsule 500 mg PO Q6H 7 days #28 caps 08/13/23
Home Medication Changes
Stop furosemide
Pending Results: No
[2023-08-13] MEDS: CARDIZEM CD 180 MG PO (10:17)
[2023-08-13] MEDS: CYMBALTA DELAYED RELEASE 20 MG PO (10:18)
--- NOTE | 2023-08-13 13:19 | CM ---
Patient with Dx Acute Hypoxemic/hypercapnic respiratory Insufficiency -suspected HF. O2 2L. Lymphedema leg wraps. PT & OT; Therapy not warranted, would benefit from home O2 assessment.
Messages from Dr Javier- BiPAP setup with Nasal Mask- Dr aware patient declining BiPAP due to cost, he will accept the O2.
Spoke with Martita Maya; Zulma was informed that patient saying he cannot afford the $27/month out of pocket cost for the O2 and $20/month cost for the BiPAP- they already discounted the BiPAP from $180 cost. They have a prior referral for BiPAP
and if patient wants in the future they can set him up with Nasal Mask for BiPAP. Zulma delivered his portable O2 to the room today and Martita will deliver his concentrator to his apartment today.
Spoke with [facility]; they have set up Virtual MD appt with patient for 08/18 and nurse visit will be tomorrow or Friday. Informed him referral updated with requests for SN/PT/OT/THERAPIST SPEECH and SW.
Met with patient who was on the phone with his father and they were arguing/having a stressed conversation - patient asking his father for some help at home and saying his father responded saying he is too overwhelmed to help him as he will be
caring for patient's mother. Patient says he still has not talked to his mother's medical case worker or her doctors or nurses, and he does not know his mother's status, other than that she is being discharged from today.
Patient saying he has no money to hire help at home and his siblings are too unreliable to assist him. He says he cannot do toileting and showering on his own. Suggested he sit at the sink to wash up rather than shower, until seen by VN. He says
he wants to go home regardless of poor family support and will manage - informed him [facility] nurse will see him in 1-2 days and he is aware that he has appointment next with [facility] John MD. He plans on lining up PCP after that.
Patient states he has been unemployed for a while and no longer qualifies for unemployment income. Advised him to apply for Medicaid and look into low income housing. Patient says he has no issue affording to buy food.
Patient report that his father agreed to pay the out of pocket cost of his O2 but he cannot afford the BiPAP.
Patient has no one to provide transport home today - CM agreed to arrange Lyft transport.
Plan home today with [facility], with home O2 through [employer], by Lyft transport.
== END 2023-08-13 12:54 | disposition home health service (06) | DRG 682 ==
LOC: IMU 23:54
PROVIDERS: Internal Medicine; Physician Assistant; ADMITTING PHYSICIAN Internal Medicine; ATTENDING PHYSICIAN Hospitalist; CONSULT PHYSICIAN Internal Medicine; CONSULT PHYSICIAN Internal Medicine Critical Care Medicine; EMERGENCY PHYSICIAN Student in an Organized Health Care Education/Training Program
PROC: 5A09357 Assistance with Respiratory Ventilation, Less than 24 Consecutive Hours, Continuous Positive Airway Pressure (ICD-10-PCS; 2023-08-10)
DX: N17.9 Acute kidney failure, unspecified (principal); J96.01 Acute respiratory failure with hypoxia; E66.2 Morbid (severe) obesity with alveolar hypoventilation; Z68.43 Body mass index [BMI] 50.0-59.9, adult; E87.4 Mixed disorder of acid-base balance; J98.11 Atelectasis; L03.116 Cellulitis of left lower limb; L03.115 Cellulitis of right lower limb; J21.9 Acute bronchiolitis, unspecified; J96.12 Chronic respiratory failure with hypercapnia; F41.9 Anxiety disorder, unspecified; I89.0 Lymphedema, not elsewhere classified; I95.9 Hypotension, unspecified; T50.1X5A Adverse effect of loop [high-ceiling] diuretics, initial encounter; J98.4 Other disorders of lung; G47.00 Insomnia, unspecified; E03.8 Other specified hypothyroidism; D64.9 Anemia, unspecified; I27.20 Pulmonary hypertension, unspecified; I87.2 Venous insufficiency (chronic) (peripheral); M41.9 Scoliosis, unspecified; R16.2 Hepatomegaly with splenomegaly, not elsewhere classified; I10 Essential (primary) hypertension; F32.A Depression, unspecified; Y92.9 Unspecified place or not applicable; Z91.199 Patient's noncompliance with other medical treatment and regimen due to unspecified reason; Z86.16 Personal history of COVID-19; Z87.891 Personal history of nicotine dependence; Z80.3 Family history of malignant neoplasm of breast
CPT/HCPCS: 36600; 71046; 71275; 76775; 80048; 80053; 81003; 81099; 82570; 82607; 82728; 82746; 82805; 83540; 83550; 83735; 83880; 84145; 84300; 84439; 84443; 84484; 85025; 85027; 87070; 93005; 94640; 94660; 99285; Q9967

== ENCOUNTER 2023-09-01 19:38 | Inpatient (IN) | payer BC, SELFPAY ==
[2023-09-01] VITALS (8 sets, daily range): BP systolic 135–163; BP diastolic 69–95; BMI 59.8; BMI 58.6
[2023-09-01 16:07] LABS: % Basophils 0.5 % (0-2); % Immature Granulocytes 0.9 % (0-0.5); % Lymphocytes 9.3 % (20.5-51.1); % Monocytes 13.4 % (1.7-9.3); % Neutrophils 71.9 % (42.2-75.2); Absolute Basophils 0.1 10^3/uL (0-0.2); Absolute Eosinophils 0.4 10^3/uL (0-0.7); Absolute Immature Granulocytes 0.1 10^3/uL (0-0.05); Absolute Lymphocytes 0.9 10^3/uL (1.2-3.4); Absolute Monocytes 1.3 10^3/uL (0.1-0.6); Absolute Neutrophils 7.2 10^3/uL (1.4-6.5); Hematocrit 31.9 % (39.0-52.0); Hemoglobin 9.5 g/dL (13.0-18.0); Mean Corp Hgb Conc. 29.8 g/dL (33.0-37.0); Mean Corpuscular Hgb 25.6 pg (27.0-31.0); Mean Platelet Volume 9.7 fL (7.4-10.4); Nucleated Red Blood Cells % 0 % (-); Platelet Count 216 10^3/uL (130-400); Red Blood Cell Count 3.71 10^6/uL (4.70-6.10); Red Cell Dist. Width 16.4 % (11.5-14.5)
[2023-09-01 16:21] LABS: ALT (SGPT) 13 U/L (0-50); AST (SGOT) 18 U/L (17-59); Albumin 3.7 g/dl (3.5-5.0); Alkaline Phosphatase 51 U/L (38-126); Blood Urea Nitrogen 18 mg/dl (9-20); Calcium 8.8 mg/dl (8.4-10.2); Carbon Dioxide 33 mmol/L (22-30); Chloride 101 mmol/L (98-107); Glucose 122 mg/dl (70-99); Potassium 4.1 mmol/L (3.5-5.1); Sodium 139 mmol/L (135-145); Total Bilirubin 0.6 mg/dl (0.2-1.3); Total Protein 6.5 g/dl (6.3-8.2); eGFR > 60.00
[2023-09-01 16:29] LABS: NT-proBNP 356 pg/ml
--- NOTE | 2023-09-01 16:40 | ED.GENMED ---
History of Present Illness
General
Chief Complaint: Breathing Problem
Time Seen by Provider: 09/01/23 16:34
History of Present Illness
History of Present Illness:
HPI: The patient presents with shortness of breath. This is associated with increasing weight gain and thinks he went from 360 pounds to 390. The patient tells me that he was told that the reason why he is short of breath is because 'all the fluid
is pushing up on my diaphragm'. He denies ever having a paracentesis. Lasix was held after last admission due to KAYLEN.
EXAM:
GENERAL: The patient appears somewhat short of breath and is currently wearing nasal cannula oxygen, he is generally ill and appears
HEENT: Moist oral mucosa
CARDIOVASCULAR: No murmurs, tachycardic heart rate, regular rhythm, No chest wall tenderness
PULMONARY: Mild respiratory distress, mild tachypnea breath sounds are equally decreased
ABDOMEN: Soft with no peritoneal signs, question of fluid wave, no tenderness
NEUROLOGIC: Fair strength all extremities, no coordination deficits
PSYCHIATRIC: Appropriate mental status, normal insight and judgement, appears upset at times
EXTREMITIES: Mild diffuse tenderness lower extremities, lymphedema bilateral lower extremities
SKIN: Marked erythema to the lower extremities extending up to the mid thorax
TIME OF INITIAL ENCOUNTER: 4:40 PM
NUMBER AND COMPLEXITY OF PROBLEMS ADDRESSED AT THE ENCOUNTER
� Chronic conditions affecting care: Anxiety/depression, former smoker but occasionally still vapes
� Acute Exacerbation and/or Progression of Chronic Illness: This is an acute but recurrent problem
� Differential Diagnosis includes: Obesity hypoventilation syndrome, pulmonary hypertension exacerbation, KAEL, COPD
AMOUNT AND/OR COMPLEXITY OF DATA TO BE REVIEWED AND ANALYZED
� I performed an independent evaluation of and my interpretation is:
EKG: Sinus 113, normal axis, nonspecific ST abnormality
CT:
X-rays: I personally viewed x-ray and suspect a degree of volume overload upon chronic disease
Laboratory Studies: White count 10, hemoglobin 9.5 which is near baseline, bicarb 33, BNP 356
Other:
� Review of other/old records: Last showed no PE. It was felt that his shortness of breath was multifactorial including obesity, hypoventilation, pulmonary hypertension, KAEL, bronchiolitis/atelectasis. Records indicate
that he has refused BiPAP in the past.
� Clinical information was obtained by an independent historian: None needed
� Prescriptions/Medications Considered but not given: Consider Lasix over the patient declined
� Further testing considered but not performed:
RISK OF COMPLICATIONS AND/OR MORBIDITY OR MORTALITY OF PATIENT MANAGEMENT
� Social determinants of health affecting care: Lives at home and uses oxygen at home
� Discussion with other providers: Dr. Yoo for admission at 5:40 PM
� Escalation of care including admission/observation vs risk of discharge considered: Rising BNP with rising weight and abnormal chest x-ray�considered/offered and recommended at least a dose of Lasix however the patient refused
citing concerns with prior renal insufficiency related to diuretic use in the past. He states that diuretic has not helped him in the past. Suspect his BNP is lower than expected given his obesity. Will try dose of nitroglycerin for preload
reduction. I have also ordered IV Ancef as he received last time for lower extremity erythema/possible cellulitis.
Past History
Past History
ED Past Medical History: COPD, HTN, Psychiatric (Depression) and Other (Morbid obesity; COVID-19 URI June 2020)
ED Past Surgical History: Other
Social History
Tobacco: Vaping (Former cigarette smoker, now vapes nicotine and has been cutting down)
Alcohol: Occasional
Drug: None
Personal:
Living: with family
Employment: Employed
Family History
Family History: Negative Early CAD or CAD
Phy Exam
Physical Exam
Physical Exam:
See HPI
Scores
Heart Failure Risk
Heart Failure Risk Score: Not Applicable
Course
Orders/Labs/Results
Orders:
Orders
09/01/23 16:00
Complete Blood Count/With Diff Urgent
Comprehensive Metabolic Panel Urgent
NT-proBNP Urgent
09/01/23 16:44
Electrocardiogram (*1) Urgent
Reason for Study: Shortness of Breath
EKG- Treatment ONCE
09/01/23 16:49
Furosemide [Lasix] 80 mg IV NOW STA
09/01/23 16:53
CR Chest Portable - 1 View Urgent
Comment:
Reason For Exam: sob
Reason Study Needs to be Portable: Patient Unstable
09/01/23 17:07
ABG [Arterial Blood Gas] Urgent
%Oxygen/Room Air: 3lpm
09/01/23 17:32
Nitroglycerin Sublingual [Nitrostat (Sublingual)] 0.4 mg SL NOW STA
09/01/23 17:38
CeFAZolin 2 GRAM [Ancef] 2 grams in 10 ml IV NOW
Abnormal Lab Results
09/01/23 09/01/23
16:00 17:07
RBC 3.71 L 10^6/uL
(4.70-6.10)
Hgb 9.5 L g/dL
(13.0-18.0)
Hct 31.9 L %
(39.0-52.0)
MCH 25.6 L pg
(27.0-31.0)
MCHC 29.8 L g/dL
(33.0-37.0)
RDW 16.4 H %
(11.5-14.5)
Abs Immat Gran (auto) 0.1 H 10^3/uL
(0-0.05)
Absolute Neuts (auto) 7.2 H 10^3/uL
(1.4-6.5)
Absolute Lymphs (auto) 0.9 L 10^3/uL
(1.2-3.4)
Absolute Monos (auto) 1.3 H 10^3/uL
(0.1-0.6)
Immature Gran % 0.9 H %
(0-0.5)
Lymphocytes % 9.3 L %
(20.5-51.1)
Monocytes % 13.4 H %
(1.7-9.3)
pCO2 55 H mmHg
(35-48)
HCO3 34.1 H mmol/L
(21-28)
ABG O2 Sat (Measured) 99.4 H %
(94-98)
Carbon Dioxide 33 H mmol/L
(22-30)
Creatinine 0.6 L mg/dL
(0.7-1.3)
Glucose 122 H mg/dl
(70-99)
09/01/23 16:00
09/01/23 16:00
Vital Signs
Initial and Last Documented VS:
Initial Vital Signs
Temp Pulse Resp BP Pulse Ox
98.4 F 120 26 150/95 96
09/01/23 15:30 09/01/23 15:30 09/01/23 15:30 09/01/23 15:30 09/01/23 15:30
Last Documented Vital Signs
Temp Pulse Resp BP Pulse Ox
98.4 F 113 29 144/69 96
09/01/23 15:30 09/01/23 18:30 09/01/23 18:30 09/01/23 18:00 09/01/23 15:30
*Critical Care Note
Total Time (30-74mins, 75-104mins- exclusive of procedures): Not Applicable
ED Attending Note
-
Portions of this chart may have been created with voice recognition software.� Occasional wrong word or��sound alike� substitutions may have occurred due to the inherent limitations of voice recognition software.
Discharge Plan
Departure
Patient Disposition: Admit
Date of Disposition: 09/01/23
Time of Disposition: 17:51
Presentation/result/management discussed w/ accepting MD/DO: Hospitalist
Discharge Problem:
Hypoxia
Prescriptions:
No Action
diltiazem HCl 180 mg Capsule,Extended Release 24hr
180 mg PO DAILY Qty: 30 0RF
gabapentin 100 mg Capsule
100 mg PO TID Qty: 90 0RF
duloxetine 20 mg Capsule,Delayed Release(Dr/Ec)
20 mg PO DAILY Qty: 30 0RF
diphenhydramine-acetaminophen [Tylenol PM Extra Strength] 25-500 mg Tablet
2 tab PO HSPRN PRN (Reason: sleep)
Referrals:
UNKNOWN - PT DOES,NOT KNOW [Family Provider] -
Interventions
Interventions:
*Risk Screen - Suicide Last Done: 09/01/23 15:30
*General Assessment Last Done: 09/01/23 15:30
*Neglect/Abuse Screening Last Done: 09/01/23 15:30
ED- Cardiac Assessment Last Done: 09/01/23 16:15
ED- Pulmonary Assessment Last Done: 09/01/23 16:15
Discharge Date and Time
Print Language: MACEDONIAN
[2023-09-01 17:12] LABS: HCO3 34.1 mmol/L (21-28); O2 Saturation % 99.4 % (94-98); PCO2 55 mmHg (35-48); PO2 96 mmHg (83-108)
[2023-09-01] MEDS: NITROSTAT (SUBLINGUAL) 0.400000000000000022 MG SL (17:37)
[2023-09-01] MEDS: ANCEF 10 IV (17:44)
--- NOTE | 2023-09-01 18:10 | HPS.HSE ---
Family Physician
-
Family Physician: NOT KNOW UNKNOWN - PT DOES
Chief Complaint
-
sob
b/l LE edema, red
History of Present Illness
28-year-old with past medical history for COPD, hypertension, depression, morbid obesity presented to us with short of breath which is worse with activity. Patient also complained of orthopnea. He has gained 30 to 40 pounds since Discharge from
here in June. Patient has a complaint of worsening bilateral lower extremities edema. Worsening of redness from abdomen down to the foot. Patient never got an appointment for sleep study as outpatient. He is scheduled for lymphedema clinic in
September 17. Patient denied any fever, chills, chest pain. Patient denied any runny nose, congestion, cough. Patient denies any headache, dizziness, syncopal episode. Patient denied dysuria hematuria.
Patient received Ancef during ER. Admitted for further management
Medical History
Past Medical History
Past Medical History: Reports Other
Additional Past Medical History:
Hypertension
Morbid obesity
Lymphedema
Emphysema
Respiratory failure
Past Surgical History: Reports None
Social History
Tobacco: Former Smoker
Alcohol: Occasional
Drug: None
Family History
Family History: Not pertinent
Allergies / Home Medications
Allergies reflects when Allergies were last updated in [facility].
Home Medications with original date entered in [email or web address]
Allergy/Medication List:
Allergies
Allergy/AdvReac Type Severity Reaction Status Date / Time
No Known Allergies Allergy Verified 09/01/23 15:29
Home Medications
diltiazem HCl 180 mg capsule,extended release 24 hr 180 mg PO DAILY #30 caps 06/16/23
duloxetine 20 mg capsule,delayed release 20 mg PO DAILY #30 caps 06/16/23
gabapentin 100 mg capsule 100 mg PO TID #90 caps 06/16/23
diphenhydramine 25 mg-acetaminophen 500 mg tablet (Tylenol PM Extra Strength) 2 tab PO HSPRN PRN sleep 09/01/23
Review of Systems
-
Constitutional: Reports No Symptoms
EENT: Reports No Symptoms
Respiratory: Reports Trouble Breathing
Cardiac: Reports No Symptoms
Abdomen/GI: Reports Other (Abdomen distention)
: Reports No Symptoms
Musculoskeletal: Reports Edema (Bilateral lower extremities edema/redness)
Skin: Reports No Symptoms
Neurological: Reports No Symptoms
Endocrine: Reports No Symptoms
Hematologic/Lymphatic: Reports No Symptoms
Psych: Reports No Symptoms
Physical Exam
Vital Signs
Vital Signs
Temp Pulse Resp BP Pulse Ox
98.4 F 114 34 152/86 96
09/01/23 15:30 09/01/23 16:15 09/01/23 15:45 09/01/23 17:56 09/01/23 15:30
Physical Exam
General: Well Developed, Well Nourished and No Apparent Distress
HEENT: NormoCephalic, Moist mucous membranes and Atraumatic
Respiratory: Wheezes and Rales
Cardiac: S1/S2 and Regular Rhythm; No Murmur or Rub
GI: Soft, Non Tender, Non Distended and Normal Bowel Sounds; No Organomegaly
Rectal: Deferred by Provider
Musculoskeletal: No Clubbing, No Cyanosis and Other (Bilateral lower extremities edema)
Skin: Other (Abdomen redness, lower extremities redness); No Rash
Neuro: AO x 3 and Nonfocal/grossly intact
Laboratory Results
-
09/01/23 16:00
09/01/23 16:00
Laboratory Results
pH 7.40 (7.35-7.45) 09/01/23 17:07
pCO2 55 mmHg (35-48) H 09/01/23 17:07
pO2 96 mmHg (83-108) 09/01/23 17:07
HCO3 34.1 mmol/L (21-28) H 09/01/23 17:07
Total Bilirubin 0.6 mg/dl (0.2-1.3) 09/01/23 16:00
AST 18 U/L (17-59) 09/01/23 16:00
ALT 13 U/L (0-50) 09/01/23 16:00
Alkaline Phosphatase 51 U/L (38-126) 09/01/23 16:00
Data Reviewed
-
Diagnostic Radiology: Report Reviewed by me
Lab Data: Labs Reviewed by me
Impression/Plan
-
#sob/acute on chronic respiratory failure likely lung disease/chronic hypercapnic respiratory failure due to obesity hypoventilation syndrome
-got NTG in in ER
-BNP 356
-Chest x-ray with impression of Severe mediastinal lipomatosis. Mildly decreased bilateral lung volumes. Chronic pleural thickening and round atelectasis in the left lower lung.
-Patient uses 2 L baseline, at present requiring 3 L-oxygenating greater than 95 on 3 L
-Echo 4 01/2024 with a EF 55 to 60%
-Strict GEORGE
-Daily weight
-Fluid restriction
-nebs prn for sob/wheezing
-continue supplemental oxygen to keep sat>92
-wean as tolerated
#severe lymphedema/bl LE cellulitis
-Ancef in ER
-IV Ancef continued
-Tylenol prn for fever
-sonido wrap t to b/l LE
-refusing Lasix due to prior KAYLEN
-Tylenol, Motrin, Dilaudid prn for pain
#abdominal distention
-will obtain US of abdomen
-will consider IR consulted based on US of abdomen
# Anemia unclear chronicity
-Hemoglobin 9.5
-No active bleeding
-Trend hemoglobin
#chornic Tachycardia
-Heart rate 1 14-120
-EKG with sinus tachycardia
-Diltiazem continued
Anxiety/Depression
Insomnia
- duloxetine at home dose, 20 mg daily.
Morbid (severe) obesity due to excess calories, BMI 59.8
- Affects all aspects of care
DVT ppx: Lovenox
Code: Full
--- NOTE | 2023-09-01 19:02 | W.PN.UPDATE ---
Update Note
Progress Note Update
This is an addendum to the H&P written by Beth Robison on 09/01/2023. 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
48-year-old male past medical history of hypercarbic respiratory failure on 2 L baseline, severe chronic lower extremity lymphedema, presumed COPD/restrictive lung disease secondary to obesity, presumed obstructive sleep apnea, morbid obesity,
clinical hypothyroidism, essential hypertension, chronic anemia, presenting with worsening bilateral lower extremity swelling with redness that has progressed to his abdomen. Patient is having trouble breathing. He has not had a chance to get to
the lymphedema clinic. He has not had a chance to obtain BiPAP from his loss control consultant.
Labs show cardiac BNP of 400. Chest x-ray shows severe mediastinal lipomatosis, mildly decreased bilateral lung volumes, chronic pleural thickening/round atelectasis in the left lower lung.
Diffficult situation. Patient has severe bilateral lymphedema with possible superimposed cellulitis. Shortness of breath appears to be due to some degree of restrictive lung disease secondary to diaphragmatic compression from ascites. Lasix was
offered but he is refusing due to prior KAYLEN on Lasix. Continue bilateral Sal wraps. Check abdominal ultrasound to evaluate for ascites, IR consulted for symptomatic paracentesis. Cefazolin. Pain control with Tylenol, ibuprofen, Dilaudid.
[2023-09-01] MEDS: NEURONTIN 100 MG PO (21:04)
[2023-09-01] MEDS: MOTRIN 600 MG PO (21:04)
[2023-09-01] MEDS: BENADRYL 50 MG PO (22:21)
[2023-09-01] MEDS: TYLENOL 1000 MG PO (22:21)
[2023-09-02] MEDS: ANCEF 10 IV ×3 (02:22→17:00)
[2023-09-02 03:01] VITALS: BP 149/75
[2023-09-02] MEDS: OMNIPAQUE 50 ML PO (05:55)
[2023-09-02 06:00] VITALS: BMI 58.7
[2023-09-02] MEDS: ATARAX 12.5 MG PO ×2 (06:28→20:56)
[2023-09-02 07:00] VITALS: BP 147/74
[2023-09-02 07:13] LABS: Hematocrit 36.4 % (39.0-52.0); Hemoglobin 10.2 g/dL (13.0-18.0); Mean Corpuscular Hgb 25.4 pg (27.0-31.0); Mean Corpuscular Volume 90.8 fL (80.0-94.0); Mean Platelet Volume 9.6 fL (7.4-10.4); Platelet Count 212 10^3/uL (130-400); Red Blood Cell Count 4.01 10^6/uL (4.70-6.10); Red Cell Dist. Width 16.6 % (11.5-14.5); White Blood Cell Count 10.1 10^3/uL (4.8-10.8)
[2023-09-02 08:33] LABS: TSH Reflex To Free T4 4.45 uIU/ml (0.47-4.68)
[2023-09-02] MEDS: CARDIZEM CD 180 MG PO (08:54)
[2023-09-02] MEDS: CYMBALTA DELAYED RELEASE 20 MG PO (08:54)
[2023-09-02] MEDS: NEURONTIN 100 MG PO ×3 (08:55→22:13)
[2023-09-02 09:19] LABS: ALT (SGPT) 13 U/L (0-50); AST (SGOT) 17 U/L (17-59); Albumin 4.2 g/dl (3.5-5.0); Alkaline Phosphatase 64 U/L (38-126); Blood Urea Nitrogen 18 mg/dl (9-20); Carbon Dioxide 31 mmol/L (22-30); Chloride 100 mmol/L (98-107); Direct Bilirubin 0.3 mg/dl (0.0-0.4); Estimated Creatinine Clearance > 125 ml/min; Glucose 118 mg/dl (70-99); HDL Cholesterol 46 mg/dl; LDL Cholesterol, Calculated 97 mg/dl; Magnesium 2.2 mg/dl (1.6-2.3); Sodium 140 mmol/L (135-145); Total Bilirubin 0.8 mg/dl (0.2-1.3); Total Cholesterol 160 mg/dl (50-199); Total Protein 7.3 g/dl (6.3-8.2); Triglyceride 87 mg/dl (10-149); Very Low Density Lipoprotein 17 mg/dl (0-30); eGFR > 60.00
[2023-09-02] MEDS: LOVENOX 60 MG SC ×2 (10:19→20:48)
[2023-09-02 11:00] VITALS: BP 143/70
--- NOTE | 2023-09-02 11:46 | W.PN.HOSP.TC ---
Today's Communication/Plan
-
repeat CT with sedation to assess abdominal distention
Wound care consult
Nephrology consult to consider IV Diuretics
Assessment / Plan
Assessment / Plan
Assessment:
Acute Hypoxemic/hypercapnic respiratory failure
- baseline 2L, currently on 3L NC
moderate restrictive lung disease
Lung atelectasis
Severe mediastinal lipomatosis.
KAEL/obesity hypoventilation syndrome
Likely pulmonary hypertension
- has not yet obtained sleep study but is following with Pulmonary
Acute on Chronic Lymphedema: associated cellulitis > venous dermatitis
Worsening lymphedema
- weight gain of roughly 40-50 lbs in 3 weeks
- referred to OP Lymphedema clinic - appointment in 2 weeks
- continue wraps, elevate legs
- continue Ancef
- Wound care following
- consult Nephrology to assist with possible diuresis; patient concerned over possible KAYLEN which occured previously
Metabolic alkalosis as a compensatory mechanism due to chronic hypercapnia
Chronic anemia
- unclear etiology
Morbid obesity (BMI: 58)
Chronic sinus tachycardia
Essential hypertension
- on Diltiazem
Anxiety/Depression
Insomnia
- resume duloxetine at home dose, 20 mg daily.
Morbid (severe) obesity due to excess calories, BMI 51.9
- Affects all aspects of care and specifically his current dyspnea and lymphedema issues.
Subclinical hypothyroidism
- elevated TSH, normal FT4
- repeat TFTs 4 weeks
Left eye conjunctivitis recently
- reports improvement and he has not required eye drops (Gent) in weeks, will therefore place those eyes drops on hold
DVT ppx: Lovenox
Code: Full
Anticipated Discharge: > 48 hours
Subjective/Interval History
-
Date of Service: September 02, 2023
reports SOB, in on 3L NC
refused CT earlier due to SOB, but willing to retry with sedation
Objective Data
-
Labs:
Laboratory Results
09/02/23
06:31
WBC 10.1
Hgb 10.2 L
Hct 36.4 L
Plt Count 212
Sodium 140
Potassium 4.0
Chloride 100
Carbon Dioxide 31 H
BUN 18
Creatinine 0.8
Glucose 118 H
Calcium 9.0
Total Bilirubin 0.8
AST 17
ALT 13
Alkaline Phosphatase 64
Vital Signs:
Vital Signs
Temp Pulse Resp BP Pulse Ox
98.1 F 109 18 147/74 98
09/02/23 07:00 09/02/23 07:00 09/02/23 07:00 09/02/23 07:00 09/02/23 07:00
I&O
09/01/23 09/02/23 09/03/23
06:59 06:59 06:59
Intake Total 720 / 720
Balance 720 / 720
Physical Exam
-
General: Morbidly Obese
HEENT: Normocephalic and Atraumatic
Respiratory: Negative Wheezes
Cardiac: Regular Rhythm and S1/S2
GI: Distended
Genito-urinary: No Costovertebral Tender
Musculoskeletal: Edema, Left Upper Extrem and Edema, Right Lower Extrem
Neuro: AO x 3
Psych: Calm
Data Reviewed
-
Total Time Spent with Patient (in minutes): 55
Labs: Labs Reviewed by me
[2023-09-02 12:18] VITALS: BP 143/70; PULSE 108; O2SAT 98
--- NOTE | 2023-09-02 13:01 | W.CON.NEPH ---
Consultation
-
Date/Time Consultation Requested: September 02, 2023 12 noon
Date/Time Consultation Performed: September 02, 2023 1 PM
Requesting Provider: Dr. Arredondo
Performing Provider: Dr. Lizarraga
Reason for Consultation: Lymphedema
Medical History
-
Chief Complaint: Lymphedema
History of Present Illness:
48 y/o male with hypertension, inappropriate sinus tachycardia on Diltiazem, former smoker, BLE edema, lymphedema, depression, anxiety on cymbalata, gabapentin, and restrictive lung disease, morbid obesity, suspected KAEL /OHVS but declined sleep
study, chronic metabolic alkalosis. Recently in [facility] in June for sob, cellulitis, KAEL with HS BiPAP. There was major concern of noncompliance to medical care. He had multiple admissions to multiple hospitals ([facility],
[facility]) He seems to have had RHC at [facility] but no available records yet-verbal report from pt with high filling pressures. He says that he was told to discontinue diuretic therapy after a finding of a creatinine
of 1.7 at his last hospital admission at [facility]. Since then he has not used diuretics and has actually refused diuretics. Unfortunately, since that timeframe he has also gained 40 pounds of water weight and says that he gained several pounds
per day. He reports continued frustration that he is unable to manage the volume. He has an appointment with lymphedema clinic as an outpatient on the of this month.
Reports progressively worsening shortness of breath, distention, and weight gain past 3 years after kamila COVID-19. His lower extremities have been erythematous for greater than 1 year. He says at 1 point the edema had actually improved but
then returned.
Past Medical History
Arrhythmias, HTN morbid obesity, lymphedema, depression, restictive lung disease, KAEL/OHS
Past Surgical History: Other (Testicle Lowering in Childhood)
Social History
Tobacco: Former Smoker (1yr ago) and Vaping
Alcohol: Occasional
Personal: Single
Living: With Family
Employment: Not Employed
Family History
Family History: Not Pertinent
Allergies / Home Medications
Allergy/AdvReac Type Severity Reaction Status Date / Time
No Known Allergies Allergy Verified 09/01/23 15:29
�Medication �Instructions �Recorded �Confirmed �Type
diltiazem HCl 180 mg 180 mg PO DAILY #30 caps 06/16/23 09/01/23 Rx
capsule,extended release 24 hr
duloxetine 20 mg capsule,delayed 20 mg PO DAILY #30 caps 06/16/23 09/01/23 Rx
release
gabapentin 100 mg capsule 100 mg PO TID #90 caps 06/16/23 09/01/23 Rx
diphenhydramine 25 2 tab PO HSPRN PRN sleep 09/01/23 09/01/23 History
mg-acetaminophen 500 mg tablet
(Tylenol PM Extra Strength)
Review of Systems
-
Mild shortness of breath, weeping extremities
All other systems: Negative unless noted
Physical Exam
Vital Signs
Vital Signs
Temp Pulse Resp BP Pulse Ox
97.9 F 110 18 143/70 97
09/02/23 11:00 09/02/23 11:00 09/02/23 11:00 09/02/23 11:00 09/02/23 11:00
Lab Results
WBC 10.1 10^3/uL (4.8-10.8) 09/02/23 06:31
RBC 4.01 10^6/uL (4.70-6.10) L 09/02/23 06:31
Hgb 10.2 g/dL (13.0-18.0) L 09/02/23 06:31
Hct 36.4 % (39.0-52.0) L 09/02/23 06:31
Plt Count 212 10^3/uL (130-400) 09/02/23 06:31
Sodium 140 mmol/L (135-145) 09/02/23 06:31
Potassium 4.0 mmol/L (3.5-5.1) 09/02/23 06:31
Chloride 100 mmol/L (98-107) 09/02/23 06:31
Carbon Dioxide 31 mmol/L (22-30) H 09/02/23 06:31
BUN 18 mg/dl (9-20) 09/02/23 06:
Creatinine 0.8 mg/dL (0.7-1.3) 09/02/23 06:
eGFR > 60.00 09/02/23 06:
Glucose 118 mg/dl (70-99) H 09/02/23 06:
Calcium 9.0 mg/dl (8.4-10.2) 09/02/23 06:31
Ahf-R-Wprbloetykn Pept 356 pg/ml 09/01/23 16:00
Albumin 4.2 g/dl (3.5-5.0) 09/02/23 06:31
Physical Exam
Patient is awake alert oriented and in no distress. Mood and affect were pleasant, insight and judgment were good. Pupils are equal round and reactive to light, extraocular movements are intact, sclera were anicteric. Hearing was normal, ears and
nose are intact. Oropharynx was clear. Neck was supple with trachea midline and no thyromegaly. Heart was regular rate and rhythm without rubs. Lower extremities with 3+ edema. There is diffuse anasarca throughout the body. Lungs were clear to
auscultation bilaterally and with normal excursion. Abdomen was soft, nontender, with normal active bowel sounds, and no hepatosplenomegaly. Skin was without rash and with normal turgor.
Data Reviewed
-
Ultrasound: Report Reviewed by me (Abdominal ultrasound on 09/01/2023 shows no ascites)
Medical Tests (Nuc Med, Echo etc): Image Personally Visualized and interpreted (EKG on 09/01/2023 by my read shows sinus tachycardia nonspecific T wave abnormalities) and Report Reviewed by me (Echocardiogram on June 12, 2023 shows ejection fraction
55% no valvular heart disease)
Labs: Labs Reviewed by me (Sodium 140, potassium 4.0, bicarbonate 31, creatinine 0.8, albumin 4.2, WBC 10.1, hemoglobin 10.2)
Old Records: Reviewed
Critical Care Time (in minutes): Creatinine 1.7 on 08/09/2023, 0.8 on 08/12/2023
Assessment/Plan
-
IMP:
Hypoxemic Respiratory Insufficiency
resp acidosis and met alkalosis
chronic hypercapnia
underlying KAEL
underlying reported hx of COPD and restrictive lung disease (Obesity)
Acute on Chronic Lymphedema
Chronic sinus tachycardia
Anxiety/Depression
Insomnia
Morbid (severe) obesity due to excess calories
Subclinical hypothyroidism
Plan:
Discussed with patient.
He has thus far remained adamant about not using diuretics because of detrimental effect on the kidney. I explained to him that his overall renal function is quite good and that he should have no issues tolerating diuretics. He says he no longer
cared and will do what ever was recommended.
Lasix 40mg IV daily
follow BMP
watch for cellulitis
[2023-09-02] MEDS: NSS (PRESERVATIVE FREE) 0.5 ML IV (14:36)
[2023-09-02] MEDS: ATIVAN 1 MG IV (14:36)
[2023-09-02 15:00] VITALS: BP 140/77
[2023-09-02] MEDS: LASIX 40 MG IV (15:06)
[2023-09-02] MEDS: DUONEB 3 ML INH (15:28)
--- NOTE | 2023-09-02 16:28 | CM ---
Alert awake oriented patient who lives with his dad Tito who lives in a 1 story home with 0 step to enter and bed and bathroom on first floor. He is independent in driving and in all activities of daily living.He was offered VN he said he has
lymphedema clinic at set up on 09/18/23.Pts dad Tito spoke with me saying he is scared for pts health.Dad spoke with MD .Explained that pt is oriented and CM will follow pts request for dc planning.
[facility] /[facility] history
[facility] [place]
[facility]
PLAN Home with out pt Lymphedema clinic to start
[2023-09-02 16:49] LABS: Urine Albumin Negative (Neg - Trace); Urine Bilirubin Negative (Negative); Urine Character Clear (Clear); Urine Color Straw; Urine Glucose Negative (Negative); Urine Ketone Negative (Negative); Urine Leukocyte Negative (Negative); Urine Nitrite Negative (Negative); Urine Occult Blood Negative (Negative); Urine Urobilinogen Negative (Neg - 1+)
[2023-09-02 17:08] LABS: Urine Sodium 130 mmol/L (30-90)
[2023-09-02] MEDS: BENADRYL 50 MG PO (22:13)
[2023-09-02] MEDS: TYLENOL 1000 MG PO (22:13)
[2023-09-02 23:46] VITALS: BP 124/51
[2023-09-03] VITALS (7 sets, daily range): BP systolic 117–144; BP diastolic 69–79; PULSE 106; O2SAT 95; BMI 57.5
[2023-09-03] MEDS: ANCEF 10 IV ×3 (01:48→18:27)
[2023-09-03 06:39] LABS: Hemoglobin 9.8 g/dL (13.0-18.0); Mean Corp Hgb Conc. 29.7 g/dL (33.0-37.0); Mean Corpuscular Hgb 25.6 pg (27.0-31.0); Mean Corpuscular Volume 86.2 fL (80.0-94.0); Mean Platelet Volume 9.7 fL (7.4-10.4); Platelet Count 215 10^3/uL (130-400); Red Blood Cell Count 3.83 10^6/uL (4.70-6.10); Red Cell Dist. Width 16.4 % (11.5-14.5); White Blood Cell Count 10.5 10^3/uL (4.8-10.8)
[2023-09-03 07:03] LABS: Blood Urea Nitrogen 17 mg/dl (9-20); Carbon Dioxide 35 mmol/L (22-30); Chloride 98 mmol/L (98-107); Estimated Creatinine Clearance > 125 ml/min; Glucose 108 mg/dl (70-99); Sodium 140 mmol/L (135-145); eGFR > 60.00
[2023-09-03] MEDS: NEURONTIN 100 MG PO ×3 (07:54→21:04)
[2023-09-03] MEDS: LASIX 40 MG IV (07:54)
[2023-09-03] MEDS: CARDIZEM CD 180 MG PO (07:54)
[2023-09-03] MEDS: CYMBALTA DELAYED RELEASE 20 MG PO (07:54)
[2023-09-03] MEDS: LOVENOX 60 MG SC ×2 (07:55→21:04)
--- NOTE | 2023-09-03 09:56 | WOUNDNOTE ---
SACRUM AND LOWER BACK
--- NOTE | 2023-09-03 09:56 | WOUNDNOTE ---
L POSTERIOR LOWER LEG
--- NOTE | 2023-09-03 09:56 | WOUNDNOTE ---
R LATERAL LOWER LEG
--- NOTE | 2023-09-03 09:57 | WOUNDNOTE ---
WON RN note: Patient admitted with hypoxia.
See H&P for complete history. Lives alone in apt. Father lives nearby.
PMH: Lymphedema, morbid obesity, ex smoker occasional vapes, COPD,HTN, anxiety and depression.
Wound Location and type/assessment: Patient admitted with: Venous blisters on legs, L posterior with open blister, pink base. R lateral leg with scant weeping. Legs blanchable red, chronic lymphedema. Heels are intact, skin very dry and poor
hygiene, strong body odor. Patient states he is unable to reach his legs to do wound care or compression, has had ulcers in past on and off. Patient able to ambulate to the bathroom by self. Using oxygen via NC. + pedal pulses audible with Doppler,
skin warm. Has fungal rash on lower back, buttocks and skin folds.
Appetite: Good.
Pressure redistribution devices in place: Accumax, ad herbert.
Plan: Adaptic and dry dressing to L leg, abd pad to R leg under sonido wraps knee high. Applied A&D ointment to legs and feet after bathing with wet wipes, PT Beatrice assisted in bathing and changing gown due to body odor. Will order mineral oil for legs
and fungal powder for back and skin folds bid. Nurse transferring patient to private . Will confirm orders with hospitalist and update nurse. Updated care plan and will follow as needed.
Note to case management of equipment requested for discharge: Vn if able, patient unable to reach legs.
Recommend follow up at wound care center upon discharge.
--- NOTE | 2023-09-03 10:52 | W.PN.NEPH.PH ---
Today's Communication / Plan
-
paracentesis
Assessment/Plan
-
IMP:
Hypoxemic Respiratory Insufficiency
resp acidosis and met alkalosis
chronic hypercapnia
underlying KAEL
underlying reported hx of COPD and restrictive lung disease (Obesity)
Acute on Chronic Lymphedema
Chronic sinus tachycardia
Anxiety/Depression
Insomnia
Morbid (severe) obesity due to excess calories
Subclinical hypothyroidism
Plan:
continue lasix 40mg IV daily
can consider 60mg IV daily in future. Goal will be slow diuresis only
possible torsemide 20mg daily at dc
for paracentesis
-
-
Date of Service: September 03, 2023
CC / HPI / ROS
-
Chief Complaint:
anasarca
History of Present Illness:
responding to lasix
Cr stable
BP stable high
Review of Systems:
no CP/SOB
Labs
-
Labs:
WBC 10.5 10^3/uL (4.8-10.8) 09/03/23 06:20
RBC 3.83 10^6/uL (4.70-6.10) L 09/03/23 06:20
Hgb 9.8 g/dL (13.0-18.0) L 09/03/23 06:20
Hct 33.0 % (39.0-52.0) L 09/03/23 06:20
Plt Count 215 10^3/uL (130-400) 09/03/23 06:20
Sodium 140 mmol/L (135-145) 09/03/23 06:20
Potassium 4.0 mmol/L (3.5-5.1) 09/03/23 06:20
Chloride 98 mmol/L (98-107) 09/03/23 06:20
Carbon Dioxide 35 mmol/L (22-30) H 09/03/23 06:20
BUN 17 mg/dl (9-20) 09/03/23 06:20
Creatinine 0.7 mg/dL (0.7-1.3) 09/03/23 06:20
eGFR > 60.00 09/03/23 06:20
Glucose 108 mg/dl (70-99) H 09/03/23 06:20
Calcium 9.0 mg/dl (8.4-10.2) 09/03/23 06:20
Wld-M-Segntvjjvdm Pept 356 pg/ml 09/01/23 16:00
Albumin 4.2 g/dl (3.5-5.0) 09/02/23 06:31
Physical Exam
-
Vital Signs:
Vital Signs
Temp Pulse Resp BP Pulse Ox
97.6 F 106 20 142/73 95
09/03/23 07:00 09/03/23 07:54 09/03/23 07:00 09/03/23 07:54 09/03/23 09:53
Cardiovascular:: Regular rate and rhythm
Respiratory:: Bilateral: Coarse
Lung Excursion:: Normal
Abdomen:: Nontender and Soft
Bowel Sounds:: Normal
Extremity Edema:: +3: Bilateral:
--- NOTE | 2023-09-03 15:04 | W.PN.HOSP.TC ---
Today's Communication/Plan
-
continue IV Lasix
Assessment / Plan
Assessment / Plan
Assessment:
Acute Hypoxemic/hypercapnic respiratory failure
- baseline 2L, currently on 3L NC
moderate restrictive lung disease
Lung atelectasis
Severe mediastinal lipomatosis.
KAEL/obesity hypoventilation syndrome
Likely pulmonary hypertension
- has not yet obtained sleep study but is following with Pulmonary
Acute on Chronic Lymphedema: associated cellulitis > venous dermatitis
Worsening lymphedema
- weight gain of roughly 40-50 lbs in 3 weeks
- referred to OP Lymphedema clinic - appointment in 2 weeks
- continue wraps, elevate legs
- continue Ancef
- Wound care following
- continue IV Lasix; requires intensive monitoring
- Nephrology consulting
Metabolic alkalosis as a compensatory mechanism due to chronic hypercapnia
Chronic anemia
- unclear etiology
Morbid obesity (BMI: 58)
Chronic sinus tachycardia
Essential hypertension
- on Diltiazem
Anxiety/Depression
Insomnia
- resume duloxetine at home dose, 20 mg daily.
Morbid (severe) obesity due to excess calories, BMI 51.9
- Affects all aspects of care and specifically his current dyspnea and lymphedema issues.
Subclinical hypothyroidism
- elevated TSH, normal FT4
- repeat TFTs 4 weeks
Left eye conjunctivitis recently
- reports improvement and he has not required eye drops (Gent) in weeks, will therefore place those eyes drops on hold
DVT ppx: Lovenox
Code: Full
Anticipated Discharge: > 48 hours
Subjective/Interval History
-
Date of Service: September 03, 2023
very argumentative, stating he does not feel IV Lasix helps
RN reports he is urinating but patient unwilling to help with recording of urine output unwilling to use urinal etc
Objective Data
-
Labs:
Laboratory Results
09/03/23
06:20
WBC 10.5
Hgb 9.8 L
Hct 33.0 L
Plt Count 215
Sodium 140
Potassium 4.0
Chloride 98
Carbon Dioxide 35 H
BUN 17
Creatinine 0.7
Glucose 108 H
Calcium 9.0
Vital Signs:
Vital Signs
Temp Pulse Resp BP Pulse Ox
98.4 F 110 20 136/75 94
09/03/23 11:29 09/03/23 11:29 09/03/23 11:29 09/03/23 11:29 09/03/23 11:29
I&O
09/02/23 09/03/23 09/04/23
06:59 06:59 06:59
Intake Total 720 / 720
Output Total 600 / 600
Balance 720 / 720 -600 / -600
Physical Exam
-
General: Morbidly Obese
HEENT: Normocephalic and Atraumatic
Respiratory: Negative Wheezes
Cardiac: Regular Rhythm and S1/S2
GI: Soft
Musculoskeletal: Edema, Right Lower Extrem and Edema, Left Lower Extrem
Neuro: AO x 3
Psych: Calm
Data Reviewed
-
Total Time Spent with Patient (in minutes): 51
Labs: Labs Reviewed by me
--- NOTE | 2023-09-03 15:23 | PN.CDI ---
CDI
- -
CDI:
Physician Documentation Request
Admit Date: 09/01/23 19:38
Dear Doctor Arnulfo,
H&P states 'sob/acute on chronic respiratory failure likely lung disease/chronic hypercapnic respiratory failure due to obesity hypoventilation syndrome
09/01- Progress note states ' Acute Hypoxemic/hypercapnic respiratory failure baseline 2L, currently on 3 L NC.....Metabolic alkalosis as a compensatory mechanism due to chronic hypercapnia'
Please clarify the type and acuity of respiratory failure:
Type Acuity
Respiratory failure with hypoxia Acute
Respiratory failure with hypercapnia Chronic
Respiratory failure with hypoxia and hypercapnia Acute on Chronic
Other, please specify
Use of terms such as suspected, likely, concern for, or probable (associated with a specific diagnosis that is being evaluated, monitored, or treated as if it exists) are acceptable and can be coded in the inpatient setting, when documented at the
time of discharge.
Thank you,
Luci Valdez RN, BSN
CDI Specialist
tiger text
Please use your independent medical judgment in providing your response.
--- NOTE | 2023-09-03 17:29 | CM ---
Reviewed chart, met with patient to obtain information for assessment. Patient stated that he lives in a 2 bedroom apartment with his father. There is elevator access. Patient stated that he is independent with his ADLs, personal care, dressing and
bathing however admitted to a lot of difficulty including toileting. 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 Patient shared that his mother is in hospice so his father has to
care for them both right now (she is in a facility). Patient relayed that he is in the middle of a divorce so he has a lot going on emotionally.
Patient has home o2 and portable tanks. He has a w/c that he uses to ambulate long distances.
Patient has had multiple hospitalizations in the past few months. He has had VN and been to [facility].
Patient has a prescription plan and uses, [facility] [address] for all of his medications.
Patient's PCP is, not listed.
Patient stated that he is frustrated as no one is able to assist him with the help or procedures he needs. His RN stated that she spoke with attending and there are a few hospitals that will do Lymphedema sx. His ultimate goal is to get the
treatment.
Patient's father called and stated that he will not be able to take patient home when he is stable for discharge. Will discuss plan with patient. Will need to clarify whether patient can be sent to [place] or [place] which both do the surgery he needs
or he may need to go to SNF.
Plan: Case management will continue to follow and assist with discharge planning. SNF most likely.
[2023-09-03] MEDS: DESENEX/MITRAZOL/ZEASORB 1 APPLIC TOPICAL (21:03)
[2023-09-04] MEDS: ULTRAM 25 MG PO (00:22)
[2023-09-04] MEDS: TYLENOL 1000 MG PO (00:25)
[2023-09-04] MEDS: ANCEF 10 IV (02:21)
[2023-09-04 03:38] VITALS: BP 140/76
[2023-09-04 06:00] LABS: Hematocrit 33.7 % (39.0-52.0); Hemoglobin 9.8 g/dL (13.0-18.0); Mean Corp Hgb Conc. 29.1 g/dL (33.0-37.0); Mean Corpuscular Hgb 25.5 pg (27.0-31.0); Mean Corpuscular Volume 87.5 fL (80.0-94.0); Mean Platelet Volume 9.4 fL (7.4-10.4); Platelet Count 189 10^3/uL (130-400); Red Blood Cell Count 3.85 10^6/uL (4.70-6.10); Red Cell Dist. Width 16.1 % (11.5-14.5); White Blood Cell Count 9.9 10^3/uL (4.8-10.8)
[2023-09-04 06:53] LABS: Blood Urea Nitrogen 18 mg/dl (9-20); Calcium 8.7 mg/dl (8.4-10.2); Carbon Dioxide 37 mmol/L (22-30); Chloride 95 mmol/L (98-107); Estimated Creatinine Clearance > 125 ml/min; Glucose 102 mg/dl (70-99); Potassium 3.6 mmol/L (3.5-5.1); Sodium 139 mmol/L (135-145); eGFR > 60.00
[2023-09-04 07:30] VITALS: BP 134/76
--- NOTE | 2023-09-04 08:40 | W.PN.HOSP.TC ---
Today's Communication/Plan
-
pt signing out AMA
Assessment / Plan
Assessment / Plan
Assessment:
Acute on chronic Hypoxemic/hypercapnic respiratory failure
- baseline 2L, currently on 3L NC
moderate restrictive lung disease
Lung atelectasis
Severe mediastinal lipomatosis.
KAEL/obesity hypoventilation syndrome
Likely pulmonary hypertension
- has not yet obtained sleep study but is following with Pulmonary
Acute on Chronic Lymphedema: associated cellulitis > venous dermatitis
Worsening lymphedema
- weight gain of roughly 40-50 lbs in 3 weeks
- referred to OP Lymphedema clinic - appointment in 2 weeks. Patient has opted to leave AMA now to go urgent to [facility] for his expectation of lymphedema treatment today
- continue wraps, elevate legs
- continue Ancef
- Wound care following
- s/p IV Lasix course while hospitalized
Metabolic alkalosis as a compensatory mechanism due to chronic hypercapnia
Chronic anemia
- unclear etiology
Morbid obesity (BMI: 58)
Chronic sinus tachycardia
Essential hypertension
- on Diltiazem
Anxiety/Depression
Insomnia
- resume duloxetine at home dose, 20 mg daily.
Morbid (severe) obesity due to excess calories, BMI 51.9
- Affects all aspects of care and specifically his current dyspnea and lymphedema issues.
Subclinical hypothyroidism
- elevated TSH, normal FT4
- repeat TFTs 4 weeks
Left eye conjunctivitis recently
- reports improvement and he has not required eye drops (Gent) in weeks, will therefore place those eyes drops on hold
DVT ppx: Lovenox
Code: Full
Dispo: Multiple discussions with patient and his father Jakob. Recommended ongoing hospitalization for diuresis to help reduce edema and discussion with [facility] lymphedema clinic tomorrow after September 03 holiday. Patient refusing further IV
Lasix and wishes to sign out AMA. All risks associated with AMA were reviewed with patient/father.
Anticipated Discharge: Today
Subjective/Interval History
-
Date of Service: September 04, 2023
patient adamant to leave [facility], wants to drive himself to [facility] for lymphedema surgery
Objective Data
-
Labs:
Laboratory Results
09/04/23
05:50
WBC 9.9
Hgb 9.8 L
Hct 33.7 L
Plt Count 189
Sodium 139
Potassium 3.6
Chloride 95 L
Carbon Dioxide 37 H
BUN 18
Creatinine 0.6 L
Glucose 102 H
Calcium 8.7
Vital Signs:
Vital Signs
Temp Pulse Resp BP Pulse Ox
97.9 F 96 24 134/76 97
09/04/23 07:30 09/04/23 07:30 09/04/23 07:30 09/04/23 07:30 09/04/23 07:30
I&O
09/03/23 09/04/23 09/05/23
06:59 06:59 06:59
Intake Total 720 / 720
Output Total 600 / 600
Balance -600 / -600 720 / 720
Physical Exam
-
General: No Apparent Distress and Other (argumentative)
Respiratory: Negative Wheezes
Cardiac: Regular Rhythm
GI: Soft and Distended (fluid anasarca, bowel wall)
Musculoskeletal: Edema, Right Lower Extrem and Edema, Left Lower Extrem
Neuro: AO x 3
Psych: Agitated
Data Reviewed
-
Total Time Spent with Patient (in minutes): 41
Labs: Labs Reviewed by me
[2023-09-04] MEDS: CYMBALTA DELAYED RELEASE 20 MG PO (08:56)
[2023-09-04] MEDS: CARDIZEM CD 180 MG PO (08:56)
[2023-09-04] MEDS: LASIX 40 MG IV (08:57)
[2023-09-04] MEDS: LOVENOX 60 MG SC (08:57)
[2023-09-04] MEDS: NEURONTIN 100 MG PO (08:57)
[2023-09-04] MEDS: DESENEX/MITRAZOL/ZEASORB 1 APPLIC TOPICAL (08:57)
[2023-09-04] MEDS: HYDROPHOR 1 APPLIC TOPICAL (08:57)
--- NOTE | 2023-09-04 09:21 | PTCARENOTE ---
RN and PCT attempted to discuss the need for a condom cath to patient for accurate I&O. When discussed this plan with patient, patient became increasingly agitated flying hands at staff and stating 'NO, you people are not doing your job and sending
me somewhere where they can actually treat me' 'I don't need Lasix, I'm not taking it anymore, I'm not doing anything!'. RN tried to explain the need for I&O, but patient was unable to have an appropriate conversation.
--- NOTE | 2023-09-04 09:46 | CM ---
CM following re: d/c planning.
Call received from pt's father, expressing frustration regarding pt's care.
He states pt called him and yelled at him because 'you people are not doing your jobs.'
He states pt would like to go to another hospital for lymphedema treatment.
CM provided emotional support and encouragement.
Pt's father ended the call.
Pt recs for home health.
CM continuing to follow for d/c needs.
--- NOTE | 2023-09-04 10:59 | PTCARENOTE ---
Patient refuses care, patient is upset and agitated with this hospital admission. Patient states he is 'scared of taking Lasix'. Patient calling family members to pick him up. Patient had his brother plan to bring him his home o2 and take him to
another hospital AMA.
[2023-09-04 12:00] VITALS: BP 149/77
== END 2023-09-04 12:48 | disposition left against medical advice (07) | DRG 602 ==
LOC: 3 WEST ACU 19:38
PROVIDERS: Registered Nurse; ADMITTING PHYSICIAN Hospitalist; ATTENDING PHYSICIAN Internal Medicine; CONSULT PHYSICIAN Specialist; EMERGENCY PHYSICIAN Emergency Medicine
DX: L03.116 Cellulitis of left lower limb (principal); J96.21 Acute and chronic respiratory failure with hypoxia; J96.22 Acute and chronic respiratory failure with hypercapnia; E66.2 Morbid (severe) obesity with alveolar hypoventilation; Z68.43 Body mass index [BMI] 50.0-59.9, adult; E87.3 Alkalosis; J98.11 Atelectasis; E87.4 Mixed disorder of acid-base balance; L03.115 Cellulitis of right lower limb; F17.290 Nicotine dependence, other tobacco product, uncomplicated; J43.9 Emphysema, unspecified; I89.0 Lymphedema, not elsewhere classified; D64.9 Anemia, unspecified; G47.00 Insomnia, unspecified; F41.9 Anxiety disorder, unspecified; F32.A Depression, unspecified; E03.8 Other specified hypothyroidism; I27.20 Pulmonary hypertension, unspecified; Z86.16 Personal history of COVID-19; Z91.199 Patient's noncompliance with other medical treatment and regimen due to unspecified reason
CPT/HCPCS: 71045; 74176; 76705; 80048; 80053; 80061; 81003; 82248; 82570; 82805; 83735; 83880; 84300; 84443; 85025; 85027; 87070; 93005; 94640; 96374; 97110; 97163; 97530; 99285

== ENCOUNTER 2023-09-15 15:12 | Inpatient (IN) | payer BC, MEDICAID, SELFPAY ==
[2023-09-15] VITALS (12 sets, daily range): BP systolic 140–185; BP diastolic 76–107; BMI 60.4; BMI 59.8
--- NOTE | 2023-09-15 11:00 | ED.GENMED ---
History of Present Illness
<David Hunt PA-C - Last Filed: 09/15/23 14:59>
General
Chief Complaint: Swelling
Source: patient and records
Time Seen by Provider: 09/15/23 10:45
History of Present Illness
History of Present Illness:
48-year-old male with past medical history of morbid obesity, chronic lymphedema, COPD, depression presenting to the emergency department for worsening lymphedema and shortness of breath that has been ongoing over the last few days. Patient had
recent admission to this facility at the beginning of the month and subsequently left AGAINST MEDICAL ADVICE while actively attempting diuresis. Patient reports that he is not on any diuretics currently due to renal dysfunction. He states that
currently due to his shortness of breath and fatigue he is not even able to ambulate. He denies any fevers or infectious symptoms. Notes a very faint cough but nonproductive. Patient states that he believes that his swelling has gotten to the
point where it is all the way through his abdomen which is what is causing his shortness of breath. Of note, patient has an appointment with our wound care center for lymphedema to discuss further management and treatment options this coming
.
Past History
<David Hunt PA-C - Last Filed: 09/15/23 14:59>
Past History
ED Past Medical History: COPD, HTN, Psychiatric (Depression) and Other (Morbid obesity; COVID-19 URI June 2020)
ED Past Surgical History: Other
Social History
Tobacco: Vaping (Former cigarette smoker, now vapes nicotine and has been cutting down)
Alcohol: Occasional
Drug: None
Personal:
Living: with family
Employment: Employed
Family History
Family History: Negative Early CAD or CAD
Review of Systems
<David Hunt PA-C - Last Filed: 09/15/23 14:59>
Review of Systems
All Other Systems: ROS reviewed and negative except as documented in HPI and ROS
Phy Exam
<David Hunt PA-C - Last Filed: 09/15/23 14:59>
Physical Exam
Physical Exam:
GENERAL: Alert , in no apparent distress
EYE: clear conjunctiva b/l
HEAD: NCAT
ENT: o/p clr, mmm.
CARDIAC: Tachycardic rate and rhythm, no murmur
LUNGS: Diminished breath sounds throughout, tachypneic, 1-2 sentence dyspnea
ABDOMEN: No focal tenderness, firm and distended throughout
NEUROLOGICAL: Alert and oriented
SKIN: Warm and dry, skin intact.
MUSCULOSKELETAL: 3+ pitting edema bilateral lower extremities all the way into the bilateral thighs, diffuse erythema bilateral to the feet
PSYCH: Normal and appropriate interaction.
Scores
<David Hunt PA-C - Last Filed: 09/15/23 14:59>
Heart Failure Risk
Heart Failure Risk Score: Yes
History of Stroke or TIA: No
History of intubation for respiratory distress: No
Heart rate on ED arrival >/= 110: Yes
SaO2 <90% on arrival on room air: No
HR >/=110 during 3min walk test (or too ill to perform test): Yes
ECG has acute ischemic changes: No
Urea >/=12mmol/L (BUN 33.6mg/dL): No
Serum CO2>/=35mmol/L: Yes
Troponin I or T elevated to ME Level (0.4mg/dL): No
NT-proBNP >/=5,000ng/L (5,000pg/ml): No
HF Risk Score: 4
Admission Status: HIGH RISK 26.1% Consider SNF treatment or admission to hospital
Heart Score for Chest Pain Patients
STEMI patient?: Not applicable
Withdrawal Assessment of Alcohol
Withdrawal Assessment Completed?: Not applicable
Course
<David Hunt PA-C - Last Filed: 09/15/23 14:59>
Orders/Labs/Results
Orders:
Orders
09/15/23 10:04
Electrocardiogram (*1) Urgent
Reason for Study: Shortness of Breath
EKG- Treatment ONCE
09/15/23 10:57
Furosemide [Lasix] 80 mg IV NOW STA
CR Chest Portable - 1 View Urgent
Comment:
Reason For Exam: SOB, edema
Reason Study Needs to be Portable: Unable to Transport
09/15/23 11:00
Complete Blood Count/With Diff Urgent
Comprehensive Metabolic Panel Urgent
NT-proBNP Urgent
Troponin I Urgent
Venous Blood Gas Urgent
%Oxygen/Room Air: 6L NC
09/15/23 11:06
Nitroglycerin Sublingual [Nitrostat (Sublingual)] 0.4 mg SL NOW STA
09/15/23 11:32
Oxycodone/Acetaminophen [Percocet 5/325] 1 tablet PO NOW STA
09/15/23 14:56
Code Status As Directed
Resuscitation Status: Full Code
Abnormal Lab Results
09/15/23
11:00
WBC 11.8 H 10^3/uL
(4.8-10.8)
RBC 3.82 L 10^6/uL
(4.70-6.10)
Hgb 9.7 L g/dL
(13.0-18.0)
Hct 32.7 L %
(39.0-52.0)
MCH 25.4 L pg
(27.0-31.0)
MCHC 29.7 L g/dL
(33.0-37.0)
RDW 16.5 H %
(11.5-14.5)
Abs Immat Gran (auto) 0.1 H 10^3/uL
(0-0.05)
Absolute Neuts (auto) 8.3 H 10^3/uL
(1.4-6.5)
Absolute Lymphs (auto) 0.9 L 10^3/uL
(1.2-3.4)
Absolute Monos (auto) 2.0 H 10^3/uL
(0.1-0.6)
Immature Gran % 1.1 H %
(0-0.5)
Lymphocytes % 8.0 L %
(20.5-51.1)
Monocytes % 17.2 H %
(1.7-9.3)
VBG pH 7.31 L
(7.32-7.43)
VBG pCO2 69 H mmHg
(35-48)
VBG pO2 54 H mmHg
(30-50)
VBG HCO3 34.7 H mmol/L
(22-27)
Chloride 96 L mmol/L
(98-107)
Carbon Dioxide 35 H mmol/L
(22-30)
Creatinine 0.6 L mg/dL
(0.7-1.3)
Glucose 101 H mg/dl
(70-99)
09/15/23 11:00
09/15/23 11:00
Vital Signs
Initial and Last Documented VS:
Initial Vital Signs
Pulse Ox
97
09/15/23 09:50
Last Documented Vital Signs
Temp Pulse Resp BP Pulse Ox
98.3 F 113 28 178/98 99
09/15/23 09:55 09/15/23 11:30 09/15/23 11:30 09/15/23 11:00 09/15/23 11:30
Dayronlt;Juan Alberto Reyes, DO - Last Filed: 09/15/23 12:01>
Orders/Labs/Results
Orders:
Orders
09/15/23 10:04
Electrocardiogram (*1) Urgent
Reason for Study: Shortness of Breath
EKG- Treatment ONCE
09/15/23 10:57
Furosemide [Lasix] 80 mg IV NOW STA
CR Chest Portable - 1 View Urgent
Comment:
Reason For Exam: SOB, edema
Reason Study Needs to be Portable: Unable to Transport
09/15/23 11:00
Complete Blood Count/With Diff Urgent
Comprehensive Metabolic Panel Urgent
NT-proBNP Urgent
Troponin I Urgent
Venous Blood Gas Urgent
%Oxygen/Room Air: 6L NC
09/15/23 11:06
Nitroglycerin Sublingual [Nitrostat (Sublingual)] 0.4 mg SL NOW STA
09/15/23 11:32
Oxycodone/Acetaminophen [Percocet 5/325] 1 tablet PO NOW STA
09/15/23 14:56
Code Status As Directed
Resuscitation Status: Full Code
Abnormal Lab Results
09/15/23
11:00
WBC 11.8 H 10^3/uL
(4.8-10.8)
RBC 3.82 L 10^6/uL
(4.70-6.10)
Hgb 9.7 L g/dL
(13.0-18.0)
Hct 32.7 L %
(39.0-52.0)
MCH 25.4 L pg
(27.0-31.0)
MCHC 29.7 L g/dL
(33.0-37.0)
RDW 16.5 H %
(11.5-14.5)
Abs Immat Gran (auto) 0.1 H 10^3/uL
(0-0.05)
Absolute Neuts (auto) 8.3 H 10^3/uL
(1.4-6.5)
Absolute Lymphs (auto) 0.9 L 10^3/uL
(1.2-3.4)
Absolute Monos (auto) 2.0 H 10^3/uL
(0.1-0.6)
Immature Gran % 1.1 H %
(0-0.5)
Lymphocytes % 8.0 L %
(20.5-51.1)
Monocytes % 17.2 H %
(1.7-9.3)
VBG pH 7.31 L
(7.32-7.43)
VBG pCO2 69 H mmHg
(35-48)
VBG pO2 54 H mmHg
(30-50)
VBG HCO3 34.7 H mmol/L
(22-27)
Chloride 96 L mmol/L
(98-107)
Carbon Dioxide 35 H mmol/L
(22-30)
Creatinine 0.6 L mg/dL
(0.7-1.3)
Glucose 101 H mg/dl
(70-99)
09/15/23 11:00
09/15/23 11:00
Vital Signs
Initial and Last Documented VS:
Initial Vital Signs
Pulse Ox
97
09/15/23 09:50
Last Documented Vital Signs
Temp Pulse Resp BP Pulse Ox
98.3 F 113 28 178/98 99
09/15/23 09:55 09/15/23 11:30 09/15/23 11:30 09/15/23 11:00 09/15/23 11:30
<David Hunt PA-C - Last Filed: 09/15/23 14:59>
MDM/Problems Addressed
Differential Diagnosis Includes:
Chronic lymphedema, CHF, renal dysfunction, pleural effusion, chronic deconditioning
MDM/Problems Addressed:
48-year-old male with extensive past medical history presenting emergency department for gradually worsening shortness of breath, exertional dyspnea and worsening edema. Patient recently admitted at this facility and subsequently left AGAINST
MEDICAL ADVICE. It was noted at the time patient was fairly argumentative with staff which contributed to his leaving AGAINST MEDICAL ADVICE. Currently not on a diuretic. 80 mg of Lasix IV ordered. Patient's last creatinine was within normal
limits when he was seen here about 2 weeks ago. While patient's oxygen is normal he is very tachypneic despite 2 L so this was bumped up to 6 L for comfort. Anticipate readmission.
Chronic conditions affecting care: COPD
<David Hunt PA-C - Last Filed: 09/15/23 14:59>
*Radiology
Radiology exam reviewed: radiology read reviewed
*Pulse Oximetry
Patient hypoxic: no
*Ballast Cleaning Machine Operator Interpretation
Rate: tachycardiac
Rhythm: sinus
*Critical Care Note
Total Time (30-74mins, 75-104mins- exclusive of procedures): Not Applicable
Data Reviewed
Review of Other/Old Records Reveals: Labs, Records and Discharge Summary
Source: patient and records
<David Hunt PA-C - Last Filed: 09/15/23 14:59>
Patient Management
Discussion with other providers: Hospitalist
Escalation/DeEscalation of care consider admission/obs:
Patient's chest x-ray shows pulmonary edema and suspected pleural effusion. Will continue on IV Lasix for diuresis. Given patient's worsening symptomatology combined with his chronic past medical history will admit for further evaluation and
treatment. Hospitalist team was notified and accepts for continued evaluation
ED Attending Note
<David Hunt PA-C - Last Filed: 09/15/23 14:59>
-
Portions of this chart may have been created with voice recognition software.� Occasional wrong word or��sound alike� substitutions may have occurred due to the inherent limitations of voice recognition software.
<Juan Alberto Reyes DO - Last Filed: 09/15/23 12:01>
ED Attending Note
Patient seen and examined by attending physician: Yes
I performed the substantive portion of visit, reviewed & personally made and approve the management plan that is documented in note by myself or DENA.: Yes
ED Attending Note:
Seen with PA examined independently prior records briefly reviewed history of chronic renal insufficiency lymphedema volume overload, medication noncompliance apparently, presents with shortness of breath sitting upright legs look swollen into his
abdomen, has not been taking diuretic family asking about going to lymphedema clinic this week,
Discharge Plan
Departure
Patient Disposition: Admit
Date of Disposition: 09/15/23
Time of Disposition: 11:55
Presentation/result/management discussed w/ accepting MD/DO: Hospitalist
Discharge Problem:
Pulmonary edema, Shortness of breath, Morbid obesity
Prescriptions:
No Action
diltiazem HCl 180 mg Capsule,Extended Release 24hr
180 mg PO DAILY Qty: 30 0RF
gabapentin 100 mg Capsule
100 mg PO TID Qty: 90 0RF
duloxetine 20 mg Capsule,Delayed Release(Dr/Ec)
20 mg PO DAILY Qty: 30 0RF
diphenhydramine-acetaminophen [Tylenol PM Extra Strength] 25-500 mg Tablet
2 tab PO HSPRN PRN (Reason: sleep)
melatonin 5 mg Tablet
10 mg PO HSPRN PRN (Reason: sleep)
quetiapine 25 mg Tablet
25 mg PO HS
Referrals:
NONE,* [Active] -
Interventions
Interventions:
*Risk Screen - Suicide Last Done: 09/15/23 09:55
*General Assessment Last Done: 09/15/23 09:55
*Neglect/Abuse Screening Last Done: 09/15/23 09:55
ED- Fall Risk Assessment Last Done: 09/15/23 10:00
*ED COVID-19 Vaccine History Last Done: 09/15/23 09:55
ED- Cardiac Assessment Last Done: 09/15/23 10:00
ED- Pulmonary Assessment Last Done: 09/15/23 10:00
ED-Skin Assessment Last Done: 09/15/23 10:00
Discharge Date and Time
Print Language: GREEK
[2023-09-15] MEDS: LASIX 80 MG IV ×2 (11:05→17:50)
[2023-09-15 11:21] LABS: Venous Blood Gas B.E. 6.8 mmol/L (-4 to +4); Venous Blood Gas HCO3 34.7 mmol/L (22-27); Venous Blood Gas O2 Sat % 83.4 %; Venous Blood Gas pCO2 69 mmHg (35-48); Venous Blood Gas pH 7.31 (7.32-7.43); Venous Blood Gas pO2 54 mmHg (30-50)
[2023-09-15 11:28] LABS: ALT (SGPT) 12 U/L (0-50); AST (SGOT) 21 U/L (17-59); Alkaline Phosphatase 57 U/L (38-126); Blood Urea Nitrogen 15 mg/dl (9-20); Calcium 8.6 mg/dl (8.4-10.2); Carbon Dioxide 35 mmol/L (22-30); Chloride 96 mmol/L (98-107); Estimated Creatinine Clearance > 125 ml/min; Glucose 101 mg/dl (70-99); Potassium 4.3 mmol/L (3.5-5.1); Sodium 136 mmol/L (135-145); Total Bilirubin 1.1 mg/dl (0.2-1.3); Total Protein 6.9 g/dl (6.3-8.2); eGFR > 60.00
[2023-09-15] MEDS: PERCOCET 5/325 1 TABLET PO (11:34)
[2023-09-15] MEDS: NITROSTAT (SUBLINGUAL) 0.4 MG SL (11:35)
[2023-09-15 11:43] LABS: % Basophils 0.4 % (0-2); % Eosinophils 3.1 % (0-6); % Immature Granulocytes 1.1 % (0-0.5); % Monocytes 17.2 % (1.7-9.3); % Neutrophils 70.2 % (42.2-75.2); Absolute Basophils 0.1 10^3/uL (0-0.2); Absolute Eosinophils 0.4 10^3/uL (0-0.7); Absolute Immature Granulocytes 0.1 10^3/uL (0-0.05); Absolute Lymphocytes 0.9 10^3/uL (1.2-3.4); Absolute Neutrophils 8.3 10^3/uL (1.4-6.5); Hematocrit 32.7 % (39.0-52.0); Hemoglobin 9.7 g/dL (13.0-18.0); Mean Corp Hgb Conc. 29.7 g/dL (33.0-37.0); Mean Corpuscular Hgb 25.4 pg (27.0-31.0); Mean Corpuscular Volume 85.6 fL (80.0-94.0); Mean Platelet Volume 10.1 fL (7.4-10.4); Nucleated Red Blood Cells % 0 % (-); Platelet Count 303 10^3/uL (130-400); Red Blood Cell Count 3.82 10^6/uL (4.70-6.10); Red Cell Dist. Width 16.5 % (11.5-14.5); White Blood Cell Count 11.8 10^3/uL (4.8-10.8)
[2023-09-15 11:45] LABS: NT-proBNP 615 pg/ml; Troponin I < 0.012 ng/ml
--- NOTE | 2023-09-15 16:39 | CON.CAR ---
Addendum entered and electronically signed by Mikel Gentile MD 09/15/23 18:24:
48 yo male with morbid obesity, HTN, chronic HFPEF, medication non-compliance. He presented with SOB, edema, weight gain. He was not taking diuretic at home. Exam with RRR, no murmurs, 2+ LE edema. Cr 0.6. Echo 06/2023: EF 55-60%, no sig valve
disease.
Acute on chronic HFPEF. Medication non-compliance. Continue IV lasix, with close monitoring of labs and tele.
Original Note:
Consultation
Consultation Request
Date/Time Consultation Requested: 09/15/2023 16:20
Date/Time Consultation Performed: 09/15/2023 16:40
Requesting Provider: Dr. Choi
Performing Provider: MADELEINE Miller for Dr. Gentile
Reason for Consultation: Acute on chronic heart failure
Medical History
-
Chief Complaint: Acute on chronic HFpEF
History of Present Illness:
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
lung disease, and recent admission where he signed out AMA 09/04/2023 with cellulitis and lower extremity edema. He presents today with worsening lymphedema and associated shortness of breath. His shortness of breath has been ongoing for at least 2
weeks. He is now requiring 3 L/min of oxygen at home. Mr. Rowley has pitting edema up past his umbilicus. He states his dry weight is closer to 300 pounds. He does not take diuretic due to his 'kidney issues'. He endorses both PND and
orthopnea. He has a rash throughout his body. He reports he has been unable to care for himself including dressing and bathing due to his edema and shortness of breath.
Past Medical History
Past Medical History: Arrhythmias (Inappropriate sinus tachycardia), HTN, Psychiatric (Depression) and Other (obesity, lymphedema, restrictive lung disease)
Past Surgical History: Urological
Social History
Tobacco: Former Smoker (Former vaping and cigarette use.)
Alcohol: Occasional
Drug: None
Personal: (Going through divorce.)
Living: With Family (Father. Mother on hospice at [facility].)
Family History
Family History: Reviewed & Not Pertinent (Denies early CAD and SCD.)
Allergies / Home Medications
Allergy/AdvReac Type Severity Reaction Status Date / Time
hydromorphone AdvReac Severe Unknown Verified 09/03/23 23:56
�Medication �Instructions �Recorded �Confirmed �Type
diltiazem HCl 180 mg 180 mg PO DAILY #30 caps 06/16/23 09/15/23 Rx
capsule,extended release 24 hr
duloxetine 20 mg capsule,delayed 20 mg PO DAILY #30 caps 06/16/23 09/15/23 Rx
release
gabapentin 100 mg capsule 100 mg PO TID #90 caps 06/16/23 09/15/23 Rx
diphenhydramine 25 2 tab PO HSPRN PRN sleep 09/01/23 09/15/23 History
mg-acetaminophen 500 mg tablet
(Tylenol PM Extra Strength)
melatonin 5 mg tablet 10 mg PO HSPRN PRN sleep 09/15/23 09/15/23 History
quetiapine 25 mg tablet 25 mg PO HS 09/15/23 09/15/23 History
Review of Systems
-
History Source: Patient
All other systems: Negative unless noted
Constitutional: Weight Gain and Fatigue
EENT: No Symptoms
Respiratory: Trouble Breathing
Cardiac: No Symptoms
Abdomen/GI: No Symptoms
: No Symptoms
Musculoskeletal: Edema
Skin: Rash
Neurological: Weakness
Endocrine: No Symptoms
Hematologic/Lymphatic: No Symptoms
Physical Exam
Vital Signs
Temp Pulse Resp BP Pulse Ox
98.3 F 106 30 148/107 100
09/15/23 09:55 09/15/23 16:00 09/15/23 16:00 09/15/23 16:00 09/15/23 16:00
Lab Results
09/15/23 11:00
09/15/23 11:00
Troponin I < 0.012 ng/ml 09/15/23 11:00
Upw-[id number]-Vvvfcuinftj Pept 615 pg/ml 09/15/23 11:00
Physical Exam
General: No Apparent Distress and Comfortable
HEENT: Normocephalic, Anicteric and Moist Mucous Membranes
Respiratory: Clear, Non Labored Respirations and Other (Poor inspiratory effort)
Cardiac: S1/S2, Regular Rhythm and Peripheral Edema (Pitting edema past umbilicus)
Breast: Deferred by me
GI: Non Tender, Normal Bowel Sounds, Distended and Other (firm)
Rectal: Deferred by Provider
Genito-urinary: No Costovertebral Tender
Musculoskeletal: No Clubbing, No Cyanosis and Edema
Skin: Warm, Dry and Rash (red/raised)
Neuro: AO x 3
Hematologic/Lymphatic: No Lymphadenopathy
Psych: Calm
Impression / Plan
-
BACKGROUND: 48M with hypertension, inappropriate sinus tachycardia (64% burden), severe obesity, former smoker, bilateral lower extremity edema/lymphedema, depression, & restrictive lung disease, here with shortness of breath and lower extremity
edema.
Chemistry Research Assistant: Dr. Camargo
IMPRESSION/PLAN:
Shortness of breath, multifactorial in the setting of acute HFpEF, deconditioning, and morbid obesity - plan as below
HFpEF, acute on chronic
-LVEF normal earlier this month during prior hospitalization
-Grossly volume overloaded on exam with pitting edema past umbilicus
-He was not on a diuretic at home, Dr. Camargo recommended furosemide 40 mg daily at prior office visit (last seen 01/2022)
-Diuresis ordered by primary service, 80 mg IV twice daily, prior nephrology consultation reflects recommendation of 60 mg IV daily
-He was 164 kg 08/13/2023 (this was a bed scale), this can be our goal if renal function allows
-He would benefit from compression, this was ordered
-Case management to barboza [id number]
-Trend daily weight, I/O, and BMP with diuresis as this requires intensive monitoring
-Heart failure education
Lower extremity edema/lymphedema, acute on chronic
Inappropriate sinus tachycardia, chronic, continue diltiazem
Hypertension, follow BP with diuresis
Chronic hypercapnia
Rash, per primary
KAEL, supplemental nocturnal oxygen
Severe obesity, BMI >50
DATA:
Echocardiogram, 06/12/2023:
Technically difficult study - contrast used.
Normal left ventricular size and systolic function. LV ejection fraction is 55-60%.
No significant valvular disease.
Data Reviewed
-
EKG: Report Reviewed by me (Sinus tachycardia, PVCs, nonspecific T wave abnormality, rate 108)
Radiology: Report Reviewed by me (CXR: Findings suggestive of mild pulmonary edema.)
Medical Tests (Nuc Med, Echo etc): Report Reviewed by me
Labs: Labs Reviewed by me
Old Records: Reviewed
[2023-09-15 16:41] LABS: TSH Reflex To Free T4 4.61 uIU/ml (0.47-4.68)
[2023-09-15] MEDS: LOVENOX 40 MG SC (17:50)
[2023-09-15] MEDS: CYMBALTA DELAYED RELEASE 20 MG PO (17:50)
[2023-09-15] MEDS: NEURONTIN 100 MG PO ×2 (17:51→21:45)
--- NOTE | 2023-09-15 18:00 | CON.PUL ---
Consultation
Consultation Request
Date/Time Consultation Requested: 09/14
Date/Time Consultation Performed: 09/14
Reason for Consultation: Shortness of breath
Medical History
-
History of Present Illness:
History obtained from the chart, patient, hospital records. Patient is a 48-year-old male who is with history of Covid 2020, hypertension, heart failure, strongly suspected sleep apnea who presents with worsening shortness of breath. He states
that after his last discharge from the hospital, he did not feel any better. He has been hospitalized 3 times in the last 3 months for hypoxic respiratory insufficiency. He presents now with worsening shortness of breath over the past 3 days. He
states he has not been able to lie flat since his last discharge but this is worsened recently. He gained about 40 pounds in the span of 3 days. He denies adding salt but then on second discussion, states that he does use salt. Unfortunately
during my interview, it appears that he has a lot of mistrust with the medical system, arguing with my questions and what other physicians have asked him. He denies any significant cough, falls, fevers. He gets occasional night sweats. He denies
significant swallowing or choking..
.
PMH: Strongly suspected sleep apnea/obesity hypoventilation syndrome, significant smoking history ongoing vaping, chronic lower extremity swelling with recurrent cellulitis, suspected COPD, chronic left lower lobe atelectasis, morbid obesity
Past Medical History
Past Medical History: None (See above)
Past Surgical History: None (See above)
Social History
Tobacco: Smoker ([id number] history of smoking, states he quit in 2021 although records suggest he smokes occasionally and continues to vape)
Alcohol: None
Drug: None (Vape)
Living: With Family (Lives with his father)
Employment: Not Employed
Family History
Family History: Other (He has no children. He has 2 siblings, healthy. Family history negative for blood clots, lung cancer. His mother is on hospice for Parkinson's. Father is healthy)
Allergies / Home Medications
Allergies
Allergy/AdvReac Type Severity Reaction Status Date / Time
hydromorphone AdvReac Severe Unknown Verified 09/03/23 23:56
Home Medications
�Medication �Instructions �Recorded �Confirmed �Last Taken �Type
diltiazem HCl 180 mg 180 mg PO DAILY #30 caps 06/16/23 09/15/23 09/15/23 Rx
capsule,extended release 24 hr
duloxetine 20 mg capsule,delayed 20 mg PO DAILY #30 caps 06/16/23 09/15/23 09/15/23 Rx
release
gabapentin 100 mg capsule 100 mg PO TID #90 caps 06/16/23 09/15/23 09/15/23 Rx
diphenhydramine 25 2 tab PO HSPRN PRN sleep 09/01/23 09/15/23 3 Days Ago History
mg-acetaminophen 500 mg tablet ~09/12/23
(Tylenol PM Extra Strength)
melatonin 5 mg tablet 10 mg PO HSPRN PRN sleep 09/15/23 09/15/23 3 Days Ago History
~09/12/23
quetiapine 25 mg tablet 25 mg PO HS 09/15/23 09/15/23 09/14/23 History
Review of Systems
-
All other systems: Negative unless noted
Vitals / Labs / Diagnostic Testing
Vital Signs
Temp Pulse Resp BP Pulse Ox
97.9 F 110 21 169/105 100
09/15/23 16:50 09/15/23 17:50 09/15/23 16:50 09/15/23 17:50 09/15/23 16:50
Lab Data
09/15/23 11:00
09/15/23 11:00
Diagnostic Testing:
Physical Exam
-
HEENT: Normocephalic, Anicteric, Other (Patchy erythematous facial rash) and Other (Large neck, narrow posterior oropharynx)
Cardiovascular: S1/S2, Regular Rhythm, Murmur (n), Rub (n) and Peripheral Edema (Chronic lymphedema, chronic erythema, no warmth, 3+)
Respiratory: Wheeze (n), Rales (n), Rhonchi (n), Non-Labored Respirations and Other (Decreased breath sounds)
GI: Soft, Non Distended (Morbidly obese) and Non Tender
Neurology: Awake, Alert and No Motor Deficits
Skin: Other (No clubbing, no cyanosis. Facial rash noted)
General: Comfortable
Assessment
-
Patient is a 48 year old M with PMH significant for morbid obesity, suspected KALE, chronic SOB, smoker who presents to ED complaining of lower extremity swelling, fatigue and SOB. Patient has had multiple admissions over the past 3 months for
similar symptoms. states that his symptoms started initially in 2020 after kamila COVID-19 infection. Patient admitted for heart failure
Acute on chronic SOB
Chronic hypoxia
On home oxygen 30 L x 1 month
Progressive lower extremity swelling
Likely fluid retention
40 pound weight gain
Sinus tachycardia
Undiagnosed KAEL/OHS suspected
Metabolic alkalosis
Noncompliance
Smoker, vape use
60-[id number] history of smoking, supposedly quit 2021
Leukocytosis
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
Primary hypertension
Snoring
COPD likely
Restrictive lung disease
[place] 08/16/2022, FVC 2.60/50%, FEV1 2.17/53%, progressive
2021 - FVC 3.09/59%, FEV1 2.49/61%, ratio 81%, TLC 5.07/71% (mixed pattern/moderately reduced/mild restriction)
Decreased diffusion capacity of lung 08/16/2022: FVC 2.60/50%
Chronic LLL atelectasis
Left lower lobe pleural-parenchymal process
Nodular atelectasis suspected per CT chest 08/10/2023
Chronic hypercapnic respiratory failure
pCO2 81, compensated
Cigarette smoker -- 30+ pack years, still smoking few cigs on/off per
Vaping nicotine dependence, tobacco product
Morbid (severe) obesity due to excess calories, BMI 51.9
Plan/recommendations
At this time, patient with increased oxygen requirement. Baseline is 3 L, presently on 6 L
Chest x-ray suggests pulm edema with chronic left pleuroparenchymal process
Sinus tachycardia noted.
Orthopnea, PND, lower extremity swelling, weight gain all likely consistent with heart failure
Moving forward
Continue with management per cardiology
Diuresis, heart failure therapy plan noted. Case management to apprise [id number]
Unfortunately, I suspect that given patient's noncompliance in the past and his agitation throughout my interview of him and explanation of the pathophysiology of sleep disordered breathing and heart failure, patient is likely not to follow-up
He states he had a CPAP machine at home, but was told only to use it during the day and not at night.
Patient has had episodes of emotional response to BiPAP therapy, crying, aggression. He is threatened to leave several times in the past AMA
He has refused certain test such as ABG
I spent an extensive amount of time reviewing with him at length the pathophysiology of his morbid obesity/obesity hypoventilation/sleep apnea
He has gained 100 pounds since 2020
Patient is agreeable to revisiting CPAP after extensive discussion
We will order BiPAP 8/5 overnight, with 6 L
This may help with diuresis
Prior history of lung disease is noted
Was seen in our office in 2021 and August 2023 (Dr. Palma)
Home sleep study was recommended, but he had not followed through with
CXR obtained indicating chronic LLL atelectasis, this has been present since CT scan in 2021
Other imaging reviewed
Current smoker, notes he is still smoking on/off
Total usage >30 pack years
Would need yearly lung cancer screening at age 52
LLL atelectasis has been unchanged, but may need outpatient assessment given persistence
ECHO results reviewed--normal study
proBNP not highly suggestive of volume overload
B/L LE swelling would most concern me for vasc disease vs acute cellulitis
He does have leukocytosis but no fever
Await blood culture results
Consider ABIs
Would possibly benefit from psych eval, he has declined in the past
Positional therapy
Weight loss measures recommended
Obesity contributing to respiratory symptoms
We will follow
Diagnostic Data
Chest X-Ray:
CXR 08/14/2022: Findings likely representing volume loss with some chronic pleural/parenchymal changes in the left hemithorax
CXR 08/06/21 at Urgent Care: possible small left pleural effusion vs pleural parenchymal scarring at the left lung base.
CT Scan:
CT chest 03/25/2022: Stable exam. Chronic asymmetric volume loss involving the left hemithorax. Minor linear parenchymal scarring. Findings most consistent with stable peripheral round atelectasis.
CT Chest PE study 08/21/21: no PE. overall mild volume loss in the left hemithorax with areas of subsegmental atelectasis some of which are somewhat rounded in configuration, additional minor areas of left lung groundglass opacification, non specific.
Echo: 06/12/23- Technically difficult study - contrast used. Normal left ventricular size and systolic function. LV ejection fraction is 55-60%. No significant valvular disease. No prior study available for comparison.
PFT's: [place] 08/16/22: FVC 2.60/50%, FEV1 2.17/53%, ratio 84%, no significant BD response. Suggestive of moderate restrictive lung disease.
�������PFT 10/04/21: FVC 3.09/59%, FEV1 2.49/61%, ratio 81%, TLC 5.07/71%, DLCO 20.89/65%, DLCO/VA 4.38/97%. Moderate restriction and mildly reduced diffusing capacity.
�������T[place] 09/07/21: FVC 2.98/55%, FEV1 2.36/56%, ratio 79%, no significant BD response, moderate restrictive pattern.
6 MWT:
������ 6MWT 08/16/22: At rest, O2 98% on room air, heart rate 95. With ambulation, O2 jesica 96%, max heart rate 119. 2/10 on dyspnea scale. Ambulated 900 feet.
�������6MWT 09/07/21: At rest, O2 99% on room air, HR 108. With ambulation, desaturation jesica 97% on room air, max HR 130. 4/10 on dyspnea scale. ambulated 1125 ft.
--- NOTE | 2023-09-15 18:42 | HPS.HSE ---
Addendum entered and electronically signed by Beatrice Choi MD 09/15/23 19:49:
I personally performed a history and physical exam of the patient and discussed management with the resident. I reviewed the resident's note and agree with the documented findings and plan of care HPI/CC.
GENERAL: super morbidly obese male with O2 in mild resp distress with dyspnea
HEENT: O2 NC in place 6L (3L chronic at home)
HEART: regular rate and rhythm, +S1, +S2
LUNGS : clear to auscultation bilaterally
ABDOM: soft, nontender, nondistended, + bowel sounds
EXT: no cyanosis, clubbing--4+ full body anasarca to level of nipples/chest
NEUROLOGIC: grossly intact--having trouble with ADLs due to edema and SOB
Acute on chronic respiratory failure:
Likely multifactorial- History of hypercapnic respiratory failure, on 3 L home O2, possible heart failure, anasarca. Echo from June 2023 showed no systolic dysfunction and indeterminate diastolic function
-Will get lower extremity venous ultrasound
-Fluid restriction, lower extremity elevation, low sodium diet
-GEORGE's, daily weights, Sal wraps.
-Mild wheezing on exam - DuoNebs treatment
-Continue IV diuresis, follow BMPs. Consider Lasix drip
-Consult cardiology and pulmonology
-Wean O2 as tolerated
Acute on chronic lower extremity edema/anasarca--likely combination of acute on chronic HFpEF, lymphedema, KAEL leading to pulmonary and essential HTN-- Diurese, follow kidney function, leg elevation, sal wrap compression therapy--IF fluid does not
improve with BID lasix dosing, consider renal consult and lasix drip
acute on chronic hypoxemic (and presumed chronic hypercapnic with serum bicarb 35) resp failure--on 3L O2 at home 6L here--wean to keep pulse ox > 90%--cont diuresis and follow O2 requirements--consideration for CT scan PE study--consideration for
diamox
Possible obstructive sleep apnea--Secondary to morbid obesity. Dr. Mckeon observed loud snoring with apneic event upon entering patient room for physical exam--NEEDS sleep study (pt says he was told he didn't qualify for outpt sleep study?)--apprec
pulm--cont BiPAP
Essential Hypertension--Continue home antihypertensives with parameters
Anxiety/depression--Continue duloxetine, quetiapine
Chronic anemia---Unclear source
DVT prophylaxis--Lovenox
CODE STATUS: Full code
Original Note:
Family Physician
-
Family Physician: Renay Mckeon MD, Res
Chief Complaint
-
Shortness of breath, lower extremity edema
History of Present Illness
48-year-old male with history of hypertension, COPD, chronic venous stasis, chronic hypercapnic respiratory failure on 3L home O2, morbid obesity, chronic lymphedema, who presented to the ED today with worsening shortness of breath and dizziness
with exertion and severe bilateral lower extremity swelling up to abdomen which severely impacts his breathing. Denies recent illness, cough or fevers.
Patient notes intermittent bilateral lower extremity edema since 2020 which he noted started after he had COVID. Episodes usually resolved on their own. He recalls that he was on furosemide at the time but stopped taking as edema would usually
resolve on its own. Unfortunately within the past 6 months or so, he has had several hospitalizations at [facility], [place] and [facility] for shortness of breath and progressive edema. Most recently, he was admitted on 08/31
at [facility], where he was started on IV diuresis with some noted weight loss. Unfortunately, he left AGAINST MEDICAL ADVICE on 09/03 to go to [facility] where he hoped to be seen at the lymphedema clinic. This was unsuccessful and he
was discharged the day after from [facility]. Symptoms continue to worsen and he presented to the ED today.
Patient states that his weight was in the 300s until about 6 months ago when he started progressively retaining fluid with continuous weight gain. He is concerned about his kidney function while on Lasix as he had an acute kidney injury while on
Lasix in the past. He has an appointment at the lymphedema clinic on in 09/17. Of note, patient has multiple social stressors including ongoing divorce, financial worry, mother in hospice at the [facility].
Medical History
Past Medical History
Past Medical History: Reports COPD, HTN and Psychiatric (Anxiety, depression)
Past Surgical History: Reports Urological (Left testicular)
Social History
Tobacco: Former Smoker (Quit 2 years ago, 1 pack/day for 25 years)
Alcohol: Occasional
Drug: None
Personal:
Living: With Family
Family History
Family History: Not pertinent
Allergies / Home Medications
Allergies reflects when Allergies were last updated in [employer].
Home Medications with original date entered in [employer]
Allergy/Medication List:
Allergies
Allergy/AdvReac Type Severity Reaction Status Date / Time
hydromorphone AdvReac Severe Unknown Verified 09/03/23 23:56
Home Medications
diltiazem HCl 180 mg capsule,extended release 24 hr 180 mg PO DAILY #30 caps 06/16/23
duloxetine 20 mg capsule,delayed release 20 mg PO DAILY #30 caps 06/16/23
gabapentin 100 mg capsule 100 mg PO TID #90 caps 06/16/23
diphenhydramine 25 mg-acetaminophen 500 mg tablet (Tylenol PM Extra Strength) 2 tab PO HSPRN PRN sleep 09/01/23
melatonin 5 mg tablet 10 mg PO HSPRN PRN sleep 09/15/23
quetiapine 25 mg tablet 25 mg PO HS 09/15/23
Review of Systems
-
History Source: Patient
Constitutional: Reports Sleep Disturbance; Denies Fever
Respiratory: Reports Trouble Breathing; Denies Cough
Cardiac: Reports No Symptoms; Denies Chest Pain or Palpitations
Abdomen/GI: Reports No Symptoms; Denies Nausea, Vomiting, Diarrhea or Constipated
: Reports No Symptoms; Denies Dysuria or Difficulty Voiding
Musculoskeletal: Reports Edema (Bilateral edema)
Skin: Reports Other (Tenderness)
Physical Exam
Vital Signs
Vital Signs
Temp Pulse Resp BP Pulse Ox
97.9 F 110 21 169/105 100
09/15/23 16:50 09/15/23 17:50 09/15/23 16:50 09/15/23 17:50 09/15/23 16:50
Physical Exam
General: Morbidly Obese and Other (Appears uncomfortable)
HEENT: Anicteric and Oxygen (6 L)
Respiratory: Wheezes (Mild wheezing left lung) and Other (Shortness of breath with prolonged conversation); No Rhonchi or Crackles
Cardiac: S1/S2, Regular Rhythm and Peripheral Edema (Diffuse, severe nonpitting edema in bilateral lower extremities, up to abdomen); No Murmur or Rub
GI: Distended and Other (Diminished bowel sounds. Unable to assess organomegaly/hepatosplenomegaly due to severe anasarca)
Musculoskeletal: No Cyanosis, Edema, Left Lower Extremity and Edema, Right Lower Extremity
Skin: Warm, Dry and Other (Diffusely erythematous skin of bilateral lower extremity and abdomen, ); No Ulcers or Lesions
Neuro: Awake and Alert
Psych: Calm
Laboratory Results
-
09/15/23 11:00
09/15/23 11:00
Laboratory Results
Total Bilirubin 1.1 mg/dl (0.2-1.3) 09/15/23 11:00
AST 21 U/L (17-59) 09/15/23 11:00
ALT 12 U/L (0-50) 09/15/23 11:00
Alkaline Phosphatase 57 U/L (38-126) 09/15/23 11:00
Troponin I < 0.012 ng/ml 09/15/23 11:00
Impression/Plan
-
IMPRESSION: 48-year-old male with morbid obesity, COPD, hypertension, chronic lymphedema, anxiety/depression who presents with shortness of breath and anasarca.
PLAN:
Acute on chronic respiratory failure:
Likely multifactorial- History of hypercapnic respiratory failure, on 3 L home O2, possible heart failure, anasarca. Echo from June 2023 showed no systolic dysfunction and indeterminate diastolic function
-Will get lower extremity venous ultrasound
-Fluid restriction, lower extremity elevation, low sodium diet
-GEORGE's, daily weights, Sal wraps.
-Mild wheezing on exam - DuoNebs treatment
-Continue IV diuresis, follow BMPs. Consider Lasix drip
-Consult cardiology and pulmonology
-Wean O2 as tolerated
Acute on chronic lower extremity edema/anasarca:
- Diurese, follow kidney function, elevation
Possible obstructive sleep apnea:
Secondary to morbid obesity. Observed loud snoring with apneic event upon entering patient room for physical exam. Patient is in the process of arranging sleep study outpatient
-Pulmonology consult
-Will benefit from BiPAP/CPAP
Hypertension:
Continue home antihypertensives
Anxiety/depression:
-Continue duloxetine, quetiapine
Chronic anemia:
-Unclear source
DVT prophylaxis:
Lovenox
CODE STATUS: Full code
[2023-09-15] MEDS: DESENEX/MITRAZOL/ZEASORB 1 APPLIC TOPICAL (20:49)
[2023-09-15] MEDS: MELATONIN 10 MG PO (21:45)
[2023-09-15] MEDS: TYLENOL 1000 MG PO (21:45)
[2023-09-15] MEDS: BENADRYL 50 MG PO (21:45)
[2023-09-15] MEDS: SEROQUEL 25 MG PO (21:45)
[2023-09-16] VITALS (9 sets, daily range): BP systolic 125–159; BP diastolic 70–88; PULSE 2–114; O2SAT 96; BMI 58.6
--- NOTE | 2023-09-16 04:30 | PTCARENOTE ---
Pt 's SaO2 97% on 6L nasal cannula, pt states that baseline is 3L at home. Voiding in urinal with assistance, clear yellow urine. Complete bed change and hygiene completed. Pt states he is unable to ambulate at this time - at home, he's been 'pretty
sedentary lately due to his SOB.' +4 pedal edema, palpable but weak pedal pulses. pt agreeable to sonido wrap compressions to be placed in morning. pt c/o orthopnea, audible expiratory wheeze. pt placed on telemetry monitoring, sinus tach. no
complaints of pain at this time. 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 APPRENTICE LINEMAN THIRD STEP updated. Pt's call brizuela within reach, pt able to make needs known.
pt's family updated on plan of care over the phone .. pt's father voiced several concerns regarding pt potentially coming home and being unable to care for himself. pt's father expressed 'dire need' to coordinate with health care team to avoid his
son's re-hospitalization, provided emotional support - will pass onto day shift.
[2023-09-16 06:43] LABS: ALT (SGPT) 12 U/L (0-50); AST (SGOT) 20 U/L (17-59); Albumin 4.2 g/dl (3.5-5.0); Alkaline Phosphatase 67 U/L (38-126); Blood Urea Nitrogen 14 mg/dl (9-20); Calcium 8.6 mg/dl (8.4-10.2); Carbon Dioxide 39 mmol/L (22-30); Chloride 93 mmol/L (98-107); Estimated Creatinine Clearance > 125 ml/min; Glucose 115 mg/dl (70-99); Magnesium 2.3 mg/dl (1.6-2.3); Potassium 4.4 mmol/L (3.5-5.1); Sodium 139 mmol/L (135-145); Total Bilirubin 1.2 mg/dl (0.2-1.3); Total Protein 7.3 g/dl (6.3-8.2); eGFR > 60.00
--- NOTE | 2023-09-16 07:20 | W.PN.HOSP.TC ---
Addendum entered and electronically signed by Beatrice Choi MD 09/16/23 13:33:
I saw and evaluated the patient independently. I reviewed the resident�s note and agree with findings and plan as documented by Dr. Mckeon.
GENERAL: super morbidly obese male with O2 in no apparent distress--sleeping with periods of apnea noted
HEENT: O2 NC in place 6L (3L chronic at home)
HEART: regular rate and rhythm, +S1, +S2
LUNGS : clear to auscultation bilaterally
ABDOM: soft, nontender, nondistended, + bowel sounds
EXT: no cyanosis, clubbing--4+ full body anasarca to level of nipples/chest
NEUROLOGIC: grossly intact--having trouble with ADLs due to edema and SOB
Acute on chronic lower extremity edema/anasarca--likely combination of acute on chronic HFpEF, lymphedema, KAEL leading to pulmonary HTN and essential HTN-- Diuresis now down to daily per cards, follow kidney function, leg elevation, sal wrap
compression therapy-- consider renal consult and lasix drip
acute on chronic hypoxemic (and presumed chronic hypercapnic with serum bicarb 35) resp failure--on 3L O2 at home 6L here--wean to keep pulse ox > 90%--cont diuresis and follow O2 requirements--consideration for CT scan PE study--consideration for
diamox
Possible obstructive sleep apnea--Secondary to morbid obesity. Dr. Mckeon observed loud snoring with apneic event upon entering patient room for physical exam--NEEDS sleep study (pt says he was told he didn't qualify for outpt sleep study?)--apprec
pulm--cont BiPAP
Essential Hypertension--Continue home antihypertensives with parameters
Anxiety/depression--Continue duloxetine, quetiapine
Chronic anemia---Unclear source but likely chronic disease--check iron, TIBC, % Sat, ferritin, B12, folate etc
DVT prophylaxis--Lovenox
CODE STATUS: Full code
Original Note:
Today's Communication/Plan
-
IV diuresis. follow BMP
Assessment / Plan
Assessment / Plan
IMPRESSION: 48-year-old male with morbid obesity, COPD, hypertension, chronic lymphedema, anxiety/depression who presents with shortness of breath and anasarca.
PLAN:
Acute on chronic respiratory failure:
Likely multifactorial- History of hypercapnic respiratory failure, on 3 L home O2, possible heart failure, anasarca. Echo from June 2023 showed no systolic dysfunction and indeterminate diastolic function
-Will get lower extremity venous ultrasound
-Fluid restriction, lower extremity elevation, low sodium diet
-GEORGE's, daily weights, Sal wraps.
-Mild wheezing on exam - DuoNebs treatment
-Continue IV diuresis, follow BMPs. Consider Lasix drip + Renal consult if ineffective diuresis on current therapy
-Consult cardiology and pulmonology
-Wean O2 as tolerated, to keep O2 sat >90%
Acute on chronic lower extremity edema/anasarca:
- Diurese, follow kidney function, elevation
Possible obstructive sleep apnea:
Secondary to morbid obesity. Observed loud snoring with apneic event upon entering patient room for physical exam. Patient did not qualify for home sleep study.
-Pulmonology consult
-Will benefit from BiPAP/CPAP
Hypertension:
Continue home antihypertensives
Anxiety/depression:
-Continue duloxetine, quetiapine
Chronic anemia:
-Unclear source. Will check iron studies
DVT prophylaxis:
Lovenox
CODE STATUS: Full code
Anticipated Discharge: > 48 hours
Subjective/Interval History
-
Date of Service: September 16, 2023
Pt reports no improvement in symptoms
Objective Data
-
Labs:
Laboratory Results
09/16/23
05:09
WBC Pending
Hgb Pending
Hct Pending
Plt Count Pending
Sodium 139
Potassium 4.4
Chloride 93 L
Carbon Dioxide 39 H
BUN 14
Creatinine 0.8
Glucose 115 H
Calcium 8.6
Total Bilirubin 1.2
AST 20
ALT 12
Alkaline Phosphatase 67
Vital Signs:
Vital Signs
Temp Pulse Resp BP Pulse Ox
97.7 F 116 22 146/84 98
09/16/23 03:00 09/16/23 03:00 09/16/23 03:00 09/16/23 03:00 09/16/23 03:00
I&O
09/15/23 09/16/23 09/17/23
06:59 06:59 06:59
Intake Total 480 / 480
Output Total 2300 / 2300
Balance -1820 / -1820
Review of Systems
-
History Source: Patient
Respiratory: Denies Cough or Trouble Breathing
Cardiac: Denies Chest Pain or Palpitations
Abdomen/GI: Reports No Symptoms
Neuro: Reports Headache
Physical Exam
-
General: Morbidly Obese
HEENT: Anicteric and Oxygen
Respiratory: Crackles (diffuse) and Other (extra respiratory effort)
Cardiac: Regular Rhythm and S1/S2; Negative Murmur or Rub
GI: Normal Bowel Sounds, Distended and Other (Unable to assess organomegaly)
Musculoskeletal: No Clubbing, No Cyanosis, Edema, Right Lower Extrem (severe, non-pitting), Edema, Left Lower Extrem (severe, non-pitting) and Other (Anasarca lower extremities up to upper abdomen)
Skin: Warm and Dry
Neuro: Awake, Alert and Oriented
Psych: Calm
[2023-09-16 07:21] LABS: Hematocrit 34.1 % (39.0-52.0); Hemoglobin 9.8 g/dL (13.0-18.0); Mean Corp Hgb Conc. 28.7 g/dL (33.0-37.0); Mean Corpuscular Hgb 25.3 pg (27.0-31.0); Mean Corpuscular Volume 87.9 fL (80.0-94.0); Mean Platelet Volume 9.8 fL (7.4-10.4); Platelet Count 291 10^3/uL (130-400); Red Blood Cell Count 3.88 10^6/uL (4.70-6.10); Red Cell Dist. Width 16.4 % (11.5-14.5); White Blood Cell Count 10.6 10^3/uL (4.8-10.8)
[2023-09-16] MEDS: DESENEX/MITRAZOL/ZEASORB 1 APPLIC TOPICAL ×2 (07:27→20:26)
[2023-09-16] MEDS: CYMBALTA DELAYED RELEASE 20 MG PO (07:27)
[2023-09-16] MEDS: NEURONTIN 100 MG PO ×3 (07:27→21:06)
[2023-09-16] MEDS: CARDIZEM CD 180 MG PO (07:29)
[2023-09-16] MEDS: LASIX 80 MG IV (07:40)
--- NOTE | 2023-09-16 08:09 | W.PN.PUL3 ---
Today's Communication / Plan
-
Continue with negative fluid balance
Continue with efforts at nocturnal BiPAP
Wean oxygen as able
Continue DVT prophylaxis
Assessment
-
Patient is a 48 year old M with PMH significant for morbid obesity, suspected KAEL, chronic SOB, smoker who presents to ED complaining of lower extremity swelling, fatigue and SOB. Patient has had multiple admissions over the past 3 months for
similar symptoms. states that his symptoms started initially in 2020 after kamila COVID-19 infection. Patient admitted for heart failure
Acute on chronic SOB
Chronic hypoxia
On home oxygen 30 L x 1 month
Progressive lower extremity swelling
Likely fluid retention
40 pound weight gain
Sinus tachycardia
Undiagnosed KAEL/OHS suspected
Metabolic alkalosis
Noncompliance
Smoker, vape use
[id number] history of smoking, supposedly quit 2021
Leukocytosis
Conditions present [employer]
Primary hypertension
Snoring
COPD likely
Restrictive lung disease
Terry 08/16/2022, FVC 2.60/50%, FEV1 2.17/53%, progressive
2021 - FVC 3.09/59%, FEV1 2.49/61%, ratio 81%, TLC 5.07/71% (mixed pattern/moderately reduced/mild restriction)
Decreased diffusion capacity of lung 08/16/2022: FVC 2.60/50%
Chronic LLL atelectasis
Left lower lobe pleural-parenchymal process
Nodular atelectasis suspected per CT chest 08/10/2023
Chronic hypercapnic respiratory failure
pCO2 81, compensated
Cigarette smoker -- 30+ pack years, still smoking few cigs on/off per
Vaping nicotine dependence, tobacco product
Morbid (severe) obesity due to excess calories, BMI 51.9
Plan/recommendations
At this time, patient with increased oxygen requirement. Baseline is 3 L, presently on 6 L
Chest x-ray suggests pulm edema with chronic left pleuroparenchymal process
Sinus tachycardia noted.
Orthopnea, PND, lower extremity swelling, weight gain all likely consistent with heart failure
Negative fluid balance noted, -1800
Moving forward
Continue with management per cardiology
Diuresis, heart failure therapy plan noted. Case management to apprise SGLT2i
Unfortunately, I suspect that given patient's noncompliance in the past and his agitation throughout my interview of him and explanation of the pathophysiology of sleep disordered breathing and heart failure, patient is likely not to follow-up
He states he had a CPAP machine at home, but was told only to use it during the day and not at night.
Patient has had episodes of emotional response to BiPAP therapy, crying, aggression. He is threatened to leave several times in the past AMA
He has refused certain test such as ABG
I spent an extensive amount of time reviewing with him at length the pathophysiology of his morbid obesity/obesity hypoventilation/sleep apnea
He has gained 100 pounds since 2020
Patient is agreeable to trying BiPAP again tonight
We will order BiPAP 8/5 overnight, with 6 L
This may help with diuresis
Wean oxygen as able
Prior history of lung disease is noted
Was seen in our office in 2021 and August 2023 (Dr. Palma)
Home sleep study was recommended, but he had not followed through with
CXR obtained indicating chronic LLL atelectasis, this has been present since CT scan in 2021
Other imaging reviewed
Current smoker, notes he is still smoking on/off
Total usage >30 pack years
Would need yearly lung cancer screening at age 52
LLL atelectasis has been unchanged, but may need outpatient assessment given persistence
ECHO results reviewed--normal study
Would possibly benefit from psych eval, he has declined in the past
Flat affect noted
Positional therapy
Weight loss measures recommended
Obesity contributing to respiratory symptoms
Continue DVT prophylaxis
We will follow
Diagnostic Data
Chest X-Ray:
CXR 08/14/2022: Findings likely representing volume loss with some chronic pleural/parenchymal changes in the left hemithorax
CXR 08/06/21 at Urgent Care: possible small left pleural effusion vs pleural parenchymal scarring at the left lung base.
CT Scan:
CT chest 03/25/2022: Stable exam. Chronic asymmetric volume loss involving the left hemithorax. Minor linear parenchymal scarring. Findings most consistent with stable peripheral round atelectasis.
CT Chest PE study 08/21/21: no PE. overall mild volume loss in the left hemithorax with areas of subsegmental atelectasis some of which are somewhat rounded in configuration, additional minor areas of left lung groundglass opacification, non specific.
Echo: 06/12/23- Technically difficult study - contrast used. Normal left ventricular size and systolic function. LV ejection fraction is 55-60%. No significant valvular disease. No prior study available for comparison.
PFT's: [place] 08/16/22: FVC 2.60/50%, FEV1 2.17/53%, ratio 84%, no significant BD response. Suggestive of moderate restrictive lung disease.
�������PFT 10/04/21: FVC 3.09/59%, FEV1 2.49/61%, ratio 81%, TLC 5.07/71%, DLCO 20.89/65%, DLCO/VA 4.38/97%. Moderate restriction and mildly reduced diffusing capacity.
�������[place] 09/07/21: FVC 2.98/55%, FEV1 2.36/56%, ratio 79%, no significant BD response, moderate restrictive pattern.
6 MWT:
������ 6MWT 08/16/22: At rest, O2 98% on room air, heart rate 95. With ambulation, O2 jesica 96%, max heart rate 119. 2/10 on dyspnea scale. Ambulated 900 feet.
�������6MWT 09/07/21: At rest, O2 99% on room air, HR 108. With ambulation, desaturation jesica 97% on room air, max HR 130. 4/10 on dyspnea scale. ambulated 1125 ft.
Subjective Data
-
Date of Service:
Date of Service: September 16, 2023
Subjective:
Patient did not tolerate BiPAP yesterday p.m. due to nasal congestion. Presently sleeping upright. Arousable. Complaining of headaches. Denies pleurisy, chest pain, lightheadedness. Flat affect noted
Objective Data
Data Reviewed
Vital Signs / I&O / Oxygen:
Vital Signs
Temp Pulse Resp BP Pulse Ox
98.1 F 117 20 150/87 99
09/16/23 07:38 09/16/23 07:40 09/16/23 07:38 09/16/23 07:40 09/16/23 07:38
Intake and Output
09/15/23 09/16/23 09/17/23
06:59 06:59 06:59
Intake Total 480 / 480
Output Total 2300 / 2300
Balance -1820 / -1820
SaO2 99
Nasal Cannula flow liters per 6
minute
Physical Exam
General: Comfortable
HEENT: Normocephalic, Anicteric and Other (Large neck, petechial rash involving face)
Cardiovascular: S1-S2, Regular Rhythm, Murmur (n), Rub (n) and Peripheral Edema (Chronic lower extremity edema, 1-2+, mild erythema, no warmth)
Respiratory: Wheeze (n), Crackles (n), Rhonchi (n) and Non-Labored Respirations
GI: Soft, Non Distended (Morbidly obese) and Non Tender
Neurology: Awake, Alert and No Motor Deficits (Moves extremities)
Labs/Micro/Reports
Lab Data
09/16/23 05:09
09/16/23 05:09
--- NOTE | 2023-09-16 09:18 | W.PN.CD ---
Today's Communication / Plan
-
continue diuretic but need to monitor renal function. creatine 0.8. Seen by nephrology previously because creatinine yuly. Plan was for slow diuresis. yvonne was originally written for Lasix 80mg IV BID by primary team . Already received am dose.
Changed to daily dosing
Impression / Plan
-
BACKGROUND: 48M with hypertension, inappropriate sinus tachycardia (64% burden), severe obesity, former smoker, bilateral lower extremity edema/lymphedema, depression, & restrictive lung disease, here with shortness of breath and lower extremity
edema.
Embroidery Supervisor: Dr. Camargo
IMPRESSION/PLAN:
Shortness of breath, multifactorial in the setting of acute HFpEF, deconditioning, and morbid obesity - plan as below
HFpEF, acute on chronic
-LVEF normal earlier this month during prior hospitalization
-Grossly volume overloaded on exam edema up to abdomen
-He was not on a diuretic at home, Dr. Camargo recommended furosemide 40 mg daily at prior office visit (last seen 01/2022)
-Diuresis ordered by primary service, 80 mg IV twice daily, prior nephrology consultation reflects recommendation of 60 mg IV daily
-He was 164 kg 08/13/2023 (this was a bed scale), this can be our goal if renal function allows
-Case management to barboza SGLT2i
-Trend daily weight, I/O, and BMP with diuresis as this requires intensive monitoring
-Heart failure education
sinustachycardia.v radha jetif SVT. monitor
.
Lower extremity edema/lymphedema, acute on chronic
Inappropriate sinus tachycardia, chronic, continue diltiazem
Hypertension, follow BP with diuresis
Chronic hypercapnia
Rash, per primary
KAEL, supplemental nocturnal oxygen
Severe obesity, BMI >50
subjective.
diureses negative 1800 09/14-09/15 . weight trending down no cp, no sob
DATA:
Echocardiogram, 06/12/2023:
Technically difficult study - contrast used.
Normal left ventricular size and systolic function. LV ejection fraction is 55-60%.
No significant valvular disease.
Physical Exam
Vital Signs/Labs
Vital Signs
Temp Pulse Resp BP Pulse Ox
98.1 F 117 20 150/87 99
09/16/23 07:38 09/16/23 07:40 09/16/23 07:38 09/16/23 07:40 09/16/23 07:38
09/15/23 09/16/23 09/17/23
06:59 06:59 06:59
Actual Weight 185.264 kg
09/16/23 05:09
09/16/23 05:09
Magnesium 2.3 mg/dl (1.6-2.3) 09/16/23 05:09
09/15/23
11:00
Abm-B-Crfoudfsvgz Pept 615
LAB Results
09/15/23
11:00
Troponin I < 0.012
Physical Exam
Constitutional: No acute distress
Cardiovascular: Rhythm & rate is regular
Respiratory: Respiratory effort normal
GI: Soft
Neuro/Psych: Other (edema bilat )
Data Reviewed
-
Date of Service: September 16, 2023
Medical Decision Making: Reviewed Test Results
Echo: Report Reviewed by me
Medical Tests (PFT, Pathology etc): Report Reviewed by me
Labs: Labs Reviewed by me
[2023-09-16 09:30] LABS: Glycohemoglobin (HgbA1c) 5.8 % (4.0-5.6)
[2023-09-16] MEDS: TYLENOL 650 MG PO (09:36)
--- NOTE | 2023-09-16 11:46 | WOUNDNOTE ---
L POSTERIOR LOWER LEG
--- NOTE | 2023-09-16 11:48 | WOUNDNOTE ---
ANTONIO RN note: Patient admitted with pulmonary edema.
See H&P for complete history. Recently here left AMA on 09/04/23.
PMH: Lymphedema, morbid obesity, ex smoker-vapes, COPD,HTN, venous leg ulcers, anxiety and depression.
Wound Location and type/assessment: Patient known to service, last seen 09/03/23 for same L leg venous ulcer. Venous open blisters on L posterior leg, pink base and chronic pink discoloration to legs. Silicone foam dressing in use, drainage moderate
serosanguineous, sonido wraps both legs. R leg without any open ulcers, chronic lymphedema both legs. Using oxygen via NC. Nurse Mili confirmed sacrum is intact, still with scattered fungal rash on back and skin folds from poor hygiene suspected.
Miconazole powder already on order. Patient sent to ultrasound at end of assessment.
Appetite: Good.
Pressure redistribution devices in place: Accumax, ad herbert.
Plan: Silver alginate and dry dressing applied to L leg, called [facility] for supplies. Kept sonido wrap off for ultrasound test. Nurse Garces will apply sonido wraps when returns from test. Will confirm orders with hospitalist and updated nurse.
Updated care plan and will follow as needed.
Note to case management of equipment requested for discharge: VN if able, patient unable to reach legs.
Recommend follow up at wound care center upon discharge.
--- NOTE | 2023-09-16 13:00 | WOUNDNOTE ---
WON RN NOTE ADDENDUM: Called patient's father Jakob as requested by nurse Garces. Father asking this press writer about patient's lymphedema and demanding something be done about it while he is in the hospital. Confirmed with father that patient has an apt
with lymphedema clinic this . Attempted to explain to father that the Lymphedema clinic is considered outpatient and most likely don't see patient's inpatient. Reviewed current wound care and compression treatment being done. Father raised
voice with this press writer and stated something has to be done about his son's lymphedema otherwise its going to be a mess. Father stated he is going to walk over to lymphedema clinic and talk to them. Offered to give father the Phone number of
lymphedema clinic and he declined. This press writer attempted to call lymphedema clinic to make aware, no answer, will try again.
--- NOTE | 2023-09-16 15:23 | CM ---
Patient seen at bedside with physician. Patient states that he lives with his father and mother on hospice. Patient home is 2 story and he does go to the clinic, Dr. Mckeon is PCP. Patient pharmacy is [facility]. Patient currently on O2
but has no O2 at home. Patient father states that patient needs to be independent to return home as he is focused on taking care of his in hospice. Patient stated that he feels a little better but plan is still for discharge home. Patient for
PT/OT assessment. CM will continue to follow for discharge planning needs.
Plan; home with family/ VN vs SNF
--- NOTE | 2023-09-16 16:40 | PTCARENOTE ---
pt received as transfer from [facility]. pt pulled over from 3w bed to bariatric bed. Pt AAOX3. ST on telemetry heart rate low 100s. +4 edema throughout. pt on 5L nasal cannula. lung sounds diminished throughout. active bowel sounds. pt reports new
difficultly urinating- Dr Choi notified. bladder scanned for 550 ml. pt updated on plan of care, oriented to room and unit.
--- NOTE | 2023-09-16 17:30 | PTCARENOTE ---
pt report unable to void and feeling uncomfortable. bladder scanned [address] Mckeon notified. order recieved to place joseph. placed joseph catheter per orders, pt complaining of burning and pain with catheter, pt unable to tolerate and demanded
that catheter be taken out. joseph dced, provider notified. pt then became very agitated that he was unable to ambulate to the bathroom. nurse patient accounts manager at bedside to assist and provider came to bedside
--- NOTE | 2023-09-16 18:05 | PTCARENOTE ---
Patient requested to move his bowels. patient assisted to commode by 2 nurses. Patient very SOB getting OOB to BSC with O2 at 5L nasal cannula. Patient states he can't go on the commode because it is not a bathroom and he is not comfortable.
States he is in pain from the catheter we put in him. Tried to explain to patient that he is sitting on the commode and his bottom is directly over the hole so he can just go. Patient becoming verbally aggressive. Told patient we could get him
back to bed and use the bedpan. He stated he could not use a bedpan or a BSC so maybe he would just go in the bed. 2 nurse left room so patient could attempt to go on the commode. Patient angrily pushed the walker away from in front of him as the
nurses left the room. Soon after the nurse left the room the patient used his phone to call the kitchen to order his dinner. Returned in 5 minutes to check patient and get him back to bed. Patient found calmly sitting on the commode watching the
tv. Patient states he is calm now but still insistent on go to the bathroom. Again tried to explain that it is not safe due to his high oxygen requirement and his SOB with just getting to the commode. Resident came in to see the patient about
his pain. She also tried to explain as well as ask questions about his pain but he ultimately threw her out. Patient then threatening to tung if we did not take him to the regular toilet. Again tried to explain. Patient then stating that he would
just sit on the commode for the rest of the stay here since we won't let him go to the bathroom. Tray table moved in front of the patient. Patient becoming angrier stating he would just get up and go into the bathroom himself as soon as we leave
the room. Patient encouraged not to get up by himself and nurse left the room.
--- NOTE | 2023-09-16 18:23 | W.CON.NEPH ---
Consultation
-
Date/Time Consultation Requested: 09/16/23 1700
Date/Time Consultation Performed: 09/16/23 1900
Requesting Provider: Beatrice Mead
Performing Provider: Faith Rodríguez
Reason for Consultation: Met alkalosis and vol overload
Medical History
-
Chief Complaint: sob, edema, wt gain
History of Present Illness:
48 y/o male with hypertension, inappropriate sinus tachycardia on Diltiazem, former smoker, BLE edema, lymphedema, depression, anxiety on cymbalata, gabapentin, and restrictive lung disease on home O2, morbid obesity, strong suspicion of KAEL /OHS
BIPAP therapy but declined sleep study, chronic metabolic alkalosis. Multiple admits to [facility] in June, August and recently last week for sob, leg edema, wt gains. he has uncontrolled KAEL from noncompliance to medical care. He had
multiple admissions to multiple hospitals ([facility]) He seems to have had RHC at [facility] in august -verbal report from pt with high filling pressures. diuretic therapy held after a finding of a creatinine of
1.7 at his last hospital admission at [place] in August with improvement in cr.. Last admit in August he lost 10lbs with diuresis but left AMA, now he returns with 10kg wt gain, sob and worsening edema. He reportedly not used diuretics at home. He
started on lasix with good diuresis but with metabolic alkalosis nephrology consulted. He noted to have U retention of 600cc and joseph was placed but removed immediately as pt could not tolerate and he is fixated go to bathroom to urinate and noted
sob by staff. He is on 5lit of O2. He currently not cooperative to talk more and history is limited.
Past Medical History
Arrhythmias, HTN morbid obesity, lymphedema, depression, restictive lung disease, KAEL/OHS
Past Surgical History: Other (Testicle Lowering in Childhood)
Social History
Tobacco: Former Smoker (1yr ago) and Vaping
Alcohol: Occasional
Personal: Single
Living: With Family
Employment: Not Employed
Family History
Family History: Not Pertinent
Allergies / Home Medications
Allergy/AdvReac Type Severity Reaction Status Date / Time
hydromorphone AdvReac Severe Unknown Verified 09/03/23 23:56
�Medication �Instructions �Recorded �Confirmed �Type
diltiazem HCl 180 mg 180 mg PO DAILY #30 caps 06/16/23 09/15/23 Rx
capsule,extended release 24 hr
duloxetine 20 mg capsule,delayed 20 mg PO DAILY #30 caps 06/16/23 09/15/23 Rx
release
gabapentin 100 mg capsule 100 mg PO TID #90 caps 06/16/23 09/15/23 Rx
diphenhydramine 25 2 tab PO HSPRN PRN sleep 09/01/23 09/15/23 History
mg-acetaminophen 500 mg tablet
(Tylenol PM Extra Strength)
melatonin 5 mg tablet 10 mg PO HSPRN PRN sleep 09/15/23 09/15/23 History
quetiapine 25 mg tablet 25 mg PO HS Mental Health/Anxiety 09/15/23 09/15/23 History
Review of Systems
-
negative other stated in HPI
Physical Exam
Vital Signs
Vital Signs
Temp Pulse Resp BP Pulse Ox
97.7 F 106 22 141/88 96
09/16/23 15:00 09/16/23 15:00 09/16/23 15:00 09/16/23 15:00 09/16/23 15:00
Lab Results
WBC 10.6 10^3/uL (4.8-10.8) 09/16/23 05:09
RBC 3.88 10^6/uL (4.70-6.10) L 09/16/23 05:09
Hgb 9.8 g/dL (13.0-18.0) L 09/16/23 05:09
Hct 34.1 % (39.0-52.0) L 09/16/23 05:09
Plt Count 291 10^3/uL (130-400) 09/16/23 05:09
Sodium 139 mmol/L (135-145) 09/16/23 05:09
Potassium 4.4 mmol/L (3.5-5.1) 09/16/23 05:09
Chloride 93 mmol/L (98-107) L 09/16/23 05:09
Carbon Dioxide 39 mmol/L (22-30) H 09/16/23 05:09
BUN 14 mg/dl (9-20) 09/16/23 05:09
Creatinine 0.8 mg/dL (0.7-1.3) 09/16/23 05:09
eGFR > 60.00 09/16/23 05:09
Glucose 115 mg/dl (70-99) H 09/16/23 05:09
Calcium 8.6 mg/dl (8.4-10.2) 09/16/23 05:09
Wxb-C-Ldkoropsmbr Pept 615 pg/ml 09/15/23 11:00
Albumin 4.2 g/dl (3.5-5.0) 09/16/23 05:09
CXR:
IMPRESSION:
1. Findings suggestive of mild pulmonary edema.
2. Haziness of left hemidiaphragm, which may represent left lower lobe airspace disease and/or small left pleural effusion. Consider PA and lateral views when possible.
Physical Exam
General: Awake, Alert, Oriented, AOx3 and No Distress
HEENT: EOMI, Anicteric, Conjunctivae Clear and Facial Symmetry
Respiratory: Normal Excursion and Other (decreased BS)
Cardiac: S1/S2 and Regular Rate/Rhythm
Breast: Deferred by me
Abdomen: Nontender and Other (distended)
Musculoskeletal: Edema (4+)
Skin: Other (facial dermatitis)
Neuro: Nonfocal/Grossly Intact
Psych: Other (poor insight on judgement)
Assessment/Plan
-
IMP:
Hypoxemic Respiratory Insufficiency
resp acidosis and met alkalosis
chronic hypercapnia
underlying KAEL
underlying reported hx of COPD and restrictive lung disease (Obesity)
Acute on Chronic Lymphedema
Chronic sinus tachycardia
Anxiety/Depression
Insomnia
Morbid (severe) obesity due to excess calories
Subclinical hypothyroidism
Plan:
Multiple admits for similar complaints hypervolemia and uncontrolled KAEL
HIs met alkalosis is compensatory from his uncontrolled KAEL/OHS
I agree with lasix but suggest slow diuresis
Aggressive diuresis can result in rapid rise of bicarb and will likely exaggerate resp acidosis
no diamox yet, decrease lasix to 80daily
cr in normal range and stable BPs
check labs daily
encourage to use BIPAP
difficult situation as pt seem to have poor insight, continues to think that diuresis causing kidney damage, tried to explain him his renal function were fine with diuresis last week and will be monitoring his labs regularly but he dismissed me and
wants no further conversation
Not much to offer from renal stand point
d/w nursing , monitor PVR if possible since joseph was removed after insertion
--- NOTE | 2023-09-16 19:20 | PTCARENOTE ---
During change of shift, Pt continues to argue and holler at staff regarding activity (order not entered), c/o lower abdominal pain d/t need to defecate, and refuses to void on BSC. At 184, pt threatens PCT, 'What if I just fell, is that a
liability?' At 1850, pt threatens staff out loud, 'I will start suing people!' Nephrology attempted to speak with pt but was thrown out of room. This RN notified hospitalist and resident of patient's behavior.
Together, this RN and resident met w/ patient at bedside regarding plan of care. Activity 'as tolerated' entered. This RN and dayshift nurse walked pt to bathroom utilizing rolling walker. Pt tolerated. Denied SOB or chest pain. Pt urinated and had
a large soft BM.
X1 dose of Ativan and Morphine ordered and administered after pt settled back in bed. Pt agreed to reinsert indwelling joseph catheter. At 2116, patient tolerated joseph placement, but minutes later, pt started screaming out that the joseph was making
his meatus burn. [place] [employer] notified and topical Lidocaine ordered and applied. Pt states no relief. Pt demanded to speak with a doctor. [place] [employer] notified and met w/ pt at bedside. Again, pt demanded joseph to be removed. At 2229, Joseph removed.
[2023-09-16] MEDS: LOVENOX 40 MG SC (19:57)
[2023-09-16] MEDS: ATIVAN 0.5 MG IV (20:18)
[2023-09-16] MEDS: MORPHINE SULFATE 1 MG IV (20:20)
[2023-09-16] MEDS: NSS (PRESERVATIVE FREE) 0.25 ML IV (20:20)
[2023-09-16] MEDS: TYLENOL 1000 MG PO (21:05)
[2023-09-16] MEDS: SEROQUEL 25 MG PO (21:06)
[2023-09-16] MEDS: LIDOCAINE URO-JET 2% 1 SYRINGE TOPICAL (21:25)
--- NOTE | 2023-09-16 22:29 | W.PN.UPDATE ---
Update Note
Progress Note Update
Patient was agreeable to joseph placement by nursing, c/o of burning, order placed for uro-jet, despite lidocaine patient still complaining of discomfort. At bedside to discuss concerns and patient stating lidocaine not helping and if he can just get
up to bathroom he will be fine. Demanded that joseph be removed. Joseph d/c by nursing. Floor nurse to continue to monitor for retention bladder scan/straight cath as necessary.
--- NOTE | 2023-09-16 23:10 | PTCARENOTE ---
During change of shift, Pt continues to argue and holler at staff regarding activity (order not entered), c/o lower abdominal pain d/t need to defecate, and refuses to void on BSC. At 184, pt threatens PCT, 'What if I just fell, is that a
liability?' At 1850, pt threatens staff out loud, 'I will start suing people!' Nephrology attempted to speak with pt but was thrown out of room. This RN notified hospitalist and resident of patient's complaints/ behavior. Together, this RN and
resident met w/ patient at bedside regarding plan of care. Activity 'as tolerated' entered. This RN and dayshift nurse walked pt to bathroom utilizing rolling walker. Pt tolerated. Denied SOB or chest pain. Pt urinated and had a large soft BM.
A X1 dose of Ativan and Morphine ordered and administered after pt settled back in bed. Pt agreed to reinsert indwelling joseph catheter. At 2116, patient tolerated joseph placement, but minutes later, pt started screaming out that the joseph was
making his meatus burn. [place] [employer] PROFESSIONAL notified and topical Lidocaine ordered and applied. Pt states no relief. Pt demanded to speak with a doctor. [place] [employer] notified and met w/ pt at bedside. Again, pt demanded joseph to be removed. At 2229, Joseph removed.
[2023-09-17] VITALS (8 sets, daily range): BP systolic 123–147; BP diastolic 62–85; PULSE 2–117; O2SAT 96; BMI 58.3
--- NOTE | 2023-09-17 03:05 | DOWNTIME ---
There was a [employer] Downtime on 09/17/2023 from 0100 to 09/17/2023 at 0255. Downtime documentation of patient's care, including medication administrations, has been reconciled in the electronic record per guidelines. Refer to the
patient's paper chart under the miscellaneous tab to see printed paper medication records and downtime forms.
--- NOTE | 2023-09-17 05:37 | PTCARENOTE ---
Patient tolerated BIPAP
[2023-09-17 06:59] LABS: Hematocrit 33.5 % (39.0-52.0); Hemoglobin 9.6 g/dL (13.0-18.0); Mean Corp Hgb Conc. 28.7 g/dL (33.0-37.0); Mean Corpuscular Hgb 25.3 pg (27.0-31.0); Mean Corpuscular Volume 88.4 fL (80.0-94.0); Mean Platelet Volume 10.1 fL (7.4-10.4); Platelet Count 292 10^3/uL (130-400); Red Blood Cell Count 3.79 10^6/uL (4.70-6.10); Red Cell Dist. Width 16.2 % (11.5-14.5); White Blood Cell Count 10.8 10^3/uL (4.8-10.8)
[2023-09-17 07:15] LABS: Blood Urea Nitrogen 17 mg/dl (9-20); Calcium 8.9 mg/dl (8.4-10.2); Chloride 93 mmol/L (98-107); Estimated Creatinine Clearance > 125 ml/min; Glucose 113 mg/dl (70-99); Iron 46 ug/dl (49-181); Magnesium 2.3 mg/dl (1.6-2.3); Potassium 4.1 mmol/L (3.5-5.1); Sodium 139 mmol/L (135-145); eGFR > 60.00
[2023-09-17 07:25] LABS: Percent Saturation 15 % (20-50); Total Iron Binding Capacity 297 ug/dl (261-462)
[2023-09-17 07:30] LABS: Carbon Dioxide 37 mmol/L (22-30)
[2023-09-17 07:48] LABS: Ferritin 43.2 ng/ml (17.9-464.0)
--- NOTE | 2023-09-17 08:11 | W.PN.HOSP.TC ---
Addendum entered and electronically signed by Beatrice Choi MD 09/17/23 17:23:
I saw and evaluated the patient independently. I reviewed the resident�s note and agree with findings and plan as documented by Dr. Mckeon.
GENERAL: super morbidly obese male with O2 in no apparent distress--sleeping with periods of apnea noted
HEENT: O2 NC in place 6L (3L chronic at home)
HEART: regular rate and rhythm, +S1, +S2
LUNGS : clear to auscultation bilaterally
ABDOM: soft, nontender, nondistended, + bowel sounds
EXT: no cyanosis, clubbing--4+ full body anasarca to level of nipples/chest
NEUROLOGIC: grossly intact--having trouble with ADLs due to edema and SOB
Acute on chronic lower extremity edema/anasarca--likely combination of acute on chronic HFpEF, lymphedema, KAEL leading to pulmonary HTN and essential HTN-- Diuresis now down to daily per cards/renal, follow kidney function, leg elevation, sal wrap
compression therapy--apprec renal consult --plan for slow diuresis
acute on chronic hypoxemic (and presumed chronic hypercapnic with serum bicarb 35) resp failure due to KAEL and obesity hypoventilation syndrome--on 3L O2 at home 6L here--wean to keep pulse ox > 90%--cont diuresis and follow O2 requirements
Possible obstructive sleep apnea--Secondary to morbid obesity---NEEDS sleep study (pt says he was told he didn't qualify for outpt sleep study?)--apprec pulm--cont BiPAP in hospital--spoke with pulm, will try for CPAP at home at discharge
Essential Hypertension--Continue home antihypertensives with parameters
Anxiety/depression--Continue duloxetine, quetiapine
Chronic anemia---Unclear source but likely chronic disease-- iron studies consistent with chronic disease-- B12, folate both WNL
DVT prophylaxis--Lovenox
CODE STATUS: Full code
pt very distrusting of the medical providers despite multiple attempts to educate patient re: his chronic conditions
Original Note:
Today's Communication/Plan
-
IV diuresis, BiPAP for sleep
Assessment / Plan
Assessment / Plan
IMPRESSION: 48-year-old male with morbid obesity, COPD, hypertension, chronic lymphedema, anxiety/depression who presents with shortness of breath and anasarca.
PLAN:
Acute on chronic respiratory failure:
Likely multifactorial- History of hypercapnic respiratory failure, on 3 L home O2, possible heart failure, anasarca. Echo from June 2023 showed no systolic dysfunction and indeterminate diastolic function
-Will get lower extremity venous ultrasound
-Fluid restriction, lower extremity elevation, low sodium diet
-GEORGE's, daily weights, Sal wraps.
-Mild wheezing on exam - DuoNebs treatment
-Continue IV diuresis, follow BMPs. Consider Lasix drip + Renal consult if ineffective diuresis on current therapy. Actively diuresing 6.6kg loss since admission
-Consult cardiology and pulmonology
-Wean O2 as tolerated, to keep O2 sat >90%
Acute on chronic lower extremity edema/anasarca:
- Diurese, follow kidney function, elevation
-Sal wraps after some diuresis
Possible obstructive sleep apnea:
Secondary to morbid obesity. Observed loud snoring with apneic event upon entering patient room for physical exam. Patient did not qualify for home sleep study.
-Pulmonology consult
-Tolerated Bipap for sleep overnight
Urinary retention:
Did not tolerate [place]. Patient prefers not to use any caths
-Will continue to monitor
Hypertension:
Continue home antihypertensives
Anxiety/depression:
-Continue duloxetine, quetiapine
Chronic anemia:
-Unclear source. Will check iron studies
DVT prophylaxis:
Lovenox
CODE STATUS: Full code
Anticipated Discharge: > 48 hours
Subjective/Interval History
-
Date of Service: September 17, 2023
Yesterday evening, pt was anxious and somewhat disruptive because he was unable to use the bedside commode for a bowel movement. He insisted on using the toilet which staff was hesitant to provide due to safety risk from his hypoxia (5L O2 nasal
cannula with noted dyspnea with prolonged speech or ambulation). Activity level was changed and patient was able to use the toilet. IV morphine + Ativan was given for pain control and anxiety
Objective Data
-
Labs:
Laboratory Results
09/17/23
06:01
WBC 10.8
Hgb 9.6 L
Hct 33.5 L
Plt Count 292
Sodium 139
Potassium 4.1
Chloride 93 L
Carbon Dioxide 37 H
BUN 17
Creatinine 0.7
Glucose 113 H
Calcium 8.9
Vital Signs:
Vital Signs
Temp Pulse Resp BP Pulse Ox
98.2 F 110 20 127/74 98
09/17/23 07:50 09/17/23 07:50 09/17/23 07:50 09/17/23 07:50 09/17/23 07:50
I&O
09/16/23 09/17/23 09/18/23
06:59 06:59 06:59
Intake Total 480 / 480 1680 / 1680
Output Total 2300 / 2300 2300 / 2300
Balance -1820 / -1820 -620 / -620
Review of Systems
-
History Source: Patient
Abdomen/GI: Denies Diarrhea or Constipated
Genitourinary: Reports Difficulty Voiding and Other (urethral pain)
Musculoskeletal: Reports Edema
Physical Exam
-
General: Morbidly Obese
GI: Distended
Musculoskeletal: No Clubbing, No Cyanosis, Edema, Right Lower Extrem, Edema, Left Lower Extrem and Other (Edema up to upper abdomen)
Skin: Warm and Other (minor oozing of LLE)
Neuro: Awake, Alert and Oriented
Psych: Calm
[2023-09-17 08:20] LABS: Folate 10.2 ng/ml (2.76-20); Vitamin B12 631 pg/ml (239-931)
[2023-09-17] MEDS: CYMBALTA DELAYED RELEASE 20 MG PO (08:26)
[2023-09-17] MEDS: CARDIZEM CD 180 MG PO (08:26)
[2023-09-17] MEDS: NEURONTIN 100 MG PO ×3 (08:26→21:42)
[2023-09-17] MEDS: LASIX 80 MG IV (08:27)
[2023-09-17] MEDS: DESENEX/MITRAZOL/ZEASORB 1 APPLIC TOPICAL ×2 (08:28→21:00)
[2023-09-17] MEDS: DUONEB 3 ML INH (08:38)
[2023-09-17] MEDS: TYLENOL PO (09:42)
[2023-09-17] MEDS: TYLENOL 650 MG PO (09:42)
[2023-09-17] MEDS: AFRIN NASAL SPRAY 30 SPRAYS NASAL (12:05)
--- NOTE | 2023-09-17 12:49 | W.PN.NEPH.PH ---
Today's Communication / Plan
-
sign off
Assessment/Plan
-
IMP:
Hypoxemic Respiratory Insufficiency
resp acidosis and met alkalosis
chronic hypercapnia
underlying KAEL
underlying reported hx of COPD and restrictive lung disease (Obesity)
Acute on Chronic Lymphedema
Chronic sinus tachycardia
Anxiety/Depression
Insomnia
Morbid (severe) obesity due to excess calories
Subclinical hypothyroidism
Plan:
Goal has not changed from prior admission
Slow diuresis with intravenous Lasix at this time and eventual switch to low-dose torsemide as outpatient to continue slow diuresis.
I had previously discussed with him that his edema will not improve rapidly without change in kidney function. It should be noted that previously he had discontinued all diuretics and refused to take them because of acute kidney injury from rapid
diuresis previously.
During the last hospitalization he had left AGAINST MEDICAL ADVICE and did not take diuretics as an outpatient because he did not have any given the basis of his discharge AMA.
He refuses Joseph catheter given recent difficulty with placement. There is nothing to suggest that he has urinary retention currently
Diamox should not be used in this patient if he develops metabolic alkalosis. His diuretics should simply be slowed.
Unfortunately his lack of compliance will simply result in persistent anasarca
Will sign off
-
-
Date of Service: September 17, 2023
CC / HPI / ROS
-
Chief Complaint:
anasarca
History of Present Illness:
slow diuresis with lasix
difficulty joseph, refused now
BP stable
alkalosis slightly better
Review of Systems:
no CP/SOB
Labs
-
Labs:
WBC 10.8 10^3/uL (4.8-10.8) 09/17/23 06:01
RBC 3.79 10^6/uL (4.70-6.10) L 09/17/23 06:01
Hgb 9.6 g/dL (13.0-18.0) L 09/17/23 06:01
Hct 33.5 % (39.0-52.0) L 09/17/23 06:01
Plt Count 292 10^3/uL (130-400) 09/17/23 06:01
Sodium 139 mmol/L (135-145) 09/17/23 06:01
Potassium 4.1 mmol/L (3.5-5.1) 09/17/23 06:01
Chloride 93 mmol/L (98-107) L 09/17/23 06:01
Carbon Dioxide 37 mmol/L (22-30) H 09/17/23 06:01
BUN 17 mg/dl (9-20) 09/17/23 06:01
Creatinine 0.7 mg/dL (0.7-1.3) 09/17/23 06:01
eGFR > 60.00 09/17/23 06:01
Glucose 113 mg/dl (70-99) H 09/17/23 06:01
Calcium 8.9 mg/dl (8.4-10.2) 09/17/23 06:01
Zkt-A-Tzphhdtybak Pept 615 pg/ml 09/15/23 11:00
Albumin 4.2 g/dl (3.5-5.0) 09/16/23 05:09
Physical Exam
-
Vital Signs:
Vital Signs
Temp Pulse Resp BP Pulse Ox
98.0 F 108 20 127/76 97
09/17/23 11:36 09/17/23 11:36 09/17/23 11:36 09/17/23 11:36 09/17/23 11:36
Cardiovascular:: Regular rate and rhythm
Respiratory:: Bilateral: Coarse
Lung Excursion:: Normal
Abdomen:: Nontender and Soft
Bowel Sounds:: Normal
Extremity Edema:: +3: Bilateral:
--- NOTE | 2023-09-17 12:50 | CM ---
Addendum entered by Noemy Rodriguez 09/17/23 16:23:
CM provided information about shelter options and information about a place for mom. CM reviewed option for psych and patient agreed.
Original Note:
Patient seen at bedside with physician. Patient cooperative with physicians, c/o of pain with joseph. Patient aware that his father is pushing for him to go to SNF but he is uncertain. Patient mother is in hospice and is in the process of needed to
be transitioned to SNF per patient. CM will continue to follow for discharge planning needs.
Plan; TBD; SNF vs home with VN; watch for home O2 needs.
--- NOTE | 2023-09-17 14:11 | W.PN.PUL3 ---
Today's Communication / Plan
-
Continue with BiPAP at night / with oxygen
Case management to evaluate whether patient can get CPAP at home (not BiPAP)
Continue efforts with slow diuresis
Long conversation with father by phone given patient's agitation, difficulty with variety of providers
I think case management should get involved and speak with father as home situation does not appear to be good
Both father and son under many stresses at this time
Assessment
-
Patient is a 48 year old M with PMH significant for morbid obesity, suspected KAEL, chronic SOB, smoker who presents to ED complaining of lower extremity swelling, fatigue and SOB. Patient has had multiple admissions over the past 3 months for
similar symptoms. states that his symptoms started initially in 2020 after kamila COVID-19 infection. Patient admitted for heart failure
Acute on chronic SOB
Chronic hypoxia
On home oxygen 30 L x 1 month
Progressive lower extremity swelling
Likely fluid retention
40 pound weight gain
Sinus tachycardia
Undiagnosed KAEL/OHS suspected
Metabolic alkalosis
Noncompliance
Smoker, vape use
[id number] history of smoking, supposedly quit 2021
Leukocytosis
Conditions present HEALTH CARE LIAISON
Primary hypertension
Snoring
COPD likely
Restrictive lung disease
[place] 08/16/2022, FVC 2.60/50%, FEV1 2.17/53%, progressive
2021 - FVC 3.09/59%, FEV1 2.49/61%, ratio 81%, TLC 5.07/71% (mixed pattern/moderately reduced/mild restriction)
Decreased diffusion capacity of lung 08/16/2022: FVC 2.60/50%
Chronic LLL atelectasis
Left lower lobe pleural-parenchymal process
Nodular atelectasis suspected per CT chest 08/10/2023
Chronic hypercapnic respiratory failure
pCO2 81, compensated
Cigarette smoker -- 30+ pack years, still smoking few cigs on/off per
Vaping nicotine dependence, tobacco product
Morbid (severe) obesity due to excess calories, BMI 51.9
Plan/recommendations
At this time, patient appears to be comfortable sitting in the chair on 6 L. Upon reviewing outpatient records, he was 85% after ambulating 1 minute on room air required 1 L and walk 450 feet with heart rate in the 130s. This was in August 2023
During my evaluation today, he was 91 to 92% on room air, 96% on 3 L
While on room air, he denied any shortness of breath during my interview
1 reviewed his improve oxygen requirement, he became argumentative and states 'I am not short of breath sitting here... It is when I move'
I proceeded to congratulate him on his BiPAP use overnight. His response 'so what...i never said I was not going to use it'
I asked him again why it was removed from his house. He stated his [email or web address] company told him to only use it during the daytime and not at night. I told him that this is incorrect and they shouldn't have removed it.
I told him in the future if we were to set this up again and he received any information regarding compliance or removal of equipment, he should call his pulmonary/sleep physician ([facility]). He then proceeded to say. 'they are not my sleep physicians.
They are my pulmonary physician.' I explained that we do both. He then proceeded to get angry/agitated that he was never told.
When asked if he was willing to do another study to get BIPAP set up again, he responded ' I have to check with my insurance, as long as I do not have to pay a wesly'
Also reviewed that he is lost about 16 pounds since admission. His response, 'so what... I do not feel any different'
Chest x-ray suggests pulm edema with chronic left pleuroparenchymal process
Sinus tachycardia noted.
Orthopnea, PND, lower extremity swelling, weight gain all likely consistent with heart failure
Negative fluid balance noted, 16 pound weight loss since admission
Moving forward
I would strongly recommend ongoing BiPAP therapy at night.
Patient was able to sleep with it last night. When discussing setting this up at home, he is presently refusing until he can confirm his insurance can cover it.
Patient becomes very agitated and angry, and a 1 point asked me to leave and not come back
Given my concern regarding his morbidities and possibly treatable process, I called his father
I spent 50 minutes reviewing the patient's pathophysiology, clinical course with his father. Unfortunately father is also focused on 'lymphedema'
I spent a great deal of time discussing the pathophysiology of lymphedema. I explained that lymphedema is like a 'scar'. Once the damage is done, then you have chronic swelling which can be managed with stockings, lymphedema treatment. However,
lymphedema by itself does not cause shortness of breath, let alone requiring room air then requiring 6 L of oxygen...unless you are retaining fluid.
Father continues to state that he cannot take care of his son. He is taking care of his who is on hospice for Parkinson's disease
Father is told his son that he needs to get better so he can take care of himself. Unfortunate dynamic between the father and son and father's predicament and son dependence on his parents have made it a difficult social situation. On top of that,
patient is losing his insurance and 1 month and is currently undergoing a divorce (according to the father).
Also reviewed with the father reason for repeat study. Patient was apparently set up with BiPAP after last hospital stay but required a home sleep study to continue CPAP. He will require an in lab study to continue BiPAP.
Patient did not follow through with home sleep study for variety of reasons, 1) that he would need to switch to his CPAP, and 2) patient was worried about coverage by insurance and him losing insurance in the next month
Unfortunately, in order to continue CPAP at home, he will need a home sleep study. In order to set up BiPAP at home he will need an in lab study.
We will ask keycase assembler to see if we can set up a CPAP at home help facilitate treatment at home
Furthermore, patient apparently had a right heart catheterization at another facility (details unclear)
Patient has had Doppler study and CT angiogram here at [facility] within the last 6 weeks, negative for PE
Patient is also had a significant risk for thromboembolic disease which will need to be followed
Remains on Lovenox therapy
Over the past 3 days, I have spent an extensive amount of time reviewing with him at length the pathophysiology of his morbid obesity/obesity hypoventilation/sleep apnea
He has gained 100 pounds since 2020
Patient rolls his eyes whenever talking about sleep apnea, CPAP therapy
Prior history of lung disease is noted
Was seen in our office in 2021 and August 2023 (Dr. Palma)
Home sleep study was recommended, but he had not followed through with
CXR obtained indicating chronic LLL atelectasis, this has been present since CT scan in 2021
Other imaging reviewed
Current smoker, notes he is still smoking on/off
Total usage >30 pack years
Would need yearly lung cancer screening at age 52
LLL atelectasis has been unchanged, but may need outpatient assessment given persistence
ECHO results reviewed--normal study
Would possibly benefit from psych eval, he has declined in the past
Flat affect noted
Positional therapy
Weight loss measures recommended
Obesity contributing to respiratory symptoms
Continue DVT prophylaxis
Reviewed with primary service
Diagnostic Data
Chest X-Ray:
CXR 08/14/2022: Findings likely representing volume loss with some chronic pleural/parenchymal changes in the left hemithorax
CXR 08/06/21 at Urgent Care: possible small left pleural effusion vs pleural parenchymal scarring at the left lung base.
CT Scan:
CT chest 03/25/2022: Stable exam. Chronic asymmetric volume loss involving the left hemithorax. Minor linear parenchymal scarring. Findings most consistent with stable peripheral round atelectasis.
CT Chest PE study 08/21/21: no PE. overall mild volume loss in the left hemithorax with areas of subsegmental atelectasis some of which are somewhat rounded in configuration, additional minor areas of left lung groundglass opacification, non specific.
Echo: 06/12/23- Technically difficult study - contrast used. Normal left ventricular size and systolic function. LV ejection fraction is 55-60%. No significant valvular disease. No prior study available for comparison.
PFT's: [place] 08/16/22: FVC 2.60/50%, FEV1 2.17/53%, ratio 84%, no significant BD response. Suggestive of moderate restrictive lung disease.
�������PFT 10/04/21: FVC 3.09/59%, FEV1 2.49/61%, ratio 81%, TLC 5.07/71%, DLCO 20.89/65%, DLCO/VA 4.38/97%. Moderate restriction and mildly reduced diffusing capacity.
�������T[place] 09/07/21: FVC 2.98/55%, FEV1 2.36/56%, ratio 79%, no significant BD response, moderate restrictive pattern.
6 MWT:
������ 6MWT 08/16/22: At rest, O2 98% on room air, heart rate 95. With ambulation, O2 jesica 96%, max heart rate 119. 2/10 on dyspnea scale. Ambulated 900 feet.
�������6MWT 09/07/21: At rest, O2 99% on room air, HR 108. With ambulation, desaturation jesica 97% on room air, max HR 130. 4/10 on dyspnea scale. ambulated 1125 ft.
Subjective Data
-
Date of Service:
Date of Service: September 17, 2023
Subjective:
Patient sitting in the chair, on 6 L of oxygen. He feels he is no better. I reviewed with him his 16 pound weight loss since admission. He denies any improvement at all. Denies chest pain. Encouragingly, he tolerated his BiPAP through the night
which is good news. I congratulated him. He did not seem excited
Objective Data
Data Reviewed
Vital Signs / I&O / Oxygen:
Vital Signs
Temp Pulse Resp BP Pulse Ox
98.0 F 108 20 127/76 97
09/17/23 11:36 09/17/23 11:36 09/17/23 11:36 09/17/23 11:36 09/17/23 11:36
Intake and Output
09/16/23 09/17/23 09/18/23
06:59 06:59 06:59
Intake Total 480 / 480 1680 / 1680
Output Total 2300 / 2300 2300 / 2300
Balance -1820 / -1820 -620 / -620
SaO2 97
Nasal Cannula flow liters per 10
minute
Physical Exam
General: Comfortable
HEENT: Normocephalic, Anicteric and Other (Large neck, petechial rash involving face)
Cardiovascular: S1-S2, Regular Rhythm, Murmur (n), Rub (n) and Peripheral Edema (Chronic lower extremity edema, 1-2+, dressing in place)
Respiratory: Wheeze (n), Crackles (n), Rhonchi (n) and Non-Labored Respirations
GI: Soft, Non Distended (Morbidly obese) and Non Tender
Neurology: Awake, Alert and No Motor Deficits (Able to sit up without assistance)
Labs/Micro/Reports
Lab Data
09/17/23 06:01
09/17/23 06:01
--- NOTE | 2023-09-17 14:47 | W.PN.CD ---
Addendum entered and electronically signed by Mikel Gentile MD 09/17/23 17:47:
48 yo male with PMH of chronic HFPEF, lymphedema, morbid obesity admitted with acute on chronic HFPEF, massively volume overloaded. Weight is coming down. Still with edema. Exam with RRR, no murmurs, 2+ LE edema. Cr 0.7.
Continue IV lasix. Monitor labs. Resume tele.
Original Note:
Today's Communication / Plan
-
-continue IV diuresis and follow renal function and weights
-monitor on telemetry
Impression / Plan
-
BACKGROUND: 48M with hypertension, inappropriate sinus tachycardia (64% burden), severe obesity, former smoker, bilateral lower extremity edema/lymphedema, depression, & restrictive lung disease, here with shortness of breath and lower extremity
edema.
Data Analytics Developer: Dr. Camargo
IMPRESSION/PLAN:
Shortness of breath, multifactorial in the setting of acute HFpEF, deconditioning, and morbid obesity - plan as below
HFpEF, acute on chronic:
-weight is coming down
-LVEF normal 06/2023
-Grossly volume overloaded on exam- edema up to abdomen
-He was not on a diuretic at home, looks like compliance has been an issue
-nephrology is recommending slow diuresis to avoid KAYLEN, which he has had in the past
-He was 164 kg 08/13/2023 (this was a bed scale), this can be our goal if renal function allows
-Case management to barboza [id number]
-Trend daily weight, I/O, and BMP with diuresis as this requires intensive monitoring
-Heart failure education
-recommend he remain on telemetry with IV diuresis. I discussed reasoning and he is agreeable to this. I asked nursing to put him back on.
-of note, I tried to go over this diagnosis of HFpEF, and that it will be important to take diuretic as OP and follow-up with his chef under. He began to raise his voice and become angry during our conversation. I did my best to explain his
diagnosis and answer any questions he might have, but he told me 'he just wants to be left alone right now'.
Sinus tachycardia, question of brief SVT this admit:
-on CCB
-follow telemetry
Lower extremity edema/lymphedema, acute on chronic
Inappropriate sinus tachycardia
Hypertension, follow BP with diuresis
Chronic hypercapnia
Rash, per primary
KAEL, supplemental nocturnal oxygen
Severe obesity, BMI >50
DATA:
Echocardiogram, 06/12/2023:
Technically difficult study - contrast used.
Normal left ventricular size and systolic function. LV ejection fraction is 55-60%.
No significant valvular disease.
Physical Exam
Vital Signs/Labs
Vital Signs
Temp Pulse Resp BP Pulse Ox
98.0 F 108 20 127/76 97
09/17/23 11:36 09/17/23 11:36 09/17/23 11:36 09/17/23 11:36 09/17/23 11:36
09/16/23 09/17/23 09/18/23
06:59 06:59 06:59
Actual Weight 185.264 kg 184.385 kg
09/17/23 06:01
09/17/23 06:01
Magnesium 2.3 mg/dl (1.6-2.3) 09/17/23 06:01
09/15/23
11:00
Egq-[id number]-Fxtqehhtlxk Pept 615
LAB Results
09/15/23
11:00
Troponin I < 0.012
Physical Exam
Constitutional: No acute distress
EENT: Anicteric
Cardiovascular: Pedal edema present
Respiratory: Lungs clear to auscul. and Other (on O2 by ID)
Neuro/Psych: Alert and Oriented
Data Reviewed
-
Date of Service: September 17, 2023
EKG: Other (patient was not on tele, but printed strips in chart ST)
Labs: Labs Reviewed by me
[2023-09-17 15:20] LABS: Urine Albumin Negative (Neg - Trace); Urine Bilirubin Negative (Negative); Urine Character Clear (Clear); Urine Color Yellow; Urine Glucose Negative (Negative); Urine Ketone Negative (Negative); Urine Leukocyte Trace (Negative); Urine Nitrite Negative (Negative); Urine Occult Blood Negative (Negative); Urine Urobilinogen Negative (Neg - 1+)
[2023-09-17 15:39] LABS: Urine Red Blood Cell 0-2 /HPF (0-2); Urine Squamous Cell 0-2 /LPF (Few)
[2023-09-17 15:40] LABS: Urine Bacteria Few (Negative)
[2023-09-17] MEDS: NEURONTIN PO (17:55)
[2023-09-17] MEDS: LOVENOX SC (17:55)
[2023-09-17] MEDS: LOVENOX 40 MG SC (18:48)
[2023-09-17] MEDS: AFRIN NASAL SPRAY NASAL (20:09)
[2023-09-17] MEDS: TYLENOL 1000 MG PO (21:42)
[2023-09-17] MEDS: SEROQUEL 25 MG PO (21:42)
[2023-09-18] VITALS (9 sets, daily range): BP systolic 127–143; BP diastolic 71–81; PULSE 2–100; O2SAT 96; BMI 58.2
--- NOTE | 2023-09-18 07:21 | W.PN.HOSP.TC ---
Addendum entered and electronically signed by Beatrice Choi MD 09/18/23 13:23:
I saw and evaluated the patient independently. I reviewed the resident�s note and agree with findings and plan as documented by Dr. Mckeon.
GENERAL: super morbidly obese male with O2 in no apparent distress--sleeping with periods of apnea noted
HEENT: O2 NC in place 6L (3L chronic at home)
HEART: regular rate and rhythm, +S1, +S2
LUNGS : clear to auscultation bilaterally
ABDOM: soft, nontender, nondistended, + bowel sounds
EXT: no cyanosis, clubbing--4+ full body anasarca to level of nipples/chest
NEUROLOGIC: grossly intact--having trouble with ADLs due to edema and SOB
Acute on chronic lower extremity edema/anasarca--likely combination of acute on chronic HFpEF, lymphedema, KAEL leading to pulmonary HTN and essential HTN-- Diuresis now down to daily per cards/renal, follow kidney function, leg elevation, sal wrap
compression therapy--plan for slow diuresis
acute on chronic hypoxemic (and presumed chronic hypercapnic with serum bicarb 35) resp failure due to KAEL and obesity hypoventilation syndrome--on 3L O2 at home 6L here--wean to keep pulse ox > 90%--cont diuresis and follow O2 requirements
Possible obstructive sleep apnea--Secondary to morbid obesity---NEEDS sleep study (pt says he was told he didn't qualify for outpt sleep study?)--apprec pulm--cont BiPAP in hospital--spoke with pulm, will try for CPAP at home at discharge
Essential Hypertension--Continue home antihypertensives with parameters
Anxiety/depression--Continue duloxetine, quetiapine
Chronic anemia---Unclear source but likely chronic disease-- iron studies consistent with chronic disease-- B12, folate both WNL
chronic wounds (POA)--left leg venous ulcer, venous open blisters on left posterior leg likely pressure related and POA--consult wound care--pt likely will benefit from a bariatric bed
DVT prophylaxis--Lovenox
CODE STATUS: Full code
pt very distrusting of the medical providers despite multiple attempts to educate patient re: his chronic conditions
Original Note:
Today's Communication/Plan
-
IV diuresis, follow BMP, telemetry
Assessment / Plan
Assessment / Plan
IMPRESSION: 48-year-old male with morbid obesity, COPD, hypertension, chronic lymphedema, anxiety/depression who presents with shortness of breath and anasarca.
PLAN:
Acute on chronic respiratory failure:
Likely multifactorial- History of hypercapnic respiratory failure, on 3 L home O2, HFpEF, anasarca. Echo from June 2023 showed no systolic dysfunction and indeterminate diastolic function
-Will get lower extremity venous ultrasound
-Fluid restriction, lower extremity elevation, low sodium diet
-GEORGE's, daily weights, Sal wraps.
-Mild wheezing on exam - DuoNebs treatment
-Continue IV diuresis, follow BMPs. Nephrology recommends slower diuresis. Actively diuresing 6.9kg loss since admission
-Appreciate cardiology, nephrology and pulmonology input
-PT/OT on board
-Wean O2 as tolerated, to keep O2 sat >90%
-Will likely need SNF upon discharge
Acute on chronic lower extremity edema/anasarca:
- Diurese, follow kidney function, elevation
-Sal wraps after some diuresis
Possible obstructive sleep apnea:
Secondary to morbid obesity. Observed loud snoring with apneic event upon entering patient room for physical exam. Patient did not qualify for home sleep study in outpt, will need in-lab study
-appreciate Pulmonology
-Tolerated Bipap for sleep overnight
Urinary retention:
-Did not tolerate [place] due to pain. Patient prefers not to use any caths
-Able to void despite some difficulty
-Will continue to monitor
Hypertension:
Continue diltiazem
Anxiety/depression:
-Continue duloxetine, quetiapine
-Psych consult
Chronic anemia:
-Unclear source. Will check iron studies
DVT prophylaxis:
Lovenox
CODE STATUS: Full code
Anticipated Discharge: > 48 hours
Subjective/Interval History
-
Date of Service: September 18, 2023
Tolerated bipap overnight, slept well
Some urinary retention, but patient states he can manage without catheterization. Does Not Tolerate due to pain
Complains of headache and burning pain
Objective Data
-
Labs:
Laboratory Results
09/18/23
06:26
Sodium Pending
Potassium Pending
Chloride Pending
Carbon Dioxide Pending
BUN Pending
Creatinine Pending
Glucose Pending
Calcium Pending
Vital Signs:
Vital Signs
Temp Pulse Resp BP Pulse Ox
97.8 F 102 20 138/81 96
09/18/23 02:59 09/18/23 02:59 09/18/23 02:59 09/18/23 02:59 09/18/23 02:59
I&O
09/17/23 09/18/23 09/19/23
06:59 06:59 06:59
Intake Total 1680 / 1680 1320 / 1320
Output Total 2300 / 2300 1950 / 1950
Balance -620 / -620 -630 / -630
Review of Systems
-
History Source: Patient
Constitutional: Reports Other (Generalized discomfort)
Respiratory: Reports Trouble Breathing (exertional)
Cardiac: Denies Chest Pain
Abdomen/GI: Denies Diarrhea or Constipated
Genitourinary: Reports Difficulty Voiding
Musculoskeletal: Reports Edema
Skin: Reports Itching
Neuro: Reports Headache
Physical Exam
-
General: Morbidly Obese and Other (Appears uncomfortable)
HEENT: Oxygen (4 L nasal cannula)
Respiratory: Crackles (Lipase) and Non Labored Respirations
Cardiac: Regular Rhythm and S1/S2; Negative Murmur or Rub
GI: Normal Bowel Sounds and Distended
Musculoskeletal: No Clubbing, No Cyanosis, Edema, Right Lower Extrem (Severe, nonpitting) and Edema, Left Lower Extrem (Severe, nonpitting)
Skin: Warm, Dry and Rash
Neuro: Awake, Alert and Oriented
Psych: Calm
[2023-09-18 07:39] LABS: Blood Urea Nitrogen 18 mg/dl (9-20); Calcium 8.7 mg/dl (8.4-10.2); Carbon Dioxide 40 mmol/L (22-30); Chloride 91 mmol/L (98-107); Estimated Creatinine Clearance > 125 ml/min; Glucose 125 mg/dl (70-99); Potassium 3.8 mmol/L (3.5-5.1); Sodium 140 mmol/L (135-145); eGFR > 60.00
--- NOTE | 2023-09-18 07:47 | CM ---
Addendum entered by Noemy Rodriguez 09/18/23 13:29:
CM spoke with patient father and reviewed supports, father is at [facility] and stated he could not talk at this time but appreciated the supports.
Original Note:
CM spoke with Mary at a place for mom on behalf of patient father and at patient request. Patient mother situation is of concern to patient and affecting father and ability for patient to focus on his own care. CM will continue to follow for
discharge planning needs.
Plan; patient pending functional status home with VN vs SNF
[2023-09-18 07:49] LABS: Magnesium 2.3 mg/dl (1.6-2.3)
[2023-09-18] MEDS: AFRIN NASAL SPRAY NASAL ×3 (08:51→21:38)
[2023-09-18] MEDS: CARDIZEM CD 180 MG PO (08:51)
[2023-09-18] MEDS: NEURONTIN 100 MG PO ×3 (08:51→21:38)
[2023-09-18] MEDS: CYMBALTA DELAYED RELEASE 20 MG PO (08:51)
[2023-09-18] MEDS: LASIX 80 MG IV (08:51)
[2023-09-18] MEDS: DESENEX/MITRAZOL/ZEASORB 1 APPLIC TOPICAL ×2 (08:52→21:00)
--- NOTE | 2023-09-18 09:18 | RESPNOTE ---
Respiratory: called by RN for nebulizer treatment, but patient refused. Lungs CTA/decreased.
--- NOTE | 2023-09-18 09:18 | W.PN.PUL.V3 ---
Today's Communication / Plan
-
Wean oxygen
Continue BiPAP
Nebulizers as needed-currently not bronchospastic
Diuresis as tolerated
Assessment
-
Patient is a 48 year old M with PMH significant for morbid obesity, suspected KAEL, chronic SOB, smoker who presents to ED complaining of lower extremity swelling, fatigue and SOB. Patient has had multiple admissions over the past 3 months for
similar symptoms. states that his symptoms started initially in 2020 after kamila COVID-19 infection. Patient admitted for heart failure
Acute on chronic SOB
Chronic hypoxia
On home oxygen 30 L x 1 month
Progressive lower extremity swelling
Likely fluid retention
40 pound weight gain
Sinus tachycardia
Undiagnosed KAEL/OHS suspected
Metabolic alkalosis
Noncompliance
Smoker, vape use
[id number] history of smoking, supposedly quit 2021
Leukocytosis
Conditions present [employer]
Primary hypertension
Snoring
COPD likely
Restrictive lung disease
[place] 08/16/2022, FVC 2.60/50%, FEV1 2.17/53%, progressive
2021 - FVC 3.09/59%, FEV1 2.49/61%, ratio 81%, TLC 5.07/71% (mixed pattern/moderately reduced/mild restriction)
Decreased diffusion capacity of lung 08/16/2022: FVC 2.60/50%
Chronic LLL atelectasis
Left lower lobe pleural-parenchymal process
Nodular atelectasis suspected per CT chest 08/10/2023
Chronic hypercapnic respiratory failure
pCO2 81, compensated
Cigarette smoker -- 30+ pack years, still smoking few cigs on/off per
Vaping nicotine dependence, tobacco product
Morbid (severe) obesity due to excess calories, BMI 51.9
Plan/recommendations
Respiratory status remains somewhat tenuous
Supplemental oxygen as needed
Eventually increase activity-still has shortness of breath with minimal exertion
BiPAP as tolerated at night-encouraged
Dr. Valenzuela conversation on 09/17/2023:
During my evaluation today, he was 91 to 92% on room air, 96% on 3 L
While on room air, he denied any shortness of breath during my interview
1 reviewed his improve oxygen requirement, he became argumentative and states 'I am not short of breath sitting here... It is when I move'
I proceeded to congratulate him on his BiPAP use overnight. His response 'so what...i never said I was not going to use it'
I asked him again why it was removed from his house. He stated his [employer] company told him to only use it during the daytime and not at night. I told him that this is incorrect and they shouldn't have removed it.
I told him in the future if we were to set this up again and he received any information regarding compliance or removal of equipment, he should call his pulmonary/sleep physician ([facility]). He then proceeded to say. 'they are not my sleep physicians.
They are my pulmonary physician.' I explained that we do both. He then proceeded to get angry/agitated that he was never told.
When asked if he was willing to do another study to get BIPAP set up again, he responded ' I have to check with my insurance, as long as I do not have to pay a wesly'
I would strongly recommend ongoing BiPAP therapy at night.
Patient was able to sleep with it last night. When discussing setting this up at home, he is presently refusing until he can confirm his insurance can cover it.
Patient becomes very agitated and angry, and a 1 point asked me to leave and not come back
Given my concern regarding his morbidities and possibly treatable process, I called his father
I spent 50 minutes reviewing the patient's pathophysiology, clinical course with his father. Unfortunately father is also focused on 'lymphedema'
I spent a great deal of time discussing the pathophysiology of lymphedema. I explained that lymphedema is like a 'scar'. Once the damage is done, then you have chronic swelling which can be managed with stockings, lymphedema treatment. However,
lymphedema by itself does not cause shortness of breath, let alone requiring room air then requiring 6 L of oxygen...unless you are retaining fluid.
Father continues to state that he cannot take care of his son. He is taking care of his who is on hospice for Parkinson's disease
Father is told his son that he needs to get better so he can take care of himself. Unfortunate dynamic between the father and son and father's predicament and son dependence on his parents have made it a difficult social situation. On top of that,
patient is losing his insurance and 1 month and is currently undergoing a divorce (according to the father).
Also reviewed with the father reason for repeat study. Patient was apparently set up with BiPAP after last hospital stay but required a home sleep study to continue CPAP. He will require an in lab study to continue BiPAP.
Patient did not follow through with home sleep study for variety of reasons, 1) that he would need to switch to his CPAP, and 2) patient was worried about coverage by insurance and him losing insurance in the next month
Unfortunately, in order to continue CPAP at home, he will need a home sleep study. In order to set up BiPAP at home he will need an in lab study.
We will ask nurse case manager to see if we can set up a CPAP at home help facilitate treatment at home
Over the past 3 days, I have spent an extensive amount of time reviewing with him at length the pathophysiology of his morbid obesity/obesity hypoventilation/sleep apnea
He has gained 100 pounds since 2020
Patient rolls his eyes whenever talking about sleep apnea, CPAP therapy
Ongoing diuresis as tolerated
Monitor renal function, electrolytes, intake/output, lower extremity edema and weight
Replace electrolytes as needed
Furthermore, patient apparently had a right heart catheterization at another facility (details unclear)
Patient has had Doppler study and CT angiogram here at [facility] within the last 6 weeks, negative for PE
Patient is also had a significant risk for thromboembolic disease which will need to be followed
Remains on Lovenox therapy
Prior history of lung disease is noted
Was seen in our office in 2021 and August 2023 (Dr. Palma)
Home sleep study was recommended, but he had not followed through with
Current smoker, notes he is still smoking on/off
Total usage >30 pack years
Would need yearly lung cancer screening at age 52
LLL atelectasis has been unchanged, but may need outpatient assessment given persistence
ECHO results reviewed--normal study
Would possibly benefit from psych eval, he has declined in the past
Flat affect noted
Positional therapy
Weight loss measures recommended
Obesity contributing to respiratory symptoms
Continue DVT prophylaxis
Reviewed with nursing
Diagnostic Data
Chest X-Ray:
CXR 08/14/2022: Findings likely representing volume loss with some chronic pleural/parenchymal changes in the left hemithorax
CXR 08/06/21 at Urgent Care: possible small left pleural effusion vs pleural parenchymal scarring at the left lung base.
CT Scan:
CT chest 03/25/2022: Stable exam. Chronic asymmetric volume loss involving the left hemithorax. Minor linear parenchymal scarring. Findings most consistent with stable peripheral round atelectasis.
CT Chest PE study 08/21/21: no PE. overall mild volume loss in the left hemithorax with areas of subsegmental atelectasis some of which are somewhat rounded in configuration, additional minor areas of left lung groundglass opacification, non specific.
Echo: 06/12/23- Technically difficult study - contrast used. Normal left ventricular size and systolic function. LV ejection fraction is 55-60%. No significant valvular disease. No prior study available for comparison.
PFT's: [place] 08/16/22: FVC 2.60/50%, FEV1 2.17/53%, ratio 84%, no significant BD response. Suggestive of moderate restrictive lung disease.
�������PFT 10/04/21: FVC 3.09/59%, FEV1 2.49/61%, ratio 81%, TLC 5.07/71%, DLCO 20.89/65%, DLCO/VA 4.38/97%. Moderate restriction and mildly reduced diffusing capacity.
�������[place] 09/07/21: FVC 2.98/55%, FEV1 2.36/56%, ratio 79%, no significant BD response, moderate restrictive pattern.
6 MWT:
������ 6MWT 08/16/22: At rest, O2 98% on room air, heart rate 95. With ambulation, O2 jesica 96%, max heart rate 119. 2/10 on dyspnea scale. Ambulated 900 feet.
�������6MWT 09/07/21: At rest, O2 99% on room air, HR 108. With ambulation, desaturation jesica 97% on room air, max HR 130. 4/10 on dyspnea scale. ambulated 1125 ft.
Subjective Data
-
Date of Service:
Date of Service: September 18, 2023
Chief Complaint: Pulmonary Follow Up and Dyspnea Follow Up
Subjective:
Feels about the same, no complaints of shortness of breath, has dyspnea with minimal exertion, no chest pain, productive cough, abdominal pain and complains of ongoing leg swelling.
Review of Systems
General: Other (Per HPI)
Objective Data
Data Reviewed
Vital Signs / I&O:
Vital Signs
Temp Pulse Resp BP Pulse Ox
98.1 F 102 22 139/81 96
09/18/23 07:35 09/18/23 08:51 09/18/23 07:35 09/18/23 08:51 09/18/23 07:35
Intake and Output
09/17/23 09/18/23 09/19/23
06:59 06:59 06:59
Intake Total 1680 / 1680 1320 / 1320
Output Total 2300 / 2300 1950 / 1950
Balance -620 / -620 -630 / -630
SaO2: 96
Nasal Cannula flow liters per minute: 4
Physical Exam
General: Respiratory Distress (n) and Comfortable
HEENT: Normocephalic, Anicteric and Other (Large neck, petechial rash involving face)
Cardiovascular: Regular Rhythm, Murmur (n), Rub (n) and Peripheral Edema (Chronic lower extremity edema, 1-2+, dressing in place)
Respiratory: Wheeze (n), Crackles (n), Rhonchi (n) and Non-Labored Respirations
GI: Soft, Non Distended (Morbidly obese) and Non Tender
Neurology: Awake, Alert and No Motor Deficits (Able to sit up without assistance)
Skin: Warm, Good Color, Cyanosis (n) and Jaundice
Labs/Micro/Reports
Lab Data
09/17/23 06:01
09/18/23 06:26
[2023-09-18] MEDS: DECADRON 10 MG IV (09:34)
--- NOTE | 2023-09-18 10:13 | PTCARENOTE ---
Patient requested another RN due to 'lack of communication'. Educated about med ordered from physician, but patient progressively became agitated, yelling, and stating 'I want a new nurse'. Patient frustrated about overall care and difficult to
communicate with, and refuses to listen when given advice. Made charge nurse and management aware.
--- NOTE | 2023-09-18 11:18 | PN.CDI ---
CDI
- -
CDI:
Physician Documentation Request
Admit Date: 09/15/23 15:12
Dear Doctor Mike,
Please review the following and provide your response in the progress notes.
Clinical Indicators:
- 09/15 Wound note indicates left leg venous ulcer, venous open blisters on left posterior leg
- 09/16 PN skin assessment 'minor oozing of LLE'
Physician documentation of the type and location of wounds is required for compliant documentation. Based on the above clinical findings and your assessment, please provide the following in your progress note:
Type (etiology) of ulcer/wound:
- Diabetic ulcer
- Arterial (ischemic) ulcer
- Traumatic wound
- Venous stasis ulcer
- Pressure (decubitus) ulcer
- Non-healing surgical wound
- Other
Use of terms such as suspected, likely, concern for, or probable (associated with a specific diagnosis that is being evaluated, monitored, or treated as if it exists) are acceptable and can be coded in the inpatient setting, when documented at the
time of discharge.
Thank you,
Paulina Benjamin RN
CDI Specialist
Please use your independent medical judgment in providing your response.
*Source: National Pressure Ulcer Advisory Panel (NPUAP)
--- NOTE | 2023-09-18 12:25 | W.PN.CD ---
Today's Communication / Plan
-
continue IV lasix
Impression / Plan
-
BACKGROUND: 48M with hypertension, inappropriate sinus tachycardia (64% burden), severe obesity, former smoker, bilateral lower extremity edema/lymphedema, depression, & restrictive lung disease, here with shortness of breath and lower extremity
edema.
Time Cycle Operator: Dr. Camargo
IMPRESSION/PLAN:
Shortness of breath, multifactorial in the setting of acute HFpEF, deconditioning, and morbid obesity - plan as below
HFpEF, acute on chronic:
-LVEF normal 06/2023
-Grossly volume overloaded on exam
-He was not on a diuretic at home, looks like compliance has been an issue
-nephrology is recommending slow diuresis to avoid KAYLEN, which he has had in the past
-He was 164 kg 08/13/2023 (this was a bed scale), this can be our goal if renal function allows
-Case management to barboza SGLT2i
-continue lasix 80mg IV daily with close monitoring of labs and tele
Sinus tachycardia: stable, diagnosed with inappropriate sinus tachycardia as outpatient
-on CCB
-follow telemetry
Lower extremity edema/lymphedema, acute on chronic
Hypertension, follow BP with diuresis
Chronic hypercapnia
Rash, per primary
KAEL, supplemental nocturnal oxygen
Severe obesity, BMI >50
DATA:
Echocardiogram, 06/12/2023:
Technically difficult study - contrast used.
Normal left ventricular size and systolic function. LV ejection fraction is 55-60%.
No significant valvular disease.
Physical Exam
Vital Signs/Labs
Vital Signs
Temp Pulse Resp BP Pulse Ox
98.1 F 102 22 139/81 96
09/18/23 07:35 09/18/23 08:51 09/18/23 07:35 09/18/23 08:51 09/18/23 09:18
09/17/23 09/18/23 09/19/23
06:59 06:59 06:59
Actual Weight 184.385 kg 184.068 kg
09/17/23 06:01
09/18/23 06:26
Magnesium 2.3 mg/dl (1.6-2.3) 09/18/23 06:26
09/15/23
11:00
Vex-[id number] Pept 615
Physical Exam
Constitutional: No acute distress
EENT: Moist mucous membranes
Cardiovascular: Rhythm & rate is regular, Systolic murmur absent, Pedal edema present and JVD present
Respiratory: Respiratory effort normal and Lungs clear to auscul.
GI: Soft and Distention absent
Neuro/Psych: Oriented
Data Reviewed
-
Date of Service: September 18, 2023
EKG: Other (Tele: ST avg HR ~100)
Labs: Labs Reviewed by me
--- NOTE | 2023-09-18 14:23 | WOUNDNOTE ---
WO RN note: Patient requesting a different bariatric bed. Patient is currently using the Bariatric Total care air bed. t/c Spoke with Annabella at [facility] and ordered a bariatric air bed with jean-claude (Thompson 1000 with the bariatric
Comfort 4 air mattress). Updated RN Luann. Patient's sonido wrap are off. When asked about applying sonido wraps patient stated he had them on all night and he needs a break form them. He is currently sitting in a bariatric recliner chair with his legs
down.
--- NOTE | 2023-09-18 16:09 | WOUNDNOTE ---
[facility] RN Note: Patient's LE's red with +3 edema. L posterior calf wounds pink with small serous drainage. LLE dressing changed. Patient incontinent of smear of soft brown stool. Agustina care given. Mild coccyx crease and perianal MASD. Rash noted on his
back suspect r/t moisture ('heat rash'?), Miconazole powder applied to back, coccyx/agustina skin after agustina care given. Updated RN Luann. t/c Spoke with Stephenie from outpatient lymphedema/PT dept [phone] who confirmed they do not see patients with leg
wounds. Notified and suggested to patient to ask for VN and to make appointment at wound care center and when healed to reschedule appointment with lymphedema therapist. Discussed with Dr. Choi.
[2023-09-18] MEDS: LOVENOX 40 MG SC (17:17)
--- NOTE | 2023-09-18 19:30 | PTCARENOTE ---
Bariatric Total care air bed received
[2023-09-18] MEDS: TYLENOL 1000 MG PO (21:38)
[2023-09-18] MEDS: SEROQUEL 25 MG PO (21:38)
[2023-09-19] VITALS (7 sets, daily range): BP systolic 121–148; BP diastolic 64–77; O2SAT 97; BMI 57.7
[2023-09-19] MEDS: TYLENOL 650 MG PO (04:46)
[2023-09-19 08:01] LABS: Blood Urea Nitrogen 19 mg/dl (9-20); Calcium 8.7 mg/dl (8.4-10.2); Chloride 90 mmol/L (98-107); Estimated Creatinine Clearance > 125 ml/min; Glucose 165 mg/dl (70-99); Hematocrit 32.1 % (39.0-52.0); Hemoglobin 9.4 g/dL (13.0-18.0); Mean Corp Hgb Conc. 29.3 g/dL (33.0-37.0); Mean Corpuscular Hgb 25.2 pg (27.0-31.0); Mean Corpuscular Volume 86.1 fL (80.0-94.0); Platelet Count 279 10^3/uL (130-400); Potassium 4.1 mmol/L (3.5-5.1); Red Blood Cell Count 3.73 10^6/uL (4.70-6.10); Red Cell Dist. Width 16.1 % (11.5-14.5); Sodium 138 mmol/L (135-145); White Blood Cell Count 12.2 10^3/uL (4.8-10.8); eGFR > 60.00
[2023-09-19 08:24] LABS: Carbon Dioxide 38 mmol/L (22-30)
--- NOTE | 2023-09-19 08:44 | W.PN.PUL.V3 ---
Today's Communication / Plan
-
diuresis
wean oxygen
inc activity
cont bipap
Assessment
-
Patient is a 48 year old M with PMH significant for morbid obesity, suspected KAEL, chronic SOB, smoker who presents to ED complaining of lower extremity swelling, fatigue and SOB. Patient has had multiple admissions over the past 3 months for
similar symptoms. states that his symptoms started initially in 2020 after kamila COVID-19 infection. Patient admitted for heart failure
Acute on chronic SOB
Chronic hypoxia
On home oxygen 30 L x 1 month
Progressive lower extremity swelling
Likely fluid retention
40 pound weight gain
Sinus tachycardia
Undiagnosed KAEL/OHS suspected
Metabolic alkalosis
Noncompliance
Smoker, vape use
[id number] history of smoking, supposedly quit 2021
Leukocytosis
Conditions present [employer]
Primary hypertension
Snoring
COPD likely
Restrictive lung disease
Hostetter 08/16/2022, FVC 2.60/50%, FEV1 2.17/53%, progressive
2021 - FVC 3.09/59%, FEV1 2.49/61%, ratio 81%, TLC 5.07/71% (mixed pattern/moderately reduced/mild restriction)
Decreased diffusion capacity of lung 08/16/2022: FVC 2.60/50%
Chronic LLL atelectasis
Left lower lobe pleural-parenchymal process
Nodular atelectasis suspected per CT chest 08/10/2023
Chronic hypercapnic respiratory failure
pCO2 81, compensated
Cigarette smoker -- 30+ pack years, still smoking few cigs on/off per
Vaping nicotine dependence, tobacco product
Morbid (severe) obesity due to excess calories, BMI 51.9
Plan/recommendations
Respiratory status remains tenuous
Supplemental oxygen as needed
Eventually increase activity-still has shortness of breath with minimal exertion
BiPAP as tolerated at night-encouraged
Dr. Bianca beth on 09/17/2023:
During my evaluation today, he was 91 to 92% on room air, 96% on 3 L
While on room air, he denied any shortness of breath during my interview
1 reviewed his improve oxygen requirement, he became argumentative and states 'I am not short of breath sitting here... It is when I move'
I proceeded to congratulate him on his BiPAP use overnight. His response 'so what...i never said I was not going to use it'
I asked him again why it was removed from his house. He stated his [employer] company told him to only use it during the daytime and not at night. I told him that this is incorrect and they shouldn't have removed it.
I told him in the future if we were to set this up again and he received any information regarding compliance or removal of equipment, he should call his pulmonary/sleep physician ([facility]). He then proceeded to say. 'they are not my sleep physicians.
They are my pulmonary physician.' I explained that we do both. He then proceeded to get angry/agitated that he was never told.
When asked if he was willing to do another study to get BIPAP set up again, he responded ' I have to check with my insurance, as long as I do not have to pay a wesly'
I would strongly recommend ongoing BiPAP therapy at night.
Patient was able to sleep with it last night. When discussing setting this up at home, he is presently refusing until he can confirm his insurance can cover it.
Patient becomes very agitated and angry, and a 1 point asked me to leave and not come back
Given my concern regarding his morbidities and possibly treatable process, I called his father
I spent 50 minutes reviewing the patient's pathophysiology, clinical course with his father. Unfortunately father is also focused on 'lymphedema'
I spent a great deal of time discussing the pathophysiology of lymphedema. I explained that lymphedema is like a 'scar'. Once the damage is done, then you have chronic swelling which can be managed with stockings, lymphedema treatment. However,
lymphedema by itself does not cause shortness of breath, let alone requiring room air then requiring 6 L of oxygen...unless you are retaining fluid.
Father continues to state that he cannot take care of his son. He is taking care of his who is on hospice for Parkinson's disease
Father is told his son that he needs to get better so he can take care of himself. Unfortunate dynamic between the father and son and father's predicament and son dependence on his parents have made it a difficult social situation. On top of that,
patient is losing his insurance and 1 month and is currently undergoing a divorce (according to the father).
Also reviewed with the father reason for repeat study. Patient was apparently set up with BiPAP after last hospital stay but required a home sleep study to continue CPAP. He will require an in lab study to continue BiPAP.
Patient did not follow through with home sleep study for variety of reasons, 1) that he would need to switch to his CPAP, and 2) patient was worried about coverage by insurance and him losing insurance in the next month
Unfortunately, in order to continue CPAP at home, he will need a home sleep study. In order to set up BiPAP at home he will need an in lab study.
We will ask housing case manager to see if we can set up a CPAP at home help facilitate treatment at home
Over the past 3 days, I have spent an extensive amount of time reviewing with him at length the pathophysiology of his morbid obesity/obesity hypoventilation/sleep apnea
He has gained 100 pounds since 2020
Patient rolls his eyes whenever talking about sleep apnea, CPAP therapy
Ongoing diuresis as tolerated- down 1.5 L/ 24 hours and down 8L/since admission
Monitor renal function, electrolytes, intake/output, lower extremity edema and weight
Replace electrolytes as needed
Furthermore, patient apparently had a right heart catheterization at another facility (details unclear)
Patient has had Doppler study and CT angiogram here at [facility] within the last 6 weeks, negative for PE
Patient is also had a significant risk for thromboembolic disease which will need to be followed
Remains on Lovenox therapy
Prior history of lung disease is noted
Was seen in our office in 2021 and August 2023 (Dr. Palma)
Home sleep study was recommended, but he had not followed through with recs
Current smoker, notes he is still smoking on/off
Total usage >30 pack years
Would need yearly lung cancer screening at age 52
LLL atelectasis has been unchanged, but may need outpatient assessment given persistence
ECHO results reviewed--normal study
Would possibly benefit from psych eval, he has declined in the past
Flat affect noted
Positional therapy
Weight loss measures recommended
Obesity contributing to respiratory symptoms
Continue DVT prophylaxis
Reviewed with nursing
Diagnostic Data
Chest X-Ray:
CXR 08/14/2022: Findings likely representing volume loss with some chronic pleural/parenchymal changes in the left hemithorax
CXR 08/06/21 at Urgent Care: possible small left pleural effusion vs pleural parenchymal scarring at the left lung base.
CT Scan:
CT chest 03/25/2022: Stable exam. Chronic asymmetric volume loss involving the left hemithorax. Minor linear parenchymal scarring. Findings most consistent with stable peripheral round atelectasis.
CT Chest PE study 08/21/21: no PE. overall mild volume loss in the left hemithorax with areas of subsegmental atelectasis some of which are somewhat rounded in configuration, additional minor areas of left lung groundglass opacification, non specific.
Echo: 06/12/23- Technically difficult study - contrast used. Normal left ventricular size and systolic function. LV ejection fraction is 55-60%. No significant valvular disease. No prior study available for comparison.
PFT's: Hostetter 08/16/22: FVC 2.60/50%, FEV1 2.17/53%, ratio 84%, no significant BD response. Suggestive of moderate restrictive lung disease.
�������PFT 10/04/21: FVC 3.09/59%, FEV1 2.49/61%, ratio 81%, TLC 5.07/71%, DLCO 20.89/65%, DLCO/VA 4.38/97%. Moderate restriction and mildly reduced diffusing capacity.
�������Terry 09/07/21: FVC 2.98/55%, FEV1 2.36/56%, ratio 79%, no significant BD response, moderate restrictive pattern.
6 MWT:
������ 6MWT 08/16/22: At rest, O2 98% on room air, heart rate 95. With ambulation, O2 jesica 96%, max heart rate 119. 2/10 on dyspnea scale. Ambulated 900 feet.
�������6MWT 09/07/21: At rest, O2 99% on room air, HR 108. With ambulation, desaturation jesica 97% on room air, max HR 130. 4/10 on dyspnea scale. ambulated 1125 ft.
Subjective Data
-
Date of Service:
Date of Service: September 19, 2023
Chief Complaint: Pulmonary Follow Up and Dyspnea Follow Up
Subjective:
sleepy, tolerated BiPAP of up to 6 hours, no cp, cont sob, to abd pain weight dec.
Review of Systems
General: Other (per HPI)
Objective Data
Data Reviewed
Vital Signs / I&O:
Vital Signs
Temp Pulse Resp BP Pulse Ox
98.4 F 105 20 148/70 96
09/19/23 07:35 09/19/23 07:35 09/19/23 07:35 09/19/23 07:35 09/19/23 07:35
Intake and Output
09/18/23 09/19/23 09/20/23
06:59 06:59 06:59
Intake Total 1320 / 1320 1320 / 1320
Output Total 1950 / 1950 480 / 480
Balance -630 / -630 840 / 840
SaO2: 96
Nasal Cannula flow liters per minute: 5
Physical Exam
General: Respiratory Distress (n) and Comfortable
HEENT: Normocephalic, Anicteric and Other (Large neck, petechial rash involving face)
Cardiovascular: Regular Rhythm, Murmur (n), Rub (n) and Peripheral Edema (Chronic lower extremity edema, 1-2+, dressing in place)
Respiratory: Wheeze (n), Crackles (n), Rhonchi (n) and Non-Labored Respirations
GI: Soft, Non Distended (Morbidly obese) and Non Tender
Neurology: Awake, Alert and No Motor Deficits (Able to sit up without assistance)
Skin: Warm, Good Color, Cyanosis (n) and Jaundice
Labs/Micro/Reports
Lab Data
09/19/23 07:07
09/19/23 07:07
[2023-09-19] MEDS: CYMBALTA DELAYED RELEASE 20 MG PO (09:00)
[2023-09-19] MEDS: LASIX 80 MG IV ×2 (09:00→17:13)
[2023-09-19] MEDS: CARDIZEM CD 180 MG PO (09:02)
[2023-09-19] MEDS: NEURONTIN 100 MG PO ×3 (09:02→21:45)
[2023-09-19] MEDS: AFRIN NASAL SPRAY NASAL ×2 (09:02→21:04)
[2023-09-19] MEDS: DESENEX/MITRAZOL/ZEASORB 1 APPLIC TOPICAL ×2 (09:03→21:05)
--- NOTE | 2023-09-19 09:08 | W.PN.CD ---
Today's Communication / Plan
-
continue lasix 80mg IV; will give a PM dose today as well, and trend labs in AM
Impression / Plan
-
BACKGROUND: 48M with hypertension, inappropriate sinus tachycardia (64% burden), severe obesity, former smoker, bilateral lower extremity edema/lymphedema, depression, & restrictive lung disease, here with shortness of breath and lower extremity
edema.
I&C Tech: Dr. Camargo
IMPRESSION/PLAN:
Shortness of breath, multifactorial in the setting of acute HFpEF, deconditioning, and morbid obesity - plan as below
HFpEF, acute on chronic:
-LVEF normal 06/2023
-Grossly volume overloaded on exam
-He was not on a diuretic at home, looks like compliance has been an issue
-nephrology is recommending slow diuresis to avoid KAYLEN, which he has had in the past
-He was 164 kg 08/13/2023 (this was a bed scale), this can be our goal if renal function allows
-Case management to barboza SGLT2i
-continue lasix 80mg IV; will give a PM dose today as well, and trend labs in AM
Sinus tachycardia: stable, diagnosed with inappropriate sinus tachycardia as outpatient
-on CCB
-follow telemetry
Lower extremity edema/lymphedema, acute on chronic
Hypertension, follow BP with diuresis
Chronic hypercapnia
Rash, per primary
KAEL, supplemental nocturnal oxygen
Severe obesity, BMI >50
DATA:
Echocardiogram, 06/12/2023:
Technically difficult study - contrast used.
Normal left ventricular size and systolic function. LV ejection fraction is 55-60%.
No significant valvular disease.
Physical Exam
Vital Signs/Labs
Vital Signs
Temp Pulse Resp BP Pulse Ox
98.4 F 105 20 148/70 96
09/19/23 07:35 09/19/23 07:35 09/19/23 07:35 09/19/23 07:35 09/19/23 08:44
09/18/23 09/19/23 09/20/23
06:59 06:59 06:59
Actual Weight 184.068 kg 182.429 kg
09/19/23 07:07
09/19/23 07:07
Magnesium 2.3 mg/dl (1.6-2.3) 09/18/23 06:26
09/15/23
11:00
[id number] Pept 615
Physical Exam
Constitutional: No acute distress
EENT: Moist mucous membranes
Cardiovascular: Rhythm & rate is regular, Systolic murmur absent, Pedal edema present and JVD present
Respiratory: Respiratory effort normal and Lungs clear to auscul.
GI: Soft, Distention absent and Flat
Neuro/Psych: AO x 3
Data Reviewed
-
Date of Service: September 19, 2023
EKG: Other (Tele: SR/ST 100-105 bpm)
Labs: Labs Reviewed by me
--- NOTE | 2023-09-19 14:13 | CM ---
Addendum entered by Noemy Rodriguez 09/19/23 16:06:
patient is working for [place] with [facility].
Original Note:
Patient seen at bedside. Patient expressed boredom due to slow process of diuresis. Patient appeared resigned to cooperation with staff. CM reviewed with patient, that father is working with a place for mom on transfer to SNF for his mother, and CM
spoke with patient father to offer supports. CM will continue to follow for discharge planning needs.
Plan; SNF vs home with VN
[2023-09-19] MEDS: LOVENOX 40 MG SC (17:14)
--- NOTE | 2023-09-19 17:47 | W.PN.HOSP.TC ---
Addendum entered and electronically signed by Beatrice Choi MD 09/19/23 18:16:
I saw and evaluated the patient independently. I reviewed the resident�s note and agree with findings and plan as documented by Dr. Mckeon.
GENERAL: super morbidly obese male with O2 in no apparent distress--sleeping with periods of apnea noted
HEENT: O2 NC in place 6L (3L chronic at home)
HEART: regular rate and rhythm, +S1, +S2
LUNGS : clear to auscultation bilaterally
ABDOM: soft, nontender, nondistended, + bowel sounds
EXT: no cyanosis, clubbing--4+ full body anasarca to level of nipples/chest
NEUROLOGIC: grossly intact--having trouble with ADLs due to edema and SOB
Acute on chronic lower extremity edema/anasarca--likely combination of acute on chronic HFpEF, lymphedema, KAEL leading to pulmonary HTN and essential HTN-- Diuresis now down to daily per cards/renal, follow kidney function, leg elevation, sal wrap
compression therapy--agree with PM lasix dose today....(weight loss since admission 191kg to 182.4 = 18.9lbs)
acute on chronic hypoxemic (and presumed chronic hypercapnic with serum bicarb 35) resp failure due to KAEL and obesity hypoventilation syndrome--on 3L O2 at home 6L here--wean to keep pulse ox > 90%--cont diuresis and follow O2 requirements
Possible obstructive sleep apnea--Secondary to morbid obesity---NEEDS sleep study (pt says he was told he didn't qualify for outpt sleep study?)--apprec pulm--cont BiPAP in hospital--spoke with pulm, will try for CPAP at home at discharge
Essential Hypertension--Continue home antihypertensives with parameters
Anxiety/depression--Continue duloxetine, quetiapine
Chronic anemia---Unclear source but likely chronic disease-- iron studies consistent with chronic disease-- B12, folate both WNL
chronic wounds (POA)--left leg venous ulcer, venous open blisters on left posterior leg likely pressure related and POA--consult wound care--pt likely will benefit from a bariatric bed
DVT prophylaxis--Lovenox
CODE STATUS: Full code
pt very distrusting of the medical providers despite multiple attempts to educate patient re: his chronic conditions
Original Note:
Today's Communication/Plan
-
IV diuresis, Follow kidney function, I&Os
Assessment / Plan
Assessment / Plan
IMPRESSION: 48-year-old male with morbid obesity, COPD, hypertension, chronic lymphedema, anxiety/depression who presents with shortness of breath and anasarca.
PLAN:
Acute on chronic respiratory failure:
Likely multifactorial- History of hypercapnic respiratory failure, on 3 L home O2, HFpEF, anasarca. Echo from June 2023 showed no systolic dysfunction and indeterminate diastolic function
-Will get lower extremity venous ultrasound
-Fluid restriction, lower extremity elevation, low sodium diet
-GEORGE's, daily weights, Sal wraps.
-Mild wheezing on exam - DuoNebs treatment
-Continue IV diuresis, follow BMPs. Agree with another dose of Lasix tonight. Creatinine stable. Actively diuresing 7.5kg loss since admission
-Appreciate cardiology, nephrology and pulmonology input
-PT/OT on board
-Wean O2 as tolerated, to keep O2 sat >90%
-Will likely need SNF upon discharge
Acute on chronic lower extremity edema/anasarca:
- Diurese, follow kidney function, elevation
-Sal wraps after some diuresis
Possible obstructive sleep apnea:
Secondary to morbid obesity. Observed loud snoring with apneic event upon entering patient room for physical exam. Patient did not qualify for home sleep study in outpt, will need in-lab study
-appreciate Pulmonology
-Tolerated Bipap for sleep overnight
Urinary retention:
-Did not tolerate Corral due to pain. Patient prefers not to use any caths
-Able to void despite some difficulty
-Will continue to monitor
Hypertension:
Continue diltiazem
Anxiety/depression:
-Continue duloxetine, quetiapine
-Psych consult
Chronic anemia:
-Unclear source. Will check iron studies
DVT prophylaxis:
Lovenox
CODE STATUS: Full code
Anticipated Discharge: > 48 hours
Subjective/Interval History
-
Date of Service: September 19, 2023
Tolerated Bipap overnight
Objective Data
-
Labs:
Laboratory Results
09/19/23
07:07
WBC 12.2 H
Hgb 9.4 L
Hct 32.1 L
Plt Count 279
Sodium 138
Potassium 4.1
Chloride 90 L
Carbon Dioxide 38 H
BUN 19
Creatinine 0.6 L
Glucose 165 H
Calcium 8.7
Vital Signs:
Vital Signs
Temp Pulse Resp BP Pulse Ox
98.5 F 100 22 132/77 97
09/19/23 15:45 09/19/23 17:13 09/19/23 15:45 09/19/23 17:13 09/19/23 15:45
I&O
09/18/23 09/19/23 09/20/23
06:59 06:59 06:59
Intake Total 1320 / 1320 1320 / 1320 500 / 500
Output Total 1950 / 1950 480 / 480 450 / 450
Balance -630 / -630 840 / 840 50 / 50
Review of Systems
-
History Source: Patient
Constitutional: Reports Sleep Disturbance
Genitourinary: Reports Dysuria
Skin: Reports Itching
Neuro: Reports Headache
Physical Exam
-
Respiratory: Clear to Auscultation and Non Labored Respirations; Negative Wheezes, Rales, Rhonchi or Crackles
Cardiac: Regular Rhythm and S1/S2; Negative Murmur or Rub
GI: Normal Bowel Sounds and Distended
Musculoskeletal: No Clubbing, No Cyanosis, Edema, Right Lower Extrem (severe, non-pitting) and Edema, Left Lower Extrem (severe, non-pitting)
Neuro: Awake, Alert and Oriented
[2023-09-19] MEDS: TYLENOL 1000 MG PO (21:44)
[2023-09-19] MEDS: SEROQUEL 25 MG PO (21:45)
--- NOTE | 2023-09-19 23:00 | RESPNOTE ---
Second attempt made this evening to encourage Bipap use. Again, Pt refused to wear. Pt remains on 5L N/C. RN aware and updated.
[2023-09-20] VITALS (7 sets, daily range): BP systolic 122–161; BP diastolic 62–89; PULSE 93; O2SAT 97; BMI 57.0
[2023-09-20 07:39] LABS: Hematocrit 33.3 % (39.0-52.0); Hemoglobin 9.7 g/dL (13.0-18.0); Mean Corp Hgb Conc. 29.1 g/dL (33.0-37.0); Mean Corpuscular Hgb 25.3 pg (27.0-31.0); Mean Corpuscular Volume 86.9 fL (80.0-94.0); Mean Platelet Volume 10.3 fL (7.4-10.4); Platelet Count 279 10^3/uL (130-400); Red Blood Cell Count 3.83 10^6/uL (4.70-6.10); Red Cell Dist. Width 16.2 % (11.5-14.5)
[2023-09-20 08:00] LABS: Blood Urea Nitrogen 25 mg/dl (9-20); Calcium 8.6 mg/dl (8.4-10.2); Chloride 89 mmol/L (98-107); Estimated Creatinine Clearance > 125 ml/min; Glucose 101 mg/dl (70-99); Potassium 3.6 mmol/L (3.5-5.1); Sodium 140 mmol/L (135-145); eGFR > 60.00
[2023-09-20] MEDS: AFRIN NASAL SPRAY NASAL ×2 (08:14→22:35)
[2023-09-20] MEDS: DESENEX/MITRAZOL/ZEASORB 1 APPLIC TOPICAL (08:16)
[2023-09-20] MEDS: LASIX 80 MG IV ×2 (08:16→17:04)
[2023-09-20] MEDS: CYMBALTA DELAYED RELEASE 20 MG PO (08:17)
[2023-09-20] MEDS: CARDIZEM CD 180 MG PO (08:17)
[2023-09-20] MEDS: NEURONTIN 100 MG PO ×2 (08:17→17:02)
[2023-09-20 08:25] LABS: Carbon Dioxide 39 mmol/L (22-30)
--- NOTE | 2023-09-20 08:35 | W.PN.HOSP.TC ---
Addendum entered and electronically signed by Beatrice Choi MD 09/20/23 14:35:
I saw and evaluated the patient independently. I reviewed the resident�s note and agree with findings and plan as documented by Dr. Mckeon.
GENERAL: super morbidly obese male with O2 in no apparent distress--sleeping with periods of apnea noted
HEENT: O2 NC in place 6L (3L chronic at home)
HEART: regular rate and rhythm, +S1, +S2
LUNGS : clear to auscultation bilaterally
ABDOM: soft, nontender, nondistended, + bowel sounds
EXT: no cyanosis, clubbing--4+ full body anasarca to level of nipples/chest
NEUROLOGIC: grossly intact--having trouble with ADLs due to edema and SOB
Acute on chronic lower extremity edema/anasarca--likely combination of acute on chronic HFpEF, lymphedema, KAEL leading to pulmonary HTN and essential HTN-- Diuresis, follow kidney function, leg elevation, sal wrap compression therapy--agree with PM
lasix dose ....(weight loss since admission 191kg to 180.1 = 23.9 lbs)--goal weight is 164kg
acute on chronic hypoxemic (and presumed chronic hypercapnic with serum bicarb 35) resp failure due to KAEL and obesity hypoventilation syndrome--on 3L O2 at home 6L here--wean to keep pulse ox > 90%--cont diuresis and follow O2 requirements
Possible obstructive sleep apnea--Secondary to morbid obesity---NEEDS sleep study (pt says he was told he didn't qualify for outpt sleep study?)--apprec pulm--cont BiPAP in hospital--spoke with pulm, will try for CPAP at home at discharge--does not
wish to talk to anyone who brings it up
Essential Hypertension--Continue home antihypertensives with parameters
Anxiety/depression--Continue duloxetine, quetiapine
Chronic anemia---Unclear source but likely chronic disease-- iron studies consistent with chronic disease-- B12, folate both WNL
chronic wounds (POA)--left leg venous ulcer, venous open blisters on left posterior leg likely pressure related and POA--consult wound care--pt likely will benefit from a bariatric bed
DVT prophylaxis--Lovenox
CODE STATUS: Full code
pt very distrusting of the medical providers despite multiple attempts to educate patient re: his chronic conditions
Original Note:
Today's Communication/Plan
-
Continue IV diuresis, follow kidney function
Assessment / Plan
Assessment / Plan
IMPRESSION: 48-year-old male with morbid obesity, COPD, hypertension, chronic lymphedema, anxiety/depression who presents with shortness of breath and anasarca.
PLAN:
Acute on chronic respiratory failure:
Likely multifactorial- History of hypercapnic respiratory failure, on 3 L home O2, HFpEF, anasarca. Echo from June 2023 showed no systolic dysfunction and indeterminate diastolic function
-Will get lower extremity venous ultrasound
-Fluid restriction, lower extremity elevation, low sodium diet
-GEORGE's, daily weights, Sal wraps.
-Mild wheezing on exam - DuoNebs treatment
-Continue IV diuresis 80mg BID, follow BMPs. Creatinine stable. Actively diuresing, 10kg loss since admission
-Appreciate cardiology, nephrology and pulmonology input
-PT/OT on board
-Wean O2 as tolerated, to keep O2 sat >90%
-Will likely need SNF upon discharge
Acute on chronic lower extremity edema/anasarca:
- Diurese, follow kidney function, elevation
-Sal wraps after some diuresis
Possible obstructive sleep apnea:
Secondary to morbid obesity. Observed loud snoring with apneic event upon entering patient room for physical exam. Patient did not qualify for home sleep study in outpt, will need in-lab study
-appreciate Pulmonology
-Bipap provided. Pt did not use overnight
Urinary retention:
-Did not tolerate Corral due to pain. Patient prefers not to use any caths
-Able to void despite some difficulty
-Will continue to monitor
Left leg ulcer:
-posterior LLL, serous discharge
-Wound care
Hypertension:
Continue diltiazem
Anxiety/depression:
-Continue duloxetine, quetiapine
-Psych consult if patient allows
Chronic anemia:
-Likely of chronic disease given iron studies. B12, folate normal
DVT prophylaxis:
Lovenox
CODE STATUS: Full code
Anticipated Discharge: > 48 hours
Subjective/Interval History
-
Date of Service: September 20, 2023
Pt does not feel better or worse.
Objective Data
-
Labs:
Laboratory Results
09/20/23
06:27
WBC 12.0 H
Hgb 9.7 L
Hct 33.3 L
Plt Count 279
Sodium 140
Potassium 3.6
Chloride 89 L
Carbon Dioxide 39 H
BUN 25 H
Creatinine 0.7
Glucose 101 H
Calcium 8.6
Vital Signs:
Vital Signs
Temp Pulse Resp BP Pulse Ox
97.7 F 91 20 141/85 98
09/20/23 07:35 09/20/23 08:16 09/20/23 07:35 09/20/23 08:16 09/20/23 07:35
I&O
09/19/23 09/20/23 09/21/23
06:59 06:59 06:59
Intake Total 1320 / 1320 600 / 600
Output Total 480 / 480 1225 / 1225
Balance 840 / 840 -625 / -625
Review of Systems
-
History Source: Patient
Respiratory: Denies Cough or Trouble Breathing
Cardiac: Denies Chest Pain
Physical Exam
-
General: Comfortable
Respiratory: Clear to Auscultation and Non Labored Respirations; Negative Wheezes, Rales, Rhonchi or Crackles
Cardiac: Regular Rhythm and S1/S2; Negative Murmur or Rub
GI: Normal Bowel Sounds and Distended
Musculoskeletal: Edema, Right Lower Extrem (Severe, nonpitting) and Edema, Left Lower Extrem (Severe, nonpitting)
Skin: Warm, Dry and Ulcers
--- NOTE | 2023-09-20 09:38 | W.PN.CD ---
Today's Communication / Plan
-
increase lasix to 80mg IV bid
Impression / Plan
-
BACKGROUND: 48M with hypertension, inappropriate sinus tachycardia (64% burden), severe obesity, former smoker, bilateral lower extremity edema/lymphedema, depression, & restrictive lung disease, here with shortness of breath and lower extremity
edema.
Wall Crane Operator: Dr. Camargo
IMPRESSION/PLAN:
Shortness of breath, multifactorial in the setting of acute HFpEF, deconditioning, and morbid obesity - plan as below
HFpEF, acute on chronic: severe
-LVEF normal 06/2023
-Grossly volume overloaded on exam
-He was not on a diuretic at home, looks like compliance has been an issue
-He was 164 kg 08/13/2023 (this was a bed scale), this can be our goal if renal function allows
-Case management to barboza SGLT2i
-increase lasix to 80mg IV bid, with close monitoring of labs and tele
Sinus tachycardia: stable, diagnosed with inappropriate sinus tachycardia as outpatient
-on CCB
-follow telemetry
Lower extremity edema/lymphedema, acute on chronic
Hypertension, follow BP with diuresis
Chronic hypercapnia
Rash, per primary
KAEL, supplemental nocturnal oxygen
Severe obesity, BMI >50
DATA:
Echocardiogram, 06/12/2023:
Technically difficult study - contrast used.
Normal left ventricular size and systolic function. LV ejection fraction is 55-60%.
No significant valvular disease.
Physical Exam
Vital Signs/Labs
Vital Signs
Temp Pulse Resp BP Pulse Ox
97.7 F 91 20 141/85 98
09/20/23 07:35 09/20/23 08:16 09/20/23 07:35 09/20/23 08:16 09/20/23 07:35
09/19/23 09/20/23 09/21/23
06:59 06:59 06:59
Actual Weight 182.429 kg 180.122 kg
09/20/23 06:27
09/20/23 06:27
Magnesium 2.3 mg/dl (1.6-2.3) 09/18/23 06:26
09/15/23
11:00
Yfb-S-Iogxwhtxctt Pept 615
Physical Exam
Constitutional: No acute distress and Comfortable
EENT: Moist mucous membranes
Cardiovascular: Rhythm & rate is regular, Pedal edema present and JVD present
Respiratory: Respiratory effort normal
Neuro/Psych: Oriented
Data Reviewed
-
Date of Service: September 20, 2023
EKG: Other (Tele: SR 80s)
Labs: Labs Reviewed by me
--- NOTE | 2023-09-20 11:47 | W.PN.PUL3 ---
Today's Communication / Plan
-
Continue diuretics
Continue BiPAP as able
Continue oxygen supplementation
Increase activity as able.
Sign off, patient does not want to discuss further CPAP/BiPAP issue.
Advised to call the office when ready to rediscuss.
Assessment
-
Patient is a 48 year old M with PMH significant for morbid obesity, suspected KAEL, chronic SOB, smoker who presents to ED complaining of lower extremity swelling, fatigue and SOB. Patient has had multiple admissions over the past 3 months for
similar symptoms. states that his symptoms started initially in 2020 after kamila COVID-19 infection. Patient admitted for heart failure
Acute on chronic SOB
Chronic hypoxia
On home oxygen 30 L x 1 month
Progressive lower extremity swelling
Likely fluid retention
40 pound weight gain
Sinus tachycardia
Undiagnosed KAEL/OHS suspected-chronic hypercapnic respiratory failure.
Metabolic alkalosis
Noncompliance
Smoker, vape use
[id number] history of smoking, supposedly quit 2021
Leukocytosis
Conditions present FLAVORER
Primary hypertension
Snoring
COPD likely
Restrictive lung disease
[place] 08/16/2022, FVC 2.60/50%, FEV1 2.17/53%, progressive
2021 - FVC 3.09/59%, FEV1 2.49/61%, ratio 81%, TLC 5.07/71% (mixed pattern/moderately reduced/mild restriction)
Decreased diffusion capacity of lung 08/16/2022: FVC 2.60/50%
Chronic LLL atelectasis
Left lower lobe pleural-parenchymal process
Nodular atelectasis suspected per CT chest 08/10/2023
Chronic hypercapnic respiratory failure
pCO2 81, compensated
Cigarette smoker -- 30+ pack years, still smoking few cigs on/off per
Vaping nicotine dependence, tobacco product
Morbid (severe) obesity due to excess calories, BMI 51.9
Plan/recommendations
Respiratory status unchanged
Remains on 4 L of supplemental oxygen
Eventually increase activity-still has shortness of breath with minimal exertion
BiPAP as tolerated at night-encouraged, currently on low pressure due to poor tolerance. 10/05. Likely needs more support in the future.
Weight is trending lower down to 180 kg. Goal should be to get closer to 164 kg.
From the pulmonary perspective as previously mentioned extensive discussion with patient regarding compliance to CPAP/BiPAP.
This has been tried in the outpatient setting but he has not followed through with testing.
He was told to try his best. He does not want to discuss further at this point.
No additional recommendations from the pulmonary perspective at this point. May continue with current BiPAP settings while in the hospital.
Continue IV diuretics, dose adjusted per cardiology.
Monitor electrolytes and renal function.
Prior conversations:
Dr. Valenzuela conversation on 09/17/2023:
During my evaluation today, he was 91 to 92% on room air, 96% on 3 L
While on room air, he denied any shortness of breath during my interview
1 reviewed his improve oxygen requirement, he became argumentative and states 'I am not short of breath sitting here... It is when I move'
I proceeded to congratulate him on his BiPAP use overnight. His response 'so what...i never said I was not going to use it'
I asked him again why it was removed from his house. He stated his [employer] company told him to only use it during the daytime and not at night. I told him that this is incorrect and they shouldn't have removed it.
I told him in the future if we were to set this up again and he received any information regarding compliance or removal of equipment, he should call his pulmonary/sleep physician ([facility]). He then proceeded to say. 'they are not my sleep physicians.
They are my pulmonary physician.' I explained that we do both. He then proceeded to get angry/agitated that he was never told.
When asked if he was willing to do another study to get BIPAP set up again, he responded ' I have to check with my insurance, as long as I do not have to pay a wesly'
I would strongly recommend ongoing BiPAP therapy at night.
Patient was able to sleep with it last night. When discussing setting this up at home, he is presently refusing until he can confirm his insurance can cover it.
Patient becomes very agitated and angry, and a 1 point asked me to leave and not come back
Given my concern regarding his morbidities and possibly treatable process, I called his father
I spent 50 minutes reviewing the patient's pathophysiology, clinical course with his father. Unfortunately father is also focused on 'lymphedema'
I spent a great deal of time discussing the pathophysiology of lymphedema. I explained that lymphedema is like a 'scar'. Once the damage is done, then you have chronic swelling which can be managed with stockings, lymphedema treatment. However,
lymphedema by itself does not cause shortness of breath, let alone requiring room air then requiring 6 L of oxygen...unless you are retaining fluid.
Father continues to state that he cannot take care of his son. He is taking care of his who is on hospice for Parkinson's disease
Father is told his son that he needs to get better so he can take care of himself. Unfortunate dynamic between the father and son and father's predicament and son dependence on his parents have made it a difficult social situation. On top of that,
patient is losing his insurance and 1 month and is currently undergoing a divorce (according to the father).
Also reviewed with the father reason for repeat study. Patient was apparently set up with BiPAP after last hospital stay but required a home sleep study to continue CPAP. He will require an in lab study to continue BiPAP.
Patient did not follow through with home sleep study for variety of reasons, 1) that he would need to switch to his CPAP, and 2) patient was worried about coverage by insurance and him losing insurance in the next month
-
Unfortunately, in order to continue CPAP at home, he will need a home sleep study. In order to set up BiPAP at home he will need an in lab study.
We will ask casework manager to see if we can set up a CPAP at home help facilitate treatment at home.
He has gained 100 pounds since 2020
Patient rolls his eyes whenever talking about sleep apnea, CPAP therapy

Furthermore, patient apparently had a right heart catheterization at another facility (details unclear)
Patient has had Doppler study and CT angiogram here at [facility] within the last 6 weeks, negative for PE
Patient is also had a significant risk for thromboembolic disease which will need to be followed
-
DVT prophylaxis with Lovenox.
-
Was seen in our office in 2021 and August 2023 (Dr. Palma)
Home sleep study was recommended, but he had not followed through with recs-last correspondence with patient he wanted to wait and think about it.
Current smoker, notes he is still smoking on/off
Total usage >30 pack years
Would need yearly lung cancer screening at age 52
LLL atelectasis has been unchanged, but may need outpatient assessment given persistence
ECHO results reviewed--normal study
-
Chronic anemia likely contributing to shortness of breath as well.
Would possibly benefit from psych eval, he has declined in the past
Flat affect noted-suspect some degree of depression.
-
Patient does not want to discuss CPAP/BiPAP issue any further. He is aware of the ramifications of untreated obstructive sleep apnea.
He will call back our office when ready to rediscuss.
Continue with current care as above.
Discussed with Dr. Choi.
At this point I will sign off

Diagnostic Data
Chest X-Ray:
CXR 08/14/2022: Findings likely representing volume loss with some chronic pleural/parenchymal changes in the left hemithorax
CXR 08/06/21 at Urgent Care: possible small left pleural effusion vs pleural parenchymal scarring at the left lung base.
CT Scan:
CT chest 03/25/2022: Stable exam. Chronic asymmetric volume loss involving the left hemithorax. Minor linear parenchymal scarring. Findings most consistent with stable peripheral round atelectasis.
CT Chest PE study 08/21/21: no PE. overall mild volume loss in the left hemithorax with areas of subsegmental atelectasis some of which are somewhat rounded in configuration, additional minor areas of left lung groundglass opacification, non specific.
Echo: 06/12/23- Technically difficult study - contrast used. Normal left ventricular size and systolic function. LV ejection fraction is 55-60%. No significant valvular disease. No prior study available for comparison.
PFT's: Terry 08/16/22: FVC 2.60/50%, FEV1 2.17/53%, ratio 84%, no significant BD response. Suggestive of moderate restrictive lung disease.
�������PFT 10/04/21: FVC 3.09/59%, FEV1 2.49/61%, ratio 81%, TLC 5.07/71%, DLCO 20.89/65%, DLCO/VA 4.38/97%. Moderate restriction and mildly reduced diffusing capacity.
�������[place] 09/07/21: FVC 2.98/55%, FEV1 2.36/56%, ratio 79%, no significant BD response, moderate restrictive pattern.
6 MWT:
������ 6MWT 08/16/22: At rest, O2 98% on room air, heart rate 95. With ambulation, O2 jesica 96%, max heart rate 119. 2/10 on dyspnea scale. Ambulated 900 feet.
�������6MWT 09/07/21: At rest, O2 99% on room air, HR 108. With ambulation, desaturation jesica 97% on room air, max HR 130. 4/10 on dyspnea scale. ambulated 1125 ft.
Subjective Data
-
Date of Service:
Date of Service: September 20, 2023
Chief Complaint: Pulmonary Follow Up and Dyspnea Follow Up
Subjective:
No new complaints
Exertional dyspnea continues to be present.
Review of Systems
Cardiopulmonary: Dyspnea and Dyspnea on Exertion
Objective Data
Data Reviewed
Vital Signs / I&O / Oxygen:
Vital Signs
Temp Pulse Resp BP Pulse Ox
97.7 F 91 20 141/85 98
09/20/23 07:35 09/20/23 08:16 09/20/23 07:35 09/20/23 08:16 09/20/23 07:35
Intake and Output
09/19/23 09/20/23 09/21/23
06:59 06:59 06:59
Intake Total 1320 / 1320 600 / 600
Output Total 480 / 480 1225 / 1225
Balance 840 / 840 -625 / -625
SaO2 98
Nasal Cannula flow liters per 4
minute
Physical Exam
General: Respiratory Distress (n) and Comfortable
HEENT: Normocephalic, Anicteric and Other (Large neck, petechial rash involving face)
Cardiovascular: Regular Rhythm, Murmur (n), Rub (n) and Peripheral Edema (Chronic lower extremity edema, 1-2+, dressing in place)
Respiratory: Wheeze (n), Crackles (n), Rhonchi (n) and Non-Labored Respirations
GI: Soft, Non Distended (Morbidly obese) and Non Tender
Neurology: Awake, Alert and No Motor Deficits (Able to sit up without assistance)
Skin: Warm, Good Color, Cyanosis (n) and Jaundice
Labs/Micro/Reports
Lab Data
09/20/23 06:27
09/20/23 06:27
--- NOTE | 2023-09-20 14:11 | CHAP ---
Mr. Rowley stated simply, 'I'm sick,' during our visit at 9:30 today. He was downcast, and not interested in sharing his thoughts. Emotional support provided. I assured him we care about him and are here for him, if he needs anything.
[2023-09-20] MEDS: LOVENOX 40 MG SC (17:03)
[2023-09-20] MEDS: DESENEX/MITRAZOL/ZEASORB TOPICAL (22:35)
[2023-09-20] MEDS: NEURONTIN PO (22:35)
[2023-09-20] MEDS: TYLENOL PO (22:36)
[2023-09-20] MEDS: SEROQUEL PO (22:36)
--- NOTE | 2023-09-20 22:37 | PTCARENOTE ---
pt extremely angry, yelling and screaming at RN regarding flluid restriction and POC. RN reviewed POC set by attending MD, patient screaming nothing is working, ' I want to drink, I will go and drink from the bathroom sink then' Pt states I feel
dehydrated and 'do you want me to fall? I will get up and throw myself on this floor then?' Attempted to calm patient without success, pt requesting to speak to HUMAN MACHINE INTERFACE ENGINEERLibertad came to see patient without resolution. Patient asking to speak to Nursing
Proof Plate Maker, Nursing dental laboratory supervisor at beside. Screaming can be heard from the room
--- NOTE | 2023-09-21 00:27 | W.PN.UPDATE ---
Update Note
Progress Note Update
Per nursing patient requested to speak to provider regarding plan of care. Upon visit patient reports being thirsty and feeling dizzy due fluid restriction, VSS. Explained the plan of care and importance of maintaining on fluid restriction. Patient
reports having pain to his BLLE, suggested elevating legs as much as possible. Patient not receptive to recommendations. Refused all medications over night. Patient asked this provider to leave. Nursing supervisor instant potato processing made awake of situation by RN.
[2023-09-21] MEDS: TYLENOL 1000 MG PO (02:34)
[2023-09-21 03:00] VITALS: BP 103/66
--- NOTE | 2023-09-21 03:34 | PTCARENOTE ---
patient continues to escalate regarding fluid restriction. patient screaming and cursing at staff and RN, repeatedly saying 'he is giving up, and he is going to end all this' Suicide questions reviewed with patient, pt denies wanting to harm himself
or hurt himself, pt screamed at RN that he was going to start throwing things and flipping the table and that 'things were going to start to get bad'. Attempted to calm patient and find solutions to his complaints, but everything that was offered to
patient, he refused. Patient states he' will just continue to drink the water from the bathroom sink' RN attempted to redirect and offer comforting words to patient without success
[2023-09-21 06:00] VITALS: BMI 55.8
--- NOTE | 2023-09-21 06:15 | PTCARENOTE ---
attempted multiple times during the night to change wound dressing and apply compression bandages to LE. Patient refused each time.
--- NOTE | 2023-09-21 06:33 | W.PN.HOSP.TC ---
Addendum entered and electronically signed by Beatrice Choi MD 09/21/23 18:16:
I saw and evaluated the patient independently. I reviewed the resident�s note and agree with findings and plan as documented by Dr. Mckeon.
GENERAL: super morbidly obese male with O2 in no apparent distress--sleeping with periods of apnea noted
HEENT: O2 NC in place 6L (3L chronic at home)
HEART: regular rate and rhythm, +S1, +S2
LUNGS : clear to auscultation bilaterally
ABDOM: soft, nontender, nondistended, + bowel sounds
EXT: no cyanosis, clubbing--4+ full body anasarca to level of nipples/chest
NEUROLOGIC: grossly intact--having trouble with ADLs due to edema and SOB
Acute on chronic lower extremity edema/anasarca--likely combination of acute on chronic HFpEF, lymphedema, KAEL leading to pulmonary HTN and essential HTN-- Diuresis, follow kidney function, leg elevation, sal wrap compression therapy--agree with PM
lasix dose ....(weight loss since admission 191kg to 176.5 = 31.9 lbs)--goal weight is 164kg--diet changed to 4 gm sodium and fluid restriction to 60 oz (at pt request)--may need Diamox as diuresis continues
acute on chronic hypoxemic (and presumed chronic hypercapnic with serum bicarb 35) resp failure due to KAEL and obesity hypoventilation syndrome--on 3L O2 at home 6L here--wean to keep pulse ox > 90%--cont diuresis and follow O2 requirements
Possible obstructive sleep apnea--Secondary to morbid obesity---NEEDS sleep study (pt says he was told he didn't qualify for outpt sleep study?)--apprec pulm--cont BiPAP in hospital--spoke with pulm, will try for CPAP at home at discharge--does not
wish to talk to anyone who brings it up
Essential Hypertension--Continue home antihypertensives with parameters
Anxiety/depression--Continue duloxetine, quetiapine
Chronic anemia---Unclear source but likely chronic disease-- iron studies consistent with chronic disease-- B12, folate both WNL
chronic wounds (POA)--left leg venous ulcer, venous open blisters on left posterior leg likely pressure related and POA--apprec wound care--pt likely will benefit from a bariatric bed (now doesn't like it)
DVT prophylaxis--Lovenox
CODE STATUS: Full code
pt very distrusting of the medical providers despite multiple attempts to educate patient re: his chronic conditions
Original Note:
Today's Communication/Plan
-
IV diuresis, follow renal function, replete potassium
Assessment / Plan
Assessment / Plan
IMPRESSION: 48-year-old male with morbid obesity, COPD, hypertension, chronic lymphedema, anxiety/depression who presents with shortness of breath and anasarca.
PLAN:
Acute on chronic respiratory failure:
Likely multifactorial- History of hypercapnic respiratory failure, on 3 L home O2, HFpEF, anasarca, Restrictive lung disease. Echo from June 2023 showed no systolic dysfunction and indeterminate diastolic function
lower extremity venous ultrasound: There is no evidence for deep venous thrombosis bilaterally
-Fluid restriction changed to 60oz, lower extremity elevation, low sodium diet changed to 4g
-GEORGE's, daily weights, Sal wraps.
-Mild wheezing on exam - DuoNebs treatment
-Continue IV diuresis 80mg BID, follow BMPs. Creatinine stable. Actively diuresing, 10kg loss since admission
-Appreciate cardiology, nephrology and pulmonology input
-PT/OT on board
-Wean O2 as tolerated, to keep O2 sat >90%
-Will likely need SNF upon discharge
Acute on chronic lower extremity edema/anasarca:
- Diurese, follow kidney function, elevation
-Sal wraps after some diuresis
Possible obstructive sleep apnea:
Secondary to morbid obesity. Observed loud snoring with apneic event upon entering patient room for physical exam. Patient did not qualify for home sleep study in outpt, will need in-lab study
-appreciate Pulmonology
-Bipap as patient tolerates
Urinary retention:
-Did not tolerate Corral due to pain. DEclined further caths at the time. NOW RESOLVED
-Will continue to monitor
Hypokalemia:
Potassium 3.0 today
� Replete
Left leg ulcer:
-Venous stasis ulcer. posterior LLL, serous discharge
-Wound care
Hypertension:
Continue diltiazem
Anxiety/depression:
-Continue duloxetine, quetiapine
-Psych consult if patient allows
Chronic anemia:
-Likely of chronic disease given iron studies. B12, folate normal
DVT prophylaxis:
Lovenox
CODE STATUS: Full code
Anticipated Discharge: > 48 hours
Subjective/Interval History
-
Date of Service: September 21, 2023
Pt requests loosening fluid restriction as he gets extremely thirsty and this discomfort affects his sleep
Pt would like increased calorie intake. Some food items were not delivered as he ordered because, possibly due to Na restiction.
Objective Data
-
Labs:
Laboratory Results
09/21/23
05:54
Sodium Pending
Potassium Pending
Chloride Pending
Carbon Dioxide Pending
BUN Pending
Creatinine Pending
Glucose Pending
Calcium Pending
Vital Signs:
Vital Signs
Temp Pulse Resp BP Pulse Ox
99.4 F 115 20 103/66 94
09/21/23 03:00 09/21/23 03:00 09/21/23 03:00 09/21/23 03:00 09/21/23 03:00
I&O
09/19/23 09/20/23 09/21/23
06:59 06:59 06:59
Intake Total 1320 / 1320 600 / 600 1440 / 1440
Output Total 480 / 480 1225 / 1225
Balance 840 / 840 -625 / -625 1440 / 1440
Review of Systems
-
History Source: Patient
Genitourinary: Denies Dysuria
Musculoskeletal: Reports Edema and Other (burning pain in LE)
Neuro: Reports Headache
Physical Exam
-
General: Comfortable
Respiratory: Clear to Auscultation and Non Labored Respirations; Negative Wheezes, Rales, Rhonchi or Crackles
Cardiac: Regular Rhythm and S1/S2; Negative Murmur or Rub
GI: Normal Bowel Sounds and Distended
Musculoskeletal: Edema, Right Lower Extrem (Severe, nonpitting) and Edema, Left Lower Extrem (Severe, nonpitting)
Neuro: Awake, Alert and Oriented
Psych: Other (Angry)
[2023-09-21 07:09] LABS: Blood Urea Nitrogen 24 mg/dl (9-20); Calcium 8.6 mg/dl (8.4-10.2); Chloride 87 mmol/L (98-107); Estimated Creatinine Clearance > 125 ml/min; Glucose 119 mg/dl (70-99); Sodium 138 mmol/L (135-145); eGFR > 60.00
[2023-09-21 07:20] LABS: Carbon Dioxide 42 mmol/L (22-30)
[2023-09-21 07:40] VITALS: BP 132/67
[2023-09-21 08:00] VITALS: BMI 55.8
[2023-09-21] MEDS: CARDIZEM CD 180 MG PO (08:04)
[2023-09-21] MEDS: LASIX 80 MG IV ×2 (08:05→17:00)
[2023-09-21] MEDS: NEURONTIN 100 MG PO (08:05)
[2023-09-21] MEDS: CYMBALTA DELAYED RELEASE 20 MG PO (08:05)
[2023-09-21] MEDS: KCL 40 MEQ PO ×2 (08:05→16:57)
[2023-09-21] MEDS: DESENEX/MITRAZOL/ZEASORB 1 APPLIC TOPICAL ×2 (08:08→21:15)
[2023-09-21] MEDS: AFRIN NASAL SPRAY NASAL ×2 (08:09→21:21)
--- NOTE | 2023-09-21 08:42 | W.PN.CD ---
Today's Communication / Plan
-
continue lasix 80mg IV bid
Impression / Plan
-
BACKGROUND: 48M with hypertension, inappropriate sinus tachycardia (64% burden), severe obesity, former smoker, bilateral lower extremity edema/lymphedema, depression, & restrictive lung disease, here with shortness of breath and lower extremity
edema.
Barbed Wire Machine Operator: Dr. Camargo
IMPRESSION/PLAN:
Shortness of breath, multifactorial in the setting of acute HFpEF, deconditioning, and morbid obesity - plan as below
HFpEF, acute on chronic: severe
-LVEF normal 06/2023
-Grossly volume overloaded on exam
-He was not on a diuretic at home, looks like compliance has been an issue
-He was 164 kg 08/13/2023 (this was a bed scale), this can be our goal if renal function allows
-Case management to barboza SGLT2i
-overall, he is prognosis is poor due to poor insight and medical non-compliance
-I tried to explain fluid restriction to him, to which he replied ' I don't care; I want to drink more.'
-continue lasix 80mg IV bid, with close monitoring of labs and tele
Sinus tachycardia with PVC's: stable, diagnosed with inappropriate sinus tachycardia as outpatient
-on CCB
-follow telemetry
Lower extremity edema/lymphedema, acute on chronic
Hypertension, follow BP with diuresis
Chronic hypercapnia
Rash, per primary
KAEL, supplemental nocturnal oxygen
Severe obesity, BMI >50
DATA:
Echocardiogram, 06/12/2023:
Technically difficult study - contrast used.
Normal left ventricular size and systolic function. LV ejection fraction is 55-60%.
No significant valvular disease.
Physical Exam
Vital Signs/Labs
Vital Signs
Temp Pulse Resp BP Pulse Ox
99.4 F 115 20 103/66 98
09/21/23 03:00 09/21/23 08:05 07/21/24 07:40 09/21/23 08:05 09/21/23 07:40
09/20/23 09/21/23 09/22/23
06:59 06:59 06:59
Actual Weight 180.122 kg 176.532 kg
09/20/23 06:27
09/21/23 05:54
Magnesium 2.3 mg/dl (1.6-2.3) 09/18/23 06:26
09/15/23
11:00
Oie-S-Awfbhbgyelt Pept 615
Physical Exam
Constitutional: No acute distress and Comfortable
EENT: Moist mucous membranes
Cardiovascular: Rhythm & rate is regular, Systolic murmur absent, Pedal edema present and JVD present
Respiratory: Respiratory effort normal and Lungs clear to auscul.
GI: Soft and Distention absent
Neuro/Psych: Oriented
Data Reviewed
-
Date of Service: September 21, 2023
EKG: Other (Tele: SR 90s, PVC's)
Labs: Labs Reviewed by me
[2023-09-21 11:35] VITALS: BP 133/73
[2023-09-21] MEDS: TYLENOL 650 MG PO ×3 (13:21→23:16)
[2023-09-21] MEDS: ULTRAM 50 MG PO ×3 (13:21→23:16)
[2023-09-21 15:40] VITALS: BP 135/80
[2023-09-21] MEDS: LOVENOX 40 MG SC (16:59)
[2023-09-21] MEDS: NEURONTIN 300 MG PO ×2 (17:03→21:16)
[2023-09-21 19:49] VITALS: BP 137/72
[2023-09-21] MEDS: SEROQUEL 25 MG PO (21:16)
[2023-09-21 23:46] VITALS: BP 137/76
[2023-09-22] VITALS (7 sets, daily range): BP systolic 122–164; BP diastolic 73–88; BMI 55.7
[2023-09-22] MEDS: TYLENOL 650 MG PO ×4 (05:12→23:30)
[2023-09-22] MEDS: ULTRAM 50 MG PO ×4 (05:12→23:30)
[2023-09-22 06:02] LABS: Mean Corp Hgb Conc. 29.4 g/dL (33.0-37.0); Mean Corpuscular Hgb 25.7 pg (27.0-31.0); Mean Corpuscular Volume 87.4 fL (80.0-94.0); Mean Platelet Volume 9.8 fL (7.4-10.4); Platelet Count 223 10^3/uL (130-400); Red Blood Cell Count 3.89 10^6/uL (4.70-6.10); Red Cell Dist. Width 16.3 % (11.5-14.5); White Blood Cell Count 15.8 10^3/uL (4.8-10.8)
[2023-09-22 06:27] LABS: Blood Urea Nitrogen 24 mg/dl (9-20); Calcium 8.7 mg/dl (8.4-10.2); Chloride 87 mmol/L (98-107); Estimated Creatinine Clearance > 125 ml/min; Glucose 120 mg/dl (70-99); Potassium 3.6 mmol/L (3.5-5.1); Sodium 138 mmol/L (135-145); eGFR > 60.00
[2023-09-22 06:37] LABS: Carbon Dioxide 41 mmol/L (22-30)
--- NOTE | 2023-09-22 07:46 | W.PN.HOSP.TC ---
Addendum entered and electronically signed by Judson Plummer MD 09/22/23 17:44:
I saw and evaluated the patient. I reviewed the resident�s note and agree with findings and plan as documented in the resident�s note.
cw IV diuresis
Cards input noted.
Add prn Atarax for ithcing relief .
Original Note:
Documented by User: Renay Mckeon MD, Resident 09/22/23 15:55
Today's Communication/Plan
-
IV diuresis
Assessment / Plan
Assessment / Plan
IMPRESSION: 48-year-old male with morbid obesity, COPD, hypertension, chronic lymphedema, anxiety/depression who presents with shortness of breath and anasarca.
PLAN:
Acute on chronic respiratory failure:
Likely multifactorial- History of hypercapnic respiratory failure, on 3 L home O2, HFpEF, anasarca, Restrictive lung disease. Echo from June 2023 showed no systolic dysfunction and indeterminate diastolic function
lower extremity venous ultrasound: There is no evidence for deep venous thrombosis bilaterally
-Fluid restriction changed to 60oz, lower extremity elevation, low sodium diet changed to 4g
-GEORGE's, daily weights, Sal wraps.
-Mild wheezing on exam - DuoNebs treatment
-Continue IV diuresis 80mg BID, follow BMPs. Creatinine stable. Actively diuresing, 14.1kg loss since admission. Cardiology to add metolazone if diuresis slows down
-Appreciate cardiology, nephrology and pulmonology input
-PT/OT on board
-Wean O2 as tolerated, to keep O2 sat >90%
-Will likely need SNF upon discharge
Acute on chronic lower extremity edema/anasarca:
- Diurese, follow kidney function, elevation
-Sal wraps after some diuresis
Possible obstructive sleep apnea:
Secondary to morbid obesity. Observed loud snoring with apneic event upon entering patient room for physical exam. Patient did not qualify for home sleep study in outpt, will need in-lab study
-appreciate Pulmonology
-Bipap as patient tolerates
Urinary retention:
-Did not tolerate Corral due to pain. DEclined further caths at the time. NOW RESOLVED
-Will continue to monitor
Hypokalemia:
Potassium 3.0 today
� Replete
Left leg ulcer:
-Venous stasis ulcer. posterior LLL, serous discharge
-Wound care
Hypertension:
Continue diltiazem
Anxiety/depression:
-Continue duloxetine, quetiapine
-Psych consult if patient allows
Chronic anemia:
-Likely of chronic disease given iron studies. B12, folate normal
DVT prophylaxis:
Lovenox
CODE STATUS: Full code
Anticipated Discharge: > 48 hours
Subjective/Interval History
-
Date of Service: September 22, 2023
Pt requests order to shower.
Pt expresses frustration about his care. He believes he is not being listened to. I tried to answer his questions but was unfortunately interrupted multiple times. When I tried to ascertain his understanding of his medical condition he got
frustrated and his tone and behavior escalated until I excused myself from the room. Unable to conduct physical exam.
Objective Data
-
Labs:
Laboratory Results
09/22/23
05:21
WBC 15.8 H
Hgb 10.0 L
Hct 34.0 L
Plt Count 223 D
Sodium 138
Potassium 3.6
Chloride 87 L
Carbon Dioxide 41 H
BUN 24 H
Creatinine 0.7
Glucose 120 H
Calcium 8.7
Vital Signs:
Vital Signs
Temp Pulse Resp BP Pulse Ox
97.9 F 109 22 149/73 95
09/22/23 03:26 09/22/23 03:26 09/22/23 03:26 09/22/23 03:26 09/22/23 03:26
I&O
09/21/23 09/22/23 09/23/23
06:59 06:59 06:59
Intake Total 2160 / 2160 1200 / 1200
Balance 2160 / 2160 1200 / 1200
Review of Systems
-
Unable to obtain full review of systems at this time due to: Other (see subjective above)
History Source: Patient
Constitutional: Reports Weight Gain
Musculoskeletal: Reports Edema (edema, severe, bilateral up to abdomen)
Physical Exam
-
General: Other (Please refer to Dr. Plummer's addendum for complete physical exam findings)
HEENT: Anicteric and Oxygen (nasal cannula)
Musculoskeletal: Edema, Right Lower Extrem and Edema, Left Lower Extrem
Neuro: Awake, Alert, Oriented and AO x 3
Psych: Agitated

Documented by User: Judson Plummer MD 09/22/23 17:42
Assessment / Plan
Assessment / Plan
IMPRESSION: 48-year-old male with morbid obesity, COPD, hypertension, chronic lymphedema, anxiety/depression who presents with shortness of breath and anasarca.
PLAN:
Acute on chronic respiratory failure:
Likely multifactorial- History of hypercapnic respiratory failure, on 3 L home O2, HFpEF, anasarca, Restrictive lung disease. Echo from June 2023 showed no systolic dysfunction and indeterminate diastolic function
lower extremity venous ultrasound: There is no evidence for deep venous thrombosis bilaterally
-Fluid restriction changed to 60oz, lower extremity elevation, low sodium diet changed to 4g
-GEORGE's, daily weights, Sal wraps.
-Continue IV diuresis 80mg BID, follow BMPs. Creatinine stable. Actively diuresing, 14.1kg loss since admission. Cardiology to add metolazone if diuresis slows down
-Appreciate cardiology, nephrology and pulmonology input
-PT/OT on board
-Wean O2 as tolerated, to keep O2 sat >90%
-Will likely need SNF upon discharge
Acute HFpEF
Acute on chronic lower extremity edema/anasarca:
- Diurese, follow kidney function, elevation
-Sal wraps after some diuresis
Possible obstructive sleep apnea:
Secondary to morbid obesity. Observed loud snoring with apneic event upon entering patient room for physical exam. Patient did not qualify for home sleep study in outpt, will need in-lab study
-appreciate Pulmonology
-Bipap as patient tolerates
Urinary retention:
-Did not tolerate Corral due to pain. DEclined further caths at the time. NOW RESOLVED
-Will continue to monitor
Left leg ulcer:
-Venous stasis ulcer. posterior LLL, serous discharge
-Wound care
Hypertension:
Continue diltiazem
Anxiety/depression:
-Continue duloxetine, quetiapine
-Psych consult if patient allows
Chronic anemia:
-Likely of chronic disease given iron studies. B12, folate normal
DVT prophylaxis:
Lovenox
CODE STATUS: Full code
--- NOTE | 2023-09-22 08:47 | W.PN.CD ---
Today's Communication / Plan
-
continue lasix 80mg IV bid
if diuresis slows down, we can try adding metolazone
Impression / Plan
-
BACKGROUND: 48M with hypertension, inappropriate sinus tachycardia (64% burden), severe obesity, former smoker, bilateral lower extremity edema/lymphedema, depression, & restrictive lung disease, here with shortness of breath and lower extremity
edema.
Executive Account Manager: Dr. Camargo
IMPRESSION/PLAN:
Shortness of breath, multifactorial in the setting of acute HFpEF, deconditioning, and morbid obesity - plan as below
HFpEF, acute on chronic: severe
-LVEF normal 06/2023
-Grossly volume overloaded on exam
-He was not on a diuretic at home, looks like compliance has been an issue
-He was 164 kg 08/13/2023 (this was a bed scale), this can be our goal if renal function allows
-continue lasix 80mg IV bid, with close monitoring of labs and tele
-if diuresis slows down, we can try adding metolazone
Sinus tachycardia with PVC's: stable, diagnosed with inappropriate sinus tachycardia as outpatient
-on CCB
-follow telemetry
Lower extremity edema/lymphedema, acute on chronic
-will benefit from lymphedema therapy/PT
Hypertension, follow BP with diuresis
Chronic hypercapnia
Rash, per primary
KAEL, supplemental nocturnal oxygen
Severe obesity, BMI >50
DATA:
Echocardiogram, 06/12/2023:
Technically difficult study - contrast used.
Normal left ventricular size and systolic function. LV ejection fraction is 55-60%.
No significant valvular disease.
Physical Exam
Vital Signs/Labs
Vital Signs
Temp Pulse Resp BP Pulse Ox
97.9 F 109 22 149/73 95
09/22/23 03:26 09/22/23 03:26 09/22/23 03:26 09/22/23 03:26 09/22/23 03:26
09/21/23 09/22/23 09/23/23
06:59 06:59 06:59
Actual Weight 176.532 kg 175.948 kg
09/22/23 05:21
09/22/23 05:21
Magnesium 2.3 mg/dl (1.6-2.3) 09/18/23 06:26
09/15/23
11:00
Lon-T-Vydxdnceicd Pept 615
Physical Exam
Constitutional: No acute distress
EENT: Moist mucous membranes
Cardiovascular: Rhythm & rate is regular, Systolic murmur absent, Pedal edema present and JVD present
Respiratory: Respiratory effort normal and Lungs clear to auscul.
GI: Soft and Distention absent
Neuro/Psych: AO x 3
Data Reviewed
-
Date of Service: September 22, 2023
EKG: Other (Tele: SR 90s, PVC's, brief SVT)
Labs: Labs Reviewed by me
[2023-09-22] MEDS: CYMBALTA DELAYED RELEASE 20 MG PO (09:35)
[2023-09-22] MEDS: NEURONTIN 300 MG PO ×3 (09:35→21:03)
[2023-09-22] MEDS: KCL 10 MEQ PO (09:35)
[2023-09-22] MEDS: CARDIZEM CD 180 MG PO (09:35)
[2023-09-22] MEDS: LASIX 80 MG IV ×2 (09:36→16:43)
[2023-09-22] MEDS: DESENEX/MITRAZOL/ZEASORB 1 APPLIC TOPICAL ×2 (09:39→21:03)
--- NOTE | 2023-09-22 15:38 | CM ---
Reviewed the chart notes. CM continues to be available to patient/family and is monitoring medical plan for needs at discharge.
Plan: Discharge plans will depend on the patient's progress and insurance.
--- NOTE | 2023-09-22 16:32 | WOUNDNOTE ---
WOC RN note: RN Birgit stated patient is not using the rental bariatric air bed ([place] 1000 with bariatric Comfort 4 air bed) therefore nursing removed the rental air bed and placed back the bariatric Total care air bed in his room. Birgit stated
he is sleeping in the bariatric recliner chair. t/c spoke with Laura from [facility] and asked them to warp picker the bed/stop rental (ref #[id number]).
[2023-09-22] MEDS: LOVENOX 40 MG SC (17:42)
[2023-09-22] MEDS: SEROQUEL 25 MG PO (21:03)
[2023-09-22] MEDS: ATARAX 25 MG PO (21:07)
[2023-09-23] VITALS (7 sets, daily range): BP systolic 138–153; BP diastolic 73–85; O2SAT 95; BMI 55.6
[2023-09-23] MEDS: ULTRAM 50 MG PO ×4 (05:07→23:29)
[2023-09-23] MEDS: TYLENOL 650 MG PO ×4 (05:07→23:29)
--- NOTE | 2023-09-23 05:17 | PTCARENOTE ---
No urine output this shift. Bladder scan = 124.
[2023-09-23 06:31] LABS: Blood Urea Nitrogen 24 mg/dl (9-20); Calcium 8.4 mg/dl (8.4-10.2); Chloride 86 mmol/L (98-107); Estimated Creatinine Clearance > 125 ml/min; Glucose 118 mg/dl (70-99); Potassium 3.5 mmol/L (3.5-5.1); Sodium 136 mmol/L (135-145); eGFR > 60.00
[2023-09-23 06:41] LABS: Carbon Dioxide 39 mmol/L (22-30)
--- NOTE | 2023-09-23 06:42 | PTCARENOTE ---
Pt ambulated to BR and had a moderate amount of urine. Very MOORE returning to the chair. Pox 84% on 5L. Pt did recover to 93%.
--- NOTE | 2023-09-23 06:43 | PTCARENOTE ---
Pt c/o feeling hot and SOB. Temp 99.0 pox 92% on 3L HR 109 RR 28. Lung sounds decreased. HUMAN RESOURCES ADMIN made aware.
[2023-09-23] MEDS: DUONEB 3 ML INH (07:02)
[2023-09-23] MEDS: KCL 10 MEQ PO (07:27)
[2023-09-23] MEDS: NEURONTIN 300 MG PO ×3 (07:27→21:37)
[2023-09-23] MEDS: CYMBALTA DELAYED RELEASE 20 MG PO (07:27)
[2023-09-23] MEDS: LASIX 80 MG IV ×2 (07:29→15:16)
[2023-09-23] MEDS: CARDIZEM CD 180 MG PO (07:31)
[2023-09-23] MEDS: DESENEX/MITRAZOL/ZEASORB 1 APPLIC TOPICAL ×2 (07:36→21:37)
--- NOTE | 2023-09-23 09:02 | W.PN.CD ---
Today's Communication / Plan
-
Low grade temp up to 100.7/- currently 99
- CXR
- assessment of leg wound by primary team.
- reviewed with Dr Plummer who will assess etiology of tempt
.
continue current diuretic. weight reductio has slowed
Impression / Plan
-
BACKGROUND: 48M with hypertension, inappropriate sinus tachycardia (64% burden), severe obesity, former smoker, bilateral lower extremity edema/lymphedema, depression, & restrictive lung disease, here with shortness of breath and lower extremity
edema.
College Associate: Dr. Camargo
IMPRESSION/PLAN:
Shortness of breath, multifactorial in the setting of acute HFpEF, deconditioning, and morbid obesity - plan as below
HFpEF, acute on chronic: severe
-LVEF normal 06/2023
-Grossly volume overloaded on exam
-He was not on a diuretic at home, looks like compliance has been an issue
-He was 164 kg 08/13/2023 (this was a bed scale), this can be our goal if renal function allows
-continue lasix 80mg IV bid, with close monitoring of labs and tele
increased O2
- CXR
.
Low grade temp up to 100.7//- currently 99
- CXR
- assessment of leg wound by primary team.
Sinus tachycardia with PVC's: stable, diagnosed with inappropriate sinus tachycardia as outpatient
-on CCB
-follow telemetry
Lower extremity edema/lymphedema, acute on chronic
-will benefit from lymphedema therapy/PT
Hypertension, follow BP with diuresis
Chronic hypercapnia
Rash, per primary
KAEL, supplemental nocturnal oxygen
Severe obesity, BMI >50
DATA:
Echocardiogram, 06/12/2023:
Technically difficult study - contrast used.
Normal left ventricular size and systolic function. LV ejection fraction is 55-60%.
No significant valvular disease.
Physical Exam
Vital Signs/Labs
Vital Signs
Temp Pulse Resp BP Pulse Ox
99.2 F 104 18 141/84 95
09/23/23 07:50 09/23/23 07:50 09/23/23 07:50 09/23/23 07:50 09/23/23 07:50
09/22/23 09/23/23 09/24/23
06:59 06:59 06:59
Actual Weight 175.948 kg 175.631 kg
09/22/23 05:21
09/23/23 05:46
Magnesium 2.3 mg/dl (1.6-2.3) 09/18/23 06:26
09/15/23
11:00
Jmt-Z-Cqxzzhzytvc Pept 615
Physical Exam
Constitutional: No acute distress
EENT: Anicteric
Cardiovascular: Rhythm & rate is regular
Respiratory: Respiratory effort normal, Wheeze Absent and Rhonchi Absent
GI: Soft
Neuro/Psych: Alert
Data Reviewed
-
Date of Service: September 23, 2023
Medical Decision Making: Reviewed Test Results
Echo: Report Reviewed by me
Medical Tests (PFT, Pathology etc): Report Reviewed by me
Labs: Labs Reviewed by me
--- NOTE | 2023-09-23 14:53 | W.PN.HOSP.TC ---
Today's Communication/Plan
-
CW IV lasix
Consider adding Metalozone
Start on emp zosyn
Add procalcitonin
Assessment / Plan
Assessment / Plan
IMPRESSION: 48-year-old male with morbid obesity, COPD, hypertension, chronic lymphedema, anxiety/depression who presents with shortness of breath and anasarca.
PLAN:
Acute on chronic respiratory failure:
Likely multifactorial- History of hypercapnic respiratory failure, on 3 L home O2, HFpEF, anasarca, Restrictive lung disease. Echo from June 2023 showed no systolic dysfunction and indeterminate diastolic function
lower extremity venous ultrasound: There is no evidence for deep venous thrombosis bilaterally
-GEORGE's, daily weights, Sal wraps.
-Continue IV diuresis 80mg BID, follow BMPs. Creatinine stable. Actively diuresing, 14.1kg loss since admission. Cardiology to add metolazone .
-Appreciate cardiology, nephrology and pulmonology input
-PT/OT on board
-Wean O2 as tolerated, to keep O2 sat >90%
-Will likely need SNF upon discharge
-Patient remains hypoxic with 6 L of oxygen requirement. Repeat chest x-ray shows persistent pulmonary edema. Suspect still fluid but rule out pneumonia. He has low grade fevers now. Cough is present now. Check a procalcitonin. Started on
empirical antibiotics with Zosyn for now. Follow clinical progress.
Acute HFpEF
Acute on chronic lower extremity edema/anasarca:
- Diurese, follow kidney function, elevation
-Sal wraps after some diuresis
Possible obstructive sleep apnea:
Secondary to morbid obesity. Observed loud snoring with apneic event upon entering patient room for physical exam. Patient did not qualify for home sleep study in outpt, will need in-lab study
-appreciate Pulmonology
-Bipap as patient tolerates
Urinary retention:
-Did not tolerate Corral due to pain. Declined further cath at the time. NOW RESOLVED
-Will continue to monitor
Left leg ulcer:
-Venous stasis ulcer. posterior LLL, serous discharge
-Wound care
Hypertension:
Continue diltiazem
Anxiety/depression:
-Continue duloxetine, quetiapine
-Psych consult if patient allows
Chronic anemia:
-Likely of chronic disease given iron studies. B12, folate normal
DVT prophylaxis:
Lovenox
CODE STATUS: Full code
DW Cardiology today
Anticipated Discharge: > 48 hours
Subjective/Interval History
-
Date of Service: September 23, 2023
Remains SOB
No chest pain
Having cough but not much productive phlegm. No sore throat. Had a fever yesterday which he states he felt it. He had some chills.
Denies any nausea vomiting or diarrhea.
Denies any dysuria.
Denies any more leg swelling. He feels his legs are tight from the fluid.
Objective Data
-
Labs:
Laboratory Results
09/23/23
05:46
Sodium 136
Potassium 3.5
Chloride 86 L
Carbon Dioxide 39 H
BUN 24 H
Creatinine 0.8
Glucose 118 H
Calcium 8.4
Vital Signs:
Vital Signs
Temp Pulse Resp BP Pulse Ox
98.9 F 105 20 142/73 95
09/23/23 11:36 09/23/23 11:36 09/23/23 11:36 09/23/23 11:36 09/23/23 11:36
I&O
09/22/23 09/23/23 09/24/23
06:59 06:59 06:59
Intake Total 1200 / 1200 1869
Balance 1200 / 1200 1869
Review of Systems
-
Constitutional: Reports Fever and Chills
EENT: Denies Sore Throat
Respiratory: Reports Cough; Denies Trouble Breathing
Cardiac: Denies Chest Pain
Neuro: Denies Dizzy
Physical Exam
-
General: No Apparent Distress
HEENT: Moist Mucous Membranes
Respiratory: Crackles (BL basal area) and Non Labored Respirations; Negative Wheezes or Accessory Resp Muscle Use
Cardiac: Regular Rhythm and S1/S2
GI: Soft and Other (obese)
Musculoskeletal: Edema, Right Lower Extrem and Edema, Left Lower Extrem (Posterior calf area with 2 small areas of wound with serosanguineous fluid. No acute tenderness over the area nor increased warmth. Doubt clinically cellulitis)
Neuro: AO x 3
Psych: Calm
Data Reviewed
-
Labs: Labs Reviewed by me
[2023-09-23] MEDS: ZOSYN 50 IV ×2 (15:16→21:36)
--- NOTE | 2023-09-23 15:20 | WOUNDNOTE ---
R POSTERIOR LOWER LEG
--- NOTE | 2023-09-23 15:21 | WOUNDNOTE ---
ANTONIO RN NOTE: Followed up today regarding healing venous ulcer on L posterior leg. (* Documented wrong location of wound in picture uploaded today.) Last seen had 2 open venous ulcers now has only one, slightly deeper with scant non adherent slough.
Chronic redness and dry skin both legs. Patient able to stand up using walker for a short period of time. Patient reports he has been sitting in recliner chair day and night. Refusing to use bed due to difficulty breathing in bed. Refusing to
elevate legs while in chair, complains legs become too painful. Sal wraps removed this morning to assess legs and patient refused for this copy writer to re apply. Patient states can apply at night time since sal wrap removed during the day. Instructed
patient that sal wraps are needed daily and can remove to change dressing in am then re apply sal wraps. Encouraged leg elevation when sitting. Patient remains noncompliant with leg elevation and sal wraps during the day while legs are dependent. No
changes recommended with wound care, will follow as needed. Patient to follow up with lymphedema clinic upon discharge once wound healed.
--- NOTE | 2023-09-23 15:41 | CM ---
Reviewed the chart notes and spoke with the patient at the bedside. Patient is now on 6L/min O2. Continues with IV Lasix BID. CM continues to be available to patient/family and is monitoring medical plan for needs at discharge.
Plan: Discharge plans will depend on the patient's progress.
[2023-09-23] MEDS: LOVENOX 40 MG SC (17:38)
[2023-09-23] MEDS: FLUSH (NSS) 2 FLUSH IV (21:36)
[2023-09-23] MEDS: SEROQUEL 25 MG PO (21:37)
[2023-09-24 03:18] VITALS: BP 136/78
[2023-09-24] MEDS: FLUSH (NSS) 2 FLUSH IV (04:08)
[2023-09-24] MEDS: ZOSYN 50 IV ×4 (04:08→21:52)
[2023-09-24 06:00] VITALS: BMI 55.4
[2023-09-24] MEDS: ULTRAM 50 MG PO ×3 (06:01→17:09)
[2023-09-24] MEDS: TYLENOL 650 MG PO ×3 (06:01→17:08)
[2023-09-24 08:00] VITALS: BMI 55.4
[2023-09-24 08:02] LABS: Hematocrit 32.7 % (39.0-52.0); Hemoglobin 9.5 g/dL (13.0-18.0); Mean Corp Hgb Conc. 29.1 g/dL (33.0-37.0); Mean Corpuscular Hgb 25.1 pg (27.0-31.0); Mean Corpuscular Volume 86.3 fL (80.0-94.0); Mean Platelet Volume 9.8 fL (7.4-10.4); Platelet Count 182 10^3/uL (130-400); Red Blood Cell Count 3.79 10^6/uL (4.70-6.10); Red Cell Dist. Width 16.3 % (11.5-14.5); White Blood Cell Count 10.3 10^3/uL (4.8-10.8)
[2023-09-24 08:11] LABS: ALT (SGPT) 20 U/L (0-50); AST (SGOT) 27 U/L (17-59); Albumin 3.8 g/dl (3.5-5.0); Alkaline Phosphatase 76 U/L (38-126); Blood Urea Nitrogen 24 mg/dl (9-20); Calcium 8.1 mg/dl (8.4-10.2); Chloride 85 mmol/L (98-107); Estimated Creatinine Clearance > 125 ml/min; Glucose 125 mg/dl (70-99); Potassium 3.4 mmol/L (3.5-5.1); Sodium 137 mmol/L (135-145); Total Bilirubin 1.1 mg/dl (0.2-1.3); Total Protein 6.8 g/dl (6.3-8.2); eGFR > 60.00
[2023-09-24 08:21] LABS: Carbon Dioxide 41 mmol/L (22-30)
[2023-09-24] MEDS: CARDIZEM CD 180 MG PO (09:27)
[2023-09-24] MEDS: KCL 10 MEQ PO (09:27)
[2023-09-24] MEDS: CYMBALTA DELAYED RELEASE 20 MG PO (09:27)
[2023-09-24] MEDS: DESENEX/MITRAZOL/ZEASORB 1 APPLIC TOPICAL ×2 (09:27→20:43)
[2023-09-24] MEDS: NEURONTIN 300 MG PO ×3 (09:27→21:51)
[2023-09-24] MEDS: LASIX 80 MG IV ×2 (09:28→17:09)
--- NOTE | 2023-09-24 11:01 | CM ---
Reviewed the chart notes and spoke with the patient at bedside and father via telephone. Patient's father expressed frustration with regards to the patient's ongoing health issues. Patient's father requesting attending update him as to why the
patient is still having these issues. TT to attending regarding call. Left message with [facility] regarding medicaid the patient is requesting to sign up for. The patient currently has insurance until the end of the month. Discussed with the patient
going on to the [facility] and apply for insurance. Discussed with the patient and father that insurance on the [facility] is based on income, not 40lKs, bank accounts, IRAs, etc. Patient may be able to obtain insurance at a
very low rate or of no cost to the patient. Patient's father was under impression that would acquire insurance for the patient. CM explained this needs to be completed by either the patient or family member, not CM. CM continues to be
available to patient/family and is monitoring medical plan for needs at discharge.
Plan: Discharge plans will depend on the patient's progress. Patient is currently on 6L/min O2. RN in process of attempting to wean to a lower rate as patient is able to tolerate.
[2023-09-24 11:20] VITALS: BP 158/88
[2023-09-24 11:39] VITALS: PULSE 98; O2SAT 98
[2023-09-24] MEDS: ZAROXOLYN 2.5 MG PO (13:22)
[2023-09-24 14:47] LABS: NT-proBNP 318 pg/ml
--- NOTE | 2023-09-24 15:41 | W.PN.HOSP.TC ---
Today's Communication/Plan
-
CW IV lasix
Add Metolazone
CW ABX
Wean O2 as able
Assessment / Plan
Assessment / Plan
IMPRESSION: 48-year-old male with morbid obesity, COPD, hypertension, chronic lymphedema, anxiety/depression who presents with shortness of breath and anasarca.
PLAN:
Acute on chronic respiratory failure:
Likely multifactorial- History of hypercapnic respiratory failure, on 3 L home O2, HFpEF, anasarca, Restrictive lung disease. Echo from June 2023 showed no systolic dysfunction and indeterminate diastolic function
lower extremity venous ultrasound: There is no evidence for deep venous thrombosis bilaterally
-Continue to treat his medical condition and wean oxygen as able.
Possible pneumonia -Patient remains hypoxic with 6 L of oxygen requirement. Repeat chest x-ray shows persistent pulmonary edema. Suspect still fluid but cant rule out pneumonia- He has low grade fevers now,leukocytosis, Cough is present now.
procalcitonin elevated . Started on empirical antibiotics with Zosyn . Follow clinical progress -resolved fevers. Improved leukocytosis. Check COVID-19. Continue with Zosyn.
Acute HFpEF
Acute on chronic lower extremity edema/anasarca:
- Diurese, follow kidney function, elevation. Add metolazone as not much progress with diuresis. Follow BMP tomorrow.
-Sal wraps after some diuresis
Possible obstructive sleep apnea:
Secondary to morbid obesity. Observed loud snoring with apneic event upon entering patient room for physical exam. Patient did not qualify for home sleep study in outpt, will need in-lab study
-appreciate Pulmonology
-Bipap as patient tolerates
Urinary retention:
-Did not tolerate Corral due to pain. Declined further cath at the time. NOW RESOLVED
-Will continue to monitor
Left leg ulcer:
-Venous stasis ulcer. posterior LLL, serous discharge
-Wound care
Hypertension:
Continue diltiazem
Anxiety/depression:
-Continue duloxetine, quetiapine
-Psych consult if patient allows
Chronic anemia:
-Likely of chronic disease given iron studies. B12, folate normal
DVT prophylaxis:
Lovenox
CODE STATUS: Full code
DW Cardiology today about adding Metolazone.
Anticipated Discharge: > 48 hours
Subjective/Interval History
-
Date of Service: September 24, 2023
Patient still with exertional shortness of breath. At rest he is okay. Requiring 6 L of oxygen. Still with a lot of lower extremity edema.
No fever or chills. Cough improved.
Denies any dysuria or diarrhea.
Objective Data
-
Labs:
Laboratory Results
09/24/23
07:36
WBC 10.3
Hgb 9.5 L
Hct 32.7 L
Plt Count 182
Sodium 137
Potassium 3.4 L
Chloride 85 L
Carbon Dioxide 41 H
BUN 24 H
Creatinine 0.8
Glucose 125 H
Calcium 8.1 L
Total Bilirubin 1.1
AST 27
ALT 20
Alkaline Phosphatase 76
Vital Signs:
Vital Signs
Temp Pulse Resp BP Pulse Ox
98.5 F 102 16 158/88 95
09/24/23 11:20 09/24/23 13:22 09/24/23 11:20 09/24/23 13:22 09/24/23 11:20
I&O
09/23/23 09/24/23 09/25/23
06:59 06:59 06:59
Intake Total 1869 / 1649
Balance 1869
Review of Systems
-
Constitutional: Denies Fever
EENT: Denies Sore Throat
Respiratory: Reports Trouble Breathing
Cardiac: Denies Chest Pain
Abdomen/GI: Denies Abdominal Pain, Nausea or Vomiting
Neuro: Denies Dizzy
Physical Exam
-
General: Comfortable
HEENT: Moist Mucous Membranes
Respiratory: Crackles (few in right base) and Non Labored Respirations; Negative Wheezes or Accessory Resp Muscle Use
Cardiac: Regular Rhythm and S1/S2
GI: Soft
Musculoskeletal: Edema, Right Lower Extrem, Edema, Left Lower Extrem and Other (both legs in dressing)
Neuro: AO x 3
Psych: Calm
Data Reviewed
-
Labs: Labs Reviewed by me
[2023-09-24 15:50] VITALS: BP 141/81
--- NOTE | 2023-09-24 16:24 | W.PN.CD ---
Today's Communication / Plan
-
-Patient given metolazone today 2.5 mg in addition to Lasix that is given. Continue to monitor response and monitor renal function closely.
-Monitor temps. Currently afebrile
-COVID test has been ordered.
Impression / Plan
-
BACKGROUND: 48M with hypertension, inappropriate sinus tachycardia (64% burden), severe obesity, former smoker, bilateral lower extremity edema/lymphedema, depression, & restrictive lung disease, here with shortness of breath and lower extremity
edema.
[employer] Worker: Dr. Camargo
IMPRESSION/PLAN:
Shortness of breath, multifactorial in the setting of acute HFpEF, deconditioning, and morbid obesity - plan as below
HFpEF, acute on chronic: severe
-LVEF normal 06/2023
-Grossly volume overloaded on exam
-He was not on a diuretic at home, looks like compliance has been an issue
-He was 164 kg 08/13/2023 (this was a bed scale), this can be our goal if renal function allows
- Down approximately 10 kg this admission but still off about 10 kg from 08/13/2023. He has been diuresed cautiously due to previous issues with rising creatinine. Slow diuresis had been recommended by nephrology. It appeared his diuresis and
weights have plateaued patient was given metolazone today will continue to monitor response.
-continue lasix 80mg IV bid, with close monitoring of labs and tele
increased O2
- CXR Again showed increased markings suggesting pulmonary edema. Continue diuresis. Patient also had low-grade temp. No focal pneumonia reported on chest x-ray patient does have some leg wounds. Evaluation by primary team. COVID also was
ordered
.
Low grade temp up to 100.-09/21/22- currently 99
- Currently afebrileEvaluation and treatment being directed by Dr. Plummer
Sinus tachycardia with PVC's: stable, diagnosed with inappropriate sinus tachycardia as outpatient
-on CCB
-follow telemetry
Lower extremity edema/lymphedema, acute on chronic
-will benefit from lymphedema therapy/PT
Hypertension, follow BP with diuresis
Chronic hypercapnia
Rash, per primary
KAEL, supplemental nocturnal oxygen
Severe obesity, BMI >50
DATA:
Echocardiogram, 06/12/2023:
Technically difficult study - contrast used.
Normal left ventricular size and systolic function. LV ejection fraction is 55-60%.
No significant valvular disease.
Physical Exam
Vital Signs/Labs
Vital Signs
Temp Pulse Resp BP Pulse Ox
98.5 F 100 18 141/81 98
09/24/23 15:50 09/24/23 15:50 09/24/23 15:50 09/24/23 15:50 09/24/23 15:50
09/23/23 09/24/23 09/25/23
06:59 06:59 06:59
Actual Weight 175.631 kg 175.268 kg
09/24/23 07:36
09/24/23 07:36
Magnesium 2.3 mg/dl (1.6-2.3) 09/18/23 06:26
09/15/23 09/24/23
11:00 07:36
Vtf-G-[id number] Pept [phone]
Physical Exam
Cardiovascular: Rhythm & rate is regular
Respiratory: Respiratory effort normal
Neuro/Psych: Alert
Other: Other (Legs are wrapped. He has abdominal wall and sacral edema)
Data Reviewed
-
Date of Service: September 24, 2023
Medical Decision Making: Reviewed Test Results
EKG: Report Reviewed by me
X-Ray/CT/US/MRI/NUC/PET: Discussed with Patient
Medical Tests (PFT, Pathology etc): Report Reviewed by me
Labs: Labs Reviewed by me
[2023-09-24 16:59] LABS: COVID-19 Antigen Negative (Negative)
[2023-09-24] MEDS: LOVENOX 40 MG SC (17:10)
--- NOTE | 2023-09-24 17:56 | PTCARENOTE ---
Education on Fluid restrictions continued today throughout shift. Patient stated that he had no further questions on cup sizes fluid ounces or ml. Pt. aware of 1800 ml fluid restriction and that this includes ice, beverages, and any liquids on his
meal trays.
[2023-09-24 19:50] VITALS: BP 136/71
[2023-09-24] MEDS: SEROQUEL 25 MG PO (21:51)
[2023-09-24 23:28] VITALS: BP 134/73
[2023-09-25] VITALS (7 sets, daily range): BP systolic 92–155; BP diastolic 31–76; BMI 54.4
[2023-09-25] MEDS: ULTRAM 50 MG PO ×5 (00:10→23:22)
[2023-09-25] MEDS: TYLENOL 650 MG PO ×5 (00:10→23:21)
[2023-09-25] MEDS: ZOSYN 50 IV ×4 (03:30→21:49)
[2023-09-25 08:00] LABS: Hematocrit 32.3 % (39.0-52.0); Hemoglobin 9.4 g/dL (13.0-18.0); Mean Corp Hgb Conc. 29.1 g/dL (33.0-37.0); Mean Corpuscular Hgb 25.1 pg (27.0-31.0); Mean Corpuscular Volume 86.1 fL (80.0-94.0); Mean Platelet Volume 10.2 fL (7.4-10.4); Platelet Count 202 10^3/uL (130-400); Red Blood Cell Count 3.75 10^6/uL (4.70-6.10); White Blood Cell Count 9.3 10^3/uL (4.8-10.8)
--- NOTE | 2023-09-25 08:49 | W.PN.CD ---
Today's Communication / Plan
-
continue lasix 80mg IV bid
metolazone prior to PM lasix today
Impression / Plan
-
BACKGROUND: 48M with hypertension, inappropriate sinus tachycardia (64% burden), severe obesity, former smoker, bilateral lower extremity edema/lymphedema, depression, & restrictive lung disease, here with shortness of breath and lower extremity
edema.
Principal Investigator: Dr. Camargo
IMPRESSION/PLAN:
Shortness of breath, multifactorial in the setting of acute HFpEF, deconditioning, and morbid obesity - plan as below
HFpEF, acute on chronic: severe
-LVEF normal 06/2023
-Grossly volume overloaded on exam
-He was not on a diuretic at home, looks like compliance has been an issue
-He was 164 kg 08/13/2023 (this was a bed scale), this can be our goal if renal function allows
- Down approximately 20 kg this admission so far, but still more to go
-continue lasix 80mg IV bid, with close monitoring of labs and tele
-metolazone prior to PM lasix today
increased O2
- CXR Again showed increased markings suggesting pulmonary edema. Continue diuresis. Patient also had low-grade temp. No focal pneumonia reported on chest x-ray patient does have some leg wounds. Evaluation by primary team. DANIEL also was
ordered
Low grade temp up to 100.6 on 09/21, and now afebrile
- Abx per hospitalist
Sinus tachycardia with PVC's: stable, diagnosed with inappropriate sinus tachycardia as outpatient
-on CCB
-follow telemetry
Lower extremity edema/lymphedema, acute on chronic
-will benefit from lymphedema therapy/PT
Hypertension, follow BP with diuresis
Chronic hypercapnia
Rash, per primary
KAEL, supplemental nocturnal oxygen
Severe obesity, BMI >50
DATA:
Echocardiogram, 06/12/2023:
Technically difficult study - contrast used.
Normal left ventricular size and systolic function. LV ejection fraction is 55-60%.
No significant valvular disease.
Physical Exam
Vital Signs/Labs
Vital Signs
Temp Pulse Resp BP Pulse Ox
98.1 F 96 22 113/65 96
09/25/23 03:26 09/25/23 03:26 09/25/23 03:26 09/25/23 03:26 09/25/23 03:26
09/24/23 09/25/23 09/26/23
06:59 06:59 06:59
Actual Weight 175.268 kg 171.912 kg
09/25/23 07:37
Magnesium 2.3 mg/dl (1.6-2.3) 09/18/23 06:26
09/15/23 09/24/23
11:00 07:36
Xnz-D-Jptjylowjtx Pept [phone]
Physical Exam
Constitutional: No acute distress
EENT: Moist mucous membranes
Cardiovascular: Rhythm & rate is regular, Systolic murmur absent, Pedal edema present and JVD present
Respiratory: Respiratory effort normal and Lungs clear to auscul.
GI: Soft and Distention absent
Neuro/Psych: Oriented
Data Reviewed
-
Date of Service: September 25, 2023
EKG: Other (Tele: SR/ST 95-105)
Labs: Labs Reviewed by me
[2023-09-25] MEDS: CARDIZEM CD 180 MG PO (09:03)
[2023-09-25] MEDS: CYMBALTA DELAYED RELEASE 20 MG PO (09:03)
[2023-09-25] MEDS: NEURONTIN 300 MG PO ×3 (09:03→21:48)
[2023-09-25] MEDS: LASIX 80 MG IV ×2 (09:04→17:34)
[2023-09-25] MEDS: KCL 10 MEQ PO (09:04)
[2023-09-25] MEDS: DESENEX/MITRAZOL/ZEASORB 1 APPLIC TOPICAL ×2 (09:08→19:57)
[2023-09-25 09:44] LABS: Blood Urea Nitrogen 24 mg/dl (9-20); Calcium 8.5 mg/dl (8.4-10.2); Chloride 81 mmol/L (98-107); Estimated Creatinine Clearance > 125 ml/min; Glucose 114 mg/dl (70-99); Potassium 3.5 mmol/L (3.5-5.1); Sodium 136 mmol/L (135-145); eGFR > 60.00
[2023-09-25 09:54] LABS: Carbon Dioxide 46 mmol/L (22-30)
--- NOTE | 2023-09-25 13:38 | W.PN.HOSP.TC ---
Today's Communication/Plan
-
CW IV diuresis
Wean O2 as able
Assessment / Plan
Assessment / Plan
IMPRESSION: 48-year-old male with morbid obesity, COPD, hypertension, chronic lymphedema, anxiety/depression who presents with shortness of breath and anasarca.
PLAN:
Acute on chronic respiratory failure:
Likely multifactorial- History of hypercapnic respiratory failure, on 3 L home O2, HFpEF, anasarca, Restrictive lung disease. Echo from June 2023 showed no systolic dysfunction and indeterminate diastolic function
lower extremity venous ultrasound: There is no evidence for deep venous thrombosis bilaterally
-Continue to treat his medical condition and wean oxygen as able.
Possible pneumonia -Patient remains hypoxic with 6 L of oxygen requirement. Repeat chest x-ray shows persistent pulmonary edema. Suspect still fluid but cant rule out pneumonia- He has low grade fevers now,leukocytosis, Cough is present now.
procalcitonin elevated . Started on empirical antibiotics with Zosyn . Follow clinical progress -resolved fevers. Improved leukocytosis. Neg COVID-19. Non bacteremic. Continue with Zosyn.
Acute HFpEF
Acute on chronic lower extremity edema/anasarca:
- Diurese, follow kidney function, elevation. Added metolazone with good response.
- Cards following.
-Sal wraps after some diuresis
Possible obstructive sleep apnea:
Secondary to morbid obesity. Observed loud snoring with apneic event upon entering patient room for physical exam. Patient did not qualify for home sleep study in outpt, will need in-lab study
-appreciate Pulmonology
-Bipap - he continues to refuse it so it was dced.
Urinary retention:
-Did not tolerate Corral due to pain. Declined further cath at the time. NOW RESOLVED
-Will continue to monitor
Left leg ulcer:
-Venous stasis ulcer. posterior LLL, serous discharge
-Wound care
Hypertension:
Continue diltiazem
Anxiety/depression:
-Continue duloxetine, quetiapine
-Psych consult if patient allows
Chronic anemia:
-Likely of chronic disease given iron studies. B12, folate normal
DVT prophylaxis:
Lovenox
CODE STATUS: Full code
Anticipated Discharge: > 48 hours
Subjective/Interval History
-
Date of Service: September 25, 2023
He had good weight loss with metolazone but he still feels short of breath with exertion and he is not seeing big improvement yet despite 42 lbs.
Objective Data
-
Labs:
Laboratory Results
09/25/23
07:37
WBC 9.3
Hgb 9.4 L
Hct 32.3 L
Plt Count 202
Sodium 136
Potassium 3.5
Chloride 81 L
Carbon Dioxide 46 H
BUN 24 H
Creatinine 0.9
Glucose 114 H
Calcium 8.5
Vital Signs:
Vital Signs
Temp Pulse Resp BP Pulse Ox
97.8 F 100 22 155/74 96
09/25/23 11:47 09/25/23 11:47 09/25/23 11:47 09/25/23 11:47 09/25/23 11:47
I&O
09/24/23 09/25/23 09/26/23
06:59 06:59 06:59
Intake Total 1649
Balance 1649
Review of Systems
-
Constitutional: Denies Fever
Cardiac: Denies Chest Pain
Abdomen/GI: Denies Nausea, Vomiting or Diarrhea
Neuro: Denies Dizzy
Physical Exam
-
General: No Apparent Distress
HEENT: Moist Mucous Membranes
Respiratory: Crackles (few in right base ); Negative Wheezes
Cardiac: Regular Rhythm and S1/S2
Musculoskeletal: Edema, Right Lower Extrem and Edema, Left Lower Extrem
Neuro: AO x 3
Data Reviewed
-
Labs: Labs Reviewed by me
--- NOTE | 2023-09-25 13:40 | CM ---
Reviewed the chart notes. [facility] Patient continues on 6L/min O2. CM continues to be available to patient/family and is monitoring medical plan for needs at discharge.
Plan: Discharge plans will depend on the patient's progress and his insurance availability.
--- NOTE | 2023-09-25 15:18 | PTCARENOTE ---
Notified Dr. Plummer of pts BP of 92/31 on machine and a manual of 105/65. Patient is asymptomatic.
[2023-09-25] MEDS: ZAROXOLYN 2.5 MG PO (16:24)
[2023-09-25] MEDS: LOVENOX 40 MG SC (17:34)
[2023-09-25] MEDS: SEROQUEL 25 MG PO (21:48)
[2023-09-26] VITALS (7 sets, daily range): BP systolic 132–160; BP diastolic 61–81; O2SAT 96; BMI 53.5
[2023-09-26] MEDS: ZOSYN 50 IV ×4 (04:16→21:45)
[2023-09-26] MEDS: TYLENOL 650 MG PO ×4 (05:09→23:38)
[2023-09-26] MEDS: ULTRAM 50 MG PO ×4 (05:09→23:38)
[2023-09-26 05:43] LABS: Blood Urea Nitrogen 24 mg/dl (9-20); Calcium 8.5 mg/dl (8.4-10.2); Chloride 76 mmol/L (98-107); Estimated Creatinine Clearance > 125 ml/min; Glucose 112 mg/dl (70-99); Potassium 3.2 mmol/L (3.5-5.1); Sodium 136 mmol/L (135-145); eGFR > 60.00
[2023-09-26 05:53] LABS: Carbon Dioxide 52 mmol/L (22-30)
[2023-09-26] MEDS: CARDIZEM CD 180 MG PO (08:44)
[2023-09-26] MEDS: LASIX 80 MG IV ×2 (08:46→15:26)
[2023-09-26] MEDS: NEURONTIN 300 MG PO ×3 (08:46→21:45)
[2023-09-26] MEDS: CYMBALTA DELAYED RELEASE 20 MG PO (08:46)
[2023-09-26] MEDS: KCL 10 MEQ PO (08:46)
[2023-09-26] MEDS: DESENEX/MITRAZOL/ZEASORB 1 APPLIC TOPICAL ×2 (08:50→20:30)
--- NOTE | 2023-09-26 09:54 | W.PN.CD ---
Today's Communication / Plan
-
continue lasix 80mg IV bid, with close monitoring of labs and tele
metolazone prior to PM lasix today, Sat, Sun
Impression / Plan
-
BACKGROUND: 48M with hypertension, inappropriate sinus tachycardia (64% burden), severe obesity, former smoker, bilateral lower extremity edema/lymphedema, depression, & restrictive lung disease, here with shortness of breath and lower extremity
edema.
[employer] Supervisor: Dr. Camargo
IMPRESSION/PLAN:
Shortness of breath, multifactorial in the setting of acute HFpEF, deconditioning, and morbid obesity - plan as below
HFpEF, acute on chronic: severe
-LVEF normal 06/2023
-Grossly volume overloaded on exam
-He was not on a diuretic at home, looks like compliance has been an issue
-He was 164 kg 08/13/2023 (this was a bed scale), and was 191 kg on admission
-he reports he feels no different after diuresis to 169kg today, so I suspect we will need to reset his dry weight
- Down approximately 20 kg this admission so far, but still more to go
-continue lasix 80mg IV bid, with close monitoring of labs and tele
-metolazone prior to PM lasix today, Sat, Sun
increased O2
- CXR Again showed increased markings suggesting pulmonary edema. Continue diuresis. Patient also had low-grade temp. No focal pneumonia reported on chest x-ray patient does have some leg wounds. Evaluation by primary team. DANIEL also was
ordered
Low grade temp up to 100.6 on 09/21, and now afebrile
- Abx per hospitalist
Sinus tachycardia with PVC's: stable, diagnosed with inappropriate sinus tachycardia as outpatient
-on CCB
-follow telemetry
Lower extremity edema/lymphedema, acute on chronic
-will benefit from lymphedema therapy/PT
Hypertension, follow BP with diuresis
Chronic hypercapnia
Rash, per primary
KAEL, supplemental nocturnal oxygen
Severe obesity, BMI >50
DATA:
Echocardiogram, 06/12/2023:
Technically difficult study - contrast used.
Normal left ventricular size and systolic function. LV ejection fraction is 55-60%.
No significant valvular disease.
Physical Exam
Vital Signs/Labs
Vital Signs
Temp Pulse Resp BP Pulse Ox
97.4 F 87 16 136/81 97
09/26/23 07:45 09/26/23 08:46 09/26/23 07:45 09/26/23 08:46 09/26/23 07:45
09/25/23 09/26/23 09/27/23
06:59 06:59 06:59
Actual Weight 171.912 kg 169.19 kg
09/25/23 07:37
09/26/23 04:59
Magnesium 2.3 mg/dl (1.6-2.3) 09/18/23 06:26
09/15/23 09/24/23
11:00 07:36
Oxf-L-Gahcuetekmx Pept 615 318
Physical Exam
Constitutional: No acute distress
EENT: Moist mucous membranes
Cardiovascular: Rhythm & rate is regular, Systolic murmur absent, Pedal edema present and JVD present
Respiratory: Respiratory effort normal and Lungs clear to auscul.
GI: Soft
Neuro/Psych: Oriented
Data Reviewed
-
Date of Service: September 26, 2023
EKG: Other (SR/ST, PVC's)
Labs: Labs Reviewed by me
[2023-09-26] MEDS: KCL 40 MEQ PO (10:11)
--- NOTE | 2023-09-26 11:59 | RESPNOTE ---
Asked by Dr Plummer to see patient regarding oxygen requirements
Adjustments with oxygen took placed over [address] Plummer present for some of adjustments.
Patient sitting in room on 6 liter 97%-- NO SOB or distress noted. Patient stated when he gets up to use the bathroom is when the SOB takes place.
Decreased to 4 liters still sitting no activity- 95%
Patient decreased to 3 liters 92-93%--No SOB or distress noted
Patient again decreased 2 liters 91-92%-- Patient stated he needed to use the restroom. Patient went on 2 liters
Patient with SOB (RR 30-40) upon return from bathroom Pulse OX applied patient 84%. PT did state he ' felt lightheaded'
Patient sitting back in chair within 2-3 minutes pulse ox 89-90%. Lightheadness better
Patient left on 3 liter NC-92%-- RN in room and aware. Will continue to decreased oxygen
--- NOTE | 2023-09-26 13:10 | WOUNDNOTE ---
WO RN Note: Patient's LLE dressing was changed today by BARNEY Genao. Patient's R knee high Sal wrap slipped down to mid calf. Dr. Plummer approved adding knee high Tubigrip on top of Sal wraps and also can use knee high SCD's 2 hours bid and prn as
tolerated. Re-wrapped Sal wrap on legs, applied size G Medigrip on top, then size XL knee high SCD sleeves. Patient tolerated well. Instructed patient how to remove Velcro SPD sleeves when he gets up to walk or go to the bathroom. Instructed patient
to call the nurse to assist him with removing the SPD sleeves. Discussed with BARNEY Genao and ROGER Maya. Care plan and discharge instructions updated. Will follow as needed.
--- NOTE | 2023-09-26 14:06 | CM ---
CM following re: discharge planning.
reviewed pt's chart, et with pt.
from first minutes of meeting with the pt pt made demanding request regarding his insurance. Pt sated he is on his spouse insurance, they are going with divorce process and he thinks that his insurance will be terminated at the end of August. Pt
stated he cannot allow his spouse to pay for his insurance and he made a strong request to get him on Medicaid. In a very demanding and angry manor pt stated he was told 'no worries I will get Medicaid and someone will meet with me and I did not
talk to anybody'. CM tried to explain to the pt that as of now he has insurance and [facility] usually meeting with pt that do not have insurances. CM advised the pt to apply to Gladys insurance or to apply for Medical assistance at a local [facility]
assistance office or online at [facility]. Pt started he has no time doing it and he does not have anybody to help him and again he demanded that hospital must to do it for him. Emotional support with reassurance offered and provided, pt expressed
his very unhappy feelings and asked me to leave the room. CM respectfully left pt's room.
At this point, pt has insurance and CM will continue to make efforts to educate the pt to step in to apply for Medicaid if needed.
Pt continues to require 6L NC of O2, has jesus refusing BI-pap treatment.
PT and OT evaluations noted - home PT/OT vs SNF recommended. Pt refused to discuss a possible after care discharge plan, again, expressing his b]very unhappy feelings regarding possible termination of his insurance at the end of September 2023.
D/C plan: uncertain at this time and will depend on pt's progress.
CM will follow with discharge plan updates as hospitalization progresses
[2023-09-26] MEDS: ZAROXOLYN 2.5 MG PO (14:41)
--- NOTE | 2023-09-26 14:54 | W.PN.HOSP.TC ---
Today's Communication/Plan
-
Continued IV diuresis and resolved
Continue with antibiotics
Continue to wean oxygen if able; he is currently at his home dose of 3l.
Assessment / Plan
Assessment / Plan
IMPRESSION: 48-year-old male with morbid obesity, COPD, hypertension, chronic lymphedema, anxiety/depression who presents with shortness of breath and anasarca.
PLAN:
Acute on chronic respiratory failure:
Likely multifactorial- History of hypercapnic respiratory failure, on 3 L home O2, HFpEF, anasarca, Restrictive lung disease. Echo from June 2023 showed no systolic dysfunction and indeterminate diastolic function
lower extremity venous ultrasound: There is no evidence for deep venous thrombosis bilaterally
-Continue to treat his medical condition and wean oxygen as able.
- Today O2 at 3l but needs more with exertion due to drop in sat to 84 when walked to bathroom per respiratory therapist.
Possible pneumonia -Patient remains hypoxic with 6 L of oxygen requirement. Repeat chest x-ray shows persistent pulmonary edema. Suspect still fluid but cant rule out pneumonia- He has low grade fevers now,leukocytosis, Cough is present now.
procalcitonin elevated . Started on empirical antibiotics with Zosyn . Follow clinical progress -resolved fevers. Improved leukocytosis. Neg COVID-19. Non bacteremic. Continue with Zosyn.
Acute HFpEF
Acute on chronic lower extremity edema/anasarca:
- Diurese, follow kidney function, elevation. Added metolazone with good response. Cr is ok.
- Cards following.
-Sal wraps after some diuresis
Possible obstructive sleep apnea:
Secondary to morbid obesity. Observed loud snoring with apneic event upon entering patient room for physical exam. Patient did not qualify for home sleep study in outpt, will need in-lab study
-appreciate Pulmonology
-Bipap - he continues to refuse it so it was dced.
Urinary retention:
-Did not tolerate Corral due to pain. Declined further cath at the time. NOW RESOLVED
-Will continue to monitor
Left leg ulcer:
-Venous stasis ulcer. posterior LLL, serous discharge
-Wound care
Hypertension:
Continue diltiazem
Anxiety/depression:
-Continue duloxetine, quetiapine
-Psych consult if patient allows
Chronic anemia:
-Likely of chronic disease given iron studies. B12, folate normal
DVT prophylaxis:
Lovenox
CODE STATUS: Full code
Anticipated Discharge: > 48 hours
Subjective/Interval History
-
Date of Service: September 26, 2023
Patient still with exertional shortness of breath.
No chest pain.
No nausea vomiting.
No fever or chills.
Objective Data
-
Labs:
Laboratory Results
09/26/23
04:59
Sodium 136
Potassium 3.2 L
Chloride 76 L
Carbon Dioxide 52 H
BUN 24 H
Creatinine 0.9
Glucose 112 H
Calcium 8.5
Vital Signs:
Vital Signs
Temp Pulse Resp BP Pulse Ox
97.8 F 77 18 132/61 93
09/26/23 11:25 09/26/23 14:41 09/26/23 11:25 09/26/23 14:41 09/26/23 11:25
I&O
09/25/23 09/26/23 09/27/23
06:59 06:59 06:59
Intake Total 1949 1080 / 1080 480 / 480
Balance 1949 1080 / 1080 480 / 480
Review of Systems
-
Constitutional: Denies Fever
EENT: Denies Sore Throat
Respiratory: Denies Cough
Abdomen/GI: Denies Abdominal Pain
Neuro: Denies Dizzy
Physical Exam
-
General: No Apparent Distress
HEENT: Moist Mucous Membranes
Respiratory: Negative Wheezes or Crackles (today)
Cardiac: Regular Rhythm and S1/S2
GI: Soft
Musculoskeletal: Edema, Right Lower Extrem and Edema, Left Lower Extrem (no drainage from posterior leg ;no redness or tenderness of left post leg . No signs of cellulitis.)
Neuro: AO x 3
Data Reviewed
-
Labs: Labs Reviewed by me
[2023-09-26] MEDS: LOVENOX 40 MG SC (17:34)
[2023-09-26] MEDS: SEROQUEL 25 MG PO (21:45)
[2023-09-27] MEDS: ZOSYN 50 IV ×4 (03:22→21:15)
--- NOTE | 2023-09-27 03:33 | PTCARENOTE ---
Preliminary blood cx result Gram neg bacilli. [facility] SALVADOR notified via [employer] text @[id number]
[2023-09-27 03:47] VITALS: BP 127/68
[2023-09-27] MEDS: ULTRAM 50 MG PO ×4 (05:16→23:02)
[2023-09-27] MEDS: TYLENOL 650 MG PO ×4 (05:17→23:02)
[2023-09-27 05:28] VITALS: BMI 52.7
[2023-09-27 07:00] VITALS: BP 114/57
[2023-09-27] MEDS: NEURONTIN 300 MG PO ×3 (08:41→21:14)
[2023-09-27] MEDS: KCL 10 MEQ PO (08:41)
[2023-09-27] MEDS: CARDIZEM CD 180 MG PO (08:41)
[2023-09-27] MEDS: CYMBALTA DELAYED RELEASE 20 MG PO (08:41)
[2023-09-27] MEDS: LASIX 80 MG IV (08:42)
[2023-09-27] MEDS: DESENEX/MITRAZOL/ZEASORB 1 APPLIC TOPICAL ×2 (08:44→21:15)
[2023-09-27 09:49] LABS: Blood Urea Nitrogen 24 mg/dl (9-20); Carbon Dioxide 50 mmol/L (22-30); Chloride 75 mmol/L (98-107); Estimated Creatinine Clearance > 125 ml/min; Glucose 114 mg/dl (70-99); Potassium 2.6 mmol/L (3.5-5.1); Sodium 136 mmol/L (135-145); eGFR > 60.00
[2023-09-27] MEDS: KCL 270 MEQ IV (10:47)
[2023-09-27] MEDS: KCL 40 MEQ PO ×2 (10:47→17:31)
--- NOTE | 2023-09-27 10:57 | W.PN.HOSP.TC ---
Today's Communication/Plan
-
Hold diuretics.
Replete potassium. Check magnesium.
Continue antibiotics will consult ID.
Assessment / Plan
Assessment / Plan
IMPRESSION: 48-year-old male with morbid obesity, COPD, hypertension, chronic lymphedema, anxiety/depression who presents with shortness of breath and anasarca.
PLAN:
Acute on chronic respiratory failure:
Likely multifactorial- History of hypercapnic respiratory failure, on 3 L home O2, HFpEF, anasarca, Restrictive lung disease. Echo from June 2023 showed no systolic dysfunction and indeterminate diastolic function
lower extremity venous ultrasound: There is no evidence for deep venous thrombosis bilaterally
-Improved oxygenation , now at 3l which is his baseline need
Acute HFpEF
Acute on chronic lower extremity edema/anasarca:
- Diurese, follow kidney function, elevation. Added metolazone with good response. Cr is ok.
- Due to significant weight loss and hypokalemia and symptoms of weakness and tiredness we will hold further diuretics for today.
- Cards following.
- Sal wraps after some diuresis
Hypokalemia - significant drop with Metolazone use. Hold Diuretics for today and replete potassium.
Possible pneumonia -Patient remains hypoxic with 6 L of oxygen requirement. Repeat chest x-ray shows persistent pulmonary edema. Suspect still fluid but cant rule out pneumonia- He has low grade fevers now,leukocytosis, Cough is present now.
procalcitonin elevated . Started on empirical antibiotics with Zosyn . Follow clinical progress -resolved fevers. Improved leukocytosis. Neg COVID-19. Non bacteremic. Continue with Zosyn.
Gram-negative bacilli bacteremia-the blood cultures from 4 days ago returning positive now, possibly a slow growing gram-negative bacilli. Continue Zosyn. Consult ID.
Possible obstructive sleep apnea:
Secondary to morbid obesity. Observed loud snoring with apneic event upon entering patient room for physical exam. Patient did not qualify for home sleep study in outpt, will need in-lab study
-appreciate Pulmonology
-Bipap - he continues to refuse it so it was dced.
Urinary retention:
-Did not tolerate Corral due to pain. Declined further cath at the time. Resolved.
-Will continue to monitor
Left leg ulcer:
-Venous stasis ulcer. posterior LLL, serous discharge
-Wound care
Hypertension:
Continue diltiazem
Anxiety/depression:
-Continue duloxetine, quetiapine
-Psych consult if patient allows
Chronic anemia:
-Likely of chronic disease given iron studies. B12, folate normal
DVT prophylaxis:
Lovenox
CODE STATUS: Full code
DW ID
Total time spent on today's encounter was 52 minutes which included time spent in counseling the patient regarding diagnosis and treatment plan as listed above, goals of care, and symptom management. Case was discussed with nursing staff,
specialists . All labs and imaging personally reviewed by me. Remainder the time spent in detailed review of previous records, lab data, imaging, and other medical provider documentation.
Anticipated Discharge: > 48 hours
Subjective/Interval History
-
Date of Service: September 27, 2023
Today he is feeling bit weak and tired. Nothing specific.
Denies shortness of breath at rest. No chest pain. No nausea or vomiting.
Objective Data
-
Labs:
Laboratory Results
09/27/23 09/27/23
08:20 15:00
Sodium 136 Pending
Potassium 2.6 L* Pending
Chloride 75 L Pending
Carbon Dioxide 50 H Pending
BUN 24 H Pending
Creatinine 0.9 Pending
Glucose 114 H Pending
Calcium 9.0 Pending
Vital Signs:
Vital Signs
Temp Pulse Resp BP Pulse Ox
97.6 F 87 16 114/57 93
09/27/23 07:00 09/27/23 08:41 09/27/23 07:00 09/27/23 08:41 09/27/23 07:00
I&O
09/26/23 09/27/23 09/28/23
06:59 06:59 06:59
Intake Total 1080 / 1080 0 1779
Balance 1080 / 1080 0 1779
Review of Systems
-
Constitutional: Denies Fever
Respiratory: Denies Cough
Abdomen/GI: Denies Abdominal Pain, Nausea or Vomiting
Neuro: Denies Dizzy
Physical Exam
-
General: No Apparent Distress
HEENT: Moist Mucous Membranes
Respiratory: Clear to Auscultation
Cardiac: Regular Rhythm and S1/S2
GI: Soft
Musculoskeletal: Edema, Right Lower Extrem and Edema, Left Lower Extrem
Neuro: AO x 3
Data Reviewed
-
Labs: Labs Reviewed by me
[2023-09-27 11:00] VITALS: BP 155/82
--- NOTE | 2023-09-27 12:12 | CON.ID ---
Consultation
-
Date/Time Consultation Requested: 09/27/23 10:34
Date/Time Consultation Performed: 12:13
Requesting Provider: Dr Plummer
Performing Provider: Dr Trammell
Reason for Consultation: GNB bacteremia
Chief Complaint / Past History
Chief Complaint
Shortness of breath, lower extremity edema
History of Present Illness
Mr Rowley is a 48 year old male with COPD with chronic hypercapnic resp failure on home O2 3L, chronic lymphedema, class III obesity BMI currently 52, who presented here 09/14 for dyspnea on exertion, acute on chronic anasarca. Echo june 2023 no
systolic dysfunction and indeterminate diastolic function. He was admitted here and has had aggressive diuresis with decline of weight from 191 kg on arrival to 166 kg today. on 09/22 (four days ago) he was noted to have developed a fever to 100.6,
BP stable, O2 requirements acutely increasing to 6L from his baseline of 3L, CXR underpenetrated on my read - with pulmonary edema, no definite infiltrate, wbc count 15.8. Previous CT a/p with HSM, anasarca. Procal sent 09/23 0.4 (renal function
was normal at that time), blood culture 09/22 two sets sent and 1 with a gram negative in the aerobic bottle that has not yet been IDd. He was started on zosyn 09/22 and leukokcytosis promptly resolved. UA last sent prior to the onset of fever 09/16
and no pyuria at that time. Only complaint to me today is general malaise and improving cough. No tenderness over the lines. He has a chronic wound on the L posterior ankle without tenderness, odor or drainage.
Past History
Additional Past Medical History:
COPD, HTN and Psychiatric (Anxiety, depression)
Additional Past Surgical History:
(Left testicular)
Allergy History:
hydromorphone Adverse Reaction (Severe, Verified 09/03/23 23:56)
Unknown
Medications Reviewed: Yes
Social History
Tobacco: Former Smoker
Alcohol: Occasional
Drug: None
Family History
Family History: Not Pertinent
Review of Systems
Review of Systems
General: Fever and Chills
All systems: All other systems were reviewed and were negative
Vital Signs
Temp Pulse Resp BP Pulse Ox
97.3 F 95 24 155/82 93
09/27/23 11:00 09/27/23 11:00 09/27/23 11:00 09/27/23 11:00 09/27/23 11:00
Physical Exam
Physical Exam
Constitutional: No Acute Distress
Cardiovascular: Regular Rate and S1/S2; Negative Murmur or Rub
Pulmonary: Clear and Symmetric; Negative Wheezes, Rales or Rhonchi
Gastrointestinal: Soft, Non Tender, Non Distended and Normal Bowel Sounds
Skin: Warm and Dry; Negative Rash or Jaundice
Lab / Diagnostic Study Results
09/25/23 07:37
Abs Immat Gran (auto) 0.1 10^3/uL (0-0.05) H 09/15/23 11:00
Absolute Neuts (auto) 8.3 10^3/uL (1.4-6.5) H 09/15/23 11:00
Absolute Lymphs (auto) 0.9 10^3/uL (1.2-3.4) L 09/15/23 11:00
Absolute Monos (auto) 2.0 10^3/uL (0.1-0.6) H 09/15/23 11:00
Absolute Basos (auto) 0.1 10^3/uL (0-0.2) 09/15/23 11:00
Immature Gran % 1.1 % (0-0.5) H 09/15/23 11:00
Neutrophils % 70.2 % (42.2-75.2) 09/15/23 11:00
Lymphocytes % 8.0 % (20.5-51.1) L 09/15/23 11:00
Monocytes % 17.2 % (1.7-9.3) H 09/15/23 11:00
Eosinophils % 3.1 % (0-6) 09/15/23 11:00
Basophils % 0.4 % (0-2) 09/15/23 11:00
Procalcitonin 0.40 ng/ml (0.0-0.25) H 09/24/23 10:37
Ur Squamous Epith Cells 0-2 /LPF (Few) 09/17/23 14:24
Microbiology Results
Micro:
09/23/23 13:44 Blood Culture - Preliminary
Blood/Venous Positive culture in progress
Gram Stain - Preliminary
09/23/23 14:07 Blood Culture - Preliminary
Blood/Venous No Growth in 72 hours- Final report to follow
Assessment / Plan
GNB bacteremia - likely aerobe
Probable Health Care Acquired Pneumonia
HFpER - acute on chronic
Noncompliance
- no need to repeat further blood cultures
- sputum culture if able to produce one
- wound on the LLE without signs
- leukocytosis and O2 requirements have responded well to zosyn - would not adjust at this time
- lab continues to work on ID and sensi
- follow clinically
Class III obesity
- urge outpatient follow up with endocrinology or obesity data management consultant ([facility]) for obesity management which would prolong his life expectancy.
[2023-09-27 12:28] LABS: Magnesium 2.4 mg/dl (1.6-2.3)
[2023-09-27 15:00] VITALS: BP 131/71
[2023-09-27 16:21] LABS: Blood Urea Nitrogen 24 mg/dl (9-20); Calcium 9.3 mg/dl (8.4-10.2); Chloride 76 mmol/L (98-107); Estimated Creatinine Clearance > 125 ml/min; Glucose 146 mg/dl (70-99); Potassium 3.3 mmol/L (3.5-5.1); Sodium 135 mmol/L (135-145); eGFR > 60.00
[2023-09-27 16:31] LABS: Carbon Dioxide 52 mmol/L (22-30)
[2023-09-27] MEDS: LOVENOX 40 MG SC (17:32)
[2023-09-27 19:39] VITALS: BP 134/69
[2023-09-27] MEDS: SEROQUEL 25 MG PO (21:15)
[2023-09-27 23:20] VITALS: BP 146/83
[2023-09-28 03:15] VITALS: BP 126/73
[2023-09-28] MEDS: ZOSYN 50 IV ×4 (03:21→21:32)
[2023-09-28 05:19] VITALS: BMI 51.9
[2023-09-28 05:38] LABS: Blood Urea Nitrogen 23 mg/dl (9-20); Calcium 9.1 mg/dl (8.4-10.2); Chloride 81 mmol/L (98-107); Estimated Creatinine Clearance > 125 ml/min; Glucose 114 mg/dl (70-99); Potassium 3.1 mmol/L (3.5-5.1); Sodium 135 mmol/L (135-145); eGFR > 60.00
[2023-09-28] MEDS: ULTRAM 50 MG PO ×4 (05:46→23:03)
[2023-09-28] MEDS: TYLENOL 650 MG PO ×4 (05:46→23:03)
[2023-09-28 05:49] LABS: Carbon Dioxide 49 mmol/L (22-30)
[2023-09-28] MEDS: KCL 270 MEQ IV (06:15)
[2023-09-28 08:30] VITALS: BP 131/67
[2023-09-28] MEDS: CYMBALTA DELAYED RELEASE 20 MG PO (09:22)
[2023-09-28] MEDS: KCL 40 MEQ PO (09:22)
[2023-09-28] MEDS: NEURONTIN 300 MG PO ×3 (09:22→21:37)
[2023-09-28] MEDS: KCL 20 MEQ PO (09:23)
[2023-09-28] MEDS: CARDIZEM CD 180 MG PO (09:23)
[2023-09-28] MEDS: DESENEX/MITRAZOL/ZEASORB 1 APPLIC TOPICAL ×2 (09:25→21:39)
--- NOTE | 2023-09-28 10:31 | W.PN.HOSP.TC ---
Today's Communication/Plan
-
Continue to hold on diuretics. Replete potassium. Follow I&O's.
Continue with antibiotics.
DC planning
Assessment / Plan
Assessment / Plan
IMPRESSION: 48-year-old male with morbid obesity, COPD, hypertension, chronic lymphedema, anxiety/depression who presents with shortness of breath and anasarca.
PLAN:
Acute on chronic respiratory failure:
Likely multifactorial- History of hypercapnic respiratory failure, on 3 L home O2, HFpEF, anasarca, Restrictive lung disease. Echo from June 2023 showed no systolic dysfunction and indeterminate diastolic function
lower extremity venous ultrasound: There is no evidence for deep venous thrombosis bilaterally
-Improved oxygenation , now at 3l which is his baseline need
Acute HFpEF
Acute on chronic lower extremity edema/anasarca:
- Diurese, follow kidney function, elevation. Added metolazone with good response. Cr is ok.
- Significant weight loss , hypokalemia and due to symptoms of weakness and tiredness diuretics are kept on hold since yesterday. He continues to lose weight. Today he is at 361 pounds which is his goal weight per cardiology note. With the still
hypokalemia we will hold diuretics again today. Replete potassium.
- Will dw cards in am for stability of dc from their standpoint.
- Sal wraps
Hypokalemia - significant drop with Metolazone use. Hold Diuretics for today and replete potassium.
Possible pneumonia -Patient remains hypoxic with 6 L of oxygen requirement. Repeat chest x-ray shows persistent pulmonary edema. Suspect still fluid but cant rule out pneumonia- He has low grade fevers now,leukocytosis, Cough is present now.
procalcitonin elevated . Started on empirical antibiotics with Zosyn . Follow clinical progress -resolved fevers. Improved leukocytosis. Neg COVID-19. Non bacteremic. Continue with Zosyn.
Gram-negative bacilli bacteremia-the blood cultures from 4 days ago returning positive now, possibly a slow growing gram-negative bacilli. Continue Zosyn. Appreciate ID input.
Possible obstructive sleep apnea:
Secondary to morbid obesity. Observed loud snoring with apneic event upon entering patient room for physical exam. Patient did not qualify for home sleep study in outpt, will need in-lab study
-appreciate Pulmonology
-Bipap - he continues to refuse it so it was dced.
Urinary retention:
-Did not tolerate Corral due to pain. Declined further cath at the time. Resolved.
-Will continue to monitor
Left leg ulcer:
-Venous stasis ulcer. posterior LLL, serous discharge
-Wound care
Hypertension:
Continue diltiazem
Anxiety/depression:
-Continue duloxetine, quetiapine
-Psych consult if patient allows
Chronic anemia:
-Likely of chronic disease given iron studies. B12, folate normal
DVT prophylaxis:
Lovenox
CODE STATUS: Full code
DW RN
Anticipated Discharge: Within 24 hours
Subjective/Interval History
-
Date of Service: September 28, 2023
Patient sitting in the chair. Quite today.
He continues to lose weight. He still says he does not feel much different.
Denying the weakness and fatigue which he was complaining yesterday.
No chest pain.
Tolerating diet.
Objective Data
-
Labs:
Laboratory Results
09/28/23
04:54
Sodium 135
Potassium 3.1 L
Chloride 81 L
Carbon Dioxide 49 H
BUN 23 H
Creatinine 0.8
Glucose 114 H
Calcium 9.1
Vital Signs:
Vital Signs
Temp Pulse Resp BP Pulse Ox
97.7 F 86 20 131/67 94
09/28/23 08:30 09/28/23 08:30 09/28/23 08:30 09/28/23 08:30 09/28/23 08:30
I&O
09/27/23 09/28/23 09/29/23
06:59 06:59 06:59
Intake Total 1779
Balance 1779
Review of Systems
-
Unable to obtain full review of systems at this time due to: Other (quiet and seems disinclined to have a conversation)
Constitutional: Denies Fever
Respiratory: Reports Trouble Breathing; Denies Cough
Cardiac: Denies Chest Pain
Abdomen/GI: Denies Nausea or Vomiting
Physical Exam
-
General: No Apparent Distress
HEENT: Moist Mucous Membranes
Respiratory: Crackles (few in bibasal today); Negative Wheezes
Cardiac: Regular Rhythm and S1/S2
Neuro: AO x 3
Data Reviewed
-
Labs: Labs Reviewed by me
[2023-09-28 11:45] VITALS: BP 138/83
[2023-09-28 16:00] VITALS: BP 140/73
[2023-09-28] MEDS: LOVENOX 40 MG SC (17:31)
[2023-09-28 19:21] VITALS: BP 148/70
[2023-09-28] MEDS: SEROQUEL 25 MG PO (21:38)
[2023-09-28 23:38] VITALS: BP 129/68
[2023-09-29 03:23] VITALS: BP 122/78
[2023-09-29] MEDS: ZOSYN 50 IV ×2 (03:31→09:45)
[2023-09-29 05:23] VITALS: BMI 52.2
[2023-09-29] MEDS: ULTRAM 50 MG PO ×4 (06:13→23:47)
[2023-09-29] MEDS: TYLENOL 650 MG PO ×4 (06:13→23:47)
[2023-09-29 07:40] VITALS: BP 128/79
--- NOTE | 2023-09-29 09:01 | CM ---
Addendum entered by Noemy Rodriguez 09/29/23 16:27:
[facility] to follow with patient to discuss options for MA. Patient intrested in SNF if unable to be independent when discharged home with father.
Original Note:
Spoke with patient father. Reviewed plan of SNF; for patient and patient mother status at personal care with hospice. Reviewed insurance options and left message for [facility] counter sales representative. CM will continue to follow for discharge planning needs.
Plan; SNF
--- NOTE | 2023-09-29 09:05 | W.PN.CD ---
Today's Communication / Plan
-
- resume diuresis and add spironolactone given persistent hypokalemia, this may lessed our need for KCL supplement.
-wrap legs
Impression / Plan
-
BACKGROUND: 48M with hypertension, inappropriate sinus tachycardia (64% burden), severe obesity, former smoker, bilateral lower extremity edema/lymphedema, depression, & restrictive lung disease, here with shortness of breath and lower extremity
edema.
Splitting Machine Tender: Dr. Camargo
IMPRESSION/PLAN:
Shortness of breath, multifactorial in the setting of acute HFpEF, deconditioning, and morbid obesity - plan as below
HFpEF, acute on chronic: severe
-LVEF normal 06/2023
-Still Grossly volume overloaded on exam
-He was not on a diuretic at home, looks like compliance has been an issue
-He was 164 kg 08/13/2023 (this was a bed scale), and was 191 kg on admission
-he reports he feels no different after diuresis to 169kg today, so I suspect we will need to reset his dry weight
-lets resume diuresis and add spironolactone given persistent hypokalemia, this may lessed our need for KCL supplement.
-lets hold metolazone today
-intensively monitor labs/lytes and vitals
- Down approximately 20 kg this admission so far, but still more to go
increased O2
- CXR Again showed increased markings suggesting pulmonary edema. Continue diuresis. Patient also had low-grade temp. No focal pneumonia reported on chest x-ray patient does have some leg wounds. Evaluation by primary team. DANIEL also was
ordered
Low grade temp up to 100.6 on 09/21, and now afebrile
- Abx per hospitalist
Sinus tachycardia with PVC's: stable, diagnosed with inappropriate sinus tachycardia as outpatient
-on CCB
-follow telemetry
Lower extremity edema/lymphedema, acute on chronic
-additionaly component of CHF
-will benefit from lymphedema therapy/PT
Hypertension, follow BP with diuresis
Chronic hypercapnia
Rash, per primary
KAEL, supplemental nocturnal oxygen
Severe obesity, BMI >50
Subjective:
-still a lot of pain in his swollen legs, breathing a bit better but not much
DATA:
Echocardiogram, 06/12/2023:
Technically difficult study - contrast used.
Normal left ventricular size and systolic function. LV ejection fraction is 55-60%.
No significant valvular disease.
Physical Exam
Vital Signs/Labs
Vital Signs
Temp Pulse Resp BP Pulse Ox
97.6 F 89 18 128/79 96
09/29/23 07:40 09/29/23 07:40 09/29/23 07:40 09/29/23 07:40 09/29/23 07:40
09/28/23 09/29/23 09/30/23
06:59 06:59 06:59
Actual Weight 164.155 kg 165.062 kg
09/25/23 07:37
Magnesium 2.4 mg/dl (1.6-2.3) H 09/27/23 08:20
09/15/23 09/24/23
11:00 07:36
[id number] Pept 615 318
Physical Exam
Constitutional: No acute distress
Cardiovascular: Rhythm & rate is regular, Systolic murmur absent and Pedal edema present (tense edema---legs hard as rocks all the way up to the abdomen)
Respiratory: Respiratory effort normal, Lungs clear to auscul., Wheeze Absent, Crackles Absent and Rhonchi Absent
Neuro/Psych: AO x 3
Data Reviewed
-
Date of Service: September 29, 2023
Medical Decision Making: Review of Case with other Provider (updated nurse and Dr Choi as to resuming diuresis and adding spironolactone)
EKG: Other (tele sinus with rare pvcs)
[2023-09-29 09:18] LABS: Blood Urea Nitrogen 22 mg/dl (9-20); Calcium 9.5 mg/dl (8.4-10.2); Chloride 86 mmol/L (98-107); Estimated Creatinine Clearance > 125 ml/min; Glucose 115 mg/dl (70-99); Potassium 3.8 mmol/L (3.5-5.1); Sodium 138 mmol/L (135-145); eGFR > 60.00
[2023-09-29 09:31] LABS: Carbon Dioxide 42 mmol/L (22-30)
[2023-09-29] MEDS: CYMBALTA DELAYED RELEASE 20 MG PO (09:44)
[2023-09-29] MEDS: NEURONTIN 300 MG PO ×3 (09:44→22:48)
[2023-09-29] MEDS: CARDIZEM CD 180 MG PO (09:44)
[2023-09-29] MEDS: KCL 20 MEQ PO (09:44)
[2023-09-29] MEDS: ALDACTONE 12.5 MG PO (09:45)
[2023-09-29] MEDS: LASIX 80 MG IV ×2 (09:45→17:44)
[2023-09-29] MEDS: DESENEX/MITRAZOL/ZEASORB 1 APPLIC TOPICAL ×2 (09:48→22:49)
[2023-09-29 11:35] VITALS: BP 139/77
[2023-09-29 15:10] VITALS: BP 137/80
--- NOTE | 2023-09-29 16:50 | W.PN.ID1 ---
Date of Service
Date of Service: September 29, 2023
Today's Communication
- sputum culture ususal resp jeannette
- completed a week of zoysn which serratia was sensitive to, stopped
- follow up with pcp
Assessment / Plan
Serratia bacteremia most likely secondary to wound infection
HFpER - acute on chronic
Noncompliance
- sputum culture ususal resp jeannette
- completed a week of zoysn which serratia was sensitive to, stopped
- follow up with pcp
Class III obesity
- urge outpatient follow up with endocrinology or obesity case management associate ([facility]) for obesity management which would prolong his life expectancy.
Chief Complaint
-: Bacteremia
Subjective / Review of Systems
afebrile
bp stable
no cbc for several days
na 138
isolate was serratia
no complaints
Vital Signs / Physical Exam
Vital Signs
Vital Signs
Temp Pulse Resp BP Pulse Ox
98.2 F 91 20 137/80 96
09/29/23 15:10 09/29/23 15:10 09/29/23 15:10 09/29/23 15:10 09/29/23 15:10
Physical Exam
Constitutional: No Acute Distress
Cardiovascular: Regular Rate and S1/S2; Negative Murmur or Rub
Pulmonary: Clear and Symmetric; Negative Wheezes or Rales
Gastrointestinal: Soft, Non Tender, Non Distended and Normal Bowel Sounds
Skin: Warm and Dry; Negative Rash or Jaundice
Objective Data
Lab Data
Lab Results
09/25/23 07:37
09/29/23 08:25
Estimated Creat Clear > 125 ml/min 09/29/23 08:25
Total Bilirubin 1.1 mg/dl (0.2-1.3) 09/24/23 07:36
AST 27 U/L (17-59) 09/24/23 07:36
ALT 20 U/L (0-50) 09/24/23 07:36
Alkaline Phosphatase 76 U/L (38-126) 09/24/23 07:36
Most recent labs reviewed.
Micro Results:
09/23/23 13:44 Blood Culture - Preliminary
Blood/Venous Serratia marcescens
Gram Stain - Preliminary
09/27/23 18:04 Respiratory Culture - Preliminary
Sputum Usual Respiratory Jeannette
Gram Stain - Preliminary
09/23/23 14:07 Blood Culture - Final
Blood/Venous No Growth - Final Report
Blood Culture Preliminary 09/29/23-1128
Serratia marcescens
Negative for the following organisms by [employer]
Nucleic Acid Methodology:
Acinetobacter species
Citrobacter species
Enterobacter species
Proteus species
Escherichia coli
Klebsiella pneumoniae
Klebsiella oxytoca
Psedomonas aeruginosa
Further identification to follow.
Organism 1 Serratia marcescens
1. Serratia marcescens
M.I.C. RX
--------- ---
Amoxicillin/Potas. Clavulanate >16/8 R
Ampicillin >16 R
Ampicillin/Sulbactam >16/8 R
Cefazolin >16 R
Cefepime <=2 S
Ceftazidime <=1 S
Ceftriaxone <=1 S
Ertapenem <=0.5 S
Ciprofloxacin <=0.25 S
Gentamicin <=4 S
Levofloxacin <=0.5 S
Meropenem <=1 S
Piperacillin/Tazobactam <=16 S
Tobramycin <=4 S
Trimethoprim/Sulfamethoxazole <=2/38 S
[2023-09-29] MEDS: LOVENOX 40 MG SC (17:44)
--- NOTE | 2023-09-29 17:49 | W.PN.HOSP.TC ---
Addendum entered and electronically signed by Beatrice Choi MD 09/29/23 19:51:
I saw and evaluated the patient independently. I reviewed the resident�s note and agree with findings and plan as documented by Dr. Mendoza.
GENERAL: well developed, well nourished, morbidly obese male in no apparent distress
HEENT: NC/AT--O2 NC in place
HEART: regular rate and rhythm, +S1, +S2
LUNGS : clear to auscultation bilaterally
ABDOM: soft, nontender, nondistended, + bowel sounds
EXT: no cyanosis, clubbing-- still with 4+ pitting edema up to abdomen
NEUROLOGIC: grossly intact
Acute on chronic respiratory failure with compensatory metabolic alkalosis--Likely multifactorial- History of hypercapnic respiratory failure, on 3 L home O2, HFpEF, anasarca, Restrictive lung disease. Echo from June 2023 showed no systolic
dysfunction and indeterminate diastolic function--lower extremity venous ultrasound: There is no evidence for deep venous thrombosis bilaterally---Improved oxygenation , now at 3l which is his baseline need
Acute HFpEF--Acute on chronic lower extremity edema/anasarca--Diurese, follow kidney function, elevation--lasix and now spironolactone-Weight: 165.02 down from 191 kg on admission--Cardiology consult - continue diuresis, sinus tachycardia - on CCBs,
hold Metalozone
Hypokalemia - significant drop with Metolazone use. Potassium is 3.8 today. Patient to receive spironolactone.
Possible obstructive sleep apnea--Secondary to morbid obesity. Patient did not qualify for home sleep study in outpt, will need in-lab study--appreciate Pulmonology---Bipap, he continues to refuse it so it was dced.
Urinary retention-Did not tolerate Corral due to pain. Declined further cath at the time. Resolved.
Left leg ulcer--Venous stasis ulcer. posterior LLL, serous discharge--apprec Wound care
Essential Hypertension--Continue diltiazem
Anxiety/depression---Continue duloxetine, quetiapine
Chronic anemia-Likely of chronic disease given iron studies. B12, folate normal
DVT prophylaxis--Lovenox
CODE STATUS: Full code
Original Note:
Today's Communication/Plan
-
Discontinue telemetry
Hold Metolazone
Discontinue Zosyn
Assessment / Plan
Assessment / Plan
IMPRESSION: 48-year-old male with morbid obesity, COPD, hypertension, chronic lymphedema, anxiety/depression who presents with shortness of breath and anasarca.
PLAN:
Acute on chronic respiratory failure:
Likely multifactorial- History of hypercapnic respiratory failure, on 3 L home O2, HFpEF, anasarca, Restrictive lung disease. Echo from June 2023 showed no systolic dysfunction and indeterminate diastolic function
lower extremity venous ultrasound: There is no evidence for deep venous thrombosis bilaterally
-Improved oxygenation , now at 3l which is his baseline need
Acute HFpEF
Acute on chronic lower extremity edema/anasarca:
- Diurese, follow kidney function, elevation.
- Weight: 165.02
- Cardiology consult - continue diuresis, sinus tachycardia - on CCBs, hold Metalozone
Hypokalemia - significant drop with Metolazone use. Potassium is 3.8 today. Patient to receive spironolactone.
Possible obstructive sleep apnea
Secondary to morbid obesity. Patient did not qualify for home sleep study in outpt, will need in-lab study
-appreciate Pulmonology
-Bipap - he continues to refuse it so it was dced.
Urinary retention
-Did not tolerate Corral due to pain. Declined further cath at the time. Resolved.
-Will continue to monitor
Left leg ulcer
-Venous stasis ulcer. posterior LLL, serous discharge
-Wound care
Hypertension
Continue diltiazem
Anxiety/depression:
-Continue duloxetine, quetiapine
Chronic anemia:
-Likely of chronic disease given iron studies. B12, folate normal
DVT prophylaxis:
Lovenox
CODE STATUS: Full code
Anticipated Discharge: > 48 hours
Subjective/Interval History
-
Date of Service: September 29, 2023
Objective Data
-
Labs:
Laboratory Results
09/29/23
08:25
Sodium 138
Potassium 3.8
Chloride 86 L
Carbon Dioxide 42 H
BUN 22 H
Creatinine 0.9
Glucose 115 H
Calcium 9.5
Vital Signs:
Vital Signs
Temp Pulse Resp BP Pulse Ox
98.2 F 91 20 137/80 96
09/29/23 15:10 09/29/23 17:44 09/29/23 15:10 09/29/23 17:44 09/29/23 15:10
I&O
09/28/23 09/29/23 09/30/23
06:59 06:59 06:59
Intake Total 1989 1390 / 1390
Balance 1989 1390 / 1390
Review of Systems
-
Constitutional: Denies Fever
Respiratory: Reports No Symptoms
Cardiac: Denies Chest Pain
Abdomen/GI: Denies Nausea or Vomiting
Physical Exam
-
General: No Apparent Distress
HEENT: Moist Mucous Membranes
Respiratory: Clear to Auscultation
Cardiac: Regular Rhythm and S1/S2
Neuro: AO x 3
[2023-09-29] MEDS: SEROQUEL 25 MG PO (22:48)
[2023-09-29 23:36] VITALS: BP 121/75
[2023-09-30 06:00] VITALS: BMI 51.7
[2023-09-30] MEDS: TYLENOL 650 MG PO ×4 (06:01→23:43)
[2023-09-30] MEDS: ULTRAM 50 MG PO ×4 (06:01→23:43)
[2023-09-30 06:30] LABS: Blood Urea Nitrogen 27 mg/dl (9-20); Calcium 9.2 mg/dl (8.4-10.2); Chloride 89 mmol/L (98-107); Estimated Creatinine Clearance > 125 ml/min; Glucose 123 mg/dl (70-99); Potassium 3.9 mmol/L (3.5-5.1); Sodium 137 mmol/L (135-145); eGFR > 60.00
[2023-09-30 06:40] LABS: Carbon Dioxide 42 mmol/L (22-30)
[2023-09-30 07:02] LABS: % Basophils 0.7 % (0-2); % Eosinophils 4.3 % (0-6); % Immature Granulocytes 9.3 % (0-0.5); % Lymphocytes 9.9 % (20.5-51.1); % Monocytes 8.1 % (1.7-9.3); % Neutrophils 67.7 % (42.2-75.2); Absolute Basophils 0.1 10^3/uL (0-0.2); Absolute Eosinophils 0.7 10^3/uL (0-0.7); Absolute Immature Granulocytes 1.4 10^3/uL (0-0.05); Absolute Lymphocytes 1.5 10^3/uL (1.2-3.4); Absolute Monocytes 1.2 10^3/uL (0.1-0.6); Absolute Neutrophils 10.3 10^3/uL (1.4-6.5); Hematocrit 32.3 % (39.0-52.0); Hemoglobin 9.7 g/dL (13.0-18.0); Mean Corpuscular Hgb 24.9 pg (27.0-31.0); Mean Platelet Volume 10.3 fL (7.4-10.4); Nucleated Red Blood Cells % 0 % (-); Platelet Count 283 10^3/uL (130-400); Red Blood Cell Count 3.89 10^6/uL (4.70-6.10); Red Cell Dist. Width 16.2 % (11.5-14.5); White Blood Cell Count 15.2 10^3/uL (4.8-10.8)
[2023-09-30 07:45] VITALS: BP 135/67
[2023-09-30] MEDS: NEURONTIN 300 MG PO ×3 (08:16→21:14)
[2023-09-30] MEDS: CYMBALTA DELAYED RELEASE 20 MG PO (08:16)
[2023-09-30] MEDS: KCL 20 MEQ PO (08:16)
[2023-09-30] MEDS: ALDACTONE 12.5 MG PO (08:20)
[2023-09-30] MEDS: LASIX 80 MG IV ×2 (08:20→17:00)
[2023-09-30] MEDS: CARDIZEM CD 180 MG PO (08:20)
[2023-09-30] MEDS: DESENEX/MITRAZOL/ZEASORB 1 APPLIC TOPICAL ×2 (08:24→21:14)
--- NOTE | 2023-09-30 11:24 | W.PN.CD ---
Addendum entered and electronically signed by Jakob Corona MD 09/30/23 12:06:
Patient seen and examined in collaboration with MEDIA SERVICES SPECIALIST; agree with below.
-Weight has gone down significantly with aggressive diuresis throughout hospitalization.
-Can transition to Lasix 80 mg PO twice daily starting tomorrow.
-Patient can follow-up with his primary Manufacturing Test Engineer (Dr. Tom Camargo).
Original Note:
Today's Communication / Plan
-
Continue diuresis, anticipate transition to oral diuretic within 48 hours
Impression / Plan
-
BACKGROUND: 48M with hypertension, inappropriate sinus tachycardia (64% burden), severe obesity, former smoker, bilateral lower extremity edema/lymphedema, depression, & restrictive lung disease, here with shortness of breath and lower extremity
edema.
Manufacturing Test Engineer: Dr. Camargo
IMPRESSION/PLAN:
Shortness of breath, multifactorial in the setting of acute HFpEF, deconditioning, and morbid obesity - plan as below
HFpEF, acute on chronic: severe
-LVEF normal 06/2023
-Still volume overloaded on exam
-He was not on a diuretic at home, looks like compliance has been an issue, he will need a standing diuretic at home
-He is 163 kg today, and was 191 kg on admission
-Spironolactone started given persistent hypokalemia, this may lessened our need for KCL supplement.
-Intensively monitor labs/lytes and vitals
Acute on chronic hypoxic respiratory insufficiency
- CXR 09/23/2023: Again showed increased markings suggesting pulmonary edema, continue diuresis
Low grade temp up to 100.6 on 09/21, and now afebrile, per hospitalist
Sinus tachycardia with PVC's: stable, diagnosed with inappropriate sinus tachycardia as outpatient, on CCB
Lower extremity edema/lymphedema, acute on chronic with a component of CHF, he will benefit from lymphedema therapy/PT
Hypertension, follow BP with diuresis
Chronic hypercapnia
Rash, per primary
KAEL, supplemental nocturnal oxygen
Severe obesity, BMI >50
SUBJECTIVE:
Still with LE edema.
DATA:
Echocardiogram, 06/12/2023:
Technically difficult study - contrast used.
Normal left ventricular size and systolic function. LV ejection fraction is 55-60%.
No significant valvular disease.
Physical Exam
Vital Signs/Labs
Vital Signs
Temp Pulse Resp BP Pulse Ox
97.8 F 94 18 135/67 94
09/30/23 07:45 09/30/23 08:20 09/30/23 07:45 09/30/23 08:20 09/30/23 07:45
09/29/23 09/30/23 10/01/23
06:59 06:59 06:59
Actual Weight 165.062 kg 163.429 kg
09/30/23 05:55
09/30/23 05:55
Magnesium 2.4 mg/dl (1.6-2.3) H 09/27/23 08:20
09/15/23 09/24/23
11:00 07:36
[id number] Pept [id number]
Physical Exam
Constitutional: No acute distress and Comfortable
EENT: Anicteric and Moist mucous membranes
Cardiovascular: Rhythm & rate is regular, Pedal edema present, S1S2 is normal and Murmur/rub/gallop absent
Respiratory: Respiratory effort normal and Lungs clear to auscul.
GI: Soft, Distention absent, Flat and Non tender
Other: Skin (warm and dry)
Data Reviewed
-
Date of Service: September 30, 2023
Labs: Labs Reviewed by me
Old Records: Reviewed
[2023-09-30 13:28] VITALS: PULSE 96; O2SAT 98
--- NOTE | 2023-09-30 14:05 | W.PN.HOSP.TC ---
Addendum entered and electronically signed by Beatrice Choi MD 09/30/23 18:09:
I saw and evaluated the patient independently. I reviewed the resident�s note and agree with findings and plan as documented by Dr. Mendoza.
GENERAL: well developed, well nourished, morbidly obese male in no apparent distress
HEENT: NC/AT--O2 NC in place
HEART: regular rate and rhythm, +S1, +S2
LUNGS : clear to auscultation bilaterally
ABDOM: soft, nontender, nondistended, + bowel sounds
EXT: no cyanosis, clubbing-- still with 4+ pitting edema up to abdomen despite significant weight loss
NEUROLOGIC: grossly intact
Acute on chronic (hypercapnic) respiratory failure with compensatory metabolic alkalosis--Likely multifactorial- History of hypercapnic respiratory failure, on 3 L home O2, HFpEF, anasarca, Restrictive lung disease. Echo from June 2023 showed no
systolic dysfunction and indeterminate diastolic function--lower extremity venous ultrasound: There is no evidence for deep venous thrombosis bilaterally---Improved oxygenation , now at 3l which is his baseline need
Acute HFpEF--Acute on chronic lower extremity edema/anasarca--Diurese, follow kidney function, elevation--lasix and now spironolactone-Weight: 163 down from 191 kg on admission--apprec Cardiology - continue diuresis, sinus tachycardia--transitioning
to oral diuretics in AM
Hypokalemia - significant drop with Metolazone use. Potassium is 3.8 today-- spironolactone.
Possible obstructive sleep apnea--Secondary to morbid obesity. Patient states he did not qualify for home sleep study as outpt, will need in-lab study--appreciate Pulmonology---Bipap, he continues to refuse it so it was dced.
Urinary retention-Did not tolerate Corral due to pain. Declined further cath at the time. Resolved.
Left leg ulcer--Venous stasis ulcer-- posterior LLL, serous discharge--apprec Wound care
Essential Hypertension--Continue diltiazem, lasix, spironolactone
Anxiety/depression---Continue duloxetine, quetiapine (consider increasing seroquel)
Chronic anemia-Likely of chronic disease given iron studies. B12, folate normal
DVT prophylaxis--Lovenox
CODE STATUS: Full code
anticipate d/c to SNF in 1-2 days
Original Note:
Today's Communication/Plan
-
Check magnesium daily for lower extremity pain
Continue to monitor potassium
Continue to monitor WBC
Continue to monitor weight loss
Continue to monitor renal function
Assessment / Plan
Assessment / Plan
IMPRESSION: 48-year-old male with morbid obesity, COPD, hypertension, chronic lymphedema, anxiety/depression who presents with shortness of breath and anasarca. Patient notes pain in toes. Upon examination, no abnormality was found. Patient
continues to have tense bilateral lower extremity edema. He is ambulatory.
Acute on chronic respiratory failure:
Likely multifactorial- History of hypercapnic respiratory failure, on 3 L home O2, HFpEF, anasarca, Restrictive lung disease. Echo from June 2023 showed no systolic dysfunction and indeterminate diastolic function
lower extremity venous ultrasound: There is no evidence for deep venous thrombosis bilaterally
-Improved oxygenation , now at 3l which is his baseline need
Acute on chronic HFpEF
Acute on chronic lower extremity edema/anasarca:
- Diurese, follow kidney function, elevation.
- Weight: 163.42
- Cardiology consult - continue diuresis, sinus tachycardia - on CCBs, hold Metalozone
Hypokalemia - significant drop with Metolazone use. Metolazone held yesterday. Potassium is 3. 9 today. Patient continues to receive spironolactone.
Possible obstructive sleep apnea
Secondary to morbid obesity. Patient did not qualify for home sleep study in outpt, will need in-lab study
-appreciate Pulmonology
-Bipap - he continues to refuse it so it was dced.
Left leg ulcer
-Venous stasis ulcer. posterior LLL, serous discharge
-Wound care
Hypertension
Continue diltiazem
Anxiety/depression
-Continue duloxetine, quetiapine
Chronic anemia:
-Likely of chronic disease given iron studies. B12, folate normal
DVT prophylaxis
Lovenox
CODE STATUS: Full code
Anticipated Discharge: > 48 hours
Subjective/Interval History
-
Date of Service: September 30, 2023
Objective Data
-
Labs:
Laboratory Results
09/30/23
05:55
WBC 15.2 H
Hgb 9.7 L
Hct 32.3 L
Plt Count 283 D
Sodium 137
Potassium 3.9
Chloride 89 L
Carbon Dioxide 42 H
BUN 27 H
Creatinine 0.9
Glucose 123 H
Calcium 9.2
Vital Signs:
Vital Signs
Temp Pulse Resp BP Pulse Ox
97.8 F 94 18 135/67 94
09/30/23 07:45 09/30/23 08:20 09/30/23 07:45 09/30/23 08:20 09/30/23 07:45
I&O
09/29/23 09/30/23 10/01/23
06:59 06:59 06:59
Intake Total 1390 / 1390 1160 / 1160
Balance 1390 / 1390 1160 / 1160
Review of Systems
-
Constitutional: Denies Fever
Respiratory: Reports No Symptoms
Cardiac: Denies Chest Pain
Abdomen/GI: Denies Nausea or Vomiting
Physical Exam
-
General: No Apparent Distress
HEENT: Moist Mucous Membranes
Respiratory: Clear to Auscultation
Cardiac: Regular Rhythm and S1/S2
Neuro: AO x 3
[2023-09-30 15:40] VITALS: BP 130/65
--- NOTE | 2023-09-30 16:03 | CM ---
Addendum entered by Noemy Rodriguez 09/30/23 16:10:
PT/OT note recommending home with home health.
Original Note:
Patient seen at bedside, HRSI to see patient today to complete documentation for MA application.
PLan; SNF vs VN at home
--- NOTE | 2023-09-30 16:30 | W.PN.ID1 ---
Date of Service
Date of Service: September 30, 2023
Today's Communication
ID service will no longer actively follow this patient please recall for further questions
Assessment / Plan
Serratia bacteremia most likely secondary to wound infection
HFpER - acute on chronic
Leukocytosis - likely reactive
Noncompliance
- sputum culture usual resp jeannette
- completed a week of zoysn which serratia was sensitive to, stopped 09/28
- follow up with pcp
Class III obesity
- urge outpatient follow up with endocrinology or obesity commodity management specialist ([facility]) for obesity management which would prolong his life expectancy
ID service will no longer actively follow this patient please recall for further questions
Chief Complaint
-: Bacteremia
Subjective / Review of Systems
remains afebrile off of antibiotics
no overnight events
complains of pain
Vital Signs / Physical Exam
Vital Signs
Vital Signs
Temp Pulse Resp BP Pulse Ox
97.8 F 94 18 135/67 94
09/30/23 07:45 09/30/23 08:20 09/30/23 07:45 09/30/23 08:20 09/30/23 07:45
Physical Exam
Constitutional: No Acute Distress
Cardiovascular: Regular Rate and S1/S2; Negative Murmur or Rub
Pulmonary: Clear and Symmetric; Negative Wheezes or Rales
Gastrointestinal: Soft, Non Tender, Non Distended and Normal Bowel Sounds
Skin: Warm and Dry; Negative Rash or Jaundice
Objective Data
Lab Data
Lab Results
09/30/23 05:55
09/30/23 05:55
Estimated Creat Clear > 125 ml/min 09/30/23 05:55
Total Bilirubin 1.1 mg/dl (0.2-1.3) 09/24/23 07:36
AST 27 U/L (17-59) 09/24/23 07:36
ALT 20 U/L (0-50) 09/24/23 07:36
Alkaline Phosphatase 76 U/L (38-126) 09/24/23 07:36
Most recent labs reviewed and notable for: wbc 15 today, cr stable
no new cultures
Micro Results:
09/23/23 13:44 Blood Culture - Final
Blood/Venous Serratia marcescens
Gram Stain - Final
09/27/23 18:04 Respiratory Culture - Final
Sputum Usual Respiratory Jeannette
Gram Stain - Final
09/23/23 14:07 Blood Culture - Final
Blood/Venous No Growth - Final Report
[2023-09-30] MEDS: LOVENOX 40 MG SC (17:34)
[2023-09-30] MEDS: SEROQUEL 25 MG PO (21:14)
[2023-09-30 23:00] VITALS: BP 140/76
[2023-10-01] MEDS: TYLENOL 650 MG PO ×3 (05:16→17:51)
[2023-10-01] MEDS: ULTRAM 50 MG PO ×4 (05:16→23:57)
[2023-10-01 06:00] VITALS: BMI 51.7
[2023-10-01 06:08] LABS: Hemoglobin 9.4 g/dL (13.0-18.0); Mean Corp Hgb Conc. 29.4 g/dL (33.0-37.0); Mean Corpuscular Hgb 24.9 pg (27.0-31.0); Mean Corpuscular Volume 84.9 fL (80.0-94.0); Platelet Count 276 10^3/uL (130-400); Red Blood Cell Count 3.77 10^6/uL (4.70-6.10); Red Cell Dist. Width 16.6 % (11.5-14.5); White Blood Cell Count 15.7 10^3/uL (4.8-10.8)
[2023-10-01 06:28] LABS: Blood Urea Nitrogen 27 mg/dl (9-20); Calcium 9.2 mg/dl (8.4-10.2); Chloride 89 mmol/L (98-107); Estimated Creatinine Clearance > 125 ml/min; Glucose 122 mg/dl (70-99); Magnesium 2.3 mg/dl (1.6-2.3); Potassium 3.8 mmol/L (3.5-5.1); Sodium 138 mmol/L (135-145); eGFR > 60.00
[2023-10-01 06:30] LABS: % Basophils 0.4 % (0-2); % Eosinophils 3.8 % (0-6); % Immature Granulocytes 6.8 % (0-0.5); % Lymphocytes 10.7 % (20.5-51.1); % Monocytes 8.5 % (1.7-9.3); % Neutrophils 69.8 % (42.2-75.2); Absolute Basophils 0.1 10^3/uL (0-0.2); Absolute Eosinophils 0.6 10^3/uL (0-0.7); Absolute Immature Granulocytes 1.1 10^3/uL (0-0.05); Absolute Lymphocytes 1.7 10^3/uL (1.2-3.4); Absolute Monocytes 1.3 10^3/uL (0.1-0.6); Nucleated Red Blood Cells % 0 % (-)
[2023-10-01 06:39] LABS: Carbon Dioxide 37 mmol/L (22-30)
[2023-10-01 07:45] VITALS: BP 122/69
[2023-10-01] MEDS: LASIX 80 MG IV ×2 (08:05→17:51)
[2023-10-01] MEDS: KCL 20 MEQ PO (08:05)
[2023-10-01] MEDS: ALDACTONE 12.5 MG PO (08:05)
[2023-10-01] MEDS: NEURONTIN 300 MG PO ×3 (08:05→21:02)
[2023-10-01] MEDS: CYMBALTA DELAYED RELEASE 20 MG PO (08:05)
[2023-10-01] MEDS: CARDIZEM CD 180 MG PO (08:05)
[2023-10-01] MEDS: DESENEX/MITRAZOL/ZEASORB 1 APPLIC TOPICAL ×2 (08:06→21:02)
--- NOTE | 2023-10-01 09:16 | W.PN.HOSP.TC ---
Addendum entered and electronically signed by Beatrice Choi MD 10/01/23 14:06:
I saw and evaluated the patient independently. I reviewed the resident�s note and agree with findings and plan as documented by Dr. Mendoza.
GENERAL: well developed, well nourished, morbidly obese male in no apparent distress
HEENT: NC/AT--O2 NC in place
HEART: regular rate and rhythm, +S1, +S2
LUNGS : clear to auscultation bilaterally
ABDOM: soft, nontender, nondistended, + bowel sounds
EXT: no cyanosis, clubbing-- still with 4+ pitting edema up to abdomen despite significant weight loss (still sitting in the chair with legs down--not elevated)
NEUROLOGIC: grossly intact
Acute on chronic (hypercapnic) respiratory failure with compensatory metabolic alkalosis--Likely multifactorial- History of hypercapnic respiratory failure, on 3 L home O2, HFpEF, anasarca, Restrictive lung disease. Echo from June 2023 showed no
systolic dysfunction and indeterminate diastolic function--lower extremity venous ultrasound: no evidence for deep venous thrombosis bilaterally---Improved oxygenation , now at 3l which is his baseline need
Acute HFpEF--Acute on chronic lower extremity edema/anasarca--Diurese, follow kidney function, elevation--lasix and now spironolactone-Weight: 163 down from 191 kg on admission--apprec Cardiology - continue diuresis, sinus tachycardia--on oral
diuretics
Hypokalemia - significant drop with Metolazone use-- spironolactone--improved
obstructive sleep apnea most likely--Secondary to morbid obesity. Patient states he did not qualify for home sleep study as outpt, will need in-lab study--appreciate Pulmonology---Bipap, he continues to refuse it so it was dced.
Urinary retention--Did not tolerate Corral due to pain. Declined further cath at the time. Resolved.
Left leg ulcer--Venous stasis ulcer-- posterior LLL, serous discharge--apprec Wound care
Essential Hypertension--Continue diltiazem, lasix, spironolactone
Anxiety/depression---Continue duloxetine, quetiapine (consider increasing seroquel)
Chronic anemia-Likely of chronic disease given iron studies. B12, folate normal
DVT prophylaxis--Lovenox
CODE STATUS: Full code
disposition -- insurance running out--PT recommending home health--pt thinking SNF....CM aware
Original Note:
Today's Communication/Plan
-
-manager battery to discuss next plans with patient
-Ordered oxecodone 5mg q4h prn for pain management
-Continue diuretics - Weight stable from yesterday, k: 3.8, magnesium: normal
-PT recommends home health
Assessment / Plan
Assessment / Plan
IMPRESSION: 48-year-old male with morbid obesity, COPD, hypertension, chronic lymphedema, anxiety/depression who presents with shortness of breath and anasarca. Patient notes pain in toes, not feeling better despite losing weight from admission.
Acute on chronic respiratory failure
Likely multifactorial- History of hypercapnic respiratory failure, on 3 L home O2, HFpEF, anasarca, Restrictive lung disease. Echo from June 2023 showed no systolic dysfunction and indeterminate diastolic function
lower extremity venous ultrasound: There is no evidence for deep venous thrombosis bilaterally
-Improved oxygenation , now at 3l which is his baseline need
Acute on chronic HFpEF
Acute on chronic lower extremity edema/anasarca:
- Diurese, follow kidney function, elevation.
- Weight: 163.435 no significant change compared to yesterday
- Cardiology consult - continue diuresis, sinus tachycardia - on CCBs, hold Metalozone
Hypokalemia
- significant drop with Metolazone use. Metolazone held. Potassium is 3.8 today. Patient continues to receive spironolactone.
Possible obstructive sleep apnea
Secondary to morbid obesity. Patient did not qualify for home sleep study in outpt, will need in-lab study
-appreciate Pulmonology
-Bipap - he continues to refuse it so it was dced.
Left leg ulcer
-Venous stasis ulcer. posterior LLL, serous discharge
-Wound care
Hypertension
Continue diltiazem
Anxiety/depression
-Continue duloxetine, quetiapine
Chronic anemia
-Likely of chronic disease given iron studies. B12, folate normal
DVT prophylaxis
Lovenox
CODE STATUS: Full code
Anticipated Discharge: 24 - 48 hours
Subjective/Interval History
-
Date of Service: October 01, 2023
Objective Data
-
Labs:
Laboratory Results
10/01/23
05:35
WBC 15.7 H
Hgb 9.4 L
Hct 32.0 L
Plt Count 276
Sodium 138
Potassium 3.8
Chloride 89 L
Carbon Dioxide 37 H
BUN 27 H
Creatinine 0.9
Glucose 122 H
Calcium 9.2
Vital Signs:
Vital Signs
Temp Pulse Resp BP Pulse Ox
98.3 F 106 22 122/69 94
10/01/23 07:45 10/01/23 07:45 10/01/23 07:45 10/01/23 07:45 10/01/23 07:45
I&O
09/30/23 10/01/23 10/02/23
06:59 06:59 06:59
Intake Total 1160 / 1160 1320 / 1320
Balance 1160 / 1160 1320 / 1320
Review of Systems
-
Constitutional: Denies Fever
Respiratory: Reports No Symptoms
Cardiac: Denies Chest Pain
Abdomen/GI: Denies Nausea or Vomiting
Physical Exam
-
General: No Apparent Distress
HEENT: Moist Mucous Membranes
Respiratory: Clear to Auscultation
Cardiac: Regular Rhythm and S1/S2
Neuro: AO x 3
[2023-10-01] MEDS: ROXICODONE 5 MG PO ×2 (13:29→23:57)
--- NOTE | 2023-10-01 14:54 | CM ---
Reviewed the chart notes and spoke with the patient at the bedside. Patient interested in SNF/rehab prior to transitioning back to home. [facility] has started process for patient to obtain Medicaid. Referrals sent to area SNFs. CM continues to be
available to patient/family and is monitoring medical plan for needs at discharge.
Plan: Discharge to SNF/rehab once a bed is found. Must be a MA pending bed.
[2023-10-01 15:45] VITALS: BP 133/75
[2023-10-01] MEDS: LOVENOX 40 MG SC (17:51)
[2023-10-01] MEDS: SEROQUEL 25 MG PO (21:02)
[2023-10-01 22:59] VITALS: BP 142/71
[2023-10-01] MEDS: TYLENOL PO (23:57)
[2023-10-02] MEDS: TYLENOL PO (00:05)
--- NOTE | 2023-10-02 04:52 | W.PN.HOSP.TC ---
Addendum entered and electronically signed by Beatrice Choi MD 10/02/23 13:08:
I saw and evaluated the patient independently. I reviewed the resident�s note and agree with findings and plan as documented by Dr. Mendoza.
GENERAL: well developed, well nourished, morbidly obese male in no apparent distress
HEENT: NC/AT--O2 NC in place
HEART: regular rate and rhythm, +S1, +S2
LUNGS : clear to auscultation bilaterally
ABDOM: soft, nontender, nondistended, + bowel sounds
EXT: no cyanosis, clubbing-- still with 4+ pitting edema up to abdomen despite significant weight loss (still sitting in the chair with legs down--not elevated)
NEUROLOGIC: grossly intact
Acute on chronic (hypercapnic) respiratory failure with compensatory metabolic alkalosis--Likely multifactorial- History of hypercapnic respiratory failure, on 3 L home O2, HFpEF, anasarca, Restrictive lung disease--Echo from June 2023 showed no
systolic dysfunction and indeterminate diastolic function (did not repeat this admission)--lower extremity venous ultrasound: no evidence for deep venous thrombosis bilaterally---Improved oxygenation , now at 3l which is his baseline
Acute HFpEF--Acute on chronic lower extremity edema/anasarca--Diurese, follow kidney function, elevation--lasix and now spironolactone-Weight: 163 down from 191 kg on admission (61.6 lbs off since admission)--apprec Cardiology--on oral diuretics
(d/c meds: lasix 80mg PO bid, aldactone 12.5mg daily, KCL 20 mEq daily)
Hypokalemia - significant drop with Metolazone use-- spironolactone--improved
obstructive sleep apnea most likely--Secondary to morbid obesity. Patient states he did not qualify for home sleep study as outpt, will need in-lab study--appreciate Pulmonology---Bipap, he continues to refuse it so it was dced.
Urinary retention--Did not tolerate Corral due to pain. Declined further cath at the time. Resolved.
Left leg ulcer--Venous stasis ulcer-- posterior LLL, serous discharge--apprec Wound care
Essential Hypertension--Continue diltiazem, lasix, spironolactone
Anxiety/depression---Continue duloxetine, quetiapine (consider increasing seroquel)
Chronic anemia--Likely of chronic disease given iron studies. B12, folate normal
DVT prophylaxis--Lovenox
CODE STATUS: Full code
disposition -- insurance running out--PT recommending home health--pt wants SNF....CM aware
medically stable for d/c to SNF
Original Note:
Today's Communication/Plan
-
awaiting availability of SNF bed
continue diuretics
cardiology consult - BMP in one week after discharge, outpatient follow-up with Dr. Nunez
Assessment / Plan
Assessment / Plan
IMPRESSION: 48-year-old male with morbid obesity, COPD, hypertension, chronic lymphedema, anxiety/depression who presents with shortness of breath and anasarca. Patient notes pain in toes again, not feeling better despite losing weight from
admission. Case management has discussed the options with the patient. Patient is interested in SNF. Will plan to discharge after bed available in SNF.
Acute on chronic respiratory failure
Likely multifactorial- History of hypercapnic respiratory failure, on 3 L home O2, HFpEF, anasarca, Restrictive lung disease. Echo from June 2023 showed no systolic dysfunction and indeterminate diastolic function
lower extremity venous ultrasound: There is no evidence for deep venous thrombosis bilaterally
-Improved oxygenation , now at 3l which is his baseline need
Acute on chronic HFrEF
Acute on chronic lower extremity edema/anasarca:
- Diurese, follow kidney function, elevation.
- Weight: 163.203 no significant change compared to yesterday
- Cardiology consult - continue diuresis, sinus tachycardia - on CCBs, hold Metalozone
Hypokalemia
- significant drop with Metolazone use. Metolazone held. Potassium is 3.8 today. Patient continues to receive spironolactone.
Possible obstructive sleep apnea
Secondary to morbid obesity. Patient did not qualify for home sleep study in outpt, will need in-lab study
-appreciate Pulmonology
-Bipap - he continues to refuse it so it was dced.
Left leg ulcer
-Venous stasis ulcer. posterior LLL, serous discharge
-Wound care
Hypertension
Continue diltiazem
Anxiety/depression
-Continue duloxetine, quetiapine
Chronic anemia
-Likely of chronic disease given iron studies. B12, folate normal
DVT prophylaxis
Lovenox
CODE STATUS: Full code
Anticipated Discharge: 24 - 48 hours
Subjective/Interval History
-
Date of Service: October 02, 2023
Objective Data
-
Labs:
Laboratory Results
10/02/23
04:13
WBC Pending
Hgb Pending
Hct Pending
Plt Count Pending
Sodium Pending
Potassium Pending
Chloride Pending
Carbon Dioxide Pending
BUN Pending
Creatinine Pending
Glucose Pending
Calcium Pending
Vital Signs:
Vital Signs
Temp Pulse Resp BP Pulse Ox
98.7 F 96 22 142/71 97
10/01/23 22:59 10/01/23 22:59 10/01/23 22:59 10/01/23 22:59 10/01/23 22:59
I&O
09/30/23 10/01/23 10/02/23
06:59 06:59 06:59
Intake Total 1160 / 1160 1320 / 1320 930 / 930
Balance 1160 / 1160 1320 / 1320 930 / 930
Review of Systems
-
Constitutional: Denies Fever
Respiratory: Reports No Symptoms
Cardiac: Denies Chest Pain
Abdomen/GI: Denies Nausea or Vomiting
Physical Exam
-
General: No Apparent Distress
HEENT: Moist Mucous Membranes
Respiratory: Clear to Auscultation
Cardiac: Regular Rhythm and S1/S2
Neuro: AO x 3
[2023-10-02] MEDS: ULTRAM 50 MG PO ×3 (05:28→17:36)
[2023-10-02] MEDS: TYLENOL 650 MG PO ×3 (05:28→17:36)
[2023-10-02 05:38] LABS: Hemoglobin 9.1 g/dL (13.0-18.0); Mean Corp Hgb Conc. 30.3 g/dL (33.0-37.0); Mean Corpuscular Hgb 25.3 pg (27.0-31.0); Mean Corpuscular Volume 83.6 fL (80.0-94.0); Mean Platelet Volume 10.2 fL (7.4-10.4); Platelet Count 252 10^3/uL (130-400); Red Blood Cell Count 3.59 10^6/uL (4.70-6.10); Red Cell Dist. Width 16.6 % (11.5-14.5); White Blood Cell Count 14.5 10^3/uL (4.8-10.8)
[2023-10-02 05:50] LABS: Blood Urea Nitrogen 25 mg/dl (9-20); Calcium 8.7 mg/dl (8.4-10.2); Carbon Dioxide 37 mmol/L (22-30); Chloride 91 mmol/L (98-107); Estimated Creatinine Clearance > 125 ml/min; Glucose 121 mg/dl (70-99); Potassium 3.6 mmol/L (3.5-5.1); Sodium 136 mmol/L (135-145); eGFR > 60.00
[2023-10-02 06:05] VITALS: BMI 51.6
[2023-10-02 07:45] LABS: % Basophils 0.5 % (0-2); % Eosinophils 4.1 % (0-6); % Immature Granulocytes 5.2 % (0-0.5); % Lymphocytes 9.2 % (20.5-51.1); % Monocytes 9.7 % (1.7-9.3); % Neutrophils 71.3 % (42.2-75.2); Absolute Basophils 0.1 10^3/uL (0-0.2); Absolute Eosinophils 0.6 10^3/uL (0-0.7); Absolute Immature Granulocytes 0.8 10^3/uL (0-0.05); Absolute Lymphocytes 1.3 10^3/uL (1.2-3.4); Absolute Monocytes 1.4 10^3/uL (0.1-0.6); Absolute Neutrophils 10.4 10^3/uL (1.4-6.5); Nucleated Red Blood Cells % 0 % (-)
[2023-10-02 07:55] VITALS: BP 129/88
--- NOTE | 2023-10-02 08:28 | W.PN.UPDATE ---
Update Note
Progress Note Update
diuretic regimen on d/c: lasix 80mg PO bid, aldactone 12.5mg daily, KCL 20 mEq daily
BMP in one week, and then follow up with his burglar alarm mechanic (Dr Nunez)
discussed with hospitalist team
[2023-10-02] MEDS: ALDACTONE 12.5 MG PO (09:22)
[2023-10-02] MEDS: NEURONTIN 300 MG PO ×3 (09:22→22:59)
[2023-10-02] MEDS: KCL 20 MEQ PO (09:22)
[2023-10-02] MEDS: CYMBALTA DELAYED RELEASE 20 MG PO (09:23)
[2023-10-02] MEDS: CARDIZEM CD 180 MG PO (09:23)
[2023-10-02] MEDS: LASIX 80 MG IV (09:28)
[2023-10-02] MEDS: DESENEX/MITRAZOL/ZEASORB 1 APPLIC TOPICAL ×2 (09:35→23:03)
--- NOTE | 2023-10-02 11:09 | CM ---
Addendum entered by Noemy Rodriguez 10/02/23 15:52:
patient states that management letter was given to [facility] yesterday. CM spoke with Suzy from [facility] about options for patient as MA pending. Suzy to call patient father and review options. CM will continue to follow for discharge planning needs.
Original Note:
Patient seen at bedside with physicians. Patient states he does not feel able to return home and wants SNF placement. CM reviewed PAC options and will make referrals. Patient stated that [facility] did picking table worker the application/management form yesterday. CM
left VM for [facility] and will start referrals in all scripts. PT/OT currently recommending home health but patient feels unable to return home. CM will continue to follow for discharge planning needs.
Plan; SNF
[2023-10-02 14:00] VITALS: BP 126/71; PULSE 90; O2SAT 97
[2023-10-02 15:20] VITALS: BP 137/77
[2023-10-02] MEDS: LASIX 80 MG PO (15:29)
[2023-10-02] MEDS: LOVENOX 40 MG SC (17:37)
--- NOTE | 2023-10-02 19:27 | W.DCSUMMARY ---
Discharge Summary
Discharge Data
Date of Admission: 09/15/23
Date of Discharge: 10/08/23
Total time spent discharging patient (in min): 60
-
Pending Results: No
Hospital Course
Primary diagnosis:
HFpEF, acute on chronic
Acute on chronic hypoxemic respiratory failure
Sepsis
Lower extremity swelling/chronic lymphedema, acute on chronic with a component of CHF
Obstructive sleep apnea
Morbid obesity, BMI >50
Essential hypertension
Secondary diagnosis:
Restrictive lung disease
Anxiety/depression
Chronic anemia
Inappropriate sinus tachycardia
48-year-old male with past medical history significant for morbid obesity, hypertension, obstructive sleep apnea, HFpEF, chronic hypercapnic hypoxemic respiratory failure (on 3 L of oxygen at home), chronic metabolic alkalosis, restrictive lung
disease, COPD, anxiety/depression, smoker who presented to the ED complaining of worsening shortness of breath, orthopnea and bilateral lower extremity swelling. Patient has had multiple admissions for shortness of breath over the past months and
has gained excess weight (100 pounds) since 2020. Patient is noncompliant with his medications and has poor insight. Chest x-ray showed pulmonary edema, could not rule out pneumonia. Procalcitonin elevated. COVID-negative. Bacteremia with
gram-negative bacilli, started on Zosyn and completed course of treatment. Was started on 6L of oxygen and IV diuresis with Lasix. Patient refused BiPAP use. Repleted hypokalemia following metolazone use. Cardiology consult recommended addition of
Aldactone and KCl to diuretic regimen. Patient had significant weight loss during this admission (admission weight: 191 kg, current weight: 164 kg). Patient has chronic hypercapnic hypoxemic respiratory failure with compensated metabolic alkalosis,
creatinine remained normal during this admission (discharge Cr: 0.8).
Patient is medically stable to be discharged home on Lasix 80 mg twice daily, Aldactone 12.5 mg daily, KCl 20 mEq daily and home meds. Is currently on 3 L of oxygen (baseline).
Discharge Plan
-
Patient Disposition: Home with Home Care
Discharge Diagnosis/Procedures: Acute on chronic hypercapnic/hypoxemic respiratory failure with compensatory metabolic alkalosis, acute diastolic congestive heart failure exacerbation with anasarca and lymphedema, hypokalemia, obstructive sleep
apnea, left leg ulcer, essential hypertension, anxiety/depression, anemia of chronic disease
Condition: Fair
Diet: Other diet
Additional Diets: 4 g sodium restriction and 1800 mL/day fluid restriction (60 oz)
Activity: As tolerated
Additional Activity: BMP in 1 week--obtain through your PCP
Driving Restrictions: As prior to admission
Bathing Restrictions: None
Other Services: VN and PT
Activity Restrictions/Additional Instructions:
Wound Care Instructions
L leg scabs open to air
LEGS: After bathing using soap and water, moisturize with mineral oil daily before applying sal wraps.
Miconazole powder to coccyx/agustina skin bid, back rash bid.
Bilateral knee high Sal wraps with size G Tubigrip (LATEX) on top as tolerated. Reapply daily and as needed for skin care.
leg elevation when sitting
Make appointment at Lymphedema clinic if able, call [phone] for an apt.
Instructions: *[facility] Heart Failure Instructions
Referrals:
Apoorva Valenzuela MD [Active] - in two to four weeks
Mikel Gentile MD [Active] - in less than 1 week
Tom Camargo MD [Active] - in one to two weeks (cardiology)
Renay Mckeon MD, Resident [Family Provider] - in less than 1 week
Prescriptions:
New
furosemide 80 mg Tablet
80 mg PO BID@0800,1600 Qty: 60 0RF
potassium chloride 10 mEq Tablet,Er Particles/Crystals
20 meq PO DAILY Qty: 30 0RF
spironolactone [Aldactone] 25 mg tablet
12.5 mg PO DAILY Qty: 15 0RF
Continued
diltiazem HCl 180 mg Capsule,Extended Release 24hr
180 mg PO DAILY Qty: 30 0RF
gabapentin 100 mg Capsule
100 mg PO TID Qty: 90 0RF
duloxetine 20 mg Capsule,Delayed Release(Dr/Ec)
20 mg PO DAILY Qty: 30 0RF
diphenhydramine-acetaminophen [Tylenol PM Extra Strength] 25-500 mg Tablet
2 tab PO HSPRN PRN (Reason: sleep)
melatonin 5 mg Tablet
10 mg PO HSPRN PRN (Reason: sleep)
quetiapine 25 mg Tablet
25 mg PO HS
Discharge Orders:
Discharge Patient (As Directed); Ordered 10/08/23
Ordered By: Judson Plummer
Discharge Date and Time
Print Language: NICARAGUAN
[2023-10-02] MEDS: FLUSH (NSS) 1 FLUSH IV (20:37)
--- NOTE | 2023-10-02 21:37 | PTCARENOTE ---
Pt rec'd at change of shift in recliner chair. No complaints offered. 3 lit n/c with no cough noted. pt requesting compression stockings to be removed at HS.
[2023-10-02] MEDS: SEROQUEL 25 MG PO (23:00)
[2023-10-02] MEDS: ROXICODONE 5 MG PO (23:03)
[2023-10-02 23:05] VITALS: BP 130/72
[2023-10-03] MEDS: TYLENOL PO ×2 (00:21→23:09)
[2023-10-03] MEDS: ULTRAM PO ×2 (00:22→23:09)
[2023-10-03] MEDS: TYLENOL 650 MG PO ×3 (04:55→17:34)
[2023-10-03] MEDS: ULTRAM 50 MG PO ×3 (04:55→17:34)
[2023-10-03 06:00] VITALS: BMI 51.9
[2023-10-03 06:52] LABS: % Basophils 0.5 % (0-2); % Eosinophils 4.9 % (0-6); % Immature Granulocytes 4.2 % (0-0.5); % Lymphocytes 9.7 % (20.5-51.1); % Monocytes 11.3 % (1.7-9.3); % Neutrophils 69.4 % (42.2-75.2); Absolute Basophils 0.1 10^3/uL (0-0.2); Absolute Eosinophils 0.6 10^3/uL (0-0.7); Absolute Immature Granulocytes 0.5 10^3/uL (0-0.05); Absolute Lymphocytes 1.1 10^3/uL (1.2-3.4); Absolute Monocytes 1.3 10^3/uL (0.1-0.6); Absolute Neutrophils 8.1 10^3/uL (1.4-6.5); Hematocrit 30.5 % (39.0-52.0); Mean Corp Hgb Conc. 29.5 g/dL (33.0-37.0); Mean Corpuscular Hgb 25.8 pg (27.0-31.0); Mean Corpuscular Volume 87.4 fL (80.0-94.0); Mean Platelet Volume 10.6 fL (7.4-10.4); Nucleated Red Blood Cells % 0 % (-); Platelet Count 226 10^3/uL (130-400); Red Blood Cell Count 3.49 10^6/uL (4.70-6.10); Red Cell Dist. Width 16.5 % (11.5-14.5); White Blood Cell Count 11.6 10^3/uL (4.8-10.8)
[2023-10-03 07:00] VITALS: BP 134/75
[2023-10-03 07:10] LABS: Blood Urea Nitrogen 26 mg/dl (9-20); Calcium 8.8 mg/dl (8.4-10.2); Carbon Dioxide 39 mmol/L (22-30); Chloride 93 mmol/L (98-107); Estimated Creatinine Clearance > 125 ml/min; Glucose 124 mg/dl (70-99); Sodium 138 mmol/L (135-145); eGFR > 60.00
[2023-10-03] MEDS: ALDACTONE 12.5 MG PO ×2 (08:59→19:56)
[2023-10-03] MEDS: CYMBALTA DELAYED RELEASE 20 MG PO (08:59)
[2023-10-03] MEDS: NEURONTIN 300 MG PO ×3 (09:00→22:34)
[2023-10-03] MEDS: LASIX 80 MG PO (09:00)
[2023-10-03] MEDS: CARDIZEM CD 180 MG PO (09:01)
[2023-10-03] MEDS: KCL 20 MEQ PO (09:01)
[2023-10-03] MEDS: DESENEX/MITRAZOL/ZEASORB 1 APPLIC TOPICAL ×2 (09:06→19:58)
--- NOTE | 2023-10-03 14:49 | CM ---
Addendum entered by Noemy Rodriguez 10/03/23 16:00:
CM left VM for Opal and Dee with questions about MA and pending assignment for HMO.
Original Note:
Patient seen at bedside with physicians. CM confirmed with [facility] that all documentation needed had been received and submitted, awaiting MA confirmation. CM spoke with Suzy from admissions with [facility] and they are willing to consider patient if MA
active and with auth. CM updated patient and will continue to follow for discharge planning needs.
Plan; SNF
[2023-10-03] MEDS: LASIX 80 MG IV (15:03)
--- NOTE | 2023-10-03 15:35 | W.PN.HOSP.TC ---
Addendum entered and electronically signed by Beatrice Choi MD 10/03/23 15:58:
I saw and evaluated the patient independently. I reviewed the resident�s note and agree with findings and plan as documented by Dr. Mendoza.
GENERAL: well developed, well nourished, morbidly obese male in no apparent distress
HEENT: NC/AT--O2 NC in place
HEART: regular rate and rhythm, +S1, +S2
LUNGS : clear to auscultation bilaterally
ABDOM: soft, nontender, nondistended, + bowel sounds
EXT: no cyanosis, clubbing-- still with 4+ pitting edema up to abdomen despite significant weight loss (still sitting in the chair with legs down--not elevated)
NEUROLOGIC: grossly intact
Acute on chronic (hypercapnic) respiratory failure with compensatory metabolic alkalosis--Likely multifactorial- History of hypercapnic respiratory failure, on 3 L home O2, HFpEF, anasarca, Restrictive lung disease--Echo from June 2023 showed no
systolic dysfunction and indeterminate diastolic function (did not repeat this admission)--lower extremity venous ultrasound: no evidence for deep venous thrombosis bilaterally---Improved oxygenation , now at 3l which is his baseline
Acute HFpEF--Acute on chronic lower extremity edema/anasarca--Diurese, follow kidney function, elevation--lasix and now spironolactone--Weight: 163 down from 191 kg on admission (61.6 lbs off since admission)--apprec Cardiology--on oral diuretics
(d/c meds: lasix 80mg PO bid, aldactone 12.5mg daily, KCL 20 mEq daily)--will give PM dose of lasix IV today and increase aldactone to BID tomorrow--follow weights
Hypokalemia - significant drop with Metolazone use-- spironolactone--improved
obstructive sleep apnea most likely--Secondary to morbid obesity. Patient states he did not qualify for home sleep study as outpt, will need in-lab study--appreciate Pulmonology---Bipap, he continues to refuse it so it was dced.
Urinary retention--Did not tolerate Corral due to pain. Declined further cath at the time. Resolved.
Left leg ulcer--Venous stasis ulcer-- posterior LLL, serous discharge--apprec Wound care
Essential Hypertension--Continue diltiazem, lasix, spironolactone
Anxiety/depression---Continue duloxetine, quetiapine (consider increasing seroquel)
Chronic anemia--Likely of chronic disease given iron studies. B12, folate normal
DVT prophylaxis--Lovenox
CODE STATUS: Full code
disposition -- insurance running out--PT recommending home health--pt wants SNF....CM aware
medically stable for d/c to SNF
Original Note:
Today's Communication/Plan
-
Switch Lasix p.o. to IV
Aldactone daily to twice daily
Continue to monitor weight
Awaiting SNF availability
Assessment / Plan
Assessment / Plan
IMPRESSION: 48-year-old male with morbid obesity, COPD, hypertension, chronic lymphedema, anxiety/depression who presents with shortness of breath and anasarca. Patient notes headache, feeling less pain with oxycodone. Case management has discussed
the options with the patient. Will plan to discharge after bed available in SNF.
Acute on chronic respiratory failure
Likely multifactorial- History of hypercapnic respiratory failure, on 3 L home O2, HFpEF, anasarca, Restrictive lung disease. Echo from June 2023 showed no systolic dysfunction and indeterminate diastolic function
lower extremity venous ultrasound: There is no evidence for deep venous thrombosis bilaterally
-Improved oxygenation , now at 3l which is his baseline need
Acute on chronic HFrEF
Acute on chronic lower extremity edema/anasarca:
- Diurese, follow kidney function, elevation.
- Cardiology consult - continue diuresis, sinus tachycardia - on CCBs, hold Metalozone
- Weight: 164.155 slight increase from yesterday
- Switch Lasix p.o. to IV
- Aldactone daily to twice daily
Hypokalemia
- significant drop with Metolazone use. Metolazone held. Potassium is 4.0 today. Patient continues to receive spironolactone.
Possible obstructive sleep apnea
Secondary to morbid obesity. Patient did not qualify for home sleep study in outpt, will need in-lab study
-appreciate Pulmonology
-Bipap - he continues to refuse it so it was dced.
Left leg ulcer
-Venous stasis ulcer. Posterior LLL, serous discharge
-Wound care
Hypertension
Continue diltiazem
Anxiety/depression
-Continue duloxetine, quetiapine
Chronic anemia
-Likely of chronic disease given iron studies. B12, folate normal
DVT prophylaxis
Lovenox
CODE STATUS: Full code
Anticipated Discharge: 24 - 48 hours
Subjective/Interval History
-
Date of Service: October 03, 2023
Objective Data
-
Labs:
Laboratory Results
10/03/23
06:27
WBC 11.6 H
Hgb 9.0 L
Hct 30.5 L
Plt Count 226
Sodium 138
Potassium 4.0
Chloride 93 L
Carbon Dioxide 39 H
BUN 26 H
Creatinine 0.8
Glucose 124 H
Calcium 8.8
Vital Signs:
Vital Signs
Temp Pulse Resp BP Pulse Ox
97.3 F 93 20 138/81 96
10/03/23 07:00 10/03/23 15:03 10/03/23 07:00 10/03/23 15:03 10/03/23 07:00
I&O
10/02/23 10/03/23 10/04/23
06:59 06:59 06:59
Intake Total 1650 / 1650 1919
Balance 1650 / 1650 1919
[2023-10-03 15:50] VITALS: BP 152/79
[2023-10-03 15:51] VITALS: BP 138/81; PULSE 93; O2SAT 96
[2023-10-03] MEDS: LOVENOX 40 MG SC (17:34)
[2023-10-03 19:48] VITALS: BP 138/73
[2023-10-03] MEDS: ROXICODONE 5 MG PO (22:34)
[2023-10-03] MEDS: SEROQUEL 25 MG PO (22:35)
[2023-10-03 23:22] VITALS: BP 134/77
[2023-10-04] MEDS: ULTRAM PO (05:25)
[2023-10-04] MEDS: TYLENOL PO (05:25)
[2023-10-04 06:00] VITALS: BMI 52.2
[2023-10-04 07:40] VITALS: BP 153/79
[2023-10-04 08:03] LABS: % Basophils 0.3 % (0-2); % Eosinophils 4.7 % (0-6); % Immature Granulocytes 1.6 % (0-0.5); % Lymphocytes 10.3 % (20.5-51.1); % Monocytes 11.8 % (1.7-9.3); % Neutrophils 71.3 % (42.2-75.2); Absolute Eosinophils 0.5 10^3/uL (0-0.7); Absolute Immature Granulocytes 0.2 10^3/uL (0-0.05); Absolute Lymphocytes 1.1 10^3/uL (1.2-3.4); Absolute Monocytes 1.3 10^3/uL (0.1-0.6); Absolute Neutrophils 7.5 10^3/uL (1.4-6.5); Hematocrit 29.7 % (39.0-52.0); Hemoglobin 8.8 g/dL (13.0-18.0); Mean Corp Hgb Conc. 29.6 g/dL (33.0-37.0); Mean Corpuscular Hgb 25.4 pg (27.0-31.0); Mean Corpuscular Volume 85.8 fL (80.0-94.0); Mean Platelet Volume 10.2 fL (7.4-10.4); Nucleated Red Blood Cells % 0 % (-); Platelet Count 227 10^3/uL (130-400); Red Blood Cell Count 3.46 10^6/uL (4.70-6.10); Red Cell Dist. Width 16.6 % (11.5-14.5); White Blood Cell Count 10.6 10^3/uL (4.8-10.8)
[2023-10-04 08:07] LABS: Blood Urea Nitrogen 25 mg/dl (9-20); Calcium 8.9 mg/dl (8.4-10.2); Chloride 93 mmol/L (98-107); Estimated Creatinine Clearance > 125 ml/min; Glucose 121 mg/dl (70-99); Potassium 4.1 mmol/L (3.5-5.1); Sodium 138 mmol/L (135-145); eGFR > 60.00
[2023-10-04 08:20] LABS: Carbon Dioxide 37 mmol/L (22-30)
[2023-10-04] MEDS: CARDIZEM CD 180 MG PO (09:17)
[2023-10-04] MEDS: ALDACTONE 12.5 MG PO ×2 (09:18→19:55)
[2023-10-04] MEDS: KCL 20 MEQ PO (09:18)
[2023-10-04] MEDS: NEURONTIN 300 MG PO ×3 (09:18→22:27)
[2023-10-04] MEDS: CYMBALTA DELAYED RELEASE 20 MG PO (09:18)
[2023-10-04] MEDS: DESENEX/MITRAZOL/ZEASORB 1 APPLIC TOPICAL ×2 (09:21→19:57)
--- NOTE | 2023-10-04 11:43 | W.PN.HOSP.TC ---
Today's Communication/Plan
-
cont diuresis
d/c planning
Assessment / Plan
Assessment / Plan
IMPRESSION: 48-year-old male with morbid obesity, COPD, hypertension, chronic lymphedema, anxiety/depression who presents with shortness of breath and anasarca. Patient notes headache, feeling less pain with oxycodone. Case management has discussed
the options with the patient. Will plan to discharge after bed available in SNF.
Acute on chronic (hypercapnic) respiratory failure with compensatory metabolic alkalosis--Likely multifactorial- History of hypercapnic respiratory failure, on 3 L home O2, HFpEF, anasarca, Restrictive lung disease--Echo from June 2023 showed no
systolic dysfunction and indeterminate diastolic function (did not repeat this admission)--lower extremity venous ultrasound: no evidence for deep venous thrombosis bilaterally---Improved oxygenation , now at 3l which is his baseline
Acute HFpEF--Acute on chronic lower extremity edema/anasarca/lymphedema--Diurese, follow kidney function, elevation--lasix and now spironolactone--Weight: 163 down from 191 kg on admission (61.6 lbs off since admission)--apprec Cardiology--on oral
diuretics (d/c meds: lasix 80mg PO bid, aldactone 12.5mg BID, KCL 20 mEq daily)--follow weights--will need f/u with lymphedema clinic outpt
Hypokalemia - significant drop with Metolazone use-- spironolactone--improved--replete as needed
obstructive sleep apnea most likely--Secondary to morbid obesity. Patient states he did not qualify for home sleep study as outpt, will need in-lab study--appreciate Pulmonology---Bipap, he continues to refuse it so it was dced.
Urinary retention--Did not tolerate Corral due to pain. Declined further cath at the time. Resolved.
Left leg ulcer--Venous stasis ulcer-- posterior LLL, serous discharge--apprec Wound care--pt c/o itching
Essential Hypertension--Continue diltiazem, lasix, spironolactone
Anxiety/depression---Continue duloxetine, quetiapine (consider increasing seroquel)
Chronic anemia--Likely of chronic disease given iron studies. B12, folate normal
DVT prophylaxis--Lovenox
CODE STATUS: Full code
disposition -- insurance running out--PT recommending home health--pt wants SNF....CM aware--mother not doing well either per his father
Anticipated Discharge: > 48 hours
Subjective/Interval History
-
Date of Service: October 04, 2023
pt not voiding as much
Objective Data
-
Labs:
Laboratory Results
10/04/23
07:48
WBC 10.6
Hgb 8.8 L
Hct 29.7 L
Plt Count 227
Sodium 138
Potassium 4.1
Chloride 93 L
Carbon Dioxide 37 H
BUN 25 H
Creatinine 0.8
Glucose 121 H
Calcium 8.9
Vital Signs:
max temp for 24 hours
10/03/23
15:50
Temp 98.2 F
Vital Signs
Temp Pulse Resp BP Pulse Ox
97.5 F 96 20 153/79 100
10/04/23 07:40 10/04/23 09:17 10/04/23 07:40 10/04/23 09:17 10/04/23 07:40
I&O
10/03/23 10/04/23 10/05/23
06:59 06:59 06:59
Intake Total 1919
Balance 1919
Review of Systems
-
All other systems: Reviewed and negative
Physical Exam
-
General: Well Developed, Well Nourished and No Apparent Distress
HEENT: Normocephalic, Atraumatic and Oxygen
Respiratory: Clear to Auscultation; Negative Wheezes or Crackles
Cardiac: Regular Rhythm and S1/S2; Negative Murmur
GI: Soft, Nontender, Nondistended and Normal Bowel Sounds
Musculoskeletal: No Clubbing, No Cyanosis and No Edema
Neuro: Awake
Psych: Calm
[2023-10-04 15:40] VITALS: BP 153/80
[2023-10-04] MEDS: LASIX 80 MG IV (17:02)
[2023-10-04] MEDS: LOVENOX 40 MG SC (17:03)
[2023-10-04 19:00] VITALS: BP 128/66
[2023-10-04] MEDS: HYDROCORTISONE 2.5% OINTMENT 1 APPLIC TOPICAL (19:56)
[2023-10-04] MEDS: ROXICODONE 5 MG PO (22:27)
[2023-10-04] MEDS: SEROQUEL 25 MG PO (22:27)
[2023-10-04 23:00] VITALS: BP 135/74
[2023-10-05 05:35] LABS: Blood Urea Nitrogen 24 mg/dl (9-20); Calcium 8.9 mg/dl (8.4-10.2); Carbon Dioxide 39 mmol/L (22-30); Chloride 95 mmol/L (98-107); Estimated Creatinine Clearance > 125 ml/min; Glucose 124 mg/dl (70-99); Sodium 139 mmol/L (135-145); eGFR > 60.00
[2023-10-05 06:00] VITALS: BMI 52.1
[2023-10-05 07:45] VITALS: BP 141/76
--- NOTE | 2023-10-05 09:15 | W.PN.HOSP.TC ---
Today's Communication/Plan
-
increased aldactone to 25 mg PO BID
IV lasix while in house
d/c planning
Assessment / Plan
Assessment / Plan
IMPRESSION: 48-year-old male with morbid obesity, COPD, hypertension, chronic lymphedema, anxiety/depression who presents with shortness of breath and anasarca. Patient notes headache, feeling less pain with oxycodone. Case management has discussed
the options with the patient. Will plan to discharge after bed available in SNF.
Acute on chronic (hypercapnic) respiratory failure with compensatory metabolic alkalosis-- multifactorial- History of hypoxemic respiratory failure, on 3 L home O2, HFpEF, anasarca, Restrictive lung disease--Echo from June 2023 showed no systolic
dysfunction and indeterminate diastolic function (did not repeat this admission)--lower extremity venous ultrasound: no evidence for deep venous thrombosis bilaterally---Improved oxygenation , now at 3l which is his baseline
Acute HFpEF--Acute on chronic lower extremity edema/anasarca/lymphedema--Diurese, follow kidney function, elevation--lasix and now spironolactone--Weight: 163 down from 191 kg on admission (61.6 lbs off since admission)--apprec Cardiology--on IV
diuretics while in house (d/c meds: lasix 80mg PO bid, aldactone 25 mg BID, KCL 20 mEq daily)--follow weights--will need f/u with lymphedema clinic outpt
Hypokalemia - significant drop with Metolazone use-- spironolactone--improved--replete as needed
obstructive sleep apnea most likely--Secondary to morbid obesity. Patient states he did not qualify for home sleep study as outpt, will need in-lab study--appreciate Pulmonology---Bipap, he continues to refuse it so it was dced.
Urinary retention--Did not tolerate Corral due to pain. Declined further cath at the time. Resolved.
Left leg ulcer--Venous stasis ulcer-- posterior LLL, serous discharge--apprec Wound care--pt c/o itching
Essential Hypertension--Continue diltiazem, lasix, spironolactone
Anxiety/depression---Continue duloxetine, quetiapine (consider increasing seroquel)
Chronic anemia--Likely of chronic disease given iron studies. B12, folate normal
DVT prophylaxis--Lovenox
CODE STATUS: Full code
disposition -- insurance running out--PT recommending home health--pt wants SNF....CM aware--mother not doing well either per his father
Anticipated Discharge: > 48 hours
Subjective/Interval History
-
Date of Service: October 05, 2023
pt without c/o
Objective Data
-
Labs:
Laboratory Results
10/05/23
04:38
Sodium 139
Potassium 4.0
Chloride 95 L
Carbon Dioxide 39 H
BUN 24 H
Creatinine 0.8
Glucose 124 H
Calcium 8.9
Vital Signs:
max temp for 24 hours
10/04/23
15:40
Temp 98 F
Vital Signs
Temp Pulse Resp BP Pulse Ox
97.6 F 100 20 141/76 96
10/05/23 07:45 10/05/23 07:45 10/05/23 07:45 10/05/23 07:45 10/05/23 07:45
I&O
10/04/23 10/05/23 10/06/23
06:59 06:59 06:59
Intake Total 2019
Balance 2019
Review of Systems
-
All other systems: Reviewed and negative
Physical Exam
-
General: Well Developed, Well Nourished, No Apparent Distress and Morbidly Obese
HEENT: Normocephalic, Atraumatic and Oxygen
Respiratory: Clear to Auscultation; Negative Wheezes or Rhonchi
Cardiac: Regular Rhythm and S1/S2; Negative Murmur
GI: Soft, Nontender, Nondistended and Normal Bowel Sounds
Musculoskeletal: No Clubbing, No Cyanosis and No Edema
Skin: Other (still with anasarca/subcutaneous edema)
Neuro: Awake
Psych: Calm
[2023-10-05] MEDS: CYMBALTA DELAYED RELEASE 20 MG PO (09:22)
[2023-10-05] MEDS: NEURONTIN 300 MG PO ×3 (09:23→22:16)
[2023-10-05] MEDS: CARDIZEM CD 180 MG PO (09:23)
[2023-10-05] MEDS: LASIX 80 MG IV ×2 (09:24→15:23)
[2023-10-05] MEDS: KCL 20 MEQ PO (09:24)
[2023-10-05] MEDS: HYDROCORTISONE 2.5% OINTMENT 1 APPLIC TOPICAL ×2 (09:27→19:57)
[2023-10-05] MEDS: DESENEX/MITRAZOL/ZEASORB 1 APPLIC TOPICAL ×2 (09:27→19:56)
[2023-10-05] MEDS: ALDACTONE PO (09:32)
[2023-10-05] MEDS: ALDACTONE 25 MG PO ×2 (11:03→20:00)
[2023-10-05 14:51] VITALS: PULSE 99; O2SAT 98
[2023-10-05 15:45] VITALS: BP 116/73
[2023-10-05] MEDS: LOVENOX 40 MG SC (19:55)
[2023-10-05] MEDS: SEROQUEL 25 MG PO (22:16)
[2023-10-05 23:18] VITALS: BP 132/76
[2023-10-06 05:58] VITALS: BMI 51.9
[2023-10-06 07:30] VITALS: BP 140/88
[2023-10-06 08:03] LABS: Hematocrit 30.6 % (39.0-52.0); Hemoglobin 9.1 g/dL (13.0-18.0); Mean Corp Hgb Conc. 29.7 g/dL (33.0-37.0); Mean Corpuscular Hgb 26.1 pg (27.0-31.0); Mean Corpuscular Volume 87.7 fL (80.0-94.0); Mean Platelet Volume 10.4 fL (7.4-10.4); Platelet Count 234 10^3/uL (130-400); Red Blood Cell Count 3.49 10^6/uL (4.70-6.10); Red Cell Dist. Width 16.9 % (11.5-14.5); White Blood Cell Count 9.7 10^3/uL (4.8-10.8)
[2023-10-06 08:40] LABS: Blood Urea Nitrogen 21 mg/dl (9-20); Carbon Dioxide 40 mmol/L (22-30); Chloride 95 mmol/L (98-107); Estimated Creatinine Clearance > 125 ml/min; Glucose 116 mg/dl (70-99); Magnesium 2.2 mg/dl (1.6-2.3); Sodium 139 mmol/L (135-145); eGFR > 60.00
[2023-10-06] MEDS: KCL 20 MEQ PO (09:37)
[2023-10-06] MEDS: LOVENOX 40 MG SC ×2 (09:37→20:35)
[2023-10-06] MEDS: LASIX 80 MG IV (09:38)
[2023-10-06] MEDS: NEURONTIN 300 MG PO ×3 (09:43→22:12)
[2023-10-06] MEDS: ALDACTONE 25 MG PO ×2 (09:43→20:36)
[2023-10-06] MEDS: CYMBALTA DELAYED RELEASE 20 MG PO (09:43)
[2023-10-06] MEDS: HYDROCORTISONE 2.5% OINTMENT TOPICAL (09:45)
[2023-10-06] MEDS: DESENEX/MITRAZOL/ZEASORB 1 APPLIC TOPICAL ×2 (09:45→20:36)
[2023-10-06] MEDS: CARDIZEM CD 180 MG PO (09:48)
--- NOTE | 2023-10-06 10:44 | W.PN.HOSP.TC ---
Addendum entered and electronically signed by Judson Plummer MD 10/06/23 19:57:
I saw and evaluated the patient. I reviewed the resident�s note and agree with findings and plan as documented in the resident�s note.
Stable on 3l O2 which is chronic home o2.
Goal of wt is 165 kg and he is at the goal.
Will switch to oral lasix and as needed up titrate dose.
On going dispo efforts.
Original Note:
Today's Communication/Plan
-
Weight stable
Continue diuresis with Lasix p.o. twice daily
Awaiting MA confirmation
Assessment / Plan
Assessment / Plan
IMPRESSION: 48-year-old male with morbid obesity, COPD, hypertension, chronic lymphedema, anxiety/depression who presents with shortness of breath and anasarca. Patient notes headache, feeling less pain with oxycodone. Case management will discuss
the options with the patient and family. Awaiting MA confirmation.
PLAN:
Acute on chronic (hypercapnic) respiratory failure with compensatory metabolic alkalosis-- multifactorial- History of hypoxemic respiratory failure, on 3 L home O2, HFpEF, anasarca, Restrictive lung disease--Echo from June 2023 showed no systolic
dysfunction and indeterminate diastolic function (did not repeat this admission)--lower extremity venous ultrasound: no evidence for deep venous thrombosis bilaterally---Improved oxygenation , now at 3l which is his baseline
Acute HFpEF--Acute on chronic lower extremity edema/anasarca/lymphedema--Diurese, follow kidney function, elevation--lasix and now spironolactone--Weight: 163 down from 191 kg on admission (61.6 lbs off since admission)--apprec Cardiology--D/C Lasix
80mg IV bid, resume Lasix 80 mg p.o. bid, aldactone 25 mg PO BID, KCL 20 mEq daily)--follow weights (today 164.019)--will need f/u with lymphedema clinic outpt
Hypokalemia - significant drop with Metolazone use-- spironolactone--improved--replete as needed
obstructive sleep apnea most likely--Secondary to morbid obesity. Patient states he did not qualify for home sleep study as outpt, will need in-lab study--appreciate Pulmonology---Bipap, he continues to refuse it so it was dced.
Urinary retention--Did not tolerate Corral due to pain. Declined further cath at the time. Resolved.
Left leg ulcer--Venous stasis ulcer-- posterior LLL, serous discharge--apprec Wound care--pt c/o itching
Essential Hypertension--Continue diltiazem, lasix, spironolactone
Anxiety/depression---Continue duloxetine, quetiapine (consider increasing seroquel)
Chronic anemia--Likely of chronic disease given iron studies. B12, folate normal
DVT prophylaxis--Lovenox
CODE STATUS: Full code
Anticipated Discharge: Within 24 hours
Subjective/Interval History
-
Date of Service: October 06, 2023
Objective Data
-
Labs:
Laboratory Results
10/06/23
07:47
WBC 9.7
Hgb 9.1 L
Hct 30.6 L
Plt Count 234
Sodium 139
Potassium 4.0
Chloride 95 L
Carbon Dioxide 40 H
BUN 21 H
Creatinine 0.8
Glucose 116 H
Calcium 9.0
Vital Signs:
Vital Signs
Temp Pulse Resp BP Pulse Ox
97.7 F 96 18 140/88 97
10/06/23 07:30 10/06/23 07:30 10/06/23 07:30 10/06/23 07:30 10/06/23 07:30
I&O
10/05/23 10/06/23 10/07/23
06:59 06:59 06:59
Intake Total 1740 / 1740 1800 / 1800
Balance 1740 / 1740 1800 / 1800
Review of Systems
-
All other systems: Reviewed and negative
Physical Exam
-
General: Well Developed, Well Nourished, No Apparent Distress and Morbidly Obese
HEENT: Normocephalic, Atraumatic and Oxygen
Respiratory: Clear to Auscultation; Negative Wheezes or Rhonchi
Cardiac: Regular Rhythm and S1/S2; Negative Murmur
GI: Soft, Nontender, Nondistended and Normal Bowel Sounds
Musculoskeletal: No Clubbing, No Cyanosis and No Edema
Skin: Other (still with anasarca/subcutaneous edema)
Neuro: Awake
Psych: Calm
[2023-10-06 15:35] VITALS: BP 130/71
--- NOTE | 2023-10-06 16:00 | CM ---
Patient seen at bedside. Per [facility] doping supervisor. Patient will receive MA chance as applied for but it is Fee for Service for 30 days prior to being assigned to an [place] PPO. Patient would not be able to have any PT/OT/lymphedema services unless the SNF
accepted the [place] fee for service chance. Per [facility] patient would need Retirement chance to be applied for to cover services prior to the 30 day normal wait time.
Patient spoke with CM and confirmed that he wants to go to SNF. CM spoke with PT/OT, per therapy they will see patient in am to complete assessment for SNF need. Patient will need MA 51 to be completed, CM completed form physician to sign in am.
Patient will need request for correction assessment by [facility]. CM completed form for request. [place] correction chance documentation initiated and left on chart for review of [facility]. Message left for [facility] to assist with completion. Patient to sign
forms and CM to fax forms when signed.
Plan; SNF pending MA chance and MA application
[2023-10-06] MEDS: LASIX 80 MG PO (16:07)
[2023-10-06] MEDS: HYDROCORTISONE 2.5% OINTMENT 1 APPLIC TOPICAL (20:36)
[2023-10-06] MEDS: SEROQUEL 25 MG PO (22:12)
[2023-10-06] MEDS: ATARAX 37.5 MG PO (22:18)
[2023-10-06] MEDS: ROXICODONE 5 MG PO (22:19)
[2023-10-06 23:37] VITALS: BP 143/72
[2023-10-07 04:46] LABS: % Basophils 0.4 % (0-2); % Eosinophils 4.5 % (0-6); % Immature Granulocytes 0.5 % (0-0.5); % Lymphocytes 13.6 % (20.5-51.1); % Monocytes 12.2 % (1.7-9.3); % Neutrophils 68.8 % (42.2-75.2); Absolute Eosinophils 0.4 10^3/uL (0-0.7); Absolute Immature Granulocytes 0.1 10^3/uL (0-0.05); Absolute Lymphocytes 1.3 10^3/uL (1.2-3.4); Absolute Monocytes 1.2 10^3/uL (0.1-0.6); Absolute Neutrophils 6.7 10^3/uL (1.4-6.5); Mean Corpuscular Volume 89.6 fL (80.0-94.0); Mean Platelet Volume 10.1 fL (7.4-10.4); Nucleated Red Blood Cells % 0 % (-); Platelet Count 233 10^3/uL (130-400); Red Blood Cell Count 3.46 10^6/uL (4.70-6.10); Red Cell Dist. Width 16.7 % (11.5-14.5); White Blood Cell Count 9.7 10^3/uL (4.8-10.8)
[2023-10-07 05:04] LABS: Blood Urea Nitrogen 20 mg/dl (9-20); Calcium 8.9 mg/dl (8.4-10.2); Chloride 96 mmol/L (98-107); Estimated Creatinine Clearance > 125 ml/min; Glucose 127 mg/dl (70-99); Potassium 4.3 mmol/L (3.5-5.1); Sodium 142 mmol/L (135-145); eGFR > 60.00
[2023-10-07 05:15] LABS: Carbon Dioxide 40 mmol/L (22-30)
[2023-10-07 06:00] VITALS: BMI 51.6
[2023-10-07 07:45] VITALS: BP 124/74
[2023-10-07] MEDS: LOVENOX 40 MG SC ×2 (08:10→21:08)
[2023-10-07] MEDS: LASIX 80 MG PO ×2 (08:11→15:04)
[2023-10-07] MEDS: CYMBALTA DELAYED RELEASE 20 MG PO (08:11)
[2023-10-07] MEDS: KCL 20 MEQ PO (08:13)
[2023-10-07] MEDS: ALDACTONE 25 MG PO ×2 (08:13→21:07)
[2023-10-07] MEDS: NEURONTIN 300 MG PO ×3 (08:13→21:07)
[2023-10-07] MEDS: CARDIZEM CD 180 MG PO (08:13)
[2023-10-07] MEDS: DESENEX/MITRAZOL/ZEASORB 1 APPLIC TOPICAL ×2 (08:14→21:08)
[2023-10-07] MEDS: HYDROCORTISONE 2.5% OINTMENT 1 APPLIC TOPICAL (08:14)
[2023-10-07 09:50] VITALS: BP 118/82; PULSE 98; O2SAT 97
[2023-10-07 09:52] VITALS: BP 117/82; PULSE 98; O2SAT 97
--- NOTE | 2023-10-07 14:59 | CM ---
Reviewed the chart notes and spoke with the patient at the bedside. Consents signed for [facility] Assessment and all clinical and consents with MA-51 faxed to [facility]. Voice message with [facility] office for call back to discuss patient's Medicaid
application for group home care, supports and services. CM continues to be available to patient/family and is monitoring medical plan for needs at discharge.
Plan: SNF once bed found and Medicaid obtained.
--- NOTE | 2023-10-07 14:59 | W.PN.HOSP.TC ---
Addendum entered and electronically signed by Judson Plummer MD 10/07/23 16:02:
I saw and evaluated the patient. I reviewed the resident�s note and agree with findings and plan as documented in the resident�s note.
Ongoing disposition efforts.
Discussed with case management.
Medically stable for discharge.
Original Note:
Today's Communication/Plan
-
Awaiting MA approval and SNF availability
Continue diuretics
Monitor daily weight
Assessment / Plan
Assessment / Plan
IMPRESSION: 48-year-old male with morbid obesity, COPD, hypertension, chronic lymphedema, anxiety/depression who presents with shortness of breath and anasarca. Patient notes headache, feeling less pain with oxycodone. Case management has discussed
the options with the patient and family. Awaiting MA confirmation. Case management working on his paperwork.
PLAN:
Acute on chronic (hypercapnic) respiratory failure with compensatory metabolic alkalosis-- multifactorial- History of hypoxemic respiratory failure, on 3 L home O2, HFpEF, anasarca, Restrictive lung disease--Echo from June 2023 showed no systolic
dysfunction and indeterminate diastolic function (did not repeat this admission)--lower extremity venous ultrasound: no evidence for deep venous thrombosis bilaterally---Improved oxygenation , now at 3l which is his baseline
Acute HFpEF--Acute on chronic lower extremity edema/anasarca/lymphedema--Diurese, follow kidney function, elevation--lasix and now spironolactone--Weight: 163 down from 191 kg on admission (61.6 lbs off since admission)--apprec Cardiology--continue
Lasix 80 mg p.o. bid, aldactone 25 mg PO BID, KCL 20 mEq daily--follow weights (today 163.095)--will need f/u with lymphedema clinic outpt
Hypokalemia - significant drop with Metolazone use-- spironolactone--improved--replete as needed
obstructive sleep apnea most likely--Secondary to morbid obesity. Patient states he did not qualify for home sleep study as outpt, will need in-lab study--appreciate Pulmonology---Bipap, he continues to refuse it so it was dced.
Urinary retention--Did not tolerate Corral due to pain. Declined further cath at the time. Resolved.
Left leg ulcer--Venous stasis ulcer-- posterior LLL, serous discharge--apprec Wound care--pt c/o itching
Essential Hypertension--Continue diltiazem, lasix, spironolactone
Anxiety/depression---Continue duloxetine, quetiapine (consider increasing seroquel)
Chronic anemia--Likely of chronic disease given iron studies. B12, folate normal
DVT prophylaxis--Lovenox
CODE STATUS: Full code
Anticipated Discharge: > 48 hours
Subjective/Interval History
-
Date of Service: October 07, 2023
Objective Data
-
Labs:
Laboratory Results
10/07/23
04:28
WBC 9.7
Hgb 9.0 L
Hct 31.0 L
Plt Count 233
Sodium 142
Potassium 4.3
Chloride 96 L
Carbon Dioxide 40 H
BUN 20
Creatinine 0.9
Glucose 127 H
Calcium 8.9
Vital Signs:
Vital Signs
Temp Pulse Resp BP Pulse Ox
97.8 F 95 20 124/74 97
10/07/23 07:45 10/07/23 08:11 10/07/23 07:45 10/07/23 08:11 10/07/23 10:39
I&O
10/06/23 10/07/23 10/08/23
06:59 06:59 06:59
Intake Total 1800 / 1800 0 / 1680
Balance 1800 / 1800 1680 / 1680
Review of Systems
-
All other systems: Reviewed and negative
Physical Exam
-
General: Well Developed, Well Nourished, No Apparent Distress and Morbidly Obese
HEENT: Normocephalic, Atraumatic and Oxygen
Respiratory: Clear to Auscultation; Negative Wheezes or Rhonchi
Cardiac: Regular Rhythm and S1/S2; Negative Murmur
GI: Soft, Nontender, Nondistended and Normal Bowel Sounds
Musculoskeletal: No Clubbing, No Cyanosis and No Edema
Skin: Other (still with anasarca/subcutaneous edema)
Neuro: Awake
Psych: Calm
[2023-10-07 15:25] VITALS: BP 126/74
[2023-10-07] MEDS: SEROQUEL 25 MG PO (21:08)
[2023-10-07] MEDS: ROXICODONE 5 MG PO (21:08)
[2023-10-07] MEDS: HYDROCORTISONE 2.5% OINTMENT TOPICAL (21:09)
[2023-10-07 23:31] VITALS: BP 127/74
[2023-10-08 06:00] VITALS: BMI 51.9
[2023-10-08 06:07] LABS: Hematocrit 30.8 % (39.0-52.0); Mean Corp Hgb Conc. 29.2 g/dL (33.0-37.0); Mean Corpuscular Hgb 25.4 pg (27.0-31.0); Mean Corpuscular Volume 86.8 fL (80.0-94.0); Mean Platelet Volume 9.9 fL (7.4-10.4); Platelet Count 231 10^3/uL (130-400); Red Blood Cell Count 3.55 10^6/uL (4.70-6.10); Red Cell Dist. Width 16.8 % (11.5-14.5); White Blood Cell Count 8.8 10^3/uL (4.8-10.8)
[2023-10-08 06:32] LABS: Blood Urea Nitrogen 20 mg/dl (9-20); Calcium 9.2 mg/dl (8.4-10.2); Carbon Dioxide 39 mmol/L (22-30); Chloride 97 mmol/L (98-107); Estimated Creatinine Clearance > 125 ml/min; Glucose 116 mg/dl (70-99); Potassium 4.4 mmol/L (3.5-5.1); Sodium 140 mmol/L (135-145); eGFR > 60.00
[2023-10-08 07:50] VITALS: BP 134/77
[2023-10-08] MEDS: ALDACTONE 25 MG PO (08:09)
[2023-10-08] MEDS: LASIX 80 MG PO ×2 (08:09→16:23)
[2023-10-08] MEDS: CARDIZEM CD 180 MG PO (08:10)
[2023-10-08] MEDS: LOVENOX 40 MG SC (08:10)
[2023-10-08] MEDS: KCL 20 MEQ PO (08:10)
[2023-10-08] MEDS: NEURONTIN 300 MG PO ×2 (08:10→16:23)
[2023-10-08] MEDS: CYMBALTA DELAYED RELEASE 20 MG PO (08:10)
[2023-10-08] MEDS: HYDROCORTISONE 2.5% OINTMENT 1 APPLIC TOPICAL (08:18)
[2023-10-08] MEDS: DESENEX/MITRAZOL/ZEASORB 1 APPLIC TOPICAL (08:19)
--- NOTE | 2023-10-08 09:27 | WOUNDNOTE ---
WON RN NOTE: Followed up today regarding venous wounds on L posterior leg. Received patient sleeping in recliner chair with legs elevated. Legs with much less edema, appear back to normal size. L leg now with dry scabs, no drainage on dressing.
Moisturized legs, will order mineral oil to start tomorrow before applying sonido wraps. Will discontinue dressing and leave scabs open to air, encourage continued leg elevation. Will update nurse, orders and work list. Patient waiting for bed
availability at SNF.
--- NOTE | 2023-10-08 13:34 | W.PN.HOSP.TC ---
Addendum entered and electronically signed by Judson Plummer MD 10/08/23 13:58:
I saw and evaluated the patient. I reviewed the resident�s note and agree with findings and plan as documented in the resident�s note.
No changes in medical situation .
Await placement.
Original Note:
Today's Communication/Plan
-
PT/OT recommends SNF
Awaiting MA approval and SNF availability
Continue diuretics
Monitor daily weight
Assessment / Plan
Assessment / Plan
IMPRESSION: 48-year-old male with morbid obesity, COPD, hypertension, chronic lymphedema, anxiety/depression who presents with shortness of breath and anasarca. Patient notes headache, feeling less pain with oxycodone. Case management has discussed
the options with the patient and family. Awaiting MA confirmation. Case management working on his paperwork.
PLAN:
Acute on chronic (hypercapnic) respiratory failure with compensatory metabolic alkalosis-- multifactorial- History of hypoxemic respiratory failure, on 3 L home O2, HFpEF, anasarca, Restrictive lung disease--Echo from June 2023 showed no systolic
dysfunction and indeterminate diastolic function (did not repeat this admission)--lower extremity venous ultrasound: no evidence for deep venous thrombosis bilaterally---Improved oxygenation , now at 3l which is his baseline
Acute HFpEF--Acute on chronic lower extremity edema/anasarca/lymphedema--Diurese, follow kidney function, elevation--lasix and now spironolactone--Weight: 163 down from 191 kg on admission (61.6 lbs off since admission)--apprec Cardiology--continue
Lasix 80 mg p.o. bid, aldactone 25 mg PO BID, KCL 20 mEq daily--follow weights (today 163.095)--will need f/u with lymphedema clinic outpt
Hypokalemia - significant drop with Metolazone use-- spironolactone--improved--replete as needed
obstructive sleep apnea most likely--Secondary to morbid obesity. Patient states he did not qualify for home sleep study as outpt, will need in-lab study--appreciate Pulmonology---Bipap, he continues to refuse it so it was dced.
Urinary retention--Did not tolerate Corral due to pain. Declined further cath at the time. Resolved.
Left leg ulcer--Venous stasis ulcer-- posterior LLL, serous discharge--apprec Wound care--pt c/o itching
Essential Hypertension--Continue diltiazem, lasix, spironolactone
Anxiety/depression---Continue duloxetine, quetiapine (consider increasing seroquel)
Chronic anemia--Likely of chronic disease given iron studies. B12, folate normal
DVT prophylaxis--Lovenox
CODE STATUS: Full code
Anticipated Discharge: 24 - 48 hours
Subjective/Interval History
-
Date of Service: October 08, 2023
Objective Data
-
Labs:
Laboratory Results
10/08/23 10/08/23
05:57 05:58
WBC 8.8
Hgb 9.0 L
Hct 30.8 L
Plt Count 231
Sodium 140
Potassium 4.4
Chloride 97 L
Carbon Dioxide 39 H
BUN 20
Creatinine 0.8
Glucose 116 H
Calcium 9.2
Vital Signs:
Vital Signs
Temp Pulse Resp BP Pulse Ox
97.8 F 104 18 134/77 96
10/08/23 07:50 10/08/23 08:09 10/08/23 07:50 10/08/23 08:09 10/08/23 07:50
I&O
10/07/23 10/08/23 10/09/23
06:59 06:59 06:59
Intake Total 1680 / 1680 880 / 880
Balance 1680 / 1680 880 / 880
Review of Systems
-
All other systems: Reviewed and negative
Physical Exam
-
General: Well Developed, Well Nourished, No Apparent Distress and Morbidly Obese
HEENT: Normocephalic, Atraumatic and Oxygen
Respiratory: Clear to Auscultation; Negative Wheezes or Rhonchi
Cardiac: Regular Rhythm and S1/S2; Negative Murmur
GI: Soft, Nontender, Nondistended and Normal Bowel Sounds
Musculoskeletal: No Clubbing, No Cyanosis and No Edema
Skin: Other (still with anasarca/subcutaneous edema)
Neuro: Awake
Psych: Calm
--- NOTE | 2023-10-08 16:00 | CM ---
Reviewed the chart notes and spoke with the patient and his father via telephone. Discussed that no facilities will accept without insurance, would need to be private pay. Patient can not afford this nor can he afford home care. Per attending,
the patient is stable for discharge to home. Confirmed with Martita that the patient has home O2 and they can bring a portable tank to the patient's room tomorrow. Patient and father angry that no facility will accept. Both expressed feelings that
the patient will end up back in the hospital shortly after discharge. The patient has been transitioned from IV Lasix to oral. Per patient, he has gained weight over night. Per notes, patient refuses to follow recommend HF diet and fluid
restriction. Patient and father upset that the patient can not reach to [facility] area. CM suggested apparatus available to do so, per patient and father they have it in the home already. Patient appears unmotivated to assist in his recovery.
Patient chose to drop off his spouse's insurance due to getting a divorce. CM had suggested to the patient and his father that he should go on the [employer] website for [place] and see what insurance would be available to the patient and at what
cost. Both refused. Patient took his O2 off and through it on the bed. CM suggested that he should replace it, but he became angry and started to yell that it was his right to do as he pleased. CM reported this to the RN. CM continues to be
available to patient/family and is monitoring medical plan for needs at discharge.
Plan: Discharge to home with portable O2 canister proved by Martita tomorrow.
--- NOTE | 2023-10-08 16:49 | W.DS.TRANS ---
DC Summary - Artist Representative
-
Discharge Instructions:
Sleep Apnea Risk High
Discharge Diagnosis/Procedures Acute on chronic hypercapnic/hypoxemic
respiratory failure with compensatory metabolic
alkalosis, acute diastolic congestive heart
failure exacerbation with anasarca and
lymphedema, hypokalemia, obstructive sleep apnea
, left leg ulcer, essential hypertension,
anxiety/depression, anemia of chronic disease
Diet Other diet
Additional Diets 4 g sodium restriction and 1800 mL/day fluid
restriction (60 oz)
Activity As tolerated
Additional Activity BMP in 1 week--obtain through your PCP
Driving Restrictions As prior to admission
Bathing Restrictions None
Other Services VN,PT
Instructions: *[facility] Heart Failure Instructions
Stand-Alone Forms:
Changes to Home Medications: Yes
Discharge Medications:
DC Medications w/original date entered in [employer]
diltiazem HCl 180 mg capsule,extended release 24 hr 180 mg PO DAILY #30 caps 06/16/23
duloxetine 20 mg capsule,delayed release 20 mg PO DAILY #30 caps 06/16/23
gabapentin 100 mg capsule 100 mg PO TID #90 caps 06/16/23
diphenhydramine 25 mg-acetaminophen 500 mg tablet (Tylenol PM Extra Strength) 2 tab PO HSPRN PRN sleep 09/01/23
melatonin 5 mg tablet 10 mg PO HSPRN PRN sleep 09/15/23
quetiapine 25 mg tablet 25 mg PO HS Mental Health/Anxiety 09/15/23
furosemide 80 mg tablet 80 mg PO BID@0800,1600 #60 tabs 10/08/23
potassium chloride 10 mEq tablet,extended release(part/cryst) 20 meq (2 x 10 mEq) PO DAILY #30 tabs 10/08/23
spironolactone 25 mg tablet (Aldactone) 12.5 mg (1/2 x 25 mg) PO DAILY #15 tabs 10/08/23
Home Medication Changes
New med - aldactone
Pending Results: No
--- NOTE | 2023-10-08 16:51 | PTCARENOTE ---
Pt refusing vitals at this time. Dr. Plummer aware.
--- NOTE | 2023-10-08 16:59 | W.PN.UPDATE ---
Update Note
Progress Note Update
Dispos and discharge issue;
Patient admitted with the heart failure with preserved EF and weight gain of 421 pounds to 361 pounds. Now cardiology signed off and given recommendations about medication.
He has been waiting days manage disposition to rehab. He was seen by PT who recommended rehab but unable to be placed because of no insurance and the Medicaid application did not kick in.
I had multiple discussions during the course of the week of the case management who is being walking to get her placed her but unfortunately no place is available or not places able to accept him so far. Dad and patient frustrated over the
situation. They want to go home but unfortunately without insurance he cannot get any therapy services at home.
I had a long discussions with that today-he says he is himself old enough and may not be able to provide care and services for son at home and a possible delay like to be placed. But he knows all the issues around it. He is worried that if Jason
comes home he may not be able take care of himself and can have acute issues with fluid retention and come right back to hospital. Went over with him again about the heart failure diagnosis both the chronicity and acute flares. Told him if he
takes the medication , compliant with the diet , the fluid intake and follow-up with the doctors this could be managed adequately at home. I can only help medical part and he has to work with CM and available resources for home care .
DW pt as well over CHF dx and tx aspect. Stress about importance of tx, diet and follow up. Advised also to get a blood test in one week. He was also advised strongly to reconsider KAEL eval and treatments ;gave pulm follow up info.
He wants to go home. He understands about the therapy issues surrounding his care-cannot find any place nor can provide any services at home. Advised him to follow the Medicaid application and get insurance.
Pt has O2 concentrator at home ;he states that he also has portable and going to ask his dad to get it.
--- NOTE | 2023-10-08 17:01 | RESPNOTE ---
refused home o2 assessment at this time
--- NOTE | 2023-10-08 17:38 | PTCARENOTE ---
Pt discharge order placed. Midline removed by IV team. Dressing became saturated from midline removal. Manual pressure held for 5 minutes. New dressing placed with sterile gauze and Tegaderm. Dressing CDI upon discharge. Portable O2 brought in by
patient father for transport home. Pt escorted via wheelchair by RN to private vehicle for transport home by father.
--- NOTE | 2023-10-09 09:27 | W.HF.CON ---
Heart Failure
- LV Function
Left ventricular function study result: LV Ejection fraction >40% (ECHO 06/12/23)
Ejection Fraction Percentage: 55-60
- ARNI
Patient already on ARNI: No
Heart Failure ARNI Not Indicated: LV Ejection Fraction >/= 40%
- ACEI/ARB
Patient already on ACEI/ARB: No
Heart Failure ACEI/ARB Not Indicated: LV Ejection Fraction > 40%
- Beta Lizy
Patient already on Evidence Based Beta Lizy: No
Heart Failure Evidence Based Beta Lizy Not Indicated: LV Ejection Fraction > 40%
- Mineralocorticord Receptor Antagonist
Patient already on MRA: Yes
- SGLT-2 Inhibitor
Patient already on SGLT-2 Inhibitor: No
Heart Failure SGLT-2 Inhibitor Not Indicated: LV Ejection Fraction >40%
- NYHA CHF Classification
NYHA CHF Classification Level: Class III - Symptoms w/ min exertion, interferes w/ nml daily activity (home oxygen)
--- NOTE | 2023-10-10 10:19 | CM ---
Addendum entered by Airam Gandhi RN 10/10/23 10:39:
Call received from [facility] that Jason's MA has been approved. I asked that she call his Father and provide him his MA number, which is [phone]. She said that the [facility] will send him a card along with a packet of information in the mail,
which she did. I called Jakob Rowley and confirmed that he had received call from [facility] in [facility] and that she had given him his MA number along with making him aware that he would be receiving a card and additional information in the mail.
Original Note:
Returned call to Jakob Rowley, made him aware that I had checked to see status of his Son's MA application which we asked to be expedited. I made him aware that [facility] felt based on the financial information received that he would qualify for MA.
I Stated that they said they would check on the status and call me back with an update. I explained the reason that there was no accepting skilled facilities that accepted his Son, was due to lack of insurance. Until MA is approved and he is given
an MA number that his son could use [facility] or Jaylene has a $4 drug plan . He stated that he himself uses [facility]. He said that his Son stated he didn't feel well today, but no other specific symptoms . I encouraged him to reach out to his PCP . I
also stated that should his Son's condition become more acute and they feel he needs emergent care that he should go to an ED. I told him I would call him back once I receive an update on his Son's MA status.
== END 2023-10-08 15:25 | disposition home health service (06) | DRG 291 ==
LOC: 2 NORTH 15:12
PROVIDERS: Nurse Practitioner; Nurse Practitioner Gerontology; Physician Assistant Medical; Student in an Organized Health Care Education/Training Program; ADMITTING PHYSICIAN Internal Medicine; ATTENDING PHYSICIAN Internal Medicine; CONSULT PHYSICIAN Internal Medicine; CONSULT PHYSICIAN Internal Medicine Critical Care Medicine; CONSULT PHYSICIAN Student in an Organized Health Care Education/Training Program; EMERGENCY PHYSICIAN Emergency Medicine; FAMILY PHYSICIAN Student in an Organized Health Care Education/Training Program; OTHER PHYSICIAN Internal Medicine
PROC: 5A09357 Assistance with Respiratory Ventilation, Less than 24 Consecutive Hours, Continuous Positive Airway Pressure (ICD-10-PCS; 2023-09-15)
DX: I11.0 Hypertensive heart disease with heart failure (principal); A41.9 Sepsis, unspecified organism; I50.33 Acute on chronic diastolic (congestive) heart failure; J96.22 Acute and chronic respiratory failure with hypercapnia; J96.21 Acute and chronic respiratory failure with hypoxia; J18.9 Pneumonia, unspecified organism; E87.3 Alkalosis; Z68.43 Body mass index [BMI] 50.0-59.9, adult; J98.11 Atelectasis; E66.2 Morbid (severe) obesity with alveolar hypoventilation; L97.229 Non-pressure chronic ulcer of left calf with unspecified severity; I47.11 Inappropriate sinus tachycardia, so stated; J44.0 Chronic obstructive pulmonary disease with (acute) lower respiratory infection; I89.0 Lymphedema, not elsewhere classified; I83.022 Varicose veins of left lower extremity with ulcer of calf; F32.A Depression, unspecified; F41.9 Anxiety disorder, unspecified; G47.00 Insomnia, unspecified; B96.89 Other specified bacterial agents as the cause of diseases classified elsewhere; R33.9 Retention of urine, unspecified; E03.9 Hypothyroidism, unspecified; F17.290 Nicotine dependence, other tobacco product, uncomplicated; E87.6 Hypokalemia; J98.4 Other disorders of lung; D63.8 Anemia in other chronic diseases classified elsewhere; Z99.81 Dependence on supplemental oxygen; Z91.148 Patient's other noncompliance with medication regimen for other reason; Z11.52 Encounter for screening for COVID-19; Z63.79 Other stressful life events affecting family and household; Z62.820 Parent-biological child conflict; Z59.7 Insufficient social insurance and welfare support
CPT/HCPCS: 71045; 71046; 80048; 80053; 81003; 81015; 82607; 82728; 82746; 82805; 83036; 83540; 83550; 83735; 83880; 84145; 84443; 84484; 85025; 85027; 87040; 87070; 87149; 87186; 87205; 87811; 93005; 93970; 94640; 94660; 96374; 97110; 97116; 97163; 97167; 97530; 97535; 99285

== ENCOUNTER 2023-11-26 13:38 | Outpatient (RCR) | payer OTHER, SELFPAY | END 2023-11-26 23:59 | disposition home or self-care (01) | LOC: RPT 13:38 | PROVIDERS: ATTENDING PHYSICIAN Family Medicine | DX: I89.0 Lymphedema, not elsewhere classified (principal); Z73.6 Limitation of activities due to disability | CPT/HCPCS: 97162; 97530 ==

== ENCOUNTER 2024-01-10 21:50 | Inpatient (IN) | payer OTHER, SELFPAY ==
[2024-01-10 19:04] VITALS: BP 155/98
--- NOTE | 2024-01-10 19:17 | ED.GENMED ---
History of Present Illness
General
Chief Complaint: Breathing Problem
Source: patient
Time Seen by Provider: 01/10/24 19:09
History of Present Illness
History of Present Illness:
48yoM with a history of CHF (last EF 55-60% in June 2023), chronic respiratory failure on 2L NC, COPD, chronic lymphedema, morbid obesity, and hypertension presenting for evaluation of shortness of breath. Patient reports increasing dyspnea over
the past several days. Pain is mainly exertional but is also present at rest. He feels like he is not getting enough oxygen. Patient is typically on 2 L NC but is increased to 3-4 L NC due to his symptoms. He reports intermittent chest pains in
association with his shortness of breath. He also states that his legs are more swollen than normal and he has gained about 15 pounds over the past several weeks. Patient is currently on Lasix 80 mg twice daily and he reports compliance with this.
Past History
Past History
ED Past Medical History: COPD, HTN, Psychiatric (Depression) and Other (Morbid obesity; COVID-19 URI June 2020)
ED Past Surgical History: Other
Social History
Tobacco: Vaping (Former cigarette smoker, now vapes nicotine and has been cutting down)
Alcohol: Occasional
Drug: None
Personal:
Living: with family
Employment: Employed
Family History
Family History: Negative Early CAD or CAD
Phy Exam
General Physical Exam
General Presentation: mild distress
General Skin: warm and dry
General Habitus: obese
General Mental: alert
Cardiovascular Exam
Cardiovascular Exam: regular rate/rhythm and other (Non pitting edema in bilateral lower extremities)
Pulmonary Exam
Pulmonary Exam: lungs clear and other (Mild increased WOB. Breath sounds decreased at lung base bilaterally. No rales or wheezing.)
Neurological Exam
Neurological Exam: alert
[place] Coma Scale
Eye Opening: Spontaneous
Verbal Response: Oriented
Motor Response: Obeys Commands
GCS Total Score: 15
Skin Exam
Skin Exam: normal color and warm/dry
Psychiatric Exam
Psychiatric Exam: normal mood/affect
Scores
Heart Failure Risk
Heart Failure Risk Score: Not Applicable
Course
Orders/Labs/Results
Orders:
Orders
01/10/24 19:16
Electrocardiogram (*1) Urgent
Reason for Study: Shortness of Breath
EKG- Treatment ONCE
CR Chest - 2 Views Urgent
Comment:
Reason For Exam: SOB
01/10/24 20:04
COVID-19 Antigen Urgent
Source: Nasal Swab
Influenza A+B Rapid Molecular Urgent
GIGI Source: Nasal Swab
Specimen Description:
01/10/24 20:14
Complete Blood Count/With Diff Urgent
Comprehensive Metabolic Panel Urgent
NT-proBNP Urgent
Troponin I Urgent
01/10/24 20:46
Furosemide [Lasix] 80 mg IV NOW STA
Abnormal Lab Results
01/10/24
20:14
WBC 12.7 H 10^3/uL
(4.8-10.8)
RBC 4.55 L 10^6/uL
(4.70-6.10)
Hgb 11.4 L g/dL
(13.0-18.0)
MCH 25.1 L pg
(27.0-31.0)
MCHC 29.1 L g/dL
(33.0-37.0)
RDW 15.8 H %
(11.5-14.5)
Abs Immat Gran (auto) 0.2 H 10^3/uL
(0-0.05)
Absolute Neuts (auto) 8.5 H 10^3/uL
(1.4-6.5)
Absolute Monos (auto) 1.3 H 10^3/uL
(0.1-0.6)
Absolute Eos (auto) 1.3 H 10^3/uL
(0-0.7)
Immature Gran % 1.2 H %
(0-0.5)
Lymphocytes % 10.2 L %
(20.5-51.1)
Monocytes % 10.5 H %
(1.7-9.3)
Eosinophils % 10.3 H %
(0-6)
Carbon Dioxide 32 H mmol/L
(22-30)
01/10/24 20:14
01/10/24 20:14
Vital Signs
Initial and Last Documented VS:
Initial Vital Signs
Temp Pulse Resp BP Pulse Ox
98.4 F 100 28 155/98 96
01/10/24 19:04 01/10/24 19:04 01/10/24 19:04 01/10/24 19:04 01/10/24 19:04
Last Documented Vital Signs
Temp Pulse Resp BP Pulse Ox
98.4 F 97 33 155/98 97
01/10/24 19:04 01/10/24 21:00 01/10/24 21:00 01/10/24 19:04 01/10/24 21:00
MDM/Problems Addressed
Differential Diagnosis Includes:
48yoM here with SOB x several days with increasing oxygen requirements. On 2L NC at baseline. Associated with weight gain and worsening lower extremity edema. Oxygen saturation 96% on 3L NC. He is clinically volume overloaded on exam. Differential
diagnosis includes but is not limited to: CHF exacerbation, anasarca, pneumonia, COPD exacerbation, viral illness
Initial ED plan: Check cardiac labs, COVID/flu swab, EKG, and CXR.
*EKG
Interpreted by ED Provider?: Yes
EKG Intrepretation Date: 01/10/24
Heart Rate: 96
Rate: normal
Rhythm: sinus
[place]: normal axis
Interval: normal interval
QRS Pattern: normal QRS
Ischemia: non-specific ST changes
*Critical Care Note
Total Time (30-74mins, 75-104mins- exclusive of procedures): Not Applicable
Update Note
Update Note:
EKG shows NSR with nonspecific ST changes. Troponin and BNP within normal limits. CXR shows pulmonary edema and small bilateral effusions. 80mg IV Lasix ordered and patient admitted for further management.
ED Attending Note
-
Portions of this chart may have been created with voice recognition software.� Occasional wrong word or��sound alike� substitutions may have occurred due to the inherent limitations of voice recognition software.
Discharge Plan
Departure
Patient Disposition: Admit
Date of Disposition: 01/10/24
Time of Disposition: 20:59
Presentation/result/management discussed w/ accepting MD/DO: Hospitalist
Discharge Problem:
Acute exacerbation of CHF (congestive heart failure)
Prescriptions:
No Action
quetiapine 25 mg Tablet
25 mg PO HS
furosemide 80 mg Tablet
80 mg PO BID@0800,1600 Qty: 60 0RF
potassium chloride 10 mEq Tablet,Er Particles/Crystals
20 meq PO DAILY Qty: 30 0RF
spironolactone [Aldactone] 25 mg tablet
12.5 mg PO DAILY Qty: 15 0RF
duloxetine 30 mg Capsule,Delayed Release(Dr/Ec)
30 mg PO DAILY
gabapentin 100 mg capsule
200 mg PO TID
Referrals:
Arian Pickens DO [Family Provider] -
Interventions
Interventions:
*Risk Screen - Suicide Last Done: 01/10/24 19:04
*General Assessment Last Done: 01/10/24 19:56
*Neglect/Abuse Screening Last Done: 01/10/24 19:04
ED- Fall Risk Assessment Last Done: 01/10/24 20:22
*ED COVID-19 Vaccine History Last Done: 01/10/24 19:56
ED- Cardiac Assessment Last Done: 01/10/24 20:22
ED- Pulmonary Assessment Last Done: 01/10/24 20:22
Discharge Date and Time
Print Language: YORUBA
[2024-01-10 19:56] VITALS: BMI 52.6
[2024-01-10 20:21] LABS: % Basophils 0.5 % (0-2); % Eosinophils 10.3 % (0-6); % Immature Granulocytes 1.2 % (0-0.5); % Lymphocytes 10.2 % (20.5-51.1); % Monocytes 10.5 % (1.7-9.3); % Neutrophils 67.3 % (42.2-75.2); Absolute Basophils 0.1 10^3/uL (0-0.2); Absolute Eosinophils 1.3 10^3/uL (0-0.7); Absolute Immature Granulocytes 0.2 10^3/uL (0-0.05); Absolute Lymphocytes 1.3 10^3/uL (1.2-3.4); Absolute Monocytes 1.3 10^3/uL (0.1-0.6); Absolute Neutrophils 8.5 10^3/uL (1.4-6.5); Hematocrit 39.2 % (39.0-52.0); Hemoglobin 11.4 g/dL (13.0-18.0); Mean Corp Hgb Conc. 29.1 g/dL (33.0-37.0); Mean Corpuscular Hgb 25.1 pg (27.0-31.0); Mean Corpuscular Volume 86.2 fL (80.0-94.0); Mean Platelet Volume 9.4 fL (7.4-10.4); Nucleated Red Blood Cells % 0 % (-); Platelet Count 270 10^3/uL (130-400); Red Blood Cell Count 4.55 10^6/uL (4.70-6.10); Red Cell Dist. Width 15.8 % (11.5-14.5); White Blood Cell Count 12.7 10^3/uL (4.8-10.8)
[2024-01-10 20:26] LABS: COVID-19 Antigen Negative (Negative)
[2024-01-10 20:43] LABS: ALT (SGPT) 17 U/L (0-50); AST (SGOT) 22 U/L (17-59); Alkaline Phosphatase 80 U/L (38-126); Blood Urea Nitrogen 20 mg/dl (9-20); Calcium 8.9 mg/dl (8.4-10.2); Carbon Dioxide 32 mmol/L (22-30); Chloride 101 mmol/L (98-107); Estimated Creatinine Clearance > 125 ml/min; Glucose 89 mg/dl (70-99); Potassium 4.6 mmol/L (3.5-5.1); Sodium 140 mmol/L (135-145); Total Bilirubin 0.5 mg/dl (0.2-1.3); Total Protein 7.3 g/dl (6.3-8.2); eGFR > 60.00
[2024-01-10 20:56] LABS: NT-proBNP 113 pg/ml; Troponin I < 0.012 ng/ml
[2024-01-10] MEDS: LASIX 80 MG IV (21:22)
--- NOTE | 2024-01-10 21:22 | HPS.HSE ---
Family Physician
-
Family Physician: Arian Pickens
Chief Complaint
-
Shortness of breath and dyspnea on exertion
History of Present Illness
48-year-old male with history of CHF with preserved EF, no CAD, morbid obesity, chronic lymphedema, COPD, chronic O2 requirements on 2 L home O2 who presents to the emergency department with complaints of breathing difficulties over the last 4 days.
Patient reports that he was doing well about a week ago but then 3 days later reports a sensation of a chest cold with mild congestion. He reports dyspnea on exertion and a nonproductive cough and some audible wheezes. He reports increasing
bilateral lower extremity swelling. Unclear history of weight gain but he states that he has gained about 15 pounds over several weeks. The last time the patient was admitted to the hospital he went from about 190 kg to 163. He reports compliance
with dietary restriction. He also reports compliance with twice daily furosemide and daily spironolactone. Reports brisk urine output. He denies fevers chills nausea vomiting or diaphoresis. He continues to report orthopnea but denies any PND.
He increased his supplemental home O2 but he did not change his dose of diuretics.
In the emergency department the patient was afebrile blood pressure was stable at 155/98, pulse was in the 80s with oxygen saturation of 96% on 3 L. Chest x-ray shows bilateral interstitial pulmonary edema with bilateral pleural effusions. ECG
showed normal sinus rhythm with a rate of 96 flat T waves unchanged from prior. Troponin was negative. BNP was 100. COVID testing was negative. He had a white count of 12.7 and hemoglobin and platelet counts were normal. Chemistries
BUN/creatinine showed elevated bicarb which is chronic but otherwise unremarkable.
Medical History
Past Medical History
Past Medical History: Reports CHF (Preserved EF) and COPD (2 L removed)
Additional Past Medical History:
Morbid obesity
Chronic lymphedema
Questionable KATE
Past Surgical History: Reports Other
Social History
Tobacco: Former Smoker
Alcohol: None
Drug: None
Personal: Single
Living: Alone
Family History
Family History: Not pertinent
Allergies / Home Medications
Allergies reflects when Allergies were last updated in [facility].
Home Medications with original date entered in [facility]
Allergy/Medication List:
Allergies
Allergy/AdvReac Type Severity Reaction Status Date / Time
hydromorphone AdvReac Severe Unknown Verified 01/10/24 19:07
Home Medications
quetiapine 25 mg tablet 25 mg PO HS Mental Health/Anxiety 09/15/23
furosemide 80 mg tablet 80 mg PO BID@0800,1600 #60 tabs 10/08/23
potassium chloride 10 mEq tablet,extended release(part/cryst) 20 meq (2 x 10 mEq) PO DAILY #30 tabs 10/08/23
spironolactone 25 mg tablet (Aldactone) 12.5 mg (1/2 x 25 mg) PO DAILY #15 tabs 10/08/23
duloxetine 30 mg capsule,delayed release 30 mg PO DAILY 01/10/24
gabapentin 100 mg capsule 200 mg PO TID 01/10/24
Review of Systems
-
History Source: Patient
Constitutional: Reports No Symptoms
EENT: Reports No Symptoms
Respiratory: Reports Cough and Trouble Breathing
Cardiac: Reports No Symptoms
Abdomen/GI: Reports No Symptoms
: Reports No Symptoms
Musculoskeletal: Reports Edema
Skin: Reports Rash
Neurological: Reports No Symptoms
Endocrine: Reports No Symptoms
Hematologic/Lymphatic: Reports No Symptoms
Psych: Reports No Symptoms
Physical Exam
Vital Signs
Vital Signs
Temp Pulse Resp BP Pulse Ox
98.4 F 97 33 155/98 97
01/10/24 19:04 01/10/24 21:00 01/10/24 21:00 01/10/24 19:04 01/10/24 21:00
Physical Exam
General: Well Developed, Well Nourished, No Apparent Distress, Comfortable and Conversant
HEENT: NormoCephalic, Anicteric, Moist mucous membranes, Atraumatic, PERRLA and Oxygen
Respiratory: Wheezes
Cardiac: S1/S2, Regular Rhythm and Peripheral Edema
Breast: Deferred by me
GI: Soft, Non Tender and Normal Bowel Sounds
Rectal: Deferred by Provider
Genito-urinary: Deferred by me
Musculoskeletal: No Clubbing, No Cyanosis, Edema, Left Lower Extremity (2+ nonpitting & non-pitting) and Edema, Right Lower Extremity (2+ pitting and nonpitting)
Skin: Warm, Dry and Rash
Neuro: AO x 3
Hematologic/Lymphatic: No Lymphadenopathy
Psych: Calm
Laboratory Results
-
01/10/24 20:14
01/10/24 20:14
Laboratory Results
Total Bilirubin 0.5 mg/dl (0.2-1.3) 01/10/24 20:14
AST 22 U/L (17-59) 01/10/24 20:14
ALT 17 U/L (0-50) 01/10/24 20:14
Alkaline Phosphatase 80 U/L (38-126) 01/10/24 20:14
Troponin I < 0.012 ng/ml 01/10/24 20:14
Data Reviewed
-
Diagnostic Radiology: Image Personally Visualized and interpreted and Report Reviewed by me
Medical Tests (Nuc Med, Echo, EKG etc): Image Personally Visualized and interpreted
Lab Data: Labs Reviewed by me
Old Records: Reviewed
Impression/Plan
-
IMPRESSION:
48 M with morbid obesity, CHF p EF, chronic lymphedema comes in with SOB x 4 days, volume overloaded with pulmonary edema and pleural effusion and bilateral lower extremity tense edema. Weight gain on history is minimal and symptoms seem to be more
acute. No ischemia on ECG. Trop is normal and BNP is not elevated. Reports compliance but has h/o non-compliance. Weight today is 166 Kg and was as low as 163 Kg during his recent admission for volume overload. Viral testing is negative.
Wheezing on exam but likely cardiac, no increased WOB.
PLAN:
1. CHF Exacerbaton - Volume overload possibly secondary to dietary or medication non-compliance. LV ejection fraction is 55-
60% in June 2023. No h/o CAD.
- admit to telemetry
- lasix 80mg iv q 8 to q 12
- continue spironalactone for now
- keep K, Mag > 4, 2
- i/o and daily weight
- cardiology consult
2. COPD on 2 L home O2 - Multifactorial chronic CO2 retention (restrictive, obesity hypoventilation, kate). 96% on 3 L currently. Wheezing with non-productive cough. Suspect volume rather than COPD exacerbation
- continue supplemental O2 to keep sat > 92%
- diuretics as above first
- prn nebs for wheezing
3. Lymphedema and obesity - Chronic skin changes with lymphedema, no cellulitis
- keep legs elevated
- diuresis
- has lymphedema PT as outpatient
4. Skin rash - appears to be contact dermatitis versus tinea
- trial of clotrimazole/triamcinolone
DVT PPX - lovenox sq
Code Status - Full Code
[2024-01-10 21:23] VITALS: BP 187/90
[2024-01-10 23:01] VITALS: BP 163/96; BMI 51.3
[2024-01-10] MEDS: NEURONTIN 200 MG PO (23:35)
[2024-01-10] MEDS: SEROQUEL 25 MG PO (23:35)
[2024-01-11 03:00] VITALS: BP 127/65
[2024-01-11] MEDS: TYLENOL 650 MG PO (04:48)
[2024-01-11 06:00] VITALS: BMI 50.7
[2024-01-11] MEDS: MOTRIN 600 MG PO (07:17)
[2024-01-11 07:21] LABS: Blood Urea Nitrogen 17 mg/dl (9-20); Calcium 8.8 mg/dl (8.4-10.2); Carbon Dioxide 35 mmol/L (22-30); Chloride 97 mmol/L (98-107); Estimated Creatinine Clearance > 125 ml/min; Glucose 108 mg/dl (70-99); Magnesium 2.2 mg/dl (1.6-2.3); Phosphorus 5.1 mg/dl (2.5-4.5); Potassium 4.1 mmol/L (3.5-5.1); Sodium 143 mmol/L (135-145); eGFR > 60.00
[2024-01-11 07:45] VITALS: BP 148/78
[2024-01-11] MEDS: NEURONTIN 200 MG PO ×3 (07:53→22:10)
[2024-01-11] MEDS: ALDACTONE 12.5 MG PO (07:54)
[2024-01-11] MEDS: CYMBALTA DELAYED RELEASE 30 MG PO (07:54)
[2024-01-11] MEDS: KCL 20 MEQ PO (07:59)
[2024-01-11] MEDS: LASIX 80 MG IV ×2 (08:02→16:08)
[2024-01-11] MEDS: ULTRAM 25 MG PO ×2 (10:11→16:18)
[2024-01-11 11:44] VITALS: BMI 50.7
[2024-01-11 11:46] VITALS: BP 148/85
--- NOTE | 2024-01-11 14:17 | W.PN.HOSP.TC ---
Addendum entered and electronically signed by Beatrice Choi MD 01/11/24 15:01:
I saw and evaluated the patient independently. I reviewed the resident�s note and agree with findings and plan as documented by Dr. Cutler.
GENERAL: well developed, well nourished, morbidly obese male in no apparent distress
HEENT: NC/AT O2 NC in place
HEART: regular rate and rhythm, +S1, +S2
LUNGS: decreased breath sounds bilaterally
ABDOM: soft, nontender, nondistended, + bowel sounds
EXT: no cyanosis, clubbing--3+ tight LE edema bilaterally
NEUROLOGIC: grossly intact
SOB--admitting diagnosis-- pt with h/o of Acute on chronic (hypercapnic and hypoxemic) respiratory failure with chronic compensatory metabolic alkalosis-- multifactorial- History of hypoxemic respiratory failure, on 3 L home O2, HFpEF, anasarca,
Restrictive lung disease--proBNP is 100 BUT pt diuresed ~1300 mls with IV lasix--likely acute exacerbation of HFpEF--daily weights, I/Os--would repeat ECHO--could also have COPD exacerbation but no wheezing and CXR with interstitial pulm edema with
small bilateral pleural effusions
Acute on chronic lower extremity edema/anasarca/lymphedema--did follow up with lymphedema clinic after last admission--cont to [facility], follow kidney function (61.6 lbs off last admission)--await Cardiology--cont on IV diuretics while in house (d/c
meds last admission were: lasix 80mg PO bid, aldactone 25 mg BID, KCL 20 mEq daily)
obstructive sleep apnea most likely--Secondary to morbid obesity---refused BiPAP last admission
Essential Hypertension--Continue lasix, spironolactone
Anxiety/depression---Continue duloxetine, quetiapine
Chronic anemia--Likely of chronic disease--HGB higher than last admission
DVT prophylaxis--Lovenox
CODE STATUS: Full code
pt reports Mother now off hospice, home, and doing well
Original Note:
Today's Communication/Plan
-
.
Assessment / Plan
Assessment / Plan
1. HFpEF
- pt on Lasix 80mg PO at home; continue on Lasix 80mg IV BID today
- continue home dose spironolactone
- AM BMPs for electrolyte monitoring; replete as needed.
- I/O this morning -1485; continue I/O/daily weights
- Consult Cardiology
2. COPD
- Requires 2L O2 at home; 4L today
- Continue O2 to SaO2 92%.
- PRN nebulizer tx
3. Chronic Lymphedema
- Diuresis as described above.
4. Skin Rash
- Contact dermatitis vs Tinea
- Consider MARIBEL prep
- Consider trial clotrimazole vs triamcinolone cream
5. Headache
- Low dose Ultram PRN.
6. Depression/Anxiety
- Continue Home Meds; duloxetine/quetiapine
7. DVT PPx
- Lovenox
Anticipated Discharge: 24 - 48 hours
Subjective/Interval History
-
Date of Service: January 11, 2024
48-year-old male with a past medical history of HFpEF, morbid obesity, COPD on 2 L of oxygen at home, and chronic lymphedema. Presented yesterday with shortness of breath and increased O2 requirements, increased lower extremity edema, orthopnea.
Patient notes an interval improvement in breathing, no change in lower extremity edema. Patient also complains of headache this morning. States that headache is not controlled by as needed pain medication.
Objective Data
-
Labs:
Laboratory Results
01/11/24
06:31
Sodium 143
Potassium 4.1
Chloride 97 L
Carbon Dioxide 35 H
BUN 17
Creatinine 0.8
Glucose 108 H
Calcium 8.8
Vital Signs:
Vital Signs
Temp Pulse Resp BP Pulse Ox
98.1 F 99 24 148/85 97
01/11/24 11:46 01/11/24 11:46 01/11/24 11:46 01/11/24 11:46 01/11/24 11:46
I&O
01/10/24 01/11/24 01/12/24
06:59 06:59 06:59
Intake Total 240 / 240
Output Total 1485 / 1485
Balance -1245 / -1245
Review of Systems
-
History Source: Patient
Constitutional: Reports No Symptoms
EENT: Reports No Symptoms Reported
Respiratory: Reports Cough (nonproductive) and Trouble Breathing
Cardiac: Reports Orthopnea
Abdomen/GI: Reports No Symptoms
Musculoskeletal: Reports Edema
Skin: Reports Rash
Neuro: Reports No Symptoms
Physical Exam
-
General: No Apparent Distress, Conversant and Morbidly Obese
HEENT: Normocephalic and Atraumatic
Respiratory: Wheezes (bilateral, mild)
Cardiac: Regular Rhythm and S1/S2
GI: Soft, Nontender and Other (obese)
Musculoskeletal: Other (bilateral lower extremity edema, pitting and nonpitting, venous stasis dermatitis bilaterally)
Skin: Warm, Dry and Rash (chronic maculopapular rash with scales noted on the chest; more recent maculopapular rash on right shoulder that is consistent with chest rash. )
Neuro: Awake, Alert and AO x 3
Psych: Calm
Data Reviewed
-
Diagnostic Radiology: Report Reviewed by me and Discussed with Patient
Labs: Labs Reviewed by me and Discussed with Patient
[2024-01-11 15:20] VITALS: BP 142/73
[2024-01-11] MEDS: LOVENOX 40 MG SC (17:29)
[2024-01-11 19:41] VITALS: BP 155/90
--- NOTE | 2024-01-11 20:27 | CON.CAR ---
Consultation
Consultation Request
Date/Time Consultation Requested: Carlos Carter MD
Date/Time Consultation Performed: 01/10/2024 at 2248 hrs
Requesting Provider: 01/11/2024 at about 1420 hrs
Performing Provider: Gerry Yates MD
Reason for Consultation: Heart failure exacerbation
Medical History
-
Chief Complaint: Dyspnea
History of Present Illness:
48 yo man with severe morbid obesity (BMI 50), chronic HFpEF, lymphedema, HTN, and lung disease admitted with progressive dyspnea, weight gain, and increased edema.
He just started working with the lymphedema PT department at .
He reports slow increase in symptoms despite compliance with medical therapy.
Past Medical History
Past Medical History: CHF (HFpEF), COPD (and likely obesity related lung disease) and HTN
Social History
Tobacco: Former Smoker
Family History
Family History: Other (no premature CAD)
Allergies / Home Medications
Allergy/AdvReac Type Severity Reaction Status Date / Time
hydromorphone AdvReac Severe Unknown Verified 01/10/24 19:07
�Medication �Instructions �Recorded �Confirmed �Type
quetiapine 25 mg tablet 25 mg PO HS Mental Health/Anxiety 09/15/23 01/10/24 History
furosemide 80 mg tablet 80 mg PO BID@0800,1600 #60 tabs 10/08/23 01/10/24 Rx
potassium chloride 10 mEq 20 meq (2 x 10 mEq) PO DAILY #30 10/08/23 01/10/24 Rx
tablet,extended release(part/cryst) tabs
spironolactone 25 mg tablet 12.5 mg (1/2 x 25 mg) PO DAILY #15 10/08/23 01/10/24 Rx
(Aldactone) tabs
duloxetine 30 mg capsule,delayed 30 mg PO DAILY Depression 01/10/24 01/10/24 History
release
gabapentin 100 mg capsule 200 mg PO TID Neurological 01/10/24 01/10/24 History
Condition
Review of Systems
-
Respiratory: Trouble Breathing
Cardiac: Other (no CP, no syncope)
Physical Exam
Vital Signs
Temp Pulse Resp BP Pulse Ox
97.9 F 96 20 155/90 95
01/11/24 19:41 01/11/24 19:41 01/11/24 19:41 01/11/24 19:41 01/11/24 19:41
Lab Results
01/10/24 20:14
01/11/24 06:31
Troponin I < 0.012 ng/ml 01/10/24 20:14
Rge-C-Ojbjfnmrplp Pept 113 pg/ml 01/10/24 20:14
Physical Exam
General: Well Developed (morbidly obese) and Comfortable
Respiratory: Clear
Cardiac: S1/S2 and Regular Rhythm
GI: Soft
Musculoskeletal: No Clubbing and Edema (3+ edema including feet)
Skin: Warm
Neuro: AO x 3 and No Motor Deficits
Psych: Calm
Impression / Plan
-
BACKGROUND: 48M with severe morbid obesity (BMI 50), HFpEF, hypertension, severe obesity, bilateral lymphedema, former smoker, depression, & lung disease (presumably obesity related restrictive lung disease), here with shortness of breath and lower
extremity edema.
[place] [employer] Worker: Dr. Camargo
Shortness of breath
- multifactorial in the setting of acute HFpEF, deconditioning, lung disease, and morbid obesity
Morbid Obesity, bmi > 50
- Must believe that many/most of the patients problems are the result of or are significantly exacerbated by his severe obesity
- He should consider the GLP1 agnosit drugs or the GLP1 and GIP agonist drug or obesity surgery
HFpEF, acute on chronic: severe
- We have seen weights as low as 160 kg and as high as 191 kg in 2023, his weight today is 160
- He is appropriate for MRA at larger dose, adding SGLT2-I and ARB or ARNI
- Needs weight loss (caloric not just fluid weight)
- Update echo
- Add SGLT2-I
- Weight loss meds/surgery encouraged
Lymphedema
- Just started lymphedema therapy
Sinus tach
- Not sure I would call inappropriate sinus tach given his heart failure could be a racing car driver for sins tach
- on dilt
Hypertension
Chronic hypercapnia
? KAEL, pt denies
Lung disease, perhaps just related to
Subjective:
MOORE, edema
DATA:
Echocardiogram, 06/12/2023:
Technically difficult study - contrast used.
Normal left ventricular size and systolic function. LV ejection fraction is 55-60%.
No significant valvular disease.
Data Reviewed
-
EKG: Tracing Personally Visualized and interpreted (EKG 01/10/2024: NSR 96 bpm, LAE, cannot rule out ASMI, LINA)
Medical Tests (Nuc Med, Echo etc): Image Personally Visualized and interpreted (echo 06/2023: LVEF 60%, no signif valve disease, right heart pressures could not be determined, RV felt to be normal)
[2024-01-11] MEDS: SEROQUEL 25 MG PO (22:10)
[2024-01-11 23:47] VITALS: BP 125/56
[2024-01-12] MEDS: ULTRAM 25 MG PO ×2 (02:43→08:46)
[2024-01-12 03:14] VITALS: BP 127/65
[2024-01-12 06:00] VITALS: BMI 49.9
[2024-01-12] MEDS: MOTRIN 600 MG PO (06:35)
[2024-01-12 07:30] VITALS: BP 131/68
[2024-01-12 08:10] LABS: Hematocrit 41.3 % (39.0-52.0); Hemoglobin 11.7 g/dL (13.0-18.0); Mean Corp Hgb Conc. 28.3 g/dL (33.0-37.0); Mean Corpuscular Hgb 24.7 pg (27.0-31.0); Mean Corpuscular Volume 87.1 fL (80.0-94.0); Mean Platelet Volume 9.3 fL (7.4-10.4); Platelet Count 269 10^3/uL (130-400); Red Blood Cell Count 4.74 10^6/uL (4.70-6.10); Red Cell Dist. Width 15.6 % (11.5-14.5); White Blood Cell Count 11.8 10^3/uL (4.8-10.8)
[2024-01-12 08:32] LABS: Blood Urea Nitrogen 20 mg/dl (9-20); Calcium 8.9 mg/dl (8.4-10.2); Chloride 93 mmol/L (98-107); Estimated Creatinine Clearance > 125 ml/min; Glucose 115 mg/dl (70-99); Potassium 4.4 mmol/L (3.5-5.1); Sodium 145 mmol/L (135-145); eGFR > 60.00
[2024-01-12] MEDS: CYMBALTA DELAYED RELEASE 30 MG PO (08:33)
[2024-01-12] MEDS: KCL 20 MEQ PO (08:33)
[2024-01-12] MEDS: FARXIGA 10 MG PO (08:33)
[2024-01-12] MEDS: NEURONTIN 200 MG PO ×3 (08:33→21:36)
[2024-01-12] MEDS: LASIX 80 MG IV ×2 (08:34→15:57)
[2024-01-12] MEDS: ALDACTONE 25 MG PO (08:34)
[2024-01-12 08:52] LABS: Carbon Dioxide 35 mmol/L (22-30)
--- NOTE | 2024-01-12 09:16 | CM ---
Addendum entered by Noemy Rodriguez 01/12/24 14:17:
Patient father spoke with CM and physician and he expressed concern about patient discouragement and lack of a goal. Patient also has an appointment with [facility] this friday to get a form completed. Patient father very concerned about
patient ability to go to the appointment. CM will continue to follow for discharge planning needs.
Original Note:
Patient seen at bedside. Patient now with MA. Prior to admission, patient home is 2 story and he does go to the clinic, Dr. Mckeon is PCP. Patient pharmacy is [facility] in [place]. Patient currently on O2 and has home O2 from [employer] at home.
Patient father states that patient needs to be independent to return home as he is focused on taking care of his in hospice. Patient father asking for family meeting. CM updated patient physician. CM will continue to follow for discharge
planning needs.
Plan: SNF vs home with VN/O2
--- NOTE | 2024-01-12 11:50 | CARDSERVLU ---
Echocardiogram with [facility] completed after protocol screening completed. Allergies verified.
Patent IV site: left AC____
IV site flushed with 0.9% NaCl pre and post administration.
Diluted bolus method utilized to enhance visualization of ventricular mandujano.
Total volume given: __3.0__ mL
Patient tolerated all procedures well without complications.
--- NOTE | 2024-01-12 12:08 | W.PN.UPDATE ---
Update Note
Progress Note Update
I saw and evaluated the patient independently. I reviewed the resident�s note and agree with findings and plan as documented by Dr. Cutler.
Patient reports shortness of breath.
Gen: NAD, AAOx3.
Eyes: EOMI, PERRLA, no scleral icterus.
Neck: supple.
CV: RRR, +S1/S2, no m/r/g.
Resp: CTAB, no rales, wheezes, or rhonchi.
Abd: +BS, soft, NT, ND
Skin: Papular rash on anterior chest, 3+ bilateral lower extremity edema
Neuro: CN 2-12 intact, non-focal.
Psych: Normal mood and affect.
CXR: Interstitial pulmonary edema with small bilateral pleural effusions.
Acute on chronic hypercapnic and hypoxemic respiratory failure with chronic compensatory metabolic alkalosis:
-presented with SOB, on 3L NC O2 at baseline
-multifactorial and due to acute on chroni HFpEF and restrictive lung disease due to morbid obesity in the setting of anasarca/lymphedema
-cont IV lasix/farxiga
-cards following
-check echo
-daily wts, I/Os
Other problems:
KAEL: has refused BIPAP
Essential Hypertension: Cont lasix/spironolactone
Morbid obesity due to excess calories, encourage weight loss, affects all aspects of care
Anxiety/depression: Continue duloxetine/quetiapine
Chronic anemia, Hb stable
FULL/Lovenox
--- NOTE | 2024-01-12 14:16 | W.PN.HOSP.TC ---
Today's Communication/Plan
-
.
Assessment / Plan
Assessment / Plan
1. Acute on Chronic Hypercapnic and Hypoxemic Respiratory Failure with Chronic Compensatory Metabolic Alkalosis
- Multifactorial: HFpEF, restrictive lung disease, anasarca, lymphedema, concern for obesity hypoventilation syndrome, concern for sleep apnea
- pt on Lasix 80mg PO at home; continue on Lasix 80mg IV BID today
- Appreciate cards, added Farxiga
- continue home dose spironolactone
- AM BMPs for electrolyte monitoring; replete as needed.
- Continue I/O/daily weights
- Discussed the potential for sleep apnea being a part of diagnosis. Pt refuses to do outpatient sleep test or consider BiPAP.
- Discussed the potential for obesity hypoventilation syndrome being a part of the diagnosis. Pt is more amenable to starting Ozempic/Wegovy. Appreciate CM looking into pricing if patient can start outpatient.
2. COPD
- Requires 2L O2 at home; 4L today
- Continue O2 to SaO2 92%.
- PRN nebulizer tx
3. Chronic Lymphedema
- Diuresis as described above.
4. Skin Rash
- Contact dermatitis vs Tinea
- Consider MARIBEL prep
- Consider trial clotrimazole vs triamcinolone cream
5. Headache
- Low dose Ultram PRN.
6. Depression/Anxiety
- Continue Home Meds; duloxetine/quetiapine
7. DVT PPx
- Lovenox
Anticipated Discharge: 24 - 48 hours
Subjective/Interval History
-
Date of Service: January 12, 2024
Patient states his shortness of breath and lower extremity swelling is no better than yesterday. Had a long discussion with the patient regarding potential etiologies as well as correction options for symptom improvement.
Objective Data
-
Labs:
Laboratory Results
01/12/24
07:41
WBC 11.8 H
Hgb 11.7 L
Hct 41.3
Plt Count 269
Sodium 145
Potassium 4.4
Chloride 93 L
Carbon Dioxide 35 H
BUN 20
Creatinine 0.8
Glucose 115 H
Calcium 8.9
Vital Signs:
Vital Signs
Temp Pulse Resp BP Pulse Ox
97.9 F 99 20 131/65 95
01/12/24 07:30 01/12/24 08:34 01/12/24 07:30 01/12/24 08:34 01/12/24 09:52
I&O
01/11/24 01/12/24 01/13/24
06:59 06:59 06:59
Intake Total 240 / 240 600 / 600
Output Total 1485 / 1485
Balance -1245 / -1245 600 / 600
Review of Systems
-
History Source: Patient
Constitutional: Reports No Symptoms
Respiratory: Reports Cough and Trouble Breathing
Cardiac: Reports No Symptoms
Abdomen/GI: Reports No Symptoms
Musculoskeletal: Reports Edema
Neuro: Reports No Symptoms
Physical Exam
-
General: No Apparent Distress and Morbidly Obese
HEENT: Normocephalic, Atraumatic and Other (EOMI)
Respiratory: Clear to Auscultation and Chest Tubes (no rales or rhonchi. Wheezing improved from yesterday. )
Cardiac: Regular Rhythm and S1/S2
GI: Soft and Nontender
Skin: Rash (unchanged)
Neuro: Awake, Alert and No Motor Deficits
Psych: Calm
[2024-01-12 15:30] VITALS: BP 140/84
[2024-01-12] MEDS: LOVENOX 40 MG SC (17:06)
[2024-01-12 19:06] VITALS: BP 132/59
--- NOTE | 2024-01-12 21:19 | W.PN.CD ---
Today's Communication / Plan
-
May need right heart cath and pulmonary evaluation
continue duresis
Pt seen close to 1300 hrs today, later documentation
Impression / Plan
-
BACKGROUND: 48M with severe morbid obesity (BMI 50), HFpEF, hypertension, severe obesity, bilateral lymphedema, former smoker, depression, & lung disease (presumably obesity related restrictive lung disease), here with shortness of breath and lower
extremity edema.
Trustee Of Estate: Dr. aCmargo, [facility]
Shortness of breath
- multifactorial in the setting of acute HFpEF, deconditioning, lung disease, and morbid obesity
- Most be concerned of significant pulmonary component given symptoms despite a lower weight
Morbid Obesity, bmi > 49
- Must believe that many/most of the patients problems are the result of or are significantly exacerbated by his severe obesity
- He should consider the GLP1 agonsit drugs or the GLP1 and GIP agonist drug or obesity surgery
HFpEF, acute on chronic: severe
- We have seen weights as low as 160 kg and as high as 191 kg in 2023, his weight today is 160
- MRA just increased. SGLT2-I jsut added. Consider ARB or ARNI
- Needs weight loss (caloric not just fluid weight)
- Updated echo is stable. Right heart pressures could not be assessed
- Add SGLT2-I
- Weight loss meds/surgery encouraged
Lymphedema
- Just started lymphedema therapy
Sinus tach
- Not sure I would call inappropriate sinus tach given his heart failure could be a mobile lounge driver for sins tach
- on dilt
Hypertension
Chronic hypercapnia
? KAEL, pt denies
Lung disease, perhaps just related to
Subjective:
MOORE, edema
DATA:
Echocardiogram, 06/12/2023:
Technically difficult study - contrast used.
Normal left ventricular size and systolic function. LV ejection fraction is 55-60%.
No significant valvular disease.
Physical Exam
Vital Signs/Labs
Vital Signs
Temp Pulse Resp BP Pulse Ox
97.9 F 104 21 132/59 97
01/12/24 19:06 01/12/24 19:06 01/12/24 19:06 01/12/24 19:06 01/12/24 19:06
01/11/24 01/12/24 01/13/24
06:59 06:59 06:59
Actual Weight 160.163 kg 157.85 kg
01/12/24 07:41
01/12/24 07:41
Magnesium 2.2 mg/dl (1.6-2.3) 01/11/24 06:31
01/10/24
20:14
Gyz-O-Gmrbpyvrmwy Pept 113
LAB Results
01/10/24
20:14
Troponin I < 0.012
Physical Exam
Constitutional: No acute distress
Cardiovascular: Pedal edema present and S1S2 is normal
Respiratory: Respiratory effort normal and Lungs clear to auscul.
GI: Soft and Non tender
Neuro/Psych: AO x 3
Data Reviewed
-
Date of Service: January 12, 2024
[2024-01-12] MEDS: SEROQUEL 25 MG PO (21:36)
[2024-01-12 23:55] VITALS: BP 121/65
[2024-01-13] MEDS: ULTRAM 25 MG PO (02:59)
[2024-01-13 03:40] VITALS: BP 149/82
[2024-01-13] MEDS: TYLENOL 650 MG PO (05:56)
[2024-01-13 06:00] VITALS: BMI 49.3
[2024-01-13 07:25] VITALS: BP 147/85
[2024-01-13 08:32] LABS: Hematocrit 42.8 % (39.0-52.0); Hemoglobin 12.4 g/dL (13.0-18.0); Mean Corpuscular Hgb 25.1 pg (27.0-31.0); Mean Corpuscular Volume 86.5 fL (80.0-94.0); Mean Platelet Volume 9.5 fL (7.4-10.4); Platelet Count 303 10^3/uL (130-400); Red Blood Cell Count 4.95 10^6/uL (4.70-6.10); Red Cell Dist. Width 15.9 % (11.5-14.5); White Blood Cell Count 13.1 10^3/uL (4.8-10.8)
[2024-01-13 09:04] LABS: Blood Urea Nitrogen 21 mg/dl (9-20); Calcium 9.1 mg/dl (8.4-10.2); Chloride 90 mmol/L (98-107); Estimated Creatinine Clearance > 125 ml/min; Glucose 112 mg/dl (70-99); Potassium 4.2 mmol/L (3.5-5.1); Sodium 143 mmol/L (135-145); eGFR > 60.00
[2024-01-13] MEDS: CYMBALTA DELAYED RELEASE 30 MG PO (09:05)
[2024-01-13] MEDS: FARXIGA 10 MG PO (09:05)
[2024-01-13] MEDS: KCL 20 MEQ PO (09:05)
[2024-01-13] MEDS: LASIX 80 MG IV ×2 (09:06→16:24)
[2024-01-13] MEDS: ALDACTONE 25 MG PO (09:06)
[2024-01-13] MEDS: NEURONTIN 200 MG PO ×3 (09:06→21:34)
[2024-01-13 09:24] LABS: Carbon Dioxide 38 mmol/L (22-30)
--- NOTE | 2024-01-13 10:37 | W.PN.UPDATE ---
Update Note
Progress Note Update
I saw and evaluated the patient independently. I reviewed the resident�s note and agree with findings and plan as documented by Dr. Cutler.
Patient reports shortness of breath. Also c/o headaches in the evening making sleep difficult.
Gen: remains NAD, AAOx3.
Eyes: EOMI, PERRLA, no scleral icterus.
Neck: supple.
CV: remains RRR, +S1/S2, no m/r/g.
Resp: remains CTAB, no rales, wheezes, or rhonchi.
Abd: +BS, soft, NT, ND
Skin: Papular rash on anterior chest, 2-3+ bilateral lower extremity edema
Neuro: CN 2-12 intact, non-focal.
Psych: Normal mood and affect.
CXR: Interstitial pulmonary edema with small bilateral pleural effusions.
Echo: Normal biventricular size and systolic function without regional wall motion abnormalities. LVEF 60-65%. No significant valvular abnormalities.
Acute on chronic hypercapnic and hypoxemic respiratory failure with chronic compensatory metabolic alkalosis:
-presented with SOB, on 3L NC O2 at baseline
-multifactorial and due to acute on chronic HFpEF and restrictive lung disease due to morbid obesity in the setting of anasarca/lymphedema
-cont IV lasix/farxiga
-cards following
-Echo above
-daily wts (down 11Kg), I/Os
Other problems:
KAEL: continues to refuse BIPAP
Essential Hypertension: Cont lasix/spironolactone
Morbid obesity due to excess calories, encourage weight loss, affects all aspects of care
Anxiety/depression: Continue duloxetine/quetiapine
Chronic anemia, Hb stable
FULL/Lovenox
--- NOTE | 2024-01-13 10:59 | CM ---
Addendum entered by Noemy Rodriguez 01/13/24 15:15:
glenny and Tawny both require prior auth with insurance. CM will call and request form to start process.
Original Note:
Patient seen at bedside. Patient with questions about medications. Patient father to bring in paperwork to submit to [facility]. CM will continue to follow for discharge planning needs.
Plan; SNF vs home with VN
[2024-01-13 11:25] VITALS: BP 152/79
--- NOTE | 2024-01-13 11:47 | W.PN.CD ---
Today's Communication / Plan
-
Continue diuresis
Please consider pulmonary consult as well
Impression / Plan
-
BACKGROUND: 48M with severe morbid obesity (BMI 50), HFpEF, hypertension, severe obesity, bilateral lymphedema, former smoker, depression, & lung disease (presumably obesity related restrictive lung disease), here with shortness of breath and lower
extremity edema.
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
Shortness of breath
- multifactorial in the setting of acute HFpEF, deconditioning, lung disease, and morbid obesity
- Most be concerned of significant pulmonary component given symptoms despite a lower weight
Morbid Obesity, bmi > 49
- Must believe that many/most of the patients problems are the result of or are significantly exacerbated by his severe obesity
- He should consider the GLP1 agonsit drugs or the GLP1 and GIP agonist drug or obesity surgery
HFpEF, acute on chronic: severe
- We have seen weights as low as 160 kg and as high as 191 kg in 2023, his weight today is 160
- MRA just increased. SGLT2-I just added. Consider ARB or ARNI
- Needs weight loss (caloric not just fluid weight)
- Updated echo is stable. Right heart pressures could not be assessed
- Added SGLT2-I
- Weight loss meds/surgery encouraged
Lymphedema
- Just started lymphedema therapy
Sinus tach
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
- on dilt
Hypertension
- If more BP control needed then ARNI or ARB makes most sense
Chronic hypercapnia
? KAEL, pt denies
Lung disease, perhaps just related to obesity; see recent CTA chest
Subjective:
MOORE, edema
DATA:
Echocardiogram, 06/12/2023:
Technically difficult study - contrast used.
Normal left ventricular size and systolic function. LV ejection fraction is 55-60%.
No significant valvular disease.
Chest CTA 08/2023:
1. No CTA evidence for acute central pulmonary arterial embolus.
2. Multiple chronic subpleural airspace consolidations in the left upper and lower lobes consistent with chronic round atelectasis and scarring which appears unchanged.
3. Mild bronchitis in the right lower lobe.
4. Mild cardiomegaly and mild pericardial calcification which appears unchanged.
5. Large bilateral pericardial fat pads.
6. Moderate hepatosplenomegaly.
7. Mild thoracic scoliosis.
Physical Exam
Vital Signs/Labs
Vital Signs
Temp Pulse Resp BP Pulse Ox
97.7 F 99 20 152/79 93
01/13/24 11:25 01/13/24 11:25 01/13/24 11:25 01/13/24 11:25 01/13/24 11:25
01/12/24 01/13/24 01/14/24
06:59 06:59 06:59
Actual Weight 157.85 kg 155.724 kg
01/13/24 07:52
01/13/24 07:52
Magnesium 2.2 mg/dl (1.6-2.3) 01/11/24 06:31
01/10/24
20:14
Arn-D-Vpzzngxtvhy Pept 113
LAB Results
01/10/24
20:14
Troponin I < 0.012
Physical Exam
Constitutional: No acute distress
EENT: Anicteric
Cardiovascular: Rhythm & rate is regular and Pedal edema present
Respiratory: Respiratory effort normal and Crackles Absent
GI: Soft and Distention absent
Neuro/Psych: AO x 3 and Motor deficits absent
Data Reviewed
-
Date of Service: January 13, 2024
--- NOTE | 2024-01-13 12:59 | W.PN.HOSP.TC ---
Today's Communication/Plan
-
.
Assessment / Plan
Assessment / Plan
1. Acute on Chronic Hypercapnic and Hypoxemic Respiratory Failure with Chronic Compensatory Metabolic Alkalosis
- Multifactorial: HFpEF, restrictive lung disease, anasarca, lymphedema, concern for obesity hypoventilation syndrome, concern for sleep apnea
- pt on Lasix 80mg PO at home; continue on Lasix 80mg IV BID today
- Appreciate cards, added Farxiga
- continue home dose spironolactone
- AM BMPs for electrolyte monitoring; replete as needed.
- Continue I/O/daily weights
- Discussed the potential for sleep apnea being a part of diagnosis. Pt refuses to do outpatient sleep test or consider BiPAP.
- Discussed the potential for obesity hypoventilation syndrome being a part of the diagnosis. Pt is more amenable to starting Ozempic/Wegovy. Appreciate CM looking into pricing if patient can start outpatient.
- Consider pulm consult
2. COPD
- Requires 2L O2 at home; 4L today
- Continue O2 to SaO2 92%.
- PRN nebulizer tx
3. Chronic Lymphedema
- Diuresis as described above.
4. Skin Rash
- Contact dermatitis vs Tinea
- Consider MARIBEL prep
- Consider trial clotrimazole vs triamcinolone cream
5. Headache
- Low dose Ultram PRN.
6. Depression/Anxiety
- Continue Home Meds; duloxetine/quetiapine
7. DVT PPx
- Lovenox
8. Headache
- Pain control
- Patient is not a candidate for sleep aids due to concern for obstructive sleep apnea/obesity hypoventilation syndrome.
Anticipated Discharge: 24 - 48 hours
Subjective/Interval History
-
Date of Service: January 13, 2024
Pt feels there has been no interval improvement in shortness of breath since yesterday. Pt also complaining of headaches that have made it difficult for him to fall asleep at night.
Objective Data
-
Labs:
Laboratory Results
01/13/24
07:52
WBC 13.1 H
Hgb 12.4 L
Hct 42.8
Plt Count 303
Sodium 143
Potassium 4.2
Chloride 90 L
Carbon Dioxide 38 H
BUN 21 H
Creatinine 1.0
Glucose 112 H
Calcium 9.1
Vital Signs:
Vital Signs
Temp Pulse Resp BP Pulse Ox
97.7 F 99 20 152/79 93
01/13/24 11:25 01/13/24 11:25 01/13/24 11:25 01/13/24 11:25 01/13/24 11:25
I&O
01/12/24 01/13/24 01/14/24
06:59 06:59 06:59
Intake Total 600 / 600 1919
Balance 600 / 600 1919
Review of Systems
-
History Source: Patient
Constitutional: Reports No Symptoms
EENT: Reports No Symptoms Reported
Respiratory: Reports No Symptoms
Cardiac: Reports No Symptoms
Abdomen/GI: Reports No Symptoms
Musculoskeletal: Reports No Symptoms
Physical Exam
-
General: Well Developed and Well Nourished
HEENT: Normocephalic and Atraumatic
Respiratory: Clear to Auscultation and Other (less wheezes today, still no rales/rhonchi)
Cardiac: Regular Rhythm
GI: Soft and Nontender
Musculoskeletal: Edema, Right Lower Extrem, Edema, Left Lower Extrem and Other (unchanged; venous stasis dermatitis bilaterally)
Skin: Warm, Dry and Rash (maculopapular rash with scales on the anterior chest)
Neuro: Awake, Alert, Oriented and AO x 3
Psych: Calm
Data Reviewed
-
Labs: Labs Reviewed by me and Discussed with Patient
[2024-01-13 15:20] VITALS: BP 137/83
--- NOTE | 2024-01-13 16:01 | CON.PUL ---
Consultation
Consultation Request
Date/Time Consultation Requested: 01/13/24-4:30 PM
Date/Time Consultation Performed: 01/14/24-8 AM
Requesting Provider: hospitalist
Performing Provider: , Dr. Starr
Reason for Consultation: , KAEL
Medical History
-
Chief Complaint: Shortness of breath
History of Present Illness:
48-year-old morbidly obese former smoking male with obesity hypoventilation syndrome, noncompliance, CHF, preserved EF, chronic lymphedema presented with increasing shortness of breath, noted to be in CHF-pulmonary consulted for shortness of
breath/KAEL 01/12/24.. The patient states that he does not have sleep apnea, does not want sleep apnea workup, and has some shortness of breath with exertion. He denies any chest pain, pleurisy, abdominal pain, and his chronic lower extremity
swelling which is slightly greater than his chronic lymphedema. He was angry during the interview and refuses additional pulmonary/sleep workup. Associations with untreated sleep apnea have been reviewed. Benefits and risks of not treating
obstructive sleep apnea have been reviewed.
Past Medical History
Past Medical History: None ( morbid obesity. KAEL. Obesity hypoventilation syndrome.Chronic hypercapnic respiratory failure. Chronic CHF. Restrictive lung disease. Former smoker. COPD. Seasonal allergies.)
Social History
Tobacco: Former Smoker ([id number], quit August 2021)
Alcohol: None
Drug: None
Personal: Single
Living: With Family ( father)
Occupational Exposures: no known asbestos exposure
Environmental Exposures: , tuberculosis exposure
Family History
Family History: Other ( father-atrial fibrillation. Sister-breast cancer)
Allergies / Home Medications
Allergies
Allergy/AdvReac Type Severity Reaction Status Date / Time
hydromorphone AdvReac Severe Unknown Verified 01/10/24 19:07
Home Medications
�Medication �Instructions �Recorded �Confirmed �Last Taken �Type
quetiapine 25 mg tablet 25 mg PO HS Mental Health/Anxiety 09/15/23 01/10/24 09/14/23 History
furosemide 80 mg tablet 80 mg PO BID@0800,1600 #60 tabs 10/08/23 01/10/24 Unknown Rx
potassium chloride 10 mEq 20 meq (2 x 10 mEq) PO DAILY #30 10/08/23 01/10/24 Unknown Rx
tablet,extended release(part/cryst) tabs
spironolactone 25 mg tablet 12.5 mg (1/2 x 25 mg) PO DAILY #15 10/08/23 01/10/24 Unknown Rx
(Aldactone) tabs
duloxetine 30 mg capsule,delayed 30 mg PO DAILY Depression 01/10/24 01/10/24 Unknown History
release
gabapentin 100 mg capsule 200 mg PO TID Neurological 01/10/24 01/10/24 Unknown History
Condition
Review of Systems
-
Unable to Obtain full review of systems at this time due to: Other ( Per HPI)
Vitals / Labs / Diagnostic Testing
Vital Signs
Temp Pulse Resp BP Pulse Ox
97.7 F 101 18 137/83 96
01/13/24 15:20 01/13/24 15:20 01/13/24 15:20 01/13/24 15:20 01/13/24 15:20
Lab Data
01/13/24 07:52
01/13/24 07:52
Microbiology
01/10/24 20:04 Nasal Swab Influenza Types A & B (VALDEZ) - Final
Negative for Influenza A & B, NAAT
Negative results must be combined with clinical observations
and patient history.
Nucleic Acid Amplification test (NAAT)performed on the
YR.MRKT platform.
Diagnostic Testing:
Physical Exam
-
Exam:
HEENT atraumatic normocephalic and anicteric. Heart was regular without murmur. Chest was clear without wheezes or crackles. Integument without rashes or icterus. Neurologic exam without weakness or numbness. Abdomen soft and nondistended.
The patient had no JVD, cyanosis, clubbing or edema.
Assessment
-
48-year-old morbidly obese former smoking male with obesity hypoventilation syndrome, noncompliance, CHF, preserved EF, chronic lymphedema presented with increasing shortness of breath, noted to be in CHF-pulmonary consulted for shortness of
breath/KAEL 01/12/24.
CHF with preserved EF.
COPD on chronic 2 L oxygen.
Obesity hypoventilation/KAEL with chronic hypercapnia.
Compensatory metabolic alkalosis
Leukocytosis.
Mild uvhgrz-qljzkknxvp-voklbdiktb 11.4.
Hyperglycemia.
Conditions present prior to admission:
Primary hypertension
Snoring
COPD
Restrictive lung disease
[place] 08/16/2022, FVC 2.60/50%, FEV1 2.17/53%, progressive
2021 - FVC 3.09/59%, FEV1 2.49/61%, ratio 81%, TLC 5.07/71% (mixed pattern/moderately reduced/mild restriction)
Chronic LLL atelectasis
Left lower lobe pleural-parenchymal process
Nodular atelectasis suspected per CT chest 08/10/2023
Obstructive sleep apnea/obesity hypoventilation syndrome
Chronic hypercapnic respiratory failure
pCO2 81, compensated.
Chronic CHF-preserved EF
Cigarette smoker -- 30+ pack years, still smoking few cigs on/off per
Vaping nicotine dependence, tobacco product
Morbid (severe) obesity due to excess calories, BMI 51.9.
Seasonal allergies
Plan
Respiratory decompensation, likely due to underlying chronic CHF with acute decompensation.
Supplemental oxygen as needed-maintained on 2 L at home.
Nebulizers as needed.
Aspiration precautions..
BiPAP as needed
Diuresis as tolerated.
Cardiology following-correspondence reviewed.
Monitor weight, intake, output, renal function and edema.
Replace electrolytes as needed
Lymphedema clinic appointment this Friday
Ongoing smoking cessation counseling.
Weight loss counseling.
May benefit from weight loss medications.
DVT prophylaxis-on Lovenox.
Nutrition
Early mobilization/physical therapy.
Reviewed with primary service as well as cardiology and nursing
Discussed at length potential for obstructive sleep apnea, associations with untreated sleep apnea and the patient is angry, denies he has it, refuses workup, and unwilling to have home sleep study despite benefits and risks of being reviewed with
him at length
From a pulmonary perspective I recommend oxygen and inhalers/nebulizers as needed-patient refusing all additional workup-pulmonary will sign off-please call with questions
Patient seen in the pulmonary/sleep disorders office 08/16/22 with subsequent cancellations 08/19/22, 10/18/22-saw Dr. Palma 08/22/23-home polysomnogram was arranged-patient never went and no showed 11/25/23, appointment
Studies:
CXR 09/23/2023: Prominent markings are again seen suggesting pulmonary edema..
Chest x-ray 01/10/24-interstitial pulmonary edema
US BLE 09/16/2023: No DVT
CT abdomen/pelvis 09/02/2023: Some bilateral lower lobe subsegmental atelectasis and tiny left pleural effusion. Left lower lobe pneumonia cannot be excluded.
CT chest PE study 08/10/2023: No PE. Multiple chronic subpleural airspace consolidations in the left upper and lower lobes consistent with chronic rounded atelectasis and scarring which appears unchanged. Mild bronchitis in the right lower lobe. Mild
cardiomegaly and mild pericardial calcification which appears unchanged. Large bilateral pericardial fat pads. Moderate hepatosplenomegaly. Mild thoracic scoliosis.
CXR 08/14/2022: Findings likely representing volume loss with some chronic pleural/parenchymal changes in the left hemithorax
CT chest 03/25/2022: Stable exam. Chronic asymmetric volume loss involving the left hemithorax. Minor linear parenchymal scarring. Findings most consistent with stable peripheral round atelectasis.
CT Chest PE study 08/21/21: no PE. overall mild volume loss in the left hemithorax with areas of subsegmental atelectasis some of which are somewhat rounded in configuration. additional minor areas of left lung groundglass opacification, non
specific.CXR 08/06/21 at Urgent Care: possible small left pleural effusion vs pleural parenchymal scarring at the left lung base.
Echocardiogram 06/12/2023-�Normal� left ventricular size and systolic function.� Ejection fraction 55-60%.� No significant valvular abnormality. Normal right ventricular size and function...
Echocardiogram 01/12/24-EF 60-65%, no valvular disease
[place] 08/16/22: FVC 2.60/50%, FEV1 2.17/53%, ratio 84%, no significant BD response. Suggestive of moderate restrictive lung disease.
PFT 10/04/21: FVC 3.09/59%, FEV1 2.49/61%, ratio 81%, TLC 5.07/71%, DLCO 20.89/65%, DLCO/VA 4.38/97%. Moderate restriction and mildly reduced diffusing capacity.
[place] 09/07/21: FVC 2.98/55%, FEV1 2.36/56%, ratio 79%, no significant BD response, moderate restrictive pattern.
Data Reviewed
-
PFT: Report reviewed by me
EKG: Report reviewed by me
Radiology: Image personally visualized and interpreted and Report reviewed by me
CT Scan: Report reviewed by me
Medical Tests (Nuc Med, Echo etc): Report reviewed by me
Labs: Labs reviewed by me
Old Records: Reviewed
Total Time Spent with Patient (in minutes): 65
[2024-01-13] MEDS: LOVENOX 40 MG SC (17:47)
[2024-01-13 19:49] VITALS: BP 165/80
[2024-01-13] MEDS: SEROQUEL 25 MG PO (21:34)
[2024-01-13 23:28] VITALS: BP 126/61
[2024-01-14 03:22] VITALS: BP 152/78
[2024-01-14] MEDS: TYLENOL 650 MG PO ×2 (05:04→21:22)
[2024-01-14 06:00] VITALS: BMI 48.4
[2024-01-14 07:18] VITALS: BP 148/75
--- NOTE | 2024-01-14 08:12 | CM ---
Paperwork dropped off to [facility] last ivana prior to 4:30pm. CM will call to insurance to confirm paperwork for medications.
[2024-01-14 08:59] LABS: Hematocrit 43.6 % (39.0-52.0); Hemoglobin 12.6 g/dL (13.0-18.0); Mean Corp Hgb Conc. 28.9 g/dL (33.0-37.0); Mean Corpuscular Hgb 24.8 pg (27.0-31.0); Mean Corpuscular Volume 85.8 fL (80.0-94.0); Mean Platelet Volume 9.3 fL (7.4-10.4); Platelet Count 326 10^3/uL (130-400); Red Blood Cell Count 5.08 10^6/uL (4.70-6.10); Red Cell Dist. Width 15.6 % (11.5-14.5); White Blood Cell Count 13.2 10^3/uL (4.8-10.8)
--- NOTE | 2024-01-14 09:12 | W.PN.CD ---
Today's Communication / Plan
-
Continue IV diuresis as long as contracture alkalosis does not necessitate slowing diuresis
Later increase Aldactone to 50 mg a day
If BP still needs control then adding ARNI or ARB makes sense per HFpEF guidelines
He will pursue weight loss medications (Zepbound or Wegovy)
He will continue to work with lymphedema clinic
Add compression stockings
Consider elective hematology/GI evaluations, perhaps as outpatient for his hepatosplenomegaly
Impression / Plan
-
BACKGROUND: 48M with severe morbid obesity (BMI 50), HFpEF, hypertension, severe obesity, bilateral lymphedema, former smoker, depression, & lung disease (presumably obesity related restrictive lung disease), here with shortness of breath and lower
extremity edema.
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
Shortness of breath
- multifactorial in the setting of acute HFpEF, deconditioning, lung disease, and morbid obesity
Morbid Obesity, bmi falling with diuresis but still severely elevated, BMI now 48.4
- Must believe that many/most of the patients problems are the result of or are significantly exacerbated by his severe obesity
- He should consider the GLP1 agonist drugs or the GLP1 and GIP agonist drug or obesity surgery
HFpEF, acute on chronic, improving. Admit weight 166/162. GOAL weight not determined.
- We have seen weights as low as 160 kg and as high as 191 kg in 2023, his weight today is 152.9
- MRA just increased. SGLT2-I just added. Consider ARB or ARNI
- Needs weight loss (caloric not just fluid weight)
- Updated echo is stable. Right heart pressures could not be assessed
- Weight loss meds/surgery encouraged
Meds:
- watch K+ on Aldactone + KCl
- His Aldactone can be increased to 50 mg a day at some point
Lymphedema
- Just started lymphedema therapy
- Add compression stockings
Hepatosplenomegaly
- Consider elective hematology/GI evaluations, perhaps as outpatient
Sinus tach
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
- on dilt
Atach, 18 beat run of rapid on 01/13/2024 at 2240 hrs
Hypertension
- If more BP control needed then ARNI or ARB makes most sense
Chronic hypercapnia
? KAEL, pt denies
Lung disease, perhaps just related to obesity; see recent CTA chest
Subjective:
MOORE, edema persist. Edema a bit better
DATA:
Echocardiogram, 06/12/2023:
Technically difficult study - contrast used.
Normal left ventricular size and systolic function. LV ejection fraction is 55-60%.
No significant valvular disease.
Right heart pressures could not be assessed
Chest CTA 08/2023:
1. No CTA evidence for acute central pulmonary arterial embolus.
2. Multiple chronic subpleural airspace consolidations in the left upper and lower lobes consistent with chronic round atelectasis and scarring which appears unchanged.
3. Mild bronchitis in the right lower lobe.
4. Mild cardiomegaly and mild pericardial calcification which appears unchanged.
5. Large bilateral pericardial fat pads.
6. Moderate hepatosplenomegaly.
7. Mild thoracic scoliosis.
Physical Exam
Vital Signs/Labs
Vital Signs
Temp Pulse Resp BP Pulse Ox
97.9 F 102 22 148/75 96
01/14/24 07:18 01/14/24 07:18 01/14/24 07:18 01/14/24 07:18 01/14/24 07:18
01/13/24 01/14/24 01/15/24
06:59 06:59 06:59
Actual Weight 155.724 kg 152.946 kg
01/14/24 07:59
Magnesium 2.2 mg/dl (1.6-2.3) 01/11/24 06:31
01/10/24
20:14
Hij-F-Gplmuyrhppx Pept 113
Physical Exam
Constitutional: No acute distress
EENT: Anicteric
Cardiovascular: Rhythm & rate is regular, Pedal edema present (severe) and S1S2 is normal
Respiratory: Respiratory effort normal and Crackles Absent
GI: Soft and Distention absent
Neuro/Psych: AO x 3 and Motor deficits absent
Data Reviewed
-
Date of Service: January 14, 2024
[2024-01-14] MEDS: ALDACTONE 25 MG PO (09:17)
[2024-01-14] MEDS: CYMBALTA DELAYED RELEASE 30 MG PO (09:17)
[2024-01-14] MEDS: FARXIGA 10 MG PO (09:17)
[2024-01-14] MEDS: NEURONTIN 200 MG PO ×3 (09:17→21:17)
[2024-01-14] MEDS: KCL 20 MEQ PO (09:17)
[2024-01-14] MEDS: LASIX 80 MG IV ×2 (09:18→16:31)
[2024-01-14 09:19] LABS: Blood Urea Nitrogen 23 mg/dl (9-20); Calcium 9.2 mg/dl (8.4-10.2); Chloride 90 mmol/L (98-107); Estimated Creatinine Clearance > 125 ml/min; Glucose 117 mg/dl (70-99); Potassium 4.2 mmol/L (3.5-5.1); Sodium 141 mmol/L (135-145); eGFR > 60.00
[2024-01-14] MEDS: FLUSH (NSS) 1 FLUSH IV ×2 (09:19→16:31)
[2024-01-14 09:36] LABS: Carbon Dioxide 40 mmol/L (22-30)
[2024-01-14 11:41] VITALS: BP 124/77
--- NOTE | 2024-01-14 12:02 | PTCARENOTE ---
Pt refusing to monitor output; also refusing Tubigrips to BLE at present- 'I have lymphedema and I have to check with my lymphedema specialist first'.. Dr. Yates notified.
--- NOTE | 2024-01-14 12:45 | W.PN.UPDATE ---
Update Note
Progress Note Update
I saw and evaluated the patient independently. I reviewed the resident�s note and agree with findings and plan as documented by Dr. Cutler.
Patient reports shortness of breath similar to yesterday.
Gen: remains NAD, AAOx3.
Eyes: EOMI, PERRLA, no scleral icterus.
Neck: supple.
CV: continues to remain RRR, +S1/S2, no m/r/g.
Resp: continues to remain CTAB, no rales, wheezes, or rhonchi.
Abd: +BS, soft, NT, ND
Skin: 2-3+ bilateral lower extremity edema
Neuro: CN 2-12 intact, non-focal.
Psych: Normal mood and affect.
CXR: Interstitial pulmonary edema with small bilateral pleural effusions.
Echo: Normal biventricular size and systolic function without regional wall motion abnormalities. LVEF 60-65%. No significant valvular abnormalities.
Acute on chronic hypercapnic and hypoxemic respiratory failure with chronic compensatory metabolic alkalosis:
-presented with SOB, on 3L NC O2 at baseline
-multifactorial and due to acute on chronic HFpEF and restrictive lung disease due to morbid obesity in the setting of anasarca/lymphedema
-cont IV lasix/farxiga/Aldactone
-cards following
-Echo above
-daily wts (down 13Kg), I/Os
-may add ARNI or ARB soon
Other problems:
KAEL (likely): continues to refuse BIPAP, refuses workup for obstructive sleep apnea
Essential Hypertension: Cont lasix/spironolactone
Morbid obesity due to excess calories, encourage weight loss, affects all aspects of care
Anxiety/depression: Continue duloxetine/quetiapine
Chronic anemia, Hb stable
FULL/Lovenox
--- NOTE | 2024-01-14 14:32 | W.PN.HOSP.TC ---
Today's Communication/Plan
-
.
Assessment / Plan
Assessment / Plan
1. Acute on Chronic Hypercapnic and Hypoxemic Respiratory Failure with Chronic Compensatory Metabolic Alkalosis
- Multifactorial: HFpEF, restrictive lung disease, anasarca, lymphedema, concern for obesity hypoventilation syndrome, concern for sleep apnea
- pt on Lasix 80mg PO at home; continue on Lasix 80mg IV BID today
- Appreciate cards, added Farxiga
- continue home dose spironolactone
- AM BMPs for electrolyte monitoring; replete as needed.
- Continue I/O/daily weights
- Discussed the potential for sleep apnea being a part of diagnosis. Pt refuses to do outpatient sleep test or consider BiPAP.
- Discussed the potential for obesity hypoventilation syndrome being a part of the diagnosis. Pt is more amenable to starting Ozempic/Wegovy. Appreciate CM looking into pricing if patient can start outpatient.
- Cardiology started 2g sodium diet today; patient refusing, does not feel HFpEF is part of the diagnosis.
- Prior auth sent for Zepbound. Follow up CM.
2. COPD
- Requires 2L O2 at home; 4L today
- Continue O2 to SaO2 92%.
- PRN nebulizer tx
3. Chronic Lymphedema
- Diuresis as described above.
4. Skin Rash
- Contact dermatitis vs Tinea
- Consider MARIBEL prep
- Consider trial clotrimazole vs triamcinolone cream
5. Headache
- Low dose Ultram PRN.
6. Depression/Anxiety
- Continue Home Meds; duloxetine/quetiapine
7. DVT PPx
- Lovenox
8. Headache
- Pain control
- Patient is not a candidate for sleep aids due to concern for obstructive sleep apnea/obesity hypoventilation syndrome.
Anticipated Discharge: 24 - 48 hours
Subjective/Interval History
-
Date of Service: January 14, 2024
Patient notes a mild improvement in breathing since yesterday, but still is short of breath and frustrated by it. Patient believes that all of his symptoms are due to lymphedema and wants to be discharged tomorrow, even if he needs to leave AMA, so
that he can make his lymphedema appointment on Friday. Understands that symptoms may be a multifactorial issue, but denies that CHF, KAEL, obesity hypoventilation syndrome have anything to do with his condition. When asked what he thinks is causing
him to become short of breath, states he doesn't know and physicians need to work him up. When told the work up includes work up for above conditions, vehemently denies they could be possibilities and refuses work up. Pt also upset diet was changed
to 2g sodium diet while he is being diuresed. Explained the physiologic necessity for this and he states that diet has nothing to with his condition and wants it changed back to regular.
Objective Data
-
Labs:
Laboratory Results
01/14/24
07:59
WBC 13.2 H
Hgb 12.6 L
Hct 43.6
Plt Count 326
Sodium 141
Potassium 4.2
Chloride 90 L
Carbon Dioxide 40 H
BUN 23 H
Creatinine 0.9
Glucose 117 H
Calcium 9.2
Vital Signs:
Vital Signs
Temp Pulse Resp BP Pulse Ox
98.3 F 104 20 124/77 96
01/14/24 11:41 01/14/24 11:41 01/14/24 11:41 01/14/24 11:41 01/14/24 11:41
I&O
01/13/24 01/14/24 01/15/24
06:59 06:59 06:59
Intake Total 1919 960 / 960
Balance 1919 960 / 960
Review of Systems
-
History Source: Patient
Constitutional: Reports No Symptoms
Respiratory: Reports Trouble Breathing
Cardiac: Reports No Symptoms
Musculoskeletal: Reports Edema
Physical Exam
-
General: Conversant, Morbidly Obese and Other (talking in full sentences)
HEENT: Normocephalic and Atraumatic
Respiratory: Non Labored Respirations
Cardiac: Other (Regular Rate and Rhythm)
Musculoskeletal: Edema, Right Lower Extrem and Edema, Left Lower Extrem
Neuro: Awake, Alert and AO x 3
Data Reviewed
-
Labs: Labs Reviewed by me and Discussed with Patient
--- NOTE | 2024-01-14 15:26 | CM ---
Lymphedema specialist responded and indicated that tubigrips were ok, CM placed on chart forms for [place] [facility] prior auth for both medication and velcro bindery assistant. Patient aware and physician updated. CM will continue to follow for discharge.
Plan; home with VN/outpatient lymphedema clinis
[2024-01-14 15:59] VITALS: BP 128/72
--- NOTE | 2024-01-14 16:16 | PTCARENOTE ---
Pt AAO x3, MATTHEW well, OOB in chair/ambulatory in room/to BR; sonia well. Pt easily irritable/angered; insistent that he does not have CHF; refuses to monitor output ('this is the first I've heard about it'), refused to follow 2 Gm Na diet. Pt
sarcastic in responses, stated 'the 'nurses' are supposed to be bringing me my medications at certain times, but when I put my call light on no one comes in'. Also repeatedly states that 'No one here is doing anything to help me'. Argumentive with
care aspects; initially refused to have Tubigrips applied d/t lymphedema. VSS. Telemetry:NSR/sinus tachy to 100's at times with activity. Pt has (+) 2 edema BLE. maintained on nc 3 lpm- pulse ox95%, pt with (+) MOORE/tachypnea; occ c/o SOB with
activity. Abd obese, sl firm, sonia PO well. Voids in BR, will not measure urine output. reinforced importance of 1440 ml fl restriction. BLE with PVD discoloration and small scabbed areas; refused foam dsg to sites. Tubigrips currently in place.
Resting in chair at present. Will continue to monitor.
[2024-01-14] MEDS: LOVENOX 40 MG SC (17:43)
[2024-01-14 19:58] VITALS: BP 136/98
[2024-01-14] MEDS: SEROQUEL 25 MG PO (21:17)
[2024-01-14 23:55] VITALS: BP 144/70
[2024-01-15 03:28] VITALS: BP 140/71
[2024-01-15 06:00] VITALS: BMI 47.5
[2024-01-15 07:21] VITALS: BP 150/78
--- NOTE | 2024-01-15 08:13 | W.PN.CD ---
Addendum entered and electronically signed by Kirit Perales MD 01/15/24 09:08:
Discharge medications should include - lasix 80 PO BID, spironolactone 25 daily, dapagliflozin 10 daily
Original Note:
Today's Communication / Plan
-
encourage outpatient follow up with cardiology if patient willing
cardiology will sign off at this time
Impression / Plan
-
BACKGROUND: 48M with severe morbid obesity (BMI 50), HFpEF, hypertension, severe obesity, bilateral lymphedema, former smoker, depression, & lung disease (presumably obesity related restrictive lung disease), here with shortness of breath and lower
extremity edema.
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
Shortness of breath
- multifactorial in the setting of acute HFpEF, deconditioning, lung disease, and morbid obesity
Morbid Obesity, bmi falling with diuresis but still severely elevated, BMI now 48.4
- Must believe that many/most of the patients problems are the result of or are significantly exacerbated by his severe obesity
- He should consider the GLP1 agonist drugs or the GLP1 and GIP agonist drug or obesity surgery
HFpEF, acute on chronic, improving. Admit weight 166/162. GOAL weight not determined.
- We have seen weights as low as 160 kg and as high as 191 kg in 2023, his weight today is 152.9
- MRA just increased. SGLT2-I just added. Consider ARB or ARNI as outpatient
- Needs weight loss (caloric not just fluid weight)
- Updated echo is stable. Right heart pressures could not be assessed
- Weight loss meds/surgery encouraged
Meds:
- watch K+ on Aldactone + KCl
- His Aldactone can be increased to 50 mg a day at some point
Lymphedema
- Just started lymphedema therapy
- Add compression stockings
Hepatosplenomegaly
- Consider elective hematology/GI evaluations, perhaps as outpatient
Sinus tach
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
- on dilt
Atach, 18 beat run of rapid on 01/13/2024 at 2240 hrs
Hypertension
- If more BP control needed then ARNI or ARB makes most sense
Chronic hypercapnia
? KAEL, pt denies
Lung disease, perhaps just related to obesity; see recent CTA chest
Subjective:
MOORE unchanged. Patient expressed dis-satisfaction with his care, specifically upset that a new medication was added that he does not believe he was made aware of (dapagliflozin). Patient refuses exam. Is focused on being discharged so that he can
make his lymphedema appointment. Patient offered outpatient follow up appointment and refused.
DATA:
Echocardiogram, 06/12/2023:
Technically difficult study - contrast used.
Normal left ventricular size and systolic function. LV ejection fraction is 55-60%.
No significant valvular disease.
Right heart pressures could not be assessed
Chest CTA 08/2023:
1. No CTA evidence for acute central pulmonary arterial embolus.
2. Multiple chronic subpleural airspace consolidations in the left upper and lower lobes consistent with chronic round atelectasis and scarring which appears unchanged.
3. Mild bronchitis in the right lower lobe.
4. Mild cardiomegaly and mild pericardial calcification which appears unchanged.
5. Large bilateral pericardial fat pads.
6. Moderate hepatosplenomegaly.
7. Mild thoracic scoliosis.
Physical Exam
Vital Signs/Labs
Vital Signs
Temp Pulse Resp BP Pulse Ox
36.5 C 94 22 140/71 98
01/15/24 03:28 01/15/24 03:28 01/15/24 03:28 01/15/24 03:28 01/15/24 03:28
01/14/24 01/15/24 01/16/24
06:59 06:59 06:59
Actual Weight 152.946 kg 150.252 kg
Magnesium 2.2 mg/dl (1.6-2.3) 01/11/24 06:31
01/10/24
20:14
[id number] Pept 113
Physical Exam
Constitutional: No acute distress
Data Reviewed
-
Date of Service: January 15, 2024
Medical Decision Making: Reviewed Test Results
Labs: Labs Reviewed by me
[2024-01-15 08:35] LABS: Hematocrit 46.4 % (39.0-52.0); Hemoglobin 13.6 g/dL (13.0-18.0); Mean Corp Hgb Conc. 29.3 g/dL (33.0-37.0); Mean Corpuscular Hgb 25.1 pg (27.0-31.0); Mean Corpuscular Volume 85.8 fL (80.0-94.0); Platelet Count 310 10^3/uL (130-400); Red Blood Cell Count 5.41 10^6/uL (4.70-6.10); Red Cell Dist. Width 15.7 % (11.5-14.5); White Blood Cell Count 12.6 10^3/uL (4.8-10.8)
[2024-01-15 08:54] LABS: Blood Urea Nitrogen 25 mg/dl (9-20); Calcium 9.3 mg/dl (8.4-10.2); Chloride 88 mmol/L (98-107); Estimated Creatinine Clearance > 125 ml/min; Glucose 202 mg/dl (70-99); Potassium 4.1 mmol/L (3.5-5.1); Sodium 142 mmol/L (135-145); eGFR > 60.00
[2024-01-15 09:05] LABS: Carbon Dioxide 41 mmol/L (22-30)
[2024-01-15] MEDS: LASIX 80 MG IV (09:27)
[2024-01-15] MEDS: KCL 20 MEQ PO (09:29)
[2024-01-15] MEDS: NEURONTIN 200 MG PO (09:29)
[2024-01-15] MEDS: ALDACTONE 25 MG PO (09:29)
[2024-01-15] MEDS: CYMBALTA DELAYED RELEASE 30 MG PO (09:29)
[2024-01-15] MEDS: FARXIGA PO (09:30)
--- NOTE | 2024-01-15 10:47 | W.PN.UPDATE ---
Update Note
Progress Note Update
I saw and evaluated the patient independently. I reviewed the resident�s note and agree with findings and plan as documented by Dr. Cutler.
Patient reports mild shortness of breath.
Pt seen and examined with nurse Constantin Strange and CM Noemy Rodriguez present at bedside:
Gen: continues to remain NAD, AAOx3.
Eyes: EOMI, PERRLA, no scleral icterus.
Neck: supple.
CV: RRR, +S1/S2, no m/r/g.
Resp: CTAB, no rales, wheezes, or rhonchi.
Abd: +BS, soft, NT, ND
Skin: remains 2-3+ bilateral lower extremity edema
Neuro: CN 2-12 intact, non-focal.
Psych: angry
CXR: Interstitial pulmonary edema with small bilateral pleural effusions.
Echo: Normal biventricular size and systolic function without regional wall motion abnormalities. LVEF 60-65%. No significant valvular abnormalities.
Acute on chronic hypercapnic and hypoxemic respiratory failure with chronic compensatory metabolic alkalosis:
-presented with SOB, on 3L NC O2 at baseline
-multifactorial and due to acute on chronic HFpEF and restrictive lung disease due to morbid obesity in the setting of anasarca/lymphedema
-The patient was diuresed with IV Lasix and his weight decreased by 16 kg
-Discharge on oral Lasix and farxiga/Aldactone
-Cardiology saw in consult. Case discussed with Dr. Perales and the pt is medically cleared for d/c.
-Echo above
Other problems:
KAEL (likely): continues to refuse BIPAP, refuses workup for obstructive sleep apnea
Essential Hypertension: Cont lasix/spironolactone
Morbid obesity due to excess calories, encourage weight loss, affects all aspects of care
Anxiety/depression: Continue duloxetine/quetiapine
Chronic anemia, Hb stable
FULL/Lovenox
Total time spent on d/c = 38 min. This included today's physical exam, progress note, review of laboratory and diagnostic data, preparation of discharge documents and prescriptions, and discussions about the pt's hospital course and discharge plan
with the patient and other medical transport specialist involved in the patient's care.
--- NOTE | 2024-01-15 11:33 | CM ---
Patient seen at bedside. Patient for discharge today. Patient to follow up with Lymphedema clinic tomorrow. Paperwork to be completed and faxed to [facility] and original to go to Clinic when completed. Patient confirmed he has home O2 with him
and father to transport. CM will continue to follow for discharge planning needs.
Plan; home with follow up at lymphedema clinic
[2024-01-15 11:43] VITALS: BP 145/88
--- NOTE | 2024-01-15 12:48 | W.PN.HOSP.TC ---
Today's Communication/Plan
-
.
Assessment / Plan
Assessment / Plan
1. Acute on Chronic Hypercapnic and Hypoxemic Respiratory Failure with Chronic Compensatory Metabolic Alkalosis
- Multifactorial: HFpEF, restrictive lung disease, anasarca, lymphedema, concern for obesity hypoventilation syndrome, concern for sleep apnea
- pt on Lasix 80mg PO at home; continue on Lasix 80mg IV BID today---> back to home dosage at d/c
- Appreciate cards, added Farxiga --> continue at d/c
- continue home dose spironolactone
- AM BMPs for electrolyte monitoring; replete as needed.
- Continue I/O/daily weights
- Discussed the potential for sleep apnea being a part of diagnosis. Pt refuses to do outpatient sleep test or consider BiPAP.
- Discussed the potential for obesity hypoventilation syndrome being a part of the diagnosis. Pt is more amenable to starting Ozempic/Wegovy. Appreciate CM looking into pricing if patient can start outpatient.
- Cardiology started 2g sodium diet today; patient refusing, does not feel HFpEF is part of the diagnosis.
- Prior auth sent for Zepbound. Follow up CM.
2. COPD
- Requires 2L O2 at home.
- Continue O2 to SaO2 92%.
- PRN nebulizer tx
3. Chronic Lymphedema
- Diuresis as described above.
4. Skin Rash
- Contact dermatitis vs Tinea
- Consider MARIBEL prep
- Consider trial clotrimazole vs triamcinolone cream
5. Headache
- Low dose Ultram PRN.
6. Depression/Anxiety
- Continue Home Meds; duloxetine/quetiapine
7. DVT PPx
- Lovenox
8. Headache
- Pain control
- Patient is not a candidate for sleep aids due to concern for obstructive sleep apnea/obesity hypoventilation syndrome.
Anticipated Discharge: Today
Subjective/Interval History
-
Date of Service: January 15, 2024
Objective Data
-
Labs:
Laboratory Results
01/15/24
07:51
WBC 12.6 H
Hgb 13.6
Hct 46.4
Plt Count 310
Sodium 142
Potassium 4.1
Chloride 88 L
Carbon Dioxide 41 H
BUN 25 H
Creatinine 0.9
Glucose 202 H
Calcium 9.3
Vital Signs:
Vital Signs
Temp Pulse Resp BP Pulse Ox
98.6 F 105 20 145/88 92
01/15/24 11:43 01/15/24 11:43 01/15/24 11:43 01/15/24 11:43 01/15/24 12:07
I&O
01/14/24 01/15/24 01/16/24
06:59 06:59 06:59
Intake Total 960 / 960 1620 / 1620
Balance 960 / 960 1620 / 1620
Review of Systems
-
Unable to obtain full review of systems at this time due to: Other (patient not participating with interview)
History Source: Patient
Physical Exam
-
General: No Apparent Distress, Conversant and Morbidly Obese
HEENT: Normocephalic and Atraumatic
Respiratory: Non Labored Respirations and Other (speaking in complete sentences)
Musculoskeletal: Edema, Right Lower Extrem and Edema, Left Lower Extrem
Neuro: Awake and Alert
Psych: Other (Argumentative)
Data Reviewed
-
Diagnostic Radiology: Report Reviewed by me and Discussed with Patient (patient upset that he was told that he had fluid in his lungs by one provider, and fluid around his lungs by another provider. Went over CXR interpretation by radiologist with
him, which showed both. )
Labs: Labs Reviewed by me
--- NOTE | 2024-01-16 10:48 | W.HF.CON ---
Heart Failure
- LV Function
Left ventricular function study result: LV Ejection fraction >/= 50%
Ejection Fraction Percentage: 60-65
- ARNI
Patient already on ARNI: No
Heart Failure ARNI Not Indicated: LV Ejection Fraction >/= 40%
- ACEI/ARB
Patient already on ACEI/ARB: No
Heart Failure ACEI/ARB Not Indicated: LV Ejection Fraction > 40%
- Beta Lizy
Patient already on Evidence Based Beta Lizy: No
Heart Failure Evidence Based Beta Lizy Not Indicated: LV Ejection Fraction > 40%
- Mineralocorticord Receptor Antagonist
Patient already on MRA: Yes
- SGLT-2 Inhibitor
Patient already on SGLT-2 Inhibitor: Yes
- NYHA CHF Classification
NYHA CHF Classification Level: Class III - Symptoms w/ min exertion, interferes w/ nml daily activity
- ACC/AHA Stage
ACC/AHA Stage: Stage C: Symptomatic Heart Failure
--- NOTE | 2024-01-16 14:27 | W.DCSUMMARY ---
Addendum entered and electronically signed by Juan Mathis MD 01/17/24 08:16:
Read, reviewed, and agree. See same day progress note for additional details.
Original Note:
Discharge Summary
Discharge Data
Date of Admission: 01/10/24
Date of Discharge: 01/15/24 (01/15/2024)
-
Pending Results: No
Hospital Course
Mr. Rowley is a 48-year-old male with a past medical history of congestive heart failure with preserved ejection fraction, morbid obesity, chronic lymphedema, chronic obstructive pulmonary disease, chronic oxygen requirements on 2 L at home, who
presented the emergency department [facility] on January 10, 2024 with complaints of difficulty breathing. The patient notes that he was in his usual state of health up until approximately 1 week prior to arrival, however, he started to
have a sensation of a chest cold with mild congestion. This progressively worsened until he started to experience dyspnea on exertion, a nonproductive cough, and audible wheezing. He also reported increasing bilateral lower extremity swelling.
Although there was an unclear history of weight gain, he also endorsed an approximately 15 pound weight gain over several weeks. Pertinent positives included orthopnea and brisk urine output. Pertinent negatives included fevers, chills, nausea,
vomiting, chest pain, diaphoresis. During that week the patient reported that he had been compliant with his dietary restriction as well as twice daily furosemide and daily spironolactone. However during this time he did also need to increase his
supplemental home O2 to approximately 4 L.
In the emergency department, the patient was afebrile with a stable blood pressure, pulse, and respiratory rate. The patient had an oxygen saturation of 96% on 3 L by nasal cannula. A chest x-ray was taken which showed bilateral interstitial
pulmonary edema with bilateral pleural effusions. An echocardiogram at that time showed normal sinus rhythm and was unchanged from prior. Troponins were negative, and BNP was 100. Additional laboratory studies revealed a white blood cell count of
12.7 K, and elevated bicarb which is noted to be chronic but otherwise unremarkable. The patient was admitted to [facility] that evening due to increased oxygen requirements and volume overloaded state, most likely in the setting of
congestive heart failure exacerbation, and/or COPD exacerbation complicated by his history of lymphedema and morbid obesity.
Initial treatment entailed admission to telemetry, increasing the patient's Lasix dose to 80 mg intravenously every 8-12 hours, and keeping an eye on his daily inputs, outputs, and daily weights. Supplemental oxygen was continued to keep his oxygen
saturation above 92% with as needed nebulizer treatment for wheezing. With regard to the patient's lymphedema, it was thought that the diuresis as noted above would be helpful. The cardiology team was consulted and they were in agreement, the
patient's shortness of breath is likely multifactorial in the setting of heart failure exacerbation, deconditioning, restrictive lung disease, morbid obesity, and potentially obstructive sleep apnea and/or obesity hypoventilation syndrome. They
attempted to obtain an updated echo, however this was a technically difficult study due to the patient's body habitus. After using contrast, left ventricular ejection fraction was found to be 60 to 65%, there were no significant valvular
abnormalities, and there were no significant changes from the prior study in June 2023 although right heart pressures could not be assessed. An SGLT2 inhibitor was added to the patient's regimen and weight loss was recommended. Although the
patient was losing weight via fluid, the patient also caloric weight loss. GLP-1 weight loss meds and/or surgery were encouraged., Was also consulted, who agreed with the assessment that the patient would benefit from weight loss/weight loss
counseling/weight loss medications and/or surgery. The hog dropper also discussed at length the potential for obstructive sleep apnea/obesity hypoventilation syndrome as a diagnosis, and as well as the complications of untreated sleep apnea.
Whenever these diagnoses were brought up, the patient would become angry and deny that this was a possible diagnosis, and would refuse workup despite the benefits and risks being reviewed with him at length. The patient continued to perseverate
that his only working diagnosis was lymphedema, refused to be worked up for other potential factorial conditions, and towards the end of his admission, demanded that he be discharged so that he would be able to make his appointment with the
lymphedema clinic on 01/16/2024. By 01/15/2024, the patient's condition was stable, and the patient was discharged home for outpatient follow-up with his primary care provider, lymphedema clinic, as well as the auto carrier driver and hog dropper if he
was willing.
In conclusion, the patient's home dose of Lasix 80 mg orally was continued, his home dose of spironolactone was continued, and Farxiga was added to the patient's regimen. The patient was instructed to follow-up with the lymphedema clinic. Patient
was advised to follow a better diet, consider weight loss meds such as Ozempic or Wegovy, or consider weight loss surgery, as this may be contributing to the patient's trouble breathing. A prior authorization form was sent with the patient to give
to his primary care provider for Zepbound. Although he is unwilling, it was recommended that the patient consider an outpatient sleep test or consider BiPAP. Additionally, the patient also had a chronic rash on his anterior chest and right
shoulder that was thought to be either due to contact dermatitis or tinea. It is recommended to add on an outpatient basis, the patient's primary care provider consider doing a MARIBEL prep or considering a trial of clotrimazole or triamcinolone cream.
The patient was discharged home on 01/15/2024.
Discharge Plan
-
Patient Disposition: Home (Routine Discharge)
Discharge Diagnosis/Procedures: Acute on chronic heart failure with preserved ejection fraction
Condition: Good
Diet: Other diet
Additional Diets: Fluid restriction of 1400 cc/day, heart healthy diet
Activity: As tolerated
Driving Restrictions: As prior to admission
Blood Work: BMP in 1 week, prescription from PCP
Specialty Instructions: Weigh Daily- Call MD for wt gain/loss 3 lbs overnight/5 lbs in 1 week
Instructions: *CBC Heart Failure Instructions
Referrals:
Arian Pickens, DO [Family Provider] - in less than 1 week
Prescriptions:
New
spironolactone 25 mg Tablet
25 mg PO DAILY Qty: 30 0RF
dapagliflozin propanediol 10 mg Tablet
10 mg PO DAILY Qty: 30 0RF
Continued
quetiapine 25 mg Tablet
25 mg PO HS
furosemide 80 mg Tablet
80 mg PO BID@0800,1600 Qty: 60 0RF
potassium chloride 10 mEq Tablet,Er Particles/Crystals
20 meq PO DAILY Qty: 30 0RF
duloxetine 30 mg Capsule,Delayed Release(Dr/Ec)
30 mg PO DAILY
gabapentin 100 mg capsule
200 mg PO TID
Discontinued
spironolactone [Aldactone] 25 mg tablet
12.5 mg PO DAILY Qty: 15 0RF
Discharge Orders:
Discharge Patient (As Directed); Ordered 01/15/24
Ordered By: Juan Mathis
Discharge Date and Time
Discharge Date/Time: 01/15/24 14:00
Print Language: IRISH
== END 2024-01-15 14:00 | disposition home or self-care (01) | DRG 291 ==
LOC: 4 EAST ACU 21:50
PROVIDERS: Physician Assistant; ADMITTING PHYSICIAN Internal Medicine; ATTENDING PHYSICIAN Internal Medicine; CONSULT PHYSICIAN Internal Medicine Cardiovascular Disease; EMERGENCY PHYSICIAN Emergency Medicine; FAMILY PHYSICIAN Family Medicine; OTHER PHYSICIAN Internal Medicine Critical Care Medicine
DX: I11.0 Hypertensive heart disease with heart failure (principal); I50.33 Acute on chronic diastolic (congestive) heart failure; J96.22 Acute and chronic respiratory failure with hypercapnia; J96.21 Acute and chronic respiratory failure with hypoxia; E66.2 Morbid (severe) obesity with alveolar hypoventilation; J98.11 Atelectasis; J96.12 Chronic respiratory failure with hypercapnia; E87.4 Mixed disorder of acid-base balance; Z68.43 Body mass index [BMI] 50.0-59.9, adult; E87.3 Alkalosis; J98.4 Other disorders of lung; F32.A Depression, unspecified; F41.9 Anxiety disorder, unspecified; R73.9 Hyperglycemia, unspecified; R16.2 Hepatomegaly with splenomegaly, not elsewhere classified; D53.9 Nutritional anemia, unspecified; R51.9 Headache, unspecified; R00.0 Tachycardia, unspecified; F17.290 Nicotine dependence, other tobacco product, uncomplicated; L25.9 Unspecified contact dermatitis, unspecified cause; I89.0 Lymphedema, not elsewhere classified; J44.9 Chronic obstructive pulmonary disease, unspecified; Z99.81 Dependence on supplemental oxygen; Z11.52 Encounter for screening for COVID-19; Z86.16 Personal history of COVID-19; Z88.5 Allergy status to narcotic agent; Z80.3 Family history of malignant neoplasm of breast; Z82.49 Family history of ischemic heart disease and other diseases of the circulatory system
CPT/HCPCS: 71046; 80048; 80053; 83735; 83880; 84100; 84484; 85025; 85027; 87502; 87811; 93005; 93306; 96374; 99285; Q9950

== ENCOUNTER 2024-01-27 12:35 | Outpatient (RCR) | payer OTHER, SELFPAY | END 2024-01-27 23:59 | disposition home or self-care (01) | LOC: RPT 12:35 | PROVIDERS: ATTENDING PHYSICIAN Family Medicine | DX: I89.0 Lymphedema, not elsewhere classified (principal); Z73.6 Limitation of activities due to disability | CPT/HCPCS: 97016; 97110; 97140; 97530 ==

== ENCOUNTER 2024-02-24 11:32 | Outpatient (RCR) | payer OTHER, SELFPAY | END 2024-02-24 23:59 | disposition home or self-care (01) | LOC: RPT 11:32 | PROVIDERS: ATTENDING PHYSICIAN Family Medicine | DX: I89.0 Lymphedema, not elsewhere classified (principal); Z73.6 Limitation of activities due to disability | CPT/HCPCS: 97110; 97140 ==

== ENCOUNTER 2024-08-25 07:47 | Outpatient (RCR) | payer OTHER, SELFPAY | END 2024-08-25 23:59 | disposition home or self-care (01) | LOC: RPT 07:47 | PROVIDERS: ATTENDING PHYSICIAN Family Medicine | DX: I89.0 Lymphedema, not elsewhere classified (principal); E66.01 Morbid (severe) obesity due to excess calories; Z73.6 Limitation of activities due to disability | CPT/HCPCS: 97163; 97530 ==

== ENCOUNTER 2024-09-23 13:19 | Outpatient (RCR) | payer OTHER, SELFPAY | END 2024-09-23 23:59 | disposition home or self-care (01) | LOC: RPT 13:19 | PROVIDERS: ATTENDING PHYSICIAN Family Medicine | DX: I89.0 Lymphedema, not elsewhere classified (principal); E66.01 Morbid (severe) obesity due to excess calories; Z73.6 Limitation of activities due to disability | CPT/HCPCS: 97140; 97530 ==

== ENCOUNTER 2024-10-27 11:53 | Outpatient (RCR) | payer OTHER, SELFPAY | END 2024-10-27 23:59 | disposition home or self-care (01) | LOC: RPT 11:53 | PROVIDERS: ATTENDING PHYSICIAN Family Medicine | DX: I89.0 Lymphedema, not elsewhere classified (principal); E66.01 Morbid (severe) obesity due to excess calories; Z73.6 Limitation of activities due to disability | CPT/HCPCS: 97016; 97140; 97530 ==

== ENCOUNTER 2024-11-26 11:47 | Outpatient (RCR) | payer OTHER, SELFPAY | END 2024-11-26 23:59 | disposition home or self-care (01) | LOC: RPT 11:47 | PROVIDERS: ATTENDING PHYSICIAN Family Medicine | DX: I89.0 Lymphedema, not elsewhere classified (principal); E66.01 Morbid (severe) obesity due to excess calories; Z73.6 Limitation of activities due to disability | CPT/HCPCS: 97016; 97140; 97530 ==

== ENCOUNTER 2024-12-22 08:35 | Outpatient (RCR) | payer OTHER, SELFPAY | END 2024-12-22 23:59 | disposition home or self-care (01) | LOC: RPT 08:35 | PROVIDERS: ATTENDING PHYSICIAN Family Medicine | DX: I89.0 Lymphedema, not elsewhere classified (principal); E66.01 Morbid (severe) obesity due to excess calories; Z73.6 Limitation of activities due to disability | CPT/HCPCS: 97140 ==

== ENCOUNTER 2025-01-20 10:28 | Outpatient (RCR) | payer OTHER, SELFPAY | END 2025-01-20 23:59 | disposition home or self-care (01) | LOC: RPT 10:28 | PROVIDERS: ATTENDING PHYSICIAN Family Medicine | DX: I89.0 Lymphedema, not elsewhere classified (principal); E66.01 Morbid (severe) obesity due to excess calories; Z73.6 Limitation of activities due to disability | CPT/HCPCS: 97140 ==

== ENCOUNTER 2025-02-03 12:30 | Outpatient (RCR) | payer OTHER, SELFPAY | END 2025-02-03 23:59 | disposition home or self-care (01) | LOC: RPT 12:30 | PROVIDERS: ATTENDING PHYSICIAN Family Medicine | DX: I89.0 Lymphedema, not elsewhere classified (principal); E66.01 Morbid (severe) obesity due to excess calories; Z73.6 Limitation of activities due to disability | CPT/HCPCS: 97110; 97140 ==